=== PATIENT | female | born 1930 | race Caucasian/White ===

== ENCOUNTER 2017-01-07 10:42 | Inpatient (IN) | payer OTHER, MEDICARE ==
--- NOTE | 2017-01-07 10:49 | PDOC ---
History of Present Illness - General History Source: Patient, Family, Primary Care Provider Exam Limitations: No Limitations - History of Present Illness Initial Comments: 01/07/17 11:20 The patient is a 86 year old female with significant past medical history of chronic diastolic heart failure, paroxysmal atrial fibrillation, mitral regurgitation, hypertension, hypothyroidism, stage 3 CKD, and anemia who presents to the ED sent by PCP for low blood pressure and fluid overload. Patient has no complaints. Family, at bedside, states she was seen by her PMD about an hour prior to arrival when she was noted to have low blood pressure and sent to the ER for further evaluation. States patients lasix was increased [address] Escalante. The patient denies fever, chills, diaphoresis, cough, SOB, chest pain, and palpitations. The patient denies abdominal pain, nausea, vomiting, and diarrhea. Allergies: NKDA Social History: No alcohol, tobacco, or drug use reported. Past Surgical History: cataract surgery PCP: Dr. Canas Director Employment: Dr. Chuck Escalante <Brandi Dodge - Last Filed: 01/07/17 12:16> <Sugar Russo - Last Filed: 01/07/17 12:26> - General Chief Complaint: Blood Pressure Problem Stated Complaint: LOW BP Time Seen by Provider: 01/07/17 10:48 Past History <Brandi Dodge - Last Filed: 01/07/17 12:16> - Past Medical History Anemia: Yes Asthma: No Cancer: No Cardiac Disorders: Yes (afib) CVA: No COPD: Yes (Diagnosed 2 yrs ago but family feels that pt is asymptomatic) CHF: Yes Dementia: No Diabetes: No GI Disorders: Yes (Abdominal distention; diverticulitis) Disorders: Yes (hx of uti) HTN: Yes Hypercholesterolemia: Yes Liver Disease: No Seizures: No Thyroid Disease: Yes - Surgical History Abdominal Surgery: No Appendectomy: No Cardiac Surgery: No Cholecystectomy: No Lung Surgery: No Neurologic Surgery: No Orthopedic Surgery: No - Psycho/Social/Smoking Cessation Hx Anxiety: No Suicidal Ideation: No Smoking History: Never smoked Hx Alcohol Use: No Drug/Substance Use Hx: No Substance Use Type: None Hx Substance Use Treatment: No <Sugar Russo - Last Filed: 01/07/17 12:26> - Past Medical History Allergies/Adverse Reactions: Allergies Allergy/AdvReac Type Severity Reaction Status Date / Time No Known Allergies Allergy Verified 01/07/17 10:57 Home Medications: Ambulatory Orders Apixaban [Eliquis] 2.5 mg PO DAILY 01/07/17 Carvedilol 9.375 mg PO BID 01/07/17 Docusate Sodium [Colace -] 100 mg PO BID 01/07/17 Furosemide [Lasix] 40 mg PO BID 01/07/17 Levothyroxine [Synthroid -] 50 mcg PO DAILY 01/07/17 Metolazone 2.5 mg PO DAILY 01/07/17 Sennosides/Docusate Sodium [Senna Laxative Tablet] 2 tab PO HS 01/07/17 Review of Systems - Review of Systems Able to Perform ROS?: Yes Comments:: 01/07/17 11:20 GENERAL/CONSTITUTIONAL: No fever or chills. No weakness. HEAD, EYES, EARS, NOSE AND THROAT: No change in vision. No ear pain or discharge. No sore throat. CARDIOVASCULAR: No chest pain or shortness of breath. RESPIRATORY: No cough, wheezing, or hemoptysis. GASTROINTESTINAL: No nausea, vomiting, diarrhea or constipation. GENITOURINARY: No dysuria, frequency, or change in urination. MUSCULOSKELETAL: No joint or muscle swelling or pain. No neck or back pain. SKIN: No rash NEUROLOGIC: No headache, vertigo, loss of consciousness, or change in strength/ sensation. ENDOCRINE: No increased thirst. No abnormal weight change. HEMATOLOGIC/LYMPHATIC: No anemia, easy bleeding, or history of blood clots. ALLERGIC/IMMUNOLOGIC: No hives or skin allergy. <Brandi Dodge - Last Filed: 01/07/17 12:16> *Physical Exam - Vital Signs Last Vital Signs Temp Pulse Resp BP Pulse Ox 58 L 16 106/61 97 01/07/17 11:08 01/07/17 10:57 01/07/17 10:57 01/07/17 11:08 - Physical Exam Comments: 01/07/17 11:20 GENERAL: Awake, alert, and fully oriented, in no acute distress HEAD: No signs of trauma EYES: PERRLA, EOMI, sclera anicteric, conjunctiva clear ENT: Auricles normal inspection, hearing grossly normal, nares patent, oropharynx clear without exudates. Moist mucosa NECK: Normal ROM, supple, no lymphadenopathy, JVD, or masses LUNGS: Breath sounds equal, clear to auscultation bilaterally. No wheezes, and no crackles HEART: Regular rate and rhythm, normal S1 and S2, no rubs or gallops. Systolic ejection murmur. ABDOMEN: Soft, nontender, normoactive bowel sounds. No guarding, no rebound. No masses EXTREMITIES: Normal range of motion. +1 pitting edema bilaterally, left greater than right. No clubbing or cyanosis. No cords or tenderness. Slight redness in left lower extremity (requested by PMD for further evaluation). NEUROLOGICAL: Cranial nerves II through XII grossly intact. Normal speech SKIN: Warm, Dry, normal turgor, no rashes or lesions noted. <Brandi Dodge - Last Filed: 01/07/17 12:16> ED Treatment Course - LABORATORY CBC & Chemistry Diagram: 01/07/17 11:19 01/07/17 11:07 - RADIOLOGY Radiograph Interpretation: 01/07/17 11:24 RAD/CHEST X-RAY PORTABLE* Radiologist's Impression: The left lower lateral chest wall was not included on this exam. Since 07/08/2016, the cardiac silhouette remains moderately enlarged allowing for magnification with unfolding of the aortic arch.. A calcified density is again seen along the right paratracheal margin , just above the level of the gordon measuring 2.2 x 1.1 cm compatible with a calcified lymph node. There are mild perihilar increased lung markings. No focal infiltrates are identified. Left lateral costophrenic angle was not included on this exam. Mild the low scoliosis of the lumbar spine. Visualized osseous structures appear intact impression: Images examination, as described above. Left lower lateral chest wall and lateral margin of the left lateral costophrenic angle was not included. Moderate cardiomegaly. No gross acute lung disease is present. <Brandi Dodge - Last Filed: 01/07/17 12:16> - LABORATORY CBC & Chemistry Diagram: 01/07/17 11:19 01/07/17 11:07 <Sugar Russo - Last Filed: 01/07/17 12:26> Medical Decision Making - Medical Decision Making 01/07/17 12:16 Pagegilmer Escalante (via office) Awaiting call back <Brandi Dodge - Last Filed: 01/07/17 12:16> - Medical Decision Making 01/07/17 12:23 I, Dr. Sugar Russo DO, attest that this document has been prepared under my direction and personally reviewed by me in its entirety. I further attest, that it accurately reflects all work, treatment, procedures and medical decision -making performed by me. 01/07/17 12:23 a/p: 86yo female sent for eval of leg swelling, hypotension -bp low but not hypotensive upon arrival -labs -ekg -cxr -will discuss with DR. Canas 01/07/17 12:23 labs reviewed, discussed with DR. Canas. recent h/h 8.7/27.4 recent bun/cr: 65/1.52 a1c: 5.7 tsh: 4.18 b12: 361 iron: 40 01/07/17 12:25 case discuss with hospitalist DILLAN Orellana - pt with CHF exacerbation with MIKE on CKD. accepts pt for admission <Sugar Russo - Last Filed: 01/07/17 12:26> *DC/Admit/Observation/Transfer - Attestations Scribe Attestion: 01/07/17 11:20 Documentation prepared by Brandi Dodge, acting as medical services manager for Sugar Russo DO, MD/. <Brandi Dodge - Last Filed: 01/07/17 12:16> - Discharge Dispostion Admit: Yes <Sugar Russo - Last Filed: 01/07/17 12:26> Diagnosis at time of Disposition: Acute kidney injury Acute on chronic congestive heart failure Qualifiers: Congestive heart failure type: unspecified congestive heart failure type Qualified Code(s): I50.9 - Heart failure, unspecified - Discharge Dispostion Condition at time of disposition: Guarded
[2017-01-07 11:09] VITALS: BMI 24.9
[2017-01-07 11:26] LABS: BASOPHIL 0.4 % (0-2.0); MCH 30.6 pg (25.7-33.7); MCHC 32.8 g/dl (32.0-36.0); MEAN CELL VOLUME 93.4 fl (80-96); MEAN PLT VOLUME 7.9 fl (7.5-11.1); NEUTROPHILS 71.5 % (42.8-82.8); PLATELET COUNT 186 K/MM3 (134-434); RDW 14.4 % (11.6-15.6); WHITE BLOOD COUNT 8.1 K/mm3 (4.0-10.0)
[2017-01-07 11:57] LABS: ALBUMIN 2.9 g/dl (3.4-5.0); ALK PHOS 140 U/L (45-117); ANION GAP 10 (8-16); BILIRUBIN,TOTAL 0.5 mg/dL (0.2-1.0); CALCIUM 8.7 mg/dL (8.5-10.1); CO2 37 mmol/L (21-32); CPK 211 IU/L (26-192); CREATININE 1.8 mg/dL (0.55-1.02); GLUCOSE,RANDOM 159 mg/dL (74-106); SGOT/AST 28 U/L (15-37); SGPT/ALT 19 U/L (12-78); TOT PROT 6.4 g/dl (6.4-8.2)
[2017-01-07 11:59] LABS: TROPONIN I 0.17 ng/ml (0.00-0.05)
[2017-01-07] MEDS ORDERED: POTASSIUM CHLORIDE TABS 20 MEQ TABLET.ER (FP) PO ONE ×2 (13:24→13:44)
[2017-01-07] MEDS ORDERED: ONDANSETRON 4 MG/2 ML VIAL IVPB PRN (13:33)
--- NOTE | 2017-01-07 13:35 | HP ---
CHIEF COMPLAINT: Swelling PCP: Dr. Canas (neighbor, dose home visits) HISTORY OF PRESENT ILLNESS: This is an 86 year old female with a history of diverticulitis, hypothyroidism, HTN, PAF on Eliquis, and dCHF referred to the ED by her tenant/PCP who noticed that she had worsening LE edema and was borderline hypotensive (90s systolic) today. The patient denies all complaints. ER course was notable for: (1) CXR: Moderate cardiomegaly, increased interstitial lung markings (2) Cr 1.8 (1.2 on prior visit in July) (3) Troponin elevated at 0.17 (4) BPN 9323 Recent Travel: None PAST MEDICAL HISTORY: As above PAST SURGICAL HISTORY: None Social History: Lives alone, independent in ADLs Smoking: Never smoker Alcohol: None Family History: Non-contributory to this admission Allergies No Known Allergies Allergy (Verified 01/07/17 10:57) HOME MEDICATIONS: Home Medications Medication Instructions Recorded Apixaban [Eliquis] 2.5 mg PO DAILY 01/07/17 Carvedilol 9.375 mg PO BID 01/07/17 Docusate Sodium [Colace -] 100 mg PO BID 01/07/17 Furosemide [Lasix] 40 mg PO BID 01/07/17 Levothyroxine [Synthroid -] 50 mcg PO DAILY 01/07/17 Metolazone 2.5 mg PO DAILY 01/07/17 Sennosides/Docusate Sodium [Senna 2 tab PO HS 01/07/17 Laxative Tablet] REVIEW OF SYSTEMS CONSTITUTIONAL: Absent: fever, chills, diaphoresis, generalized weakness, malaise, loss of appetite, weight change HEENT: Absent: rhinorrhea, nasal congestion, throat pain, throat swelling, difficulty swallowing, mouth swelling, ear pain, eye pain, visual changes CARDIOVASCULAR: Absent: chest pain, syncope, palpitations, irregular heart rate, lightheadedness , peripheral edema RESPIRATORY: Absent: cough, shortness of breath, dyspnea with exertion, orthopnea, wheezing, stridor, hemoptysis GASTROINTESTINAL: Absent: abdominal pain, abdominal distension, nausea, vomiting, diarrhea, constipation, melena, hematochezia GENITOURINARY: Absent: dysuria, frequency, urgency, hesitancy, hematuria, flank pain, genital pain MUSCULOSKELETAL: Absent: myalgia, arthralgia, joint swelling, back pain, neck pain SKIN: Absent: rash, itching, pallor HEMATOLOGIC/IMMUNOLOGIC: Absent: easy bleeding, easy bruising, lymphadenopathy, frequent infections ENDOCRINE: Absent: unexplained weight gain, unexplained weight loss, heat intolerance, cold intolerance NEUROLOGIC: Absent: headache, focal weakness or paresthesias, dizziness, unsteady gait, seizure, mental status changes, bladder or bowel incontinence PSYCHIATRIC: Absent: anxiety, depression, suicidal or homicidal ideation, hallucinations. PHYSICAL EXAMINATION Vital Signs - 24 hr 01/07/17 12:53 O2 Sat by Pulse 97 Oximetry (%) GENERAL: Awake, alert, and fully oriented, in no acute distress. HEAD: Normal with no signs of trauma. EYES: Pupils equal, round and reactive to light, extraocular movements intact, sclera anicteric, conjunctiva clear. No lid lag. EARS, NOSE, THROAT: Ears normal, nares patent, oropharynx clear without exudates. Moist mucous membranes. NECK: Normal range of motion, supple without lymphadenopathy, JVD, or masses. LUNGS: Soft systolic murmur. Fine rails at bases. HEART: Regular rate and rhythm, normal S1 and S2 without murmur, rub or gallop. ABDOMEN: Soft, nontender, not distended, normoactive bowel sounds, no guarding, no rebound, no masses. No hepatomegaly or splenomegaly. MUSCULOSKELETAL: Normal range of motion at all joints. No bony deformities or tenderness. No CVA tenderness. UPPER EXTREMITIES: 2+ pulses, warm, well-perfused. No cyanosis. No clubbing. No peripheral edema. LOWER EXTREMITIES: 2+ pulses, warm, well-perfused. No calf tenderness. 2+ pitting LE edema bilaterally with mild erythema and warmth. NEUROLOGICAL: Cranial nerves II-XII intact. Normal speech. Normal gait. PSYCHIATRIC: Cooperative. Good eye contact. Appropriate mood and affect. SKIN: Warm, dry, normal turgor, no rashes or lesions noted, normal capillary refill. ASSESSMENT/PLAN: 86 year old female with MIKE in the setting of exacerbation of CHF. Problem List - Problem (1) MIKE (acute kidney injury) Assessment/Plan: -Suspect prerenal in the setting of CHF exacerbation -Send urine electrolytes, calculate FENa -Renal consultations for recommendations re: diuretics: recommend continuing Lasix and holding Metolazone Code(s): N17.9 - ACUTE KIDNEY FAILURE, UNSPECIFIED (2) CHF exacerbation Assessment/Plan: -Continue Coreg, Lasix -Strict I/O -Daily weights -Sodium-controlled diet Code(s): I50.9 - HEART FAILURE, UNSPECIFIED Qualifiers: Congestive heart failure type: unspecified congestive heart failure type Qualified Code(s): I50.9 - Heart failure, unspecified (3) Hypertensive heart and chronic kidney disease stage 3 Assessment/Plan: -Renal evaluation; patient has not seen a amalgamator Code(s): I13.10 - HYP HRT & CHR KDNY DIS W/O HRT FAIL, W STG 1-4/UNSP CHR KDNY N18.3 - CHRONIC KIDNEY DISEASE, STAGE 3 (MODERATE) (4) Hypothyroid Assessment/Plan: -Continue levothyroxine Code(s): E03.9 - HYPOTHYROIDISM, UNSPECIFIED Qualifiers: Hypothyroidism type: unspecified Qualified Code(s): E03.9 - Hypothyroidism, unspecified (5) PAF (paroxysmal atrial fibrillation) Assessment/Plan: -Continue Eliquis for AC Code(s): I48.0 - PAROXYSMAL ATRIAL FIBRILLATION (6) Elevated troponin Assessment/Plan: -Monitor on telemetry -Serial troponins to rule out VT Code(s): R74.8 - ABNORMAL LEVELS OF OTHER SERUM ENZYMES (7) Hypokalemia Assessment/Plan: -Replete Code(s): E87.6 - HYPOKALEMIA (8) Lower extremity edema Assessment/Plan: -Suspect secondary to CHF, however also with warmth/erythema -Ancef 1g q8h for possible cellulitis -Duplex LE to r/o DVT Code(s): R60.0 - LOCALIZED EDEMA (9) Anemia Assessment/Plan: -Chronic, baseline Code(s): D64.9 - ANEMIA, UNSPECIFIED Qualifiers: Anemia type: unspecified type Qualified Code(s): D64.9 - Anemia, unspecified (10) DVT prophylaxis Assessment/Plan: -Eliquis Code(s): [id number] - Visit type - Emergency Visit Emergency Visit: Yes ED Registration Date: 01/07/17 Care time: The patient presented to the Emergency Department on the above date and was hospitalized for further evaluation of their emergent condition. - New Patient This patient is new to me today: Yes Date on this admission: 01/07/17 - Critical Care Critical Care patient: No
[2017-01-07] MEDS ORDERED: POTASSIUM CHLORIDE ORAL LIQUID 20 MEQ/15 ML ONE (13:52)
--- NOTE | 2017-01-07 16:40 | CON.NEP ---
Consult Consult Specialty:: Nephrolgoy (Jefry/Marek) Referred by:: Reyna Tavarez Reason for Consultation:: MIKE on CKD - History of Present Illness Chief Complaint: LE swelling History of Present Illness: This is a 86 year old woman with PMhx of CHF (diastolic dysfunction), MR, Hypertension, P-Afib, Hypertension, CKD Stage 3 (baseline Cr 1.1-1.2) presented to the ED with LE swelling and found to have BUN/Cr of 108/1.8. Pt has been on Lasix and Metolazone that was recently stated as a outpatient. Family reports that weight when she is evolemic is around 119lbs. Denies any nsaid use or recent contrast exposure. No Abx use. Denies any urinary retention. No rash. Daughter reports that the legs are much better now then then had been before the motolazone. No flank pain, N/V/D. - History Source History Provided By: Patient Limitations to Obtaining History: No Limitations - Past Medical History Cardio/Vascular: Yes: CAD, CHF, HTN, [place] - Alcohol/Substance Use Hx Alcohol Use: No - Smoking History Smoking history: Never smoked Home Medications - Allergies Allergies/Adverse Reactions: Allergies Allergy/AdvReac Type Severity Reaction Status Date / Time No Known Allergies Allergy Verified 01/07/17 10:57 - Home Medications Home Medications: Ambulatory Orders Apixaban [Eliquis] 2.5 mg PO DAILY 01/07/17 Carvedilol 9.375 mg PO BID 01/07/17 Docusate Sodium [Colace -] 100 mg PO BID 01/07/17 Furosemide [Lasix] 40 mg PO BID 01/07/17 Levothyroxine [Synthroid -] 50 mcg PO DAILY 01/07/17 Metolazone 2.5 mg PO DAILY 01/07/17 Sennosides/Docusate Sodium [Senna Laxative Tablet] 2 tab PO HS 01/07/17 Family Disease History - Family Disease History Family History: Unremarkable Review of Systems - Review of Systems Constitutional: reports: No Symptoms Eyes: reports: No Symptoms HENT: reports: No Symptoms Neck: reports: No Symptoms Cardiovascular: reports: Edema Respiratory: reports: No Symptoms Gastrointestinal: reports: No Symptoms Genitourinary: reports: No Symptoms Breasts: reports: No Symptoms Reported Musculoskeletal: reports: Muscle Cramps Neurological: reports: No Symptoms Nephrology Consult - Height Height: 5 ft 4 in - Weight Weight: 145 lb - BMI Body Mass Index (BMI): 24.9 - Lab Results Anion Gap: Anion Gap Anion Gap 10 (8-16) 01/07/17 11:07 - Imaging Chest X-ray: Report Reviewed - Physical Examination Vital Signs: Vital Signs Temperature 98.1 F 01/07/17 14:27 Pulse Rate 98 H 01/07/17 14:27 Respiratory Rate 20 01/07/17 14:27 Blood Pressure 97/64 01/07/17 14:27 O2 Sat by Pulse Oximetry (%) 96 01/07/17 14:27 Constitutional: Yes: No Distress, Calm Eyes: Yes: Conjunctiva Clear HENT: Yes: Atraumatic Neck: Yes: Supple Cardiovascular: Yes: Regular Rate and Rhythm Respiratory: Yes: Regular, CTA Bilaterally Gastrointestinal: Yes: Normal Bowel Sounds, Soft Extremities: Yes: Erythema, Other (tenderness and warmth) Edema: Yes Edema: LLE: 1+, RLE: 1+ Neurological: Yes: Alert, Oriented Problem List - Problems (1) MIKE (acute kidney injury) Code(s): N17.9 - ACUTE KIDNEY FAILURE, UNSPECIFIED (2) CHF exacerbation Code(s): I50.9 - HEART FAILURE, UNSPECIFIED Qualifiers: Congestive heart failure type: unspecified congestive heart failure type Qualified Code(s): I50.9 - Heart failure, unspecified (3) Hypokalemia Code(s): E87.6 - HYPOKALEMIA (4) Acute on chronic diastolic CHF (congestive heart failure) Code(s): I50.33 - ACUTE ON CHRONIC DIASTOLIC (CONGESTIVE) HEART FAILURE (5) Edema Code(s): R60.9 - EDEMA, UNSPECIFIED Qualifiers: Edema type: unspecified Qualified Code(s): R60.9 - Edema, unspecified (6) Hypertension Code(s): I10 - ESSENTIAL (PRIMARY) HYPERTENSION Qualifiers: Hypertension type: essential hypertension Qualified Code(s): I10 - Essential (primary) hypertension Assessment/Plan 86 year old woman with PMhx of CHF (diastolic dysfunction), MR, Hypertension, P- Afib, Hypertension, CKD Stage 3 (baseline Cr 1.1-1.2) presented to the ED with LE swelling and found to have BUN/Cr of 108/1.8. #MIKE on CKD Stage 3 Likely due to hypoprofusion in setting of intravascular volume depletion (Lasix + Metolazone) Pt with signs of mild volume overlaod so would continue Lasix but would hold Metolazone at this time Check Urine studies and Renal/Bladder Us Trend BUN/Cr #LE swelling/Erythema/CHF No orthopena, PND no overt congestion on CXR continue BID lasix consider Abx for LE as pt has warmth and erythema #Hx of Hypertension BP is now low contnue lasix Trend BP keep MAP > 65 #Hypokalemia supplement to keep K > 3.5 trend Mg levels Thank you Will follow Kenn Jara DO
[2017-01-07] MEDS ORDERED: FUROSEMIDE 40 MG/4 ML INJECTABLE VIAL ONE (17:48)
[2017-01-07] MEDS: FUROSEMIDE 40 MG TABLET (FP) PO SCH (18:14)
[2017-01-07 20:34] LABS: TROPONIN I 0.16 ng/ml (0.00-0.05)
[2017-01-07] MEDS ORDERED: CEFAZOLIN (PRE-DOCKED) 50 ML IVPB ONE (21:50)
[2017-01-07] MEDS ORDERED: CARVEDILOL 3.125 MG TABLET (FP) PO SCH (22:00)
[2017-01-07] MEDS ORDERED: DOCUSATE SODIUM 100 MG CAPSULE (FP) PO ONE (22:18)
[2017-01-07] MEDS: CEFAZOLIN 1 GM in DEXTROSE 5%-WATER - 50 ML IVPB SCH (22:47)
[2017-01-07] MEDS: ACETAMINOPHEN 325 MG TABLET (FP) PO PRN (23:00)
[2017-01-07] MEDS ORDERED: ACETAMINOPHEN 325 MG TABLET (FP) ONE (23:25)
[2017-01-07] MEDS: DOCUSATE SODIUM 100 MG CAPSULE (FP) PO SCH (23:33)
[2017-01-07] MEDS: APIXABAN 2.5 MG TABLET PO SCH (23:33)
[2017-01-07] MEDS: SENNOSIDES/DOCUSATE COMBO (SENNA PLUS) TABLET (UD) PO SCH (23:33)
[2017-01-07] MEDS: CARVEDILOL PO SCH (23:34)
[2017-01-08] MEDS ORDERED: CEFAZOLIN (PRE-DOCKED) 50 ML IVPB ONE (05:46)
[2017-01-08] MEDS: CEFAZOLIN 1 GM in DEXTROSE 5%-WATER - 50 ML IVPB SCH (05:59)
[2017-01-08] MEDS: FUROSEMIDE 40 MG TABLET (FP) PO SCH ×2 (05:59→14:06)
[2017-01-08] MEDS: LEVOTHYROXINE NA 50 MCG TABLET (FP) PO SCH (06:00)
[2017-01-08 06:24] LABS: MCH 31.3 pg (25.7-33.7); MCHC 33.6 g/dl (32.0-36.0); MEAN PLT VOLUME 8.1 fl (7.5-11.1); PLATELET COUNT 212 K/MM3 (134-434); RDW 14.7 % (11.6-15.6); WHITE BLOOD COUNT 6.7 K/mm3 (4.0-10.0)
[2017-01-08 06:47] LABS: ALBUMIN 2.8 g/dl (3.4-5.0); ANION GAP 8 (8-16); CHOLESTEROL 149 mg/dL (50-200); CO2 35 mmol/L (21-32); GLUCOSE,RANDOM 125 mg/dL (74-106); MAGNESIUM 2.2 mg/dL (1.8-2.4)
[2017-01-08 06:50] LABS: ALK PHOS 132 U/L (45-117); BILIRUBIN,TOTAL 0.4 mg/dL (0.2-1.0); CPK 198 IU/L (26-192); CREATININE 1.5 mg/dL (0.55-1.02); SGOT/AST 32 U/L (15-37); SGPT/ALT 18 U/L (12-78); TOT PROT 6.4 g/dl (6.4-8.2); TROPONIN I 0.19 ng/ml (0.00-0.05)
[2017-01-08 07:05] LABS: CALCIUM 8.7 mg/dL (8.5-10.1)
[2017-01-08] MEDS ORDERED: POTASSIUM CHLORIDE TABS 20 MEQ TABLET.ER (FP) PO ONE ×3 (08:33→13:30)
[2017-01-08] MEDS ORDERED: CARVEDILOL 3.125 MG TABLET (FP) ONE (08:42)
[2017-01-08] MEDS: CARVEDILOL PO SCH (08:46)
[2017-01-08] MEDS ORDERED: ACETAMINOPHEN 325 MG TABLET (FP) ONE (09:00)
[2017-01-08] MEDS: ACETAMINOPHEN 325 MG TABLET (FP) PO PRN (09:02)
[2017-01-08] MEDS: DOCUSATE SODIUM 100 MG CAPSULE (FP) PO SCH ×2 (09:26→21:41)
[2017-01-08] MEDS: APIXABAN 2.5 MG TABLET PO SCH ×2 (09:26→21:41)
[2017-01-08 09:55] LABS: PHOSPHOROUS 3.6 mg/dL (2.5-4.9)
[2017-01-08] MEDS ORDERED: APIXABAN 2.5 MG TABLET PO SCH (10:00)
[2017-01-08] MEDS ORDERED: METOLAZONE 2.5 MG TABLET (FP) PO SCH (10:00)
--- NOTE | 2017-01-08 10:22 | CON.CARD ---
Consult Consult Specialty:: Cardiology Referred by:: Hospitalist Reason for Consultation:: Cardiac evaluation - History of Present Illness Chief Complaint: Weakness and fatigue History of Present Illness: Patient is an 86 year old female well known to me with underlying history of acute on chronic diastolic heart failure, class II NYHA classification LV failure, hypothyroidism, hypertention, paroxysmal atrial fibrillation remains in sinus rhythm on Eliquis who presents with worsening weakness and fatigue. She also presented with pedal edema and hypotension. She has stage 3 CKD, anemia and mitral valve regurgitation. Transthoracic echocardiography in the office revealed normal left ventricular systolic function, moderate mitral valve regurgitation. mild mitral valve prolapse, moderate tricuspid valve regurgitation, mild to moderate aortic valve regurgitation and mild pulmonary hypertension. Doppler US did not reveal DVT. Patient was given IV Furosemide and currently pedal edema has come down. She appears comfortable and denies chest pain, shortness of breath or palpitations. She denies paroxysmal nocturnal dyspnea or orthopnea. She denies fever or chills. She denies headache or lightheadedness. She apparently has been taking higher dose of Carvedilol and even in the ER, she was prescribed higher dose of Carvedilol even though she was recommended to take 3.125 mg twice a day when she was seen in office on 12/24/16. Monitor revealed periods of sinus bradycardia in 30's intermittently. Wide complex rhythm on the monitor appears to be an artifact. - History Source History Provided By: Patient, Family Member, Medical Record Limitations to Obtaining History: No Limitations - Past Medical History Cardio/Vascular: Yes: CAD, CHF, HTN, OK, Mitral Insufficiency Renal/: Yes: Renal Inusuff Heme/Onc: Yes: Anemia Endocrine: Yes: Hypothyroidism - Alcohol/Substance Use Hx Alcohol Use: No - Smoking History Smoking history: Never smoked Home Medications - Allergies Allergies/Adverse Reactions: Allergies Allergy/AdvReac Type Severity Reaction Status Date / Time No Known Allergies Allergy Verified 01/07/17 10:57 - Home Medications Home Medications: Ambulatory Orders Apixaban [Eliquis] 2.5 mg PO DAILY 01/07/17 Carvedilol 9.375 mg PO BID 01/07/17 Docusate Sodium [Colace -] 100 mg PO BID 01/07/17 Furosemide [Lasix] 40 mg PO BID 01/07/17 Levothyroxine [Synthroid -] 50 mcg PO DAILY 01/07/17 Metolazone 2.5 mg PO DAILY 01/07/17 Sennosides/Docusate Sodium [Senna Laxative Tablet] 2 tab PO HS 01/07/17 Family Disease History - Family Disease History Family Disease History: Heart Disease: Mother, CA: Father (Prostate) Review of Systems - Review of Systems Constitutional: reports: Weakness. denies: Chills, Fever Cardiovascular: reports: Shortness of Breath. denies: Chest Pain, Palpitations Respiratory: reports: SOB. denies: Cough, Hemoptysis, Orthopnea, PND Gastrointestinal: denies: Abdominal Pain, Constipation, Diarrhea, Melena, Nausea , Rectal Bleeding, Vomiting Musculoskeletal: reports: Joint Pain Neurological: reports: Weakness. denies: Confusion, Dizziness, Headache, Seizure, Syncope Vital Signs: Vital Signs Temperature 97.8 F 01/08/17 06:00 Pulse Rate 57 L 01/08/17 09:03 Respiratory Rate 24 01/08/17 09:03 Blood Pressure 104/72 01/08/17 09:03 O2 Sat by Pulse Oximetry (%) 97 01/08/17 06:48 Neck: Yes: Supple Respiratory: Yes: Diminished Gastrointestinal: Yes: Normal Bowel Sounds, Soft. No: Tenderness Cardiovascular: Yes: Regular Rate and Rhythm JVD: No Carotid Bruit: No PMI: Non-Displaced Heart Sounds: Yes: S1, S2 Murmur: Yes: Systolic Murmur, Grade 1 Edema: No - Other Data Labs, Other Data: CBC, BMP 01/08/17 06:00 01/08/17 06:00 Troponin, BNP 01/07/17 01/08/17 19:29 06:00 Troponin I 0.16 H 0.19 H Laboratory Results - last 24 hr 01/07/17 01/07/17 01/07/17 11:07 19:29 19:48 WBC RBC Hgb Hct MCV MCH MCHC RDW Plt Count MPV Sodium 137 Potassium 3.3 L D Chloride 90 L D Carbon Dioxide 37 H D Anion Gap 10 BUN 104 H D Creatinine 1.8 H D Creat Clearance w eGFR 26.62 Random Glucose 159 H D Hemoglobin A1c % Calcium 8.7 Phosphorus Magnesium Total Bilirubin 0.5 AST 28 D ALT 19 Alkaline Phosphatase 140 H Creatine Kinase 211 H 164 Creatine Kinase Index 2.0 1.7 CK-MB (CK-2) 4.381 H 2.827 Troponin I 0.17 H 0.16 H B-Natriuretic Peptide 9323.86 H Total Protein 6.4 Albumin 2.9 L Triglycerides Cholesterol Total LDL Cholesterol HDL Cholesterol Urine Color Urine Appearance Urine pH Urine Protein Urine Glucose (UA) Urine Ketones Urine Blood Urine Nitrite Urine Bilirubin Urine Urobilinogen Ur Leukocyte Esterase Urine RBC Urine WBC Hyaline Casts Urine Mucus Ur Random Sodium Ur Random Potassium Ur Random Chloride Ur Random Urea Nitrogn Urine Creatinine 45.9 01/07/17 01/08/17 01/08/17 19:48 06:00 06:00 WBC 6.7 RBC 3.27 L Hgb 10.2 L Hct 30.5 L MCV 93.0 MCH 31.3 MCHC 33.6 RDW 14.7 Plt Count 212 MPV 8.1 Sodium 139 Potassium 3.3 L Chloride 96 L Carbon Dioxide 35 H Anion Gap 8 BUN 101 H Creatinine 1.5 H Creat Clearance w eGFR 32.85 Random Glucose 125 H D Hemoglobin A1c % Calcium 8.7 Phosphorus 3.6 Magnesium 2.2 Total Bilirubin 0.4 AST 32 ALT 18 Alkaline Phosphatase 132 H Creatine Kinase 198 H Creatine Kinase Index 1.9 CK-MB (CK-2) 3.881 H Troponin I 0.19 H B-Natriuretic Peptide Total Protein 6.4 Albumin 2.8 L Triglycerides 82 D Cholesterol 149 Total LDL Cholesterol 79 HDL Cholesterol 57 D Urine Color Urine Appearance Urine pH Urine Protein Urine Glucose (UA) Urine Ketones Urine Blood Urine Nitrite Urine Bilirubin Urine Urobilinogen Ur Leukocyte Esterase Urine RBC Urine WBC Hyaline Casts Urine Mucus Ur Random Sodium Ur Random Potassium Ur Random Chloride Ur Random Urea Nitrogn 370 Urine Creatinine 01/08/17 01/08/17 01/08/17 06:00 08:15 10:40 WBC RBC Hgb Hct MCV MCH MCHC RDW Plt Count MPV Sodium Potassium Chloride Carbon Dioxide Anion Gap BUN Creatinine Creat Clearance w eGFR Random Glucose Hemoglobin A1c % 5.3 Calcium Phosphorus Cancelled Magnesium Total Bilirubin AST ALT Alkaline Phosphatase Creatine Kinase Creatine Kinase Index CK-MB (CK-2) Troponin I B-Natriuretic Peptide Total Protein Albumin Triglycerides Cholesterol Total LDL Cholesterol HDL Cholesterol Urine Color Urine Appearance Urine pH Urine Protein Urine Glucose (UA) Urine Ketones Urine Blood Urine Nitrite Urine Bilirubin Urine Urobilinogen Ur Leukocyte Esterase Urine RBC Urine WBC Hyaline Casts Urine Mucus Ur Random Sodium 91 Ur Random Potassium 15.1 Ur Random Chloride 84 Ur Random Urea Nitrogn Urine Creatinine 01/08/17 10:40 WBC RBC Hgb Hct MCV MCH MCHC RDW Plt Count MPV Sodium Potassium Chloride Carbon Dioxide Anion Gap BUN Creatinine Creat Clearance w eGFR Random Glucose Hemoglobin A1c % Calcium Phosphorus Magnesium Total Bilirubin AST ALT Alkaline Phosphatase Creatine Kinase Creatine Kinase Index CK-MB (CK-2) Troponin I B-Natriuretic Peptide Total Protein Albumin Triglycerides Cholesterol Total LDL Cholesterol HDL Cholesterol Urine Color Straw Urine Appearance Clear Urine pH 7.0 D Urine Protein Negative Urine Glucose (UA) Negative Urine Ketones Negative Urine Blood Negative Urine Nitrite Negative Urine Bilirubin Negative Urine Urobilinogen Negative Ur Leukocyte Esterase 2+ H Urine RBC 2 Urine WBC 25 Hyaline Casts 4 Urine Mucus Rare Ur Random Sodium Ur Random Potassium Ur Random Chloride Ur Random Urea Nitrogn Urine Creatinine Sinus rhythm poor R progression Echo: Report Reviewed Imaging - Results Chest X-ray: Report Reviewed (Moderate cardiomegaly) Ultrasound: Report Reviewed (US repeated by ER - no DVT) Other: Report Reviewed (Echocardiography repeated as noted) Problem List - Problems (1) MIKE (acute kidney injury) Code(s): N17.9 - ACUTE KIDNEY FAILURE, UNSPECIFIED (2) CHF exacerbation Code(s): I50.9 - HEART FAILURE, UNSPECIFIED Qualifiers: Congestive heart failure type: unspecified congestive heart failure type Qualified Code(s): I50.9 - Heart failure, unspecified (3) Elevated troponin Code(s): R74.8 - ABNORMAL LEVELS OF OTHER SERUM ENZYMES (4) Hypokalemia Code(s): E87.6 - HYPOKALEMIA (5) Lower extremity edema Code(s): R60.0 - LOCALIZED EDEMA (6) Acute on chronic diastolic CHF (congestive heart failure) Code(s): I50.33 - ACUTE ON CHRONIC DIASTOLIC (CONGESTIVE) HEART FAILURE (7) Elevated alkaline phosphatase level Code(s): R74.8 - ABNORMAL LEVELS OF OTHER SERUM ENZYMES (8) Anemia Code(s): D64.9 - ANEMIA, UNSPECIFIED Qualifiers: Anemia type: unspecified type Qualified Code(s): D64.9 - Anemia, unspecified (9) Hypertension Code(s): I10 - ESSENTIAL (PRIMARY) HYPERTENSION Qualifiers: Hypertension type: essential hypertension Qualified Code(s): I10 - Essential (primary) hypertension (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 Code(s): I13.10 - HYP HRT & CHR KDNY DIS W/O HRT FAIL, W STG 1-4/UNSP CHR KDNY N18.3 - CHRONIC KIDNEY DISEASE, STAGE 3 (MODERATE) (11) Hypothyroid Code(s): E03.9 - HYPOTHYROIDISM, UNSPECIFIED Qualifiers: Hypothyroidism type: unspecified Qualified Code(s): E03.9 - Hypothyroidism, unspecified (12) Mitral regurgitation Code(s): I34.0 - NONRHEUMATIC MITRAL (VALVE) INSUFFICIENCY Qualifiers: Cardiac valve disease etiology: nonrheumatic Qualified Code(s): I34.0 - Nonrheumatic mitral (valve) insufficiency (13) PAF (paroxysmal atrial fibrillation) Code(s): I48.0 - PAROXYSMAL ATRIAL FIBRILLATION Assessment/Plan 1. Acute on chronic diastolic heart failure - class 2 NYHA classification LV failure 2. Hypertension/hypertensive cardiovascular disease - currently hypotensive intermittently 3. Sinus bradycardia at times likely due to over medication with beta blockade 4. Paroxysmal atrial fibrillation currently in sinus rhythm on NOAC 5. Hypothyroidism 6. Acute on CKD 7. Anemia PLAN: 1. Stop Carvedilol for now and once heart rate stabilized, restart Carvedilol 3.125 mg twice a day 2. Continue Eliquis 2.5 mg BID 3. Continue Furosemide 40 mg PO BID and monitor renal function and electrolytes. IV Furosemide can be used as needed. Metolazone has been stopped 4. Monitor H/H 5. K supplement 6. Renal input noted Further plans are to follow Chuck Escalante MD
[2017-01-08 11:02] LABS: URINE APPEARANCE CLEAR; URINE BILIRUBIN NEGATIVE (NEGATIVE); URINE BLOOD NEGATIVE (NEGATIVE); URINE COLOR STRAW; URINE GLUCOSE (UA) NEGATIVE (NEGATIVE); URINE KETONE NEGATIVE (NEGATIVE); URINE NITRITE NEGATIVE (NEGATIVE); URINE PROTEIN NEGATIVE (NEGATIVE); URINE UROBILINOGEN NEGATIVE mg/dL (0.2-1.0)
[2017-01-08 11:03] LABS: URINE LEUK ESTERASE 2+ (NEGATIVE)
[2017-01-08 11:04] LABS: URINE HYALINE CAST 4 /lpf; URINE MUCUS RARE; URINE RBC 2 /hpf (0-3); URINE WBC 25 /hpf (3-5)
--- NOTE | 2017-01-08 12:17 | EKG ---
Test Reason : Blood Pressure : / mmHG Vent. Rate : 076 BPM Atrial Rate : 076 BPM P-R Int : 000 ms QRS Dur : 090 ms QT Int : 436 ms P-R-T Axes : 000 -18 132 degrees QTc Int : 490 ms SINUS RHYTHM WITH 1ST DEGREE A-V BLOCK WITH PREMATURE ATRIAL COMPLEXES PROLONGED QT ABNORMAL ECG WHEN COMPARED WITH ECG OF 07-JAN-2017 11:06, NO SIGNIFICANT CHANGE WAS FOUND Confirmed by ELIZABETH DURAND, JHONATHAN ([id number]) on 01/08/2017 12:16:49 PM Referred By: Confirmed By:JHONATHAN JOHNSON MD
--- NOTE | 2017-01-08 12:24 | EKG ---
Test Reason : Blood Pressure : / mmHG Vent. Rate : 058 BPM Atrial Rate : 065 BPM P-R Int : 220 ms QRS Dur : 092 ms QT Int : 480 ms P-R-T Axes : 004 -18 146 degrees QTc Int : 471 ms SINUS RHYTHM WITH 1ST DEGREE A-V BLOCK WITH BLOCKED PREMATURE ATRIAL COMPLEXES PROLONGED QT ABNORMAL ECG WHEN COMPARED WITH ECG OF 08-JUL-2016 11:15, PREMATURE ATRIAL COMPLEXES ARE NOW PRESENT Confirmed by ELIZABETH DURAND, JHONATHAN ([id number]) on 01/08/2017 12:23:57 PM Referred By: Confirmed By:JHONATHAN JOHNSON MD
--- NOTE | 2017-01-08 12:42 | PN ---
Progress Note (short form) - Note Progress Note: Pt seen and examined in the ED Pt awake and alert has discomfort in the LE denies any sob, cough, chest pain, abd pain, N/V/D s/p IV Abx on Oral lasix Vital Signs Temperature 97.8 F 01/08/17 06:00 Pulse Rate 53 L 01/08/17 10:48 Respiratory Rate 18 01/08/17 10:48 Blood Pressure 119/60 01/08/17 10:48 O2 Sat by Pulse Oximetry (%) 100 01/08/17 10:48 Intake & Output 01/05/17 01/06/17 01/07/17 01/08/17 23:59 23:59 23:59 23:59 Weight 145 lb Gen: NAD, awake and alert CVS:RRR, No M/R Lungs: CTA, no rales or wheeze Abd: soft NT/ND Ext: Edema resolved, no erythema today CBC, BMP 01/08/17 06:00 01/08/17 06:00 Current Medications Acetaminophen (Tylenol -) 650 mg PO Q6H PRN PRN Reason: FEVER OR PAIN Last Admin: 01/08/17 09:02 Dose: 650 mg Apixaban (Eliquis -) 2.5 mg PO BID [facility] Last Admin: 01/08/17 09:26 Dose: 2.5 mg Docusate Sodium (Colace -) 100 mg PO BID [facility] Last Admin: 01/08/17 09:26 Dose: 100 mg Furosemide (Lasix -) 40 mg PO BIDLASIX [facility] Last Admin: 01/08/17 05:59 Dose: 40 mg Cefazolin Sodium 1 gm/ (Dextrose) 50 mls @ 100 mls/hr IVPB Q12H [facility] Last Admin: 01/08/17 05:59 Dose: 100 mls/hr Levothyroxine Sodium (Synthroid -) 50 mcg PO ACBK [facility] Last Admin: 01/08/17 06:00 Dose: 50 mcg Ondansetron HCl (Zofran Injection) 4 mg IVPB Q6H PRN PRN Reason: NAUSEA Senna/Docusate Sodium (Pericolace -) 2 tablet PO HS [facility] Last Admin: 01/07/17 23:33 Dose: 2 tablet A/P 86 year old woman with PMhx of CHF (diastolic dysfunction), MR, Hypertension, P- Afib, Hypertension, CKD Stage 3 (baseline Cr 1.1-1.2) presented to the ED with LE swelling and found to have BUN/Cr of 108/1.8. #MIKE on CKD Stage 3 Cr improved from 1.9 to 1.5 off metolazone Pt appears volume depleted and feUrea was 13% indicating renal hypoperfusion would maitain off Metolazone consider down titrating Lasix if pt not suspected to be in acute CHF at this time #LE swelling/Erythema/CHF No orthopena, PND no overt congestion on CXR LE edema improved compared to yesterday evening Cardiology following s/p Abx yesterday with improvement in LE erythema and warmth #Hx of Hypertension BP better today #Hypokalemia supplement to keep K > 3.5 trend Mg levels Kenn Jara DO Problem List - Problems (1) MIKE (acute kidney injury) Code(s): N17.9 - ACUTE KIDNEY FAILURE, UNSPECIFIED (2) CHF exacerbation Code(s): I50.9 - HEART FAILURE, UNSPECIFIED Qualifiers: Congestive heart failure type: unspecified congestive heart failure type Qualified Code(s): I50.9 - Heart failure, unspecified (3) Hypokalemia Code(s): E87.6 - HYPOKALEMIA (4) Acute on chronic diastolic CHF (congestive heart failure) Code(s): I50.33 - ACUTE ON CHRONIC DIASTOLIC (CONGESTIVE) HEART FAILURE (5) Edema Code(s): R60.9 - EDEMA, UNSPECIFIED Qualifiers: Edema type: unspecified Qualified Code(s): R60.9 - Edema, unspecified (6) Hypertension Code(s): I10 - ESSENTIAL (PRIMARY) HYPERTENSION Qualifiers: Hypertension type: essential hypertension Qualified Code(s): I10 - Essential (primary) hypertension
--- NOTE | 2017-01-08 14:35 | PN ---
Physical Exam: SUBJECTIVE: Patient seen and examined at bed side. She is still in the ED bed. She complains of general weakness. she feels cold. She denies any fever, N/V/D/ C. She denies any CP, SOB, palpitations. She complain of lower extremities pain. OBJECTIVE: Vital Signs Period Temp Pulse Resp BP Sys/Carr Pulse Ox Last 24 Hr 97.7 F-98.2 F 53-81 16-24 101-142/52-83 96-100 GENERAL: The patient is awake, alert, and fully oriented, in no acute distress. HEAD: Normal with no signs of trauma. EYES: PERRL,, sclera anicteric, conjunctiva clear. No ptosis. ENT: moist mucous membranes. NECK: Trachea midline, full range of motion, supple. LUNGS: Breath sounds equal, clear to auscultation bilaterally, no wheezes, no crackles, no accessory muscle use. HEART: Regular rate and rhythm, S1, S2 ,2/6 systolic murmur,NO rub or gallop. ABDOMEN: Soft, nontender, nondistended, normoactive bowel sounds, no guarding, no rebound, no hepatosplenomegaly, no masses. EXTREMITIES: 2+ pulses, warm, well-perfused, no edema. NEUROLOGICAL: . Normal speech, gait not observed. PSYCH: Normal mood, normal affect. SKIN: Warm, dry, normal turgor, no rashes or lesions noted Laboratory Results - last 24 hr 01/07/17 01/07/17 01/07/17 19:29 19:48 19:48 WBC RBC Hgb Hct MCV MCH MCHC RDW Plt Count MPV Sodium Potassium Chloride Carbon Dioxide Anion Gap BUN Creatinine Creat Clearance w eGFR Random Glucose Hemoglobin A1c % Calcium Phosphorus Magnesium Total Bilirubin AST ALT Alkaline Phosphatase Creatine Kinase 164 Creatine Kinase Index 1.7 CK-MB (CK-2) 2.827 Troponin I 0.16 H Total Protein Albumin Triglycerides Cholesterol Total LDL Cholesterol HDL Cholesterol TSH Urine Color Urine Appearance Urine pH Urine Protein Urine Glucose (UA) Urine Ketones Urine Blood Urine Nitrite Urine Bilirubin Urine Urobilinogen Ur Leukocyte Esterase Urine RBC Urine WBC Hyaline Casts Urine Mucus Ur Random Sodium Ur Random Potassium Ur Random Chloride Ur Random Urea Nitrogn 370 Urine Creatinine 45.9 01/08/17 01/08/17 01/08/17 06:00 06:00 06:00 WBC 6.7 RBC 3.27 L Hgb 10.2 L Hct 30.5 L MCV 93.0 MCH 31.3 MCHC 33.6 RDW 14.7 Plt Count 212 MPV 8.1 Sodium 139 Potassium 3.3 L Chloride 96 L Carbon Dioxide 35 H Anion Gap 8 BUN 101 H Creatinine 1.5 H Creat Clearance w eGFR 32.85 Random Glucose 125 H D Hemoglobin A1c % 5.3 Calcium 8.7 Phosphorus 3.6 Magnesium 2.2 Total Bilirubin 0.4 AST 32 ALT 18 Alkaline Phosphatase 132 H Creatine Kinase 198 H Creatine Kinase Index 1.9 CK-MB (CK-2) 3.881 H Troponin I 0.19 H Total Protein 6.4 Albumin 2.8 L Triglycerides 82 D Cholesterol 149 Total LDL Cholesterol 79 HDL Cholesterol 57 D TSH Urine Color Urine Appearance Urine pH Urine Protein Urine Glucose (UA) Urine Ketones Urine Blood Urine Nitrite Urine Bilirubin Urine Urobilinogen Ur Leukocyte Esterase Urine RBC Urine WBC Hyaline Casts Urine Mucus Ur Random Sodium Ur Random Potassium Ur Random Chloride Ur Random Urea Nitrogn Urine Creatinine 01/08/17 01/08/17 01/08/17 08:15 10:40 10:40 WBC RBC Hgb Hct MCV MCH MCHC RDW Plt Count MPV Sodium Potassium Chloride Carbon Dioxide Anion Gap BUN Creatinine Creat Clearance w eGFR Random Glucose Hemoglobin A1c % Calcium Phosphorus Cancelled Magnesium Total Bilirubin AST ALT Alkaline Phosphatase Creatine Kinase Creatine Kinase Index CK-MB (CK-2) Troponin I Total Protein Albumin Triglycerides Cholesterol Total LDL Cholesterol HDL Cholesterol TSH Urine Color Straw Urine Appearance Clear Urine pH 7.0 D Urine Protein Negative Urine Glucose (UA) Negative Urine Ketones Negative Urine Blood Negative Urine Nitrite Negative Urine Bilirubin Negative Urine Urobilinogen Negative Ur Leukocyte Esterase 2+ H Urine RBC 2 Urine WBC 25 Hyaline Casts 4 Urine Mucus Rare Ur Random Sodium 91 Ur Random Potassium 15.1 Ur Random Chloride 84 Ur Random Urea Nitrogn Urine Creatinine 01/08/17 13:39 WBC RBC Hgb Hct MCV MCH MCHC RDW Plt Count MPV Sodium Potassium Chloride Carbon Dioxide Anion Gap BUN Creatinine Creat Clearance w eGFR Random Glucose Hemoglobin A1c % Calcium Phosphorus Magnesium Total Bilirubin AST ALT Alkaline Phosphatase Creatine Kinase Creatine Kinase Index CK-MB (CK-2) Troponin I Total Protein Albumin Triglycerides Cholesterol Total LDL Cholesterol HDL Cholesterol TSH 1.55 D Urine Color Urine Appearance Urine pH Urine Protein Urine Glucose (UA) Urine Ketones Urine Blood Urine Nitrite Urine Bilirubin Urine Urobilinogen Ur Leukocyte Esterase Urine RBC Urine WBC Hyaline Casts Urine Mucus Ur Random Sodium Ur Random Potassium Ur Random Chloride Ur Random Urea Nitrogn Urine Creatinine Active Medications Generic Name Dose Route Start Last Admin Trade Name Freq PRN Reason Stop Dose Admin Acetaminophen 650 mg 01/07/17 13:33 01/08/17 09:02 Tylenol - PO 650 mg Q6H PRN Administration FEVER OR PAIN Apixaban 2.5 mg 01/07/17 22:00 01/08/17 09:26 Eliquis - PO 2.5 mg BID ANGELINE Administration Docusate Sodium 100 mg 01/07/17 22:00 01/08/17 09:26 Colace - PO 100 mg BID ANGELINE Administration Furosemide 40 mg 01/07/17 16:00 01/08/17 14:06 Lasix - PO 40 mg BIDLASIX ANGELINE Administration Cefazolin Sodium 1 gm/ 50 mls @ 100 mls/hr 01/07/17 18:30 01/08/17 05:59 Dextrose IVPB 100 mls/hr Q12H ANGELINE Administration Levothyroxine Sodium 50 mcg 01/08/17 07:00 01/08/17 06:00 Synthroid - PO 50 mcg ACBK ANGELINE Administration Ondansetron HCl 4 mg 01/07/17 13:33 Zofran Injection IVPB Q6H PRN NAUSEA Senna/Docusate Sodium 2 tablet 01/07/17 22:00 01/07/17 23:33 Pericolace - PO 2 tablet HS ANGELINE Administration CBC, BMP 01/08/17 06:00 01/08/17 06:00 ASSESSMENT/PLAN: 86 year old woman with PMhx of CHF (diastolic dysfunction), MR, Hypertension, P- Afib, Hypertension, CKD Stage 3 (baseline Cr 1.1-1.2) presented to the ED with LE swelling, worsening weakness and fatigue weakness. # Generalised weakness likey due to symptomatic bradycardia vs UTI vs Hypothyroidism vs CHF * Son state that she has worsen fatigue over the last few weeks * Physical therapy eval * TSH * Bladder scan if >[address] * on antibiotics cefazolin day 2 * F/U culture * * #Acute on chronic diastolic heart failure * class 2 NYHA classification LV failure * no overt congestion on CXR * clinically appears dehydrated however, pt reports dry weight to be 119lbs and is seen here to be 145lbs. * Cardiology consulted recommend continue Lasix 40 mg PO BID, hold on Metolazone * Stop Carvedilol for now and once heart rate stabilized, restart Carvedilol 3.125 mg twice a day #Troponlin leak,likely due to CHF exacerbation and MIKE * trend of troponin 0.17-0.16-0.19. * no EKG changes. no CP. likely due to CHF exacerbation and MIKE #Vtach vs sinus charlie * RN reports Vtach on monitor. appears to be artifact. * Stop Carvedilol for now and once heart rate stabilized, restart Carvedilol 3.125 mg twice a day per cardiology. #MIKE on CKD Stage 3 * Likely due to hypoprofusion in setting of intravascular volume depletion ( Lasix + Metolazone) * US normal * continuelasix will hold metolazone. * Cr improved from 1.9 to 1.5 * Pt appears volume depleted and fe Urea was 13% indicating renal hypoperfusion * would maitain off Metolazone * trend BUN/Cr * Avoid nephro toxogenic * Bladder scan show urine retention > 300 , will start sawyer #LE edema likely 2/2 to CHF exacerbation , resolved * No orthopena, PND * no overt congestion on CXR * LE edema improved compared to yesterday, seems dry today * Cardiology following * s/p Abx yesterday with improvement in LE erythema and warmth # B/L LE cellulitis * none visualized by me . * as per son was given Abx IM by PMD 2 days ago. * is on cefazolin for UTI which should cover cellulitis as well. f/u bcx ellulitis , * * #Hx of Hypertension * BP better today 118/60 * Monitor BP * Continue lasix 40 BID .D/C Metolason #Hypokalemia * K today 3.3 * Another 40 kCl was given * Repeat BMP * trend Mg levels # Hypothyroidism , chronic * TSH * continue home meds Synthroid # Anemia ; likely 2/2 chronic disease vs low oral intake vs blood loss * Iron Studies * Monitor H/H * # Proph: * DVT : On Eliquis 2.5 mg BID * GI : No proph needed at this time * Aspiration precautions * Fall precautions * #FEN: * F: On no fluids * E: Hypokalemia will repeat BMP * N: low sodium diet * #Dispo * Will admit to tele monitor * Visit type - Emergency Visit Emergency Visit: Yes ED Registration Date: 01/07/17 Care time: The patient presented to the Emergency Department on the above date and was hospitalized for further evaluation of their emergent condition. - New Patient This patient is new to me today: No - Critical Care Critical Care patient: No
--- NOTE | 2017-01-08 16:46 | PN ---
Teaching Attending Note Name of Resident: Franky Slater ATTENDING PHYSICIAN STATEMENT I saw and evaluated the patient. I reviewed the resident's note and discussed the case with the resident. I agree with the resident's findings and plan as documented. SUBJECTIVE:states she came to hospital for generalized weakness and does not believe to be in volume overload. denies Cp, SOB, fever, chills, cough, dysuria , N/V/C/D, orthopnea. states she is mostly bedbound because of her weakness OBJECTIVE: Last Vital Signs Temp Pulse Resp BP Pulse Ox 97.7 F 62 20 101/60 100 01/08/17 14:11 01/08/17 14:11 01/08/17 14:11 01/08/17 14:11 01/08/17 10:48 General NAD, dehydrated CV S1 S2 +murmur Lungs CTA B/L no wheezing/rales/rhonchi Abdomen soft NT/ND Extremities no pedal edema, no erythema or tenderness or warmth ASSESSMENT AND PLAN: 86yo F with PMH diastolic CHF, hypothyroid, HTN, PAF on eliquis, CKD stage III, presented to the ER with generalized weakness 1. Generalized weakness- as per son present at bedside has been progressively weaker the past few weeks and generally not getting out of bed. can be due to UA + vs symptomatic bradycardia vs uncontrolled thyroid. hold coreg. will re-start on lower dose as HR improves. check TSH. cont LT4 and adjust as needed. on u/s appears to be retaining. check bladder scan. if retaining will insert sawyer. on cefazolin day2. f/u Cx. PT assessment 2. Acute Diastolic CHF exacerbation- clinically appears dehydrated however pt reports dry weight to be 119lbs and is seen here to be 145lbs. appreciate cardio input whom the pt is well known to. will switch lasix to po and hold metalozone 3. Vtach- RN reports Vtach on monitor. appears to be artifact. 4. B/L LE cellulitis- none visualized by me. as per son was given Abx IM by PMD 2 days ago. is on cefazolin for UTI which should cover cellulitis as well. f/u bcx 5. Hypokalemia- Kcl 40meq 6. Troponlin leak- Flat trend of troponin 0.17-0.16-0.19. no EKG changes. no CP. likely due to CHF exacerbation and MIKE 7. MIKE- likely pre-renal. Renal u/s negative. showing retained urine. check bladder scan. renal on board. avoid nephrotoxic agents 8. PAF on eliquis- cont low dose eliquis due to age and weight 9. DVT ppx- on eliquis
[2017-01-08] MEDS: SENNOSIDES/DOCUSATE COMBO (SENNA PLUS) TABLET (UD) PO SCH (21:41)
[2017-01-09] MEDS: LEVOTHYROXINE NA 50 MCG TABLET (FP) PO SCH (06:43)
[2017-01-09] MEDS: FUROSEMIDE 40 MG TABLET (FP) PO SCH (06:43)
[2017-01-09 06:56] LABS: BASOPHIL 0.5 % (0-2.0); EOSINOPHIL 2.3 % (0-4.5); MCH 30.9 pg (25.7-33.7); MCHC 32.9 g/dl (32.0-36.0); MEAN CELL VOLUME 93.9 fl (80-96); NEUTROPHILS 64.5 % (42.8-82.8); PLATELET COUNT 217 K/MM3 (134-434); RDW 14.5 % (11.6-15.6); WHITE BLOOD COUNT 7.5 K/mm3 (4.0-10.0)
[2017-01-09 07:23] LABS: ALBUMIN 2.8 g/dl (3.4-5.0); ANION GAP 8 (8-16); CALCIUM 8.9 mg/dL (8.5-10.1); CO2 36 mmol/L (21-32); CREATININE 1.4 mg/dL (0.55-1.02); GLUCOSE,RANDOM 118 mg/dL (74-106); MAGNESIUM 2.2 mg/dL (1.8-2.4); PHOSPHOROUS 2.8 mg/dL (2.5-4.9); SGOT/AST 30 U/L (15-37); SGPT/ALT 15 U/L (12-78)
[2017-01-09 07:25] LABS: ALK PHOS 137 U/L (45-117); BILIRUBIN,TOTAL 0.5 mg/dL (0.2-1.0); TOT PROT 6.7 g/dl (6.4-8.2)
--- NOTE | 2017-01-09 08:13 | PN ---
Physical Exam: SUBJECTIVE: Patient seen and examined at bed side. She is still feeling tired. She denies any fever, chills , N/V/D/C. OBJECTIVE: Vital Signs Period Temp Pulse Resp BP Sys/Carr Pulse Ox Last 24 Hr 97.7 F-98.7 F 53-79 16-24 95-127/51-72 100-100 GENERAL: The patient is awake, alert, in no acute distress. HEAD: Normal with no signs of trauma. EYES: PERRL, sclera anicteric, conjunctiva clear. No ptosis. ENT: moist mucous membranes. NECK: Trachea midline, full range of motion, supple. LUNGS: Breath sounds equal, clear to auscultation bilaterally, no wheezes, no crackles, no accessory muscle use. HEART: IRRRegular rate and rhythm, S1, S2 ,2/6 systolic murmur,NO rub or gallop. ABDOMEN: Soft, nontender, nondistended, normoactive bowel sounds, no guarding, no rebound, no hepatosplenomegaly, no masses. EXTREMITIES: 2+ pulses, warm, well-perfused, no edema. NEUROLOGICAL: Normal speech, gait not observed. PSYCH: Normal mood, normal affect. SKIN: Warm, dry, normal turgor, no rashes or lesions noted Laboratory Results - last 24 hr 01/08/17 01/08/17 01/08/17 06:00 06:00 08:15 WBC RBC Hgb Hct MCV MCH MCHC RDW Plt Count MPV Neutrophils % Lymphocytes % Monocytes % Eosinophils % Basophils % Sodium 139 Potassium 3.3 L Chloride 96 L Carbon Dioxide 35 H Anion Gap 8 BUN 101 H Creatinine 1.5 H Creat Clearance w eGFR 32.85 Random Glucose 125 H D Hemoglobin A1c % 5.3 Calcium 8.7 Phosphorus 3.6 Cancelled Magnesium 2.2 Total Bilirubin 0.4 AST 32 ALT 18 Alkaline Phosphatase 132 H Creatine Kinase 198 H Creatine Kinase Index 1.9 CK-MB (CK-2) 3.881 H Troponin I 0.19 H Total Protein 6.4 Albumin 2.8 L Triglycerides 82 D Cholesterol 149 Total LDL Cholesterol 79 HDL Cholesterol 57 D TSH Urine Color Urine Appearance Urine pH Ur Specific [place] Urine Protein Urine Glucose (UA) Urine Ketones Urine Blood Urine Nitrite Urine Bilirubin Urine Urobilinogen Ur Leukocyte Esterase Urine RBC Urine WBC Hyaline Casts Urine Mucus Ur Random Sodium Ur Random Potassium Ur Random Chloride 09/07/17 09/07/17 09/07/17 10:40 10:40 13:39 WBC RBC Hgb Hct MCV MCH MCHC RDW Plt Count MPV Neutrophils % Lymphocytes % Monocytes % Eosinophils % Basophils % Sodium Potassium Chloride Carbon Dioxide Anion Gap BUN Creatinine Creat Clearance w eGFR Random Glucose Hemoglobin A1c % Calcium Phosphorus Magnesium Total Bilirubin AST ALT Alkaline Phosphatase Creatine Kinase Creatine Kinase Index CK-MB (CK-2) Troponin I Total Protein Albumin Triglycerides Cholesterol Total LDL Cholesterol HDL Cholesterol TSH 1.55 D Urine Color Straw Urine Appearance Clear Urine pH 7.0 D Ur Specific [place] 1.010 Urine Protein Negative Urine Glucose (UA) Negative Urine Ketones Negative Urine Blood Negative Urine Nitrite Negative Urine Bilirubin Negative Urine Urobilinogen Negative Ur Leukocyte Esterase 2+ H Urine RBC 2 Urine WBC 25 Hyaline Casts 4 Urine Mucus Rare Ur Random Sodium 91 Ur Random Potassium 15.1 Ur Random Chloride 84 01/09/17 01/09/17 06:00 06:00 WBC 7.5 RBC 3.62 Hgb 11.2 Hct 34.0 MCV 93.9 MCH 30.9 MCHC 32.9 RDW 14.5 Plt Count 217 MPV 8.0 Neutrophils % 64.5 Lymphocytes % 18.2 D Monocytes % 14.5 H Eosinophils % 2.3 D Basophils % 0.5 Sodium 144 Potassium 3.7 Chloride 100 Carbon Dioxide 36 H Anion Gap 8 BUN 93 H Creatinine 1.4 H Creat Clearance w eGFR 35.57 Random Glucose 118 H Hemoglobin A1c % Calcium 8.9 Phosphorus 2.8 D Magnesium 2.2 Total Bilirubin 0.5 D AST 30 ALT 15 Alkaline Phosphatase 137 H Creatine Kinase Creatine Kinase Index CK-MB (CK-2) Troponin I Total Protein 6.7 Albumin 2.8 L Triglycerides Cholesterol Total LDL Cholesterol HDL Cholesterol TSH Urine Color Urine Appearance Urine pH Ur Specific [place] Urine Protein Urine Glucose (UA) Urine Ketones Urine Blood Urine Nitrite Urine Bilirubin Urine Urobilinogen Ur Leukocyte Esterase Urine RBC Urine WBC Hyaline Casts Urine Mucus Ur Random Sodium Ur Random Potassium Ur Random Chloride Active Medications Generic Name Dose Route Start Last Admin Trade Name Freq PRN Reason Stop Dose Admin Acetaminophen 650 mg 01/07/17 13:33 01/08/17 09:02 Tylenol - PO 650 mg Q6H PRN Administration FEVER OR PAIN Apixaban 2.5 mg 01/07/17 22:00 01/08/17 21:41 Eliquis - PO 2.5 mg BID ANGELINE Administration Docusate Sodium 100 mg 01/07/17 22:00 01/08/17 21:41 Colace - PO Not Given BID ANGELINE Furosemide 40 mg 01/07/17 16:00 01/09/17 06:43 Lasix - PO 40 mg BIDLASIX ANGELINE Administration Levothyroxine Sodium 50 mcg 01/08/17 07:00 01/09/17 06:43 Synthroid - PO 50 mcg ACBK ANGELINE Administration Ondansetron HCl 4 mg 01/07/17 13:33 Zofran Injection IVPB Q6H PRN NAUSEA Senna/Docusate Sodium 2 tablet 01/07/17 22:00 01/08/17 21:41 Pericolace - PO Not Given HS ANGELINE ASSESSMENT/PLAN: 86 year old woman with PMhx of CHF (diastolic dysfunction), MR, Hypertension, P- Afib, Hypertension, CKD Stage 3 (baseline Cr 1.1-1.2) presented to the ED with LE swelling, worsening weakness and fatigue weakness. # Generalised weakness likey due to symptomatic bradycardia vs UTI vs Hypothyroidism vs CHF * Son state that she has worsen fatigue over the last few weeks * Physical therapy eval * TSH * Bladder scan if >[address] * on antibiotics cefazolin day 3 * F/U culture * * #Acute on chronic diastolic heart failure * class 2 NYHA classification LV failure * no overt congestion on CXR * clinically appears dehydrated however, pt reports dry weight to be 119lbs and is seen here to be 145lbs. * Cardiology consulted recommend continue Lasix 40 mg PO daily, hold on Metolazone * Stop Carvedilol for now and once heart rate stabilized, restart Carvedilol 3.125 mg twice a day #Troponlin leak,likely due to CHF exacerbation and MIKE * trend of troponin 0.17-0.16-0.19. * no EKG changes. no CP. likely due to CHF exacerbation and MIKE #Vtach vs sinus charlie * RN reports Vtach on monitor. appears to be artifact. * Stop Carvedilol for now and once heart rate stabilized, restart Carvedilol 3.125 mg twice a day per cardiology. #MIKE on CKD Stage 3 * Likely due to hypoprofusion in setting of intravascular volume depletion ( Lasix + Metolazone) * US normal * continuelasix will hold metolazone. * Cr improved from 1.9 to 1.5 * Pt appears volume depleted and fe Urea was 13% indicating renal hypoperfusion * would maitain off Metolazone * trend BUN/Cr * Avoid nephro toxogenic * Bladder scan show urine retention > 300 , will start sawyer #LE edema likely 2/2 to CHF exacerbation , resolved * No orthopena, PND * no overt congestion on CXR * LE edema improved compared to yesterday, seems dry today * Cardiology following * s/p Abx yesterday with improvement in LE erythema and warmth # B/L LE cellulitis * none visualized by me . * as per son was given Abx IM by PMD 2 days ago. * is on cefazolin for UTI which should cover cellulitis as well. f/u bcx ellulitis , * * #Hx of Hypertension * BP better today 118/60 * Monitor BP * Continue lasix 40 daily .D/C Metolason #Hypokalemia, improved * K today 3.7 * Another 40 kCl was given yesterday * Repeat BMP * trend Mg levels # Hypothyroidism , chronic * TSH * continue home meds Synthroid # Anemia ; likely 2/2 chronic disease vs low oral intake vs blood loss * Iron Studies * Monitor H/H * # Proph: * DVT : On Eliquis 2.5 mg BID * GI : No proph needed at this time * Aspiration precautions * Fall precautions * #FEN: * F: On no fluids * E: Hypokalemia will repeat BMP * N: low sodium diet * #Dispo * Will admit to tele monitor * Visit type - Emergency Visit Emergency Visit: Yes ED Registration Date: 01/07/17 Care time: The patient presented to the Emergency Department on the above date and was hospitalized for further evaluation of their emergent condition. - New Patient This patient is new to me today: No - Critical Care Critical Care patient: No
[2017-01-09] MEDS: APIXABAN 2.5 MG TABLET PO SCH ×2 (09:21→21:59)
[2017-01-09] MEDS: DOCUSATE SODIUM 100 MG CAPSULE (FP) PO SCH ×2 (09:21→21:59)
--- NOTE | 2017-01-09 09:29 | PN ---
Progress Note, Physician Chief Complaint: Appears better today Less weakness and shortness of breath History of Present Illness: Patient was seen and examined. Awake and alert. Chart was reviewed Denies chest pain or palpitations. Breathing comfortable - Current Medication List Current Medications: Active Medications Acetaminophen (Tylenol -) 650 mg PO Q6H PRN PRN Reason: FEVER OR PAIN Last Admin: 01/08/17 09:02 Dose: 650 mg Apixaban (Eliquis -) 2.5 mg PO BID [facility] Last Admin: 01/09/17 09:21 Dose: 2.5 mg Docusate Sodium (Colace -) 100 mg PO BID [facility] Last Admin: 01/09/17 09:21 Dose: 100 mg Furosemide (Lasix -) 40 mg PO BIDLASIX [facility] Last Admin: 01/09/17 06:43 Dose: 40 mg Cefazolin Sodium 1 gm/ (Dextrose) 100 mls @ 100 mls/hr IVPB BID [facility] Levothyroxine Sodium (Synthroid -) 50 mcg PO ACBK [facility] Last Admin: 01/09/17 06:43 Dose: 50 mcg Ondansetron HCl (Zofran Injection) 4 mg IVPB Q6H PRN PRN Reason: NAUSEA Senna/Docusate Sodium (Pericolace -) 2 tablet PO HS [facility] Last Admin: 01/08/17 21:41 Dose: Not Given - Objective Vital Signs: Vital Signs Temperature 98.1 F 01/09/17 06:00 Pulse Rate 74 01/09/17 06:00 Respiratory Rate 16 01/09/17 06:00 Blood Pressure 123/68 01/09/17 06:00 O2 Sat by Pulse Oximetry (%) 100 01/08/17 19:00 Neck: Yes: Supple Cardiovascular: Yes: Regular Rate and Rhythm, Murmur (Soft SM), S1, S2 Respiratory: Yes: Diminished Gastrointestinal: Yes: Normal Bowel Sounds, Soft. No: Tenderness Edema: No Additional Findings/Remarks: - Review of Systems Constitutional: reports: Weakness. denies: Chills, Fever Cardiovascular: reports: Shortness of Breath. denies: Chest Pain, Palpitations Respiratory: reports: SOB. denies: Cough, Hemoptysis, Orthopnea, PND Gastrointestinal: denies: Abdominal Pain, Constipation, Diarrhea, Melena, Nausea , Rectal Bleeding, Vomiting Musculoskeletal: reports: Joint Pain Neurological: reports: Weakness. denies: Confusion, Dizziness, Headache, Seizure, Syncope Labs: CBC, BMP 01/09/17 06:00 01/09/17 06:00 Problem List - Problems (1) MIKE (acute kidney injury) Code(s): N17.9 - ACUTE KIDNEY FAILURE, UNSPECIFIED (2) CHF exacerbation Code(s): I50.9 - HEART FAILURE, UNSPECIFIED Qualifiers: Congestive heart failure type: unspecified congestive heart failure type Qualified Code(s): I50.9 - Heart failure, unspecified (3) Elevated troponin Code(s): R74.8 - ABNORMAL LEVELS OF OTHER SERUM ENZYMES (4) Hypokalemia Code(s): E87.6 - HYPOKALEMIA (5) Lower extremity edema Code(s): R60.0 - LOCALIZED EDEMA (6) Acute on chronic diastolic CHF (congestive heart failure) Code(s): I50.33 - ACUTE ON CHRONIC DIASTOLIC (CONGESTIVE) HEART FAILURE (7) Elevated alkaline phosphatase level Code(s): R74.8 - ABNORMAL LEVELS OF OTHER SERUM ENZYMES (8) Anemia Code(s): D64.9 - ANEMIA, UNSPECIFIED Qualifiers: Anemia type: unspecified type Qualified Code(s): D64.9 - Anemia, unspecified (9) Hypertension Code(s): I10 - ESSENTIAL (PRIMARY) HYPERTENSION Qualifiers: Hypertension type: essential hypertension Qualified Code(s): I10 - Essential (primary) hypertension (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 Code(s): I13.10 - HYP HRT & CHR KDNY DIS W/O HRT FAIL, W STG 1-4/UNSP CHR KDNY N18.3 - CHRONIC KIDNEY DISEASE, STAGE 3 (MODERATE) (11) Hypothyroid Code(s): E03.9 - HYPOTHYROIDISM, UNSPECIFIED Qualifiers: Hypothyroidism type: unspecified Qualified Code(s): E03.9 - Hypothyroidism, unspecified (12) Mitral regurgitation Code(s): I34.0 - NONRHEUMATIC MITRAL (VALVE) INSUFFICIENCY Qualifiers: Cardiac valve disease etiology: nonrheumatic Qualified Code(s): I34.0 - Nonrheumatic mitral (valve) insufficiency (13) PAF (paroxysmal atrial fibrillation) Code(s): I48.0 - PAROXYSMAL ATRIAL FIBRILLATION Assessment/Plan 1. Acute on chronic diastolic heart failure - class 2 NYHA classification LV failure 2. Hypertension/hypertensive cardiovascular disease - currently hypotensive intermittently 3. Sinus bradycardia at times likely due to over medication with beta blockade 4. Paroxysmal atrial fibrillation currently in sinus rhythm on NOAC 5. Hypothyroidism 6. Acute on CKD 7. Anemia PLAN: 1. Stop Carvedilol for now and once heart rate stabilized, restart Carvedilol 3.125 mg twice a day blood pressure permitting 2. Continue Eliquis 2.5 mg BID 3. Change Furosemide to 40 mg PO once a day and monitor renal function and electrolytes. IV Furosemide can be used as needed. Metolazone has been stopped 4. Monitor H/H 5. K supplement 6. Thyroid replacement therapy Further plans are to follow Chuck Escalante MD
[2017-01-09] MEDS ORDERED: ceFAZolin SODIUM 1 GM VIAL ONE ×2 (10:09→21:49)
[2017-01-09] MEDS ORDERED: DEXTROSE 5%-WATER - 50 ML IVPB ONE ×2 (10:10→21:50)
[2017-01-09] MEDS: CEFAZOLIN 1 GM in DEXTROSE 5%-WATER - 50 ML IVPB SCH ×2 (10:11→22:52)
--- NOTE | 2017-01-09 14:10 | PN ---
Teaching Attending Note Name of Resident: Franky Slater ATTENDING PHYSICIAN STATEMENT I saw and evaluated the patient. I reviewed the resident's note and discussed the case with the resident. I agree with the resident's findings and plan as documented. SUBJECTIVE:asymptomatic. denies CP, SOB< fever, chills, cough, dysuria, urinary frequency, N/V/C/D OBJECTIVE: Last Vital Signs Temp Pulse Resp BP Pulse Ox 98.7 F 70 18 106/55 96 01/09/17 10:00 01/09/17 10:00 01/09/17 10:00 01/09/17 10:00 01/09/17 09:00 Intake & Output 01/06/17 01/07/17 01/08/17 01/09/17 23:59 23:59 23:59 23:59 Intake Total 180 500 Output Total 1520 1000 Balance -1340 -500 Weight 145 lb General NAD, CV S1 S2 +murmur Lungs CTA B/L no wheezing/rales/rhonchi Abdomen soft NT/ND Extremities no pedal edema, no erythema or tenderness or warmth ASSESSMENT AND PLAN: 86yo F with PMH diastolic CHF, hypothyroid, HTN, PAF on eliquis, CKD stage III, presented to the ER with generalized weakness 1. Generalized weakness-can be due to UA+ vs symptomatic bradycardia vs uncontrolled thyroid. HR improved off coreg. on Cefazolin day 3. TSH WNL. was only able to stand with PT. would benefit from MULU. 2. Acute Diastolic CHF exacerbation- reported as per RN for weight to be 114. which is lower than reported dry weight. will defer to cardiology for management of lasix at this time. daily weights, strict I&O. 3. Vtach- RN reports Vtach on monitor. appears to be artifact. 4. B/L LE cellulitis- none visualized by me. as per son was given Abx IM by PMD 2 days ago. is on cefazolin for UTI which should cover cellulitis as well. f/u bcx 5. Hypokalemia- resolved 6. Troponlin leak- Flat trend of troponin 0.17-0.16-0.19. no EKG changes. no CP. likely due to CHF exacerbation and MIKE 7. MIKE- likely pre-renal. Renal u/s negative. bladder scan >500 cc. sawyer inserted. will monitor for now, start bladder training tomorrow. renal on board. avoid nephrotoxic agents 8. PAF on eliquis- cont low dose eliquis due to age and weight 9. DVT ppx- on eliquis
--- NOTE | 2017-01-09 14:14 | PN ---
Progress Note (short form) - Note Progress Note: Renal Follow up for MIKE on CKD Pt seen and examined at the bedside feels much better today, denies any pain in LE denies any sob or chest pain edema improved no CP, N/V/D Vital Signs Temperature 98.7 F 01/09/17 10:00 Pulse Rate 70 01/09/17 10:00 Respiratory Rate 18 01/09/17 10:00 Blood Pressure 106/55 01/09/17 10:00 O2 Sat by Pulse Oximetry (%) 96 01/09/17 09:00 Intake & Output 01/06/17 01/07/17 01/08/17 01/09/17 23:59 23:59 23:59 23:59 Intake Total 180 500 Output Total 1520 1000 Balance -1340 -500 Weight 145 lb Gen: NAD, awake and alert CVS:RRR, + systolic murmur Lungs: CTA, no rales or wheeze Abd: soft NT/ND Ext: Edema resolved, no erythema today CBC, BMP 01/09/17 06:00 01/09/17 06:00 Current Medications Acetaminophen (Tylenol -) 650 mg PO Q6H PRN PRN Reason: FEVER OR PAIN Last Admin: 01/08/17 09:02 Dose: 650 mg Apixaban (Eliquis -) 2.5 mg PO BID [facility] Last Admin: 01/09/17 09:21 Dose: 2.5 mg Docusate Sodium (Colace -) 100 mg PO BID [facility] Last Admin: 01/09/17 09:21 Dose: 100 mg Furosemide (Lasix -) 40 mg PO DAILY [facility] Cefazolin Sodium 1 gm/ (Dextrose) 50 mls @ 100 mls/hr IVPB BID [facility] Last Admin: 01/09/17 10:11 Dose: 100 mls/hr Levothyroxine Sodium (Synthroid -) 50 mcg PO ACBK [facility] Last Admin: 01/09/17 06:43 Dose: 50 mcg Ondansetron HCl (Zofran Injection) 4 mg IVPB Q6H PRN PRN Reason: NAUSEA Senna/Docusate Sodium (Pericolace -) 2 tablet PO HS [facility] Last Admin: 01/08/17 21:41 Dose: Not Given A/P 86 year old woman with PMhx of CHF (diastolic dysfunction), MR, Hypertension, P- Afib, Hypertension, CKD Stage 3 (baseline Cr 1.1-1.2) presented to the ED with LE swelling and found to have BUN/Cr of 108/1.8. #MIKE on CKD Stage 3 Renal function improving no overt uremia despite high BUN volume status improved continue lower dose Lasix as per Cardiology no LISANDRO/ARB at this time #LE swelling/Erythema/CHF Legs appear improved on Abx On lower dose lasix cardiology following #Hx of Hypertension stable off antihypertensives #Hypokalemia supplement to keep K > 3.5 trend Mg levels Kenn Jara DO Problem List - Problems (1) MIKE (acute kidney injury) Code(s): N17.9 - ACUTE KIDNEY FAILURE, UNSPECIFIED (2) CHF exacerbation Code(s): I50.9 - HEART FAILURE, UNSPECIFIED Qualifiers: Qualified Code(s): I50.9 - Heart failure, unspecified (3) Hypokalemia Code(s): E87.6 - HYPOKALEMIA (4) Acute on chronic diastolic CHF (congestive heart failure) Code(s): I50.33 - ACUTE ON CHRONIC DIASTOLIC (CONGESTIVE) HEART FAILURE (5) Edema Code(s): R60.9 - EDEMA, UNSPECIFIED Qualifiers: Qualified Code(s): R60.9 - Edema, unspecified (6) Hypertension Code(s): I10 - ESSENTIAL (PRIMARY) HYPERTENSION Qualifiers: Qualified Code(s): I10 - Essential (primary) hypertension
[2017-01-09] MEDS: ACETAMINOPHEN 325 MG TABLET (FP) PO PRN ×2 (14:38→20:45)
[2017-01-09] MEDS: SENNOSIDES/DOCUSATE COMBO (SENNA PLUS) TABLET (UD) PO SCH (21:59)
[2017-01-10] MEDS: LEVOTHYROXINE NA 50 MCG TABLET (FP) PO SCH (06:09)
[2017-01-10 08:16] LABS: MCH 31.3 pg (25.7-33.7); MCHC 33.6 g/dl (32.0-36.0); MEAN CELL VOLUME 93.1 fl (80-96); PLATELET COUNT 200 K/MM3 (134-434); RDW 14.6 % (11.6-15.6); WHITE BLOOD COUNT 7.4 K/mm3 (4.0-10.0)
[2017-01-10 08:42] LABS: ANION GAP 10 (8-16); CALCIUM 9.1 mg/dL (8.5-10.1); CO2 33 mmol/L (21-32); CREATININE 1.4 mg/dL (0.55-1.02); GLUCOSE,RANDOM 122 mg/dL (74-106); MAGNESIUM 2.4 mg/dL (1.8-2.4); PHOSPHOROUS 3.6 mg/dL (2.5-4.9)
[2017-01-10 09:23] LABS: FERRITIN 44.799 ng/ml (6.9-282.5)
[2017-01-10] MEDS ORDERED: ceFAZolin SODIUM 1 GM VIAL ONE ×2 (09:53→20:30)
[2017-01-10] MEDS ORDERED: DEXTROSE 5%-WATER - 50 ML IVPB ONE ×2 (09:54→20:30)
[2017-01-10] MEDS: CEFAZOLIN 1 GM in DEXTROSE 5%-WATER - 50 ML IVPB SCH ×2 (09:58→21:30)
[2017-01-10] MEDS: APIXABAN 2.5 MG TABLET PO SCH ×2 (09:58→21:30)
[2017-01-10] MEDS: DOCUSATE SODIUM 100 MG CAPSULE (FP) PO SCH ×2 (09:58→21:30)
[2017-01-10] MEDS ORDERED: FUROSEMIDE 40 MG TABLET (FP) PO SCH (10:00)
--- NOTE | 2017-01-10 10:04 | PN ---
Progress Note (short form) - Note Progress Note: Chief Complaint: Events noted, notes reviewed, denies any chest pain or dyspnea History of Present Illness: Seen and examined on telemetry. Events noted, notes reviewed, denies any chest pain or dyspnea - Current Medication List Current Medications Acetaminophen (Tylenol -) 650 mg PO Q6H PRN PRN Reason: FEVER OR PAIN Last Admin: 01/09/17 20:45 Dose: 650 mg Apixaban (Eliquis -) 2.5 mg PO BID [facility] Last Admin: 01/09/17 21:59 Dose: 2.5 mg Docusate Sodium (Colace -) 100 mg PO BID [facility] Last Admin: 01/09/17 21:59 Dose: 100 mg Furosemide (Lasix -) 40 mg PO DAILY [facility] Cefazolin Sodium 1 gm/ (Dextrose) 50 mls @ 100 mls/hr IVPB BID [facility] Last Admin: 01/09/17 22:52 Dose: 100 mls/hr Levothyroxine Sodium (Synthroid -) 50 mcg PO ACBK [facility] Last Admin: 01/10/17 06:09 Dose: 50 mcg Ondansetron HCl (Zofran Injection) 4 mg IVPB Q6H PRN PRN Reason: NAUSEA Senna/Docusate Sodium (Pericolace -) 2 tablet PO HS [facility] Last Admin: 01/09/17 21:59 Dose: 2 tablet Tramadol HCl (Ultram -) 50 mg PO Q6H PRN PRN Reason: PAIN - Review of Systems Constitutional: denies: Chills, Fever Cardiovascular: As Noted Above Respiratory: denies: Cough or Sputum Production Gastrointestinal: denies: Nausea, Vomiting, Diarrhea, Constipation or Abdominal Pain Musculoskeletal: reports: Joint Pain Neurological: denies: Dizziness or Headaches - Objective Vital Signs: Last Vital Signs Temp Pulse Resp BP Pulse Ox 98.1 F 88 16 89/63 96 01/10/17 05:57 01/10/17 05:57 01/10/17 05:57 01/10/17 05:57 01/09/17 21:00 Intake & Output 01/07/17 01/08/17 01/09/17 01/10/17 23:59 23:59 23:59 23:59 Intake Total 180 940 Output Total 1520 1600 550 Balance -1340 -660 -550 Weight 145 lb Neck: Supple Negative JVD No Bruit Cardiovascular: S1 S2 Regular Rate and Rhythm Grade 2/6 Systolic Murmur Respiratory: Diminished at the Bases Gastrointestinal: Soft Benign Normal Bowel Sounds Ext: No Edema Labs: CBC, BMP 01/10/17 06:00 01/10/17 06:00 Hepatic Panel Total Bilirubin 0.5 mg/dL (0.2-1.0) D 01/09/17 06:00 AST 30 U/L (15-37) 01/09/17 06:00 ALT 15 U/L (12-78) 01/09/17 06:00 Alkaline Phosphatase 137 U/L (45-117) H 01/09/17 06:00 Albumin 2.8 g/dl (3.4-5.0) L 01/09/17 06:00 Assessment/Plan ASSESSMENT: 1. Acute on chronic class II NYHA classification LV congestive heart failure, resolving 2. 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 Paroxysmal atrial fibrillation currently in sinus rhythm on NOAC's, [id number] score of 5 4. Sinus bradycardia, resolved 5. Hypertension 6. Hypothyroidism 7. Acute on CKD, pre-renal azotemia 8. Anemia PLAN: 1. Resume Carvedilol with caution hemodynamics and heart rate permitting 2. Continue Eliquis at 2.5 mg twice daily with close monitoring of H/H 3. Continue Lasix but decrease dosage to 20 mg daily 4. Ideally ACEI or ARBS therapy is recommended pending renal function stabilization Jevon Monterroso M.D.
--- NOTE | 2017-01-10 10:07 | PN ---
Progress Note (short form) - Note Progress Note: Renal Follow up for MIKE on CKD Pt seen and examined at the bedside reports feeling weak and dizzy this am has nausea but no emesis was able to eat breakfast this am BP low this morning no chest pain, sob, abd pain, N/V/D Vital Signs Temperature 98.1 F 01/10/17 05:57 Pulse Rate 88 01/10/17 05:57 Respiratory Rate 16 01/10/17 05:57 Blood Pressure 89/63 01/10/17 05:57 O2 Sat by Pulse Oximetry (%) 96 01/09/17 21:00 Intake & Output 01/07/17 01/08/17 01/09/17 01/10/17 23:59 23:59 23:59 23:59 Intake Total 180 940 Output Total 1520 1600 550 Balance -1340 -660 -550 Weight 145 lb Gen: NAD, awake and alert CVS:RRR, + systolic murmur Lungs: CTA, no rales or wheeze Abd: soft NT/ND Ext: Edema resolved, no erythema today CBC, BMP 01/10/17 06:00 01/10/17 06:00 Current Medications Acetaminophen (Tylenol -) 650 mg PO Q6H PRN PRN Reason: FEVER OR PAIN Last Admin: 01/09/17 20:45 Dose: 650 mg Apixaban (Eliquis -) 2.5 mg PO BID [facility] Last Admin: 01/10/17 09:58 Dose: 2.5 mg Docusate Sodium (Colace -) 100 mg PO BID [facility] Last Admin: 01/10/17 09:58 Dose: 100 mg Furosemide (Lasix -) 40 mg PO DAILY [facility] Cefazolin Sodium 1 gm/ (Dextrose) 50 mls @ 100 mls/hr IVPB BID [facility] Last Admin: 01/10/17 09:58 Dose: 100 mls/hr Levothyroxine Sodium (Synthroid -) 50 mcg PO ACBK [facility] Last Admin: 01/10/17 06:09 Dose: 50 mcg Ondansetron HCl (Zofran Injection) 4 mg IVPB Q6H PRN PRN Reason: NAUSEA Senna/Docusate Sodium (Pericolace -) 2 tablet PO HS [facility] Last Admin: 01/09/17 21:59 Dose: 2 tablet Tramadol HCl (Ultram -) 50 mg PO Q6H PRN PRN Reason: PAIN A/P 86 year old woman with PMhx of CHF (diastolic dysfunction), MR, Hypertension, P- Afib, Hypertension, CKD Stage 3 (baseline Cr 1.1-1.2) presented to the ED with LE swelling and found to have BUN/Cr of 108/1.8. #MIKE on CKD Stage 3 Renal function improving but not at baseline at this time would hold Lasix today as pt appears very dry, hypotensive and has symptoms of dizziness keep MAP > 65 holding off IVF given hx of CHF Trend BUN/Cr #LE swelling/Erythema/CHF legs improved s/p diuretics and Abx #Hypokalemia supplement to keep K > 3.5 trend Mg levels Kenn Jara DO Problem List - Problems (1) MIKE (acute kidney injury) Code(s): N17.9 - ACUTE KIDNEY FAILURE, UNSPECIFIED (2) CHF exacerbation Code(s): I50.9 - HEART FAILURE, UNSPECIFIED Qualifiers: Qualified Code(s): I50.9 - Heart failure, unspecified (3) Hypokalemia Code(s): E87.6 - HYPOKALEMIA (4) Acute on chronic diastolic CHF (congestive heart failure) Code(s): I50.33 - ACUTE ON CHRONIC DIASTOLIC (CONGESTIVE) HEART FAILURE (5) Edema Code(s): R60.9 - EDEMA, UNSPECIFIED Qualifiers: Qualified Code(s): R60.9 - Edema, unspecified (6) Hypertension Code(s): I10 - ESSENTIAL (PRIMARY) HYPERTENSION Qualifiers: Qualified Code(s): I10 - Essential (primary) hypertension
--- NOTE | 2017-01-10 13:45 | PN ---
Progress Note (short form) - Note Progress Note: c/o L knee pain nad nausea. 1 episode of vomiting, clear fluid. adan CP, SOB, fever, chills, N/V/C/D as per daughter present at bedside the pt fell >2weeks ago. Current Medications Generic Name Dose Route Start Last Admin Trade Name Freq PRN Reason Stop Dose Admin Acetaminophen 650 mg 01/07/17 13:33 01/09/17 20:45 Tylenol - PO 650 mg Q6H PRN Administration FEVER OR PAIN Apixaban 2.5 mg 01/07/17 22:00 01/10/17 09:58 Eliquis - PO 2.5 mg BID ANGELINE Administration Docusate Sodium 100 mg 01/07/17 22:00 01/10/17 09:58 Colace - PO 100 mg BID ANGELINE Administration Cefazolin Sodium 1 gm/ 50 mls @ 100 mls/hr 01/09/17 10:00 01/10/17 09:58 Dextrose IVPB 100 mls/hr BID ANGELINE Administration Levothyroxine Sodium 50 mcg 01/08/17 07:00 01/10/17 06:09 Synthroid - PO 50 mcg ACBK ANGELINE Administration Ondansetron HCl 4 mg 01/07/17 13:33 Zofran Injection IVPB Q6H PRN NAUSEA Senna/Docusate Sodium 2 tablet 01/07/17 22:00 01/09/17 21:59 Pericolace - PO 2 tablet HS ANGELINE Administration Tramadol HCl 50 mg 01/09/17 22:18 Ultram - PO Q6H PRN PAIN Last Vital Signs Temp Pulse Resp BP Pulse Ox 97.6 F 70 18 118/70 95 01/10/17 10:00 01/10/17 10:00 01/10/17 10:00 01/10/17 10:00 01/10/17 09:00 General NAD, CV S1 S2 +murmur Lungs CTA B/L no wheezing/rales/rhonchi Abdomen soft NT/ND Extremities no pedal edema, resolving ecchymosis to L knee, tender to touch, not swollen. refuses to move the extremity CBCD WBC 7.4 K/mm3 (4.0-10.0) 01/10/17 06:00 RBC 3.28 M/mm3 (3.60-5.2) L 01/10/17 06:00 Hgb 10.3 GM/dL (10.7-15.3) L 01/10/17 06:00 Hct 30.5 % (32.4-45.2) L 01/10/17 06:00 MCV 93.1 fl (80-96) 01/10/17 06:00 MCHC 33.6 g/dl (32.0-36.0) 01/10/17 06:00 RDW 14.6 % (11.6-15.6) 01/10/17 06:00 Plt Count 200 K/MM3 (134-434) 01/10/17 06:00 MPV 8.0 fl (7.5-11.1) 01/10/17 06:00 CMP Sodium 142 mmol/L (136-145) 01/10/17 06:00 Potassium 3.6 mmol/L (3.5-5.1) 01/10/17 06:00 Chloride 99 mmol/L (98-107) 01/10/17 06:00 Carbon Dioxide 33 mmol/L (21-32) H 01/10/17 06:00 Anion Gap 10 (8-16) 01/10/17 06:00 BUN 90 mg/dL (7-18) H 01/10/17 06:00 Creatinine 1.4 mg/dL (0.55-1.02) H 01/10/17 06:00 Creat Clearance w eGFR 35.57 (>60) 01/09/17 06:00 Calcium 9.1 mg/dL (8.5-10.1) 01/10/17 06:00 Total Bilirubin 0.5 mg/dL (0.2-1.0) D 01/09/17 06:00 AST 30 U/L (15-37) 01/09/17 06:00 ALT 15 U/L (12-78) 01/09/17 06:00 Alkaline Phosphatase 137 U/L (45-117) H 01/09/17 06:00 Total Protein 6.7 g/dl (6.4-8.2) 01/09/17 06:00 Albumin 2.8 g/dl (3.4-5.0) L 01/09/17 06:00 ASSESSMENT AND PLAN: 86yo F with PMH diastolic CHF, hypothyroid, HTN, PAF on eliquis, CKD stage III, presented to the ER with generalized weakness 1. Generalized weakness-can be due to UA+ vs symptomatic bradycardia vs uncontrolled thyroid. HR improved off coreg. on Cefazolin day 4. TSH WNL. was only able to stand with PT. would benefit from MULU. 2. Acute Diastolic CHF exacerbation- reported as per RN for weight to be 114. no repeat weights, as per RN pt is refusing. encouraged pt daily weights are required. AM dose of lasix was held due to hypotension. will cont to hold as pt is nauseated. also held betablocker. daily weights, strict I&O. 3. L knee pain- s/p mechanical fall at home 2 weeks ago. appears to have a resolving bruise. will obtain XR to evaluate as on blood thinners. 4. B/L LE cellulitis- none visualized by me. as per son was given Abx IM by PMD 2 days ago. is on cefazolin for UTI which should cover cellulitis as well. f/u bcx 5. Hypokalemia- resolved 6. Troponlin leak- Flat trend of troponin 0.17-0.16-0.19. no EKG changes. no CP. likely due to CHF exacerbation and MIKE 7. MIKE- likely pre-renal. Renal u/s negative. maintain sawyer. renal on board. avoid nephrotoxic agents 8. PAF on eliquis- cont low dose eliquis due to age and weight 9. DVT ppx- on eliquis Visit type - Emergency Visit Emergency Visit: Yes ED Registration Date: 01/07/17 Care time: The patient presented to the Emergency Department on the above date and was hospitalized for further evaluation of their emergent condition. - New Patient This patient is new to me today: No - Critical Care Critical Care patient: No - Discharge Referral Referred to [facility] Med [facility].C[facility] No
[2017-01-10] MEDS: traMADol HCL 50 MG TABLET PO PRN (17:29)
[2017-01-10] MEDS: SENNOSIDES/DOCUSATE COMBO (SENNA PLUS) TABLET (UD) PO SCH (21:30)
[2017-01-11] MEDS: traMADol HCL 50 MG TABLET PO PRN (05:23)
[2017-01-11] MEDS: LEVOTHYROXINE NA 50 MCG TABLET (FP) PO SCH (06:12)
[2017-01-11 08:07] LABS: SERUM IRON 27 ug/dL (27-139); TOTAL IRON BINDING CAPACITY 258 ug/dL (250-450); UIBC 231 ug/dL (118-369)
[2017-01-11 08:27] LABS: BASOPHIL 0.7 % (0-2.0); EOSINOPHIL 2.3 % (0-4.5); MCH 30.9 pg (25.7-33.7); MCHC 32.7 g/dl (32.0-36.0); MEAN CELL VOLUME 94.4 fl (80-96); MEAN PLT VOLUME 8.6 fl (7.5-11.1); NEUTROPHILS 63.7 % (42.8-82.8); PLATELET COUNT 210 K/MM3 (134-434); RDW 14.4 % (11.6-15.6); WHITE BLOOD COUNT 7.1 K/mm3 (4.0-10.0)
[2017-01-11] MEDS ORDERED: DEXTROSE 5%-WATER - 50 ML IVPB ONE ×2 (08:48→20:37)
[2017-01-11] MEDS ORDERED: ceFAZolin SODIUM 1 GM VIAL ONE ×2 (08:48→20:37)
[2017-01-11 08:50] LABS: ANION GAP 9 (8-16); CO2 32 mmol/L (21-32); GLUCOSE,RANDOM 119 mg/dL (74-106); MAGNESIUM 2.4 mg/dL (1.8-2.4)
[2017-01-11 08:53] LABS: CALCIUM 9.8 mg/dL (8.5-10.1); CREATININE 1.1 mg/dL (0.55-1.02)
--- NOTE | 2017-01-11 09:13 | PN ---
Progress Note (short form) - Note Progress Note: Renal Follow up for MIKE on CKD Pt seen and examined at the bedside feels better today, still has some dizziness no fever, sob, chest pain Vital Signs Temperature 98.7 F 01/11/17 06:00 Pulse Rate 73 01/11/17 06:00 Respiratory Rate 20 01/11/17 06:00 Blood Pressure 123/62 01/11/17 06:00 O2 Sat by Pulse Oximetry (%) 95 01/10/17 21:00 Intake & Output 01/08/17 01/09/17 01/10/17 01/11/17 23:59 23:59 23:59 23:59 Intake Total 180 940 770 60 Output Total 1520 1600 1300 900 Balance -1340 -660 -530 -840 Weight 117 lb 3.2 oz Gen: NAD, awake and alert CVS:RRR, + systolic murmur Lungs: CTA, no rales or wheeze Abd: soft NT/ND Ext: Edema resolved, no erythema today CBC, BMP 01/11/17 06:00 01/11/17 06:00 Laboratory Tests 01/10/17 01/10/17 01/10/17 06:00 06:00 06:00 Calcium 9.1 Phosphorus 3.6 D Magnesium 2.4 Iron Pending TIBC Pending Iron Saturation Pending Transferrin Pending 01/11/17 06:00 Calcium 9.8 Phosphorus 3.0 Magnesium 2.4 Iron TIBC Iron Saturation Transferrin Current Medications Acetaminophen (Tylenol -) 650 mg PO Q6H PRN PRN Reason: FEVER OR PAIN Last Admin: 01/09/17 20:45 Dose: 650 mg Apixaban (Eliquis -) 2.5 mg PO BID [facility] Last Admin: 01/10/17 21:30 Dose: 2.5 mg Docusate Sodium (Colace -) 100 mg PO BID [facility] Last Admin: 01/10/17 21:30 Dose: 100 mg Cefazolin Sodium 1 gm/ (Dextrose) 50 mls @ 100 mls/hr IVPB BID [facility] Last Admin: 01/10/17 21:30 Dose: 100 mls/hr Levothyroxine Sodium (Synthroid -) 50 mcg PO ACBK [facility] Last Admin: 01/11/17 06:12 Dose: 50 mcg Ondansetron HCl (Zofran Injection) 4 mg IVPB Q6H PRN PRN Reason: NAUSEA Senna/Docusate Sodium (Pericolace -) 2 tablet PO HS [facility] Last Admin: 01/10/17 21:30 Dose: 2 tablet Tramadol HCl (Ultram -) 50 mg PO Q6H PRN PRN Reason: PAIN Last Admin: 01/11/17 05:23 Dose: 50 mg A/P 86 year old woman with PMhx of CHF (diastolic dysfunction), MR, Hypertension, P- Afib, Hypertension, CKD Stage 3 (baseline Cr 1.1-1.2) presented to the ED with LE swelling and found to have BUN/Cr of 108/1.8. #MIKE on CKD Stage 3 Renal function now improved to baseline clinically improved as well would continue to hold lasix for now #LE swelling/Erythema/CHF legs improved s/p diuretics and Abx #Hypokalemia supplement to keep K > 3.5 trend Mg levels Kenn Jara DO Problem List - Problems (1) MIKE (acute kidney injury) Code(s): N17.9 - ACUTE KIDNEY FAILURE, UNSPECIFIED (2) CHF exacerbation Code(s): I50.9 - HEART FAILURE, UNSPECIFIED Qualifiers: Congestive heart failure type: unspecified congestive heart failure type Qualified Code(s): I50.9 - Heart failure, unspecified (3) Hypokalemia Code(s): E87.6 - HYPOKALEMIA (4) Acute on chronic diastolic CHF (congestive heart failure) Code(s): I50.33 - ACUTE ON CHRONIC DIASTOLIC (CONGESTIVE) HEART FAILURE (5) Edema Code(s): R60.9 - EDEMA, UNSPECIFIED Qualifiers: Edema type: unspecified Qualified Code(s): R60.9 - Edema, unspecified (6) Hypertension Code(s): I10 - ESSENTIAL (PRIMARY) HYPERTENSION Qualifiers: Hypertension type: essential hypertension Qualified Code(s): I10 - Essential (primary) hypertension
[2017-01-11] MEDS: DOCUSATE SODIUM 100 MG CAPSULE (FP) PO SCH ×2 (09:16→21:32)
[2017-01-11] MEDS: APIXABAN 2.5 MG TABLET PO SCH ×2 (09:16→21:32)
[2017-01-11] MEDS: CEFAZOLIN 1 GM in DEXTROSE 5%-WATER - 50 ML IVPB SCH ×2 (09:16→21:31)
--- NOTE | 2017-01-11 09:27 | PN ---
Progress Note (short form) - Note Progress Note: Chief Complaint: Events noted, notes reviewed, denies any chest pain or dyspnea History of Present Illness: Seen and examined on telemetry. Events noted, notes reviewed, denies any chest pain or dyspnea - Current Medication List Current Medications Acetaminophen (Tylenol -) 650 mg PO Q6H PRN PRN Reason: FEVER OR PAIN Last Admin: 01/09/17 20:45 Dose: 650 mg Apixaban (Eliquis -) 2.5 mg PO BID [facility] Last Admin: 01/11/17 09:16 Dose: 2.5 mg Docusate Sodium (Colace -) 100 mg PO BID [facility] Last Admin: 01/11/17 09:16 Dose: 100 mg Cefazolin Sodium 1 gm/ (Dextrose) 50 mls @ 100 mls/hr IVPB BID [facility] Last Admin: 01/11/17 09:16 Dose: 100 mls/hr Levothyroxine Sodium (Synthroid -) 50 mcg PO ACBK [facility] Last Admin: 01/11/17 06:12 Dose: 50 mcg Ondansetron HCl (Zofran Injection) 4 mg IVPB Q6H PRN PRN Reason: NAUSEA Senna/Docusate Sodium (Pericolace -) 2 tablet PO HS [facility] Last Admin: 01/10/17 21:30 Dose: 2 tablet Tramadol HCl (Ultram -) 50 mg PO Q6H PRN PRN Reason: PAIN Last Admin: 01/11/17 05:23 Dose: 50 mg - Review of Systems Constitutional: denies: Chills, Fever Cardiovascular: As Noted Above Respiratory: denies: Cough or Sputum Production Gastrointestinal: denies: Nausea, Vomiting, Diarrhea, Constipation or Abdominal Pain Musculoskeletal: reports: Joint Pain Neurological: denies: Dizziness or Headaches - Objective Vital Signs: Last Vital Signs Temp Pulse Resp BP Pulse Ox 98.7 F 73 20 123/62 95 01/11/17 06:00 01/11/17 06:00 01/11/17 06:00 01/11/17 06:00 01/10/17 21:00 Intake & Output 01/08/17 01/09/17 01/10/17 01/11/17 23:59 23:59 23:59 23:59 Intake Total 180 940 770 60 Output Total 1520 1600 1300 900 Balance -1340 -660 -091 -479 Weight 117 lb 3.2 oz Neck: Supple Negative JVD No Bruit Cardiovascular: S1 S2 Regular Rate and Rhythm Grade 2/6 Systolic Murmur Respiratory: Diminished at the Bases Gastrointestinal: Soft Benign Normal Bowel Sounds Ext: No Edema Labs: CBC, BMP 01/11/17 06:00 01/11/17 06:00 Assessment/Plan ASSESSMENT: 1. Acute on chronic class II NYHA classification LV congestive heart failure, resolved 2. 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 Paroxysmal atrial fibrillation currently in sinus rhythm on NOAC's, [id number] score of 5 4. Sinus bradycardia, resolved 5. Hypertension 6. Hypothyroidism 7. Acute on CKD, pre-renal azotemia 8. Anemia PLAN: 1. As outlined resume Carvedilol with caution hemodynamics and heart rate permitting 2. Continue Eliquis at 2.5 mg twice daily with close monitoring of H/H 3. Lasix on hold pending renal function stabilization 4. As outlined ideally ACEI or ARBS therapy is recommended pending renal function stabilization Jevon Monterroso M.D.
[2017-01-11] MEDS: CARVEDILOL 3.125 MG TABLET (FP) PO SCH ×2 (09:57→21:32)
--- NOTE | 2017-01-11 10:16 | PN ---
Physical Exam: SUBJECTIVE: Patient seen and examined at bed side. She is doing much better. No acute events over night. Her leg pain has improved.She denies any fever, chills , N/V/D/C. OBJECTIVE: Vital Signs Period Temp Pulse Resp BP Sys/Carr Pulse Ox Last 24 Hr 97.7 F-98.7 F 66-86 18-20 107-123/60-69 95 GENERAL: The patient is awake, alert, and fully oriented, in no acute distress. HEAD: Normal with no signs of trauma. EYES: PERRL, sclera anicteric, conjunctiva clear. No ptosis. ENT: moist mucous membranes. NECK: Trachea midline, full range of motion, supple. LUNGS: Breath sounds equal, clear to auscultation bilaterally, no wheezes, no crackles, no accessory muscle use. HEART: Irregular rate and rhythm, S1, S2, 2/6 murmur, no rub or gallop. ABDOMEN: Soft, nontender, nondistended, normoactive bowel sounds, no guarding, no rebound, no hepatosplenomegaly, no masses. EXTREMITIES: 2+ pulses, warm, well-perfused, no edema. NEUROLOGICAL: Normal speech, gait not observed. PSYCH: Normal mood, normal affect. SKIN: Warm, dry, normal turgor, no rashes or lesions noted Laboratory Results - last 24 hr 01/10/17 01/10/17 01/11/17 06:00 06:00 06:00 WBC 7.1 RBC 3.49 L Hgb 10.8 Hct 33.0 MCV 94.4 MCH 30.9 MCHC 32.7 RDW 14.4 Plt Count 210 MPV 8.6 Neutrophils % 63.7 Lymphocytes % 20.4 Monocytes % 12.9 H Eosinophils % 2.3 Basophils % 0.7 Sodium Potassium Chloride Carbon Dioxide Anion Gap BUN Creatinine Random Glucose Calcium Phosphorus Magnesium Iron 27 TIBC 258 Iron Saturation 10 L Transferrin 211 01/11/17 06:00 WBC RBC Hgb Hct MCV MCH MCHC RDW Plt Count MPV Neutrophils % Lymphocytes % Monocytes % Eosinophils % Basophils % Sodium 141 Potassium 3.7 Chloride 100 Carbon Dioxide 32 Anion Gap 9 BUN 76 H Creatinine 1.1 H D Random Glucose 119 H Calcium 9.8 Phosphorus 3.0 Magnesium 2.4 Iron TIBC Iron Saturation Transferrin Active Medications Generic Name Dose Route Start Last Admin Trade Name Freq PRN Reason Stop Dose Admin Acetaminophen 650 mg 01/07/17 13:33 01/09/17 20:45 Tylenol - PO 650 mg Q6H PRN Administration FEVER OR PAIN Apixaban 2.5 mg 01/07/17 22:00 01/11/17 09:16 Eliquis - PO 2.5 mg BID ANGELINE Administration Carvedilol 3.125 mg 01/11/17 10:00 01/11/17 09:57 Coreg - PO 3.125 mg BID ANGELINE Administration Docusate Sodium 100 mg 01/07/17 22:00 01/11/17 09:16 Colace - PO 100 mg BID [facility]INE Administration Cefazolin Sodium 1 gm/ 50 mls @ 100 mls/hr 01/09/17 10:00 01/11/17 09:16 Dextrose IVPB 100 mls/hr BID [facility] Administration Levothyroxine Sodium 50 mcg 01/08/17 07:00 01/11/17 06:12 Synthroid - PO 50 mcg ACBK [facility] Administration Ondansetron HCl 4 mg 01/07/17 13:33 Zofran Injection IVPB Q6H PRN NAUSEA Senna/Docusate Sodium 2 tablet 01/07/17 22:00 01/10/17 21:30 Pericolace - PO 2 tablet HS [facility] Administration Tramadol HCl 50 mg 01/09/17 22:18 01/11/17 05:23 Ultram - PO 50 mg Q6H PRN Administration PAIN CBC, BMP 01/11/17 06:00 01/11/17 06:00 ASSESSMENT/PLAN: 86 year old woman with PMhx of CHF (diastolic dysfunction), MR, Hypertension, P- Afib, Hypertension, CKD Stage 3 (baseline Cr 1.1-1.2) presented to the ED with LE swelling, worsening weakness and fatigue weakness. # Generalised weakness likey due to symptomatic bradycardia vs UTI vs Hypothyroidism vs CHF * Son state that she has worsen fatigue over the last few weeks * Physical therapy eval: was able to stand, will benifit from MULU * TSH WNL * HR improved off coreg, will start low dose coreg 3.125 BID per cardiology with cautions hemodynamics and HR permitting (hold if HR below 60) * Bladder training trial, will consider DC sawyer if she is able to urinate enough * on antibiotics cefazolin day 5. * DC ABX tomorrow * F/U culture * * #Acute on chronic diastolic heart failure * class 2 NYHA classification LV failure * no overt congestion on CXR * clinically appears dehydrated however, pt reports dry weight to be 119lbs and is seen here to be 145lbs. today 117 * Hold Lasix , hold on Metolazone cue to hypotension and dehydration * continue Carvedilol 3.125 BID with cautions to HR and hemodynamics * I/O * Daily weight # Left knee pain * s/p mechanical fall at home 2 weeks ago. * appears to have a resolving bruise. * XR normal no fracture, * pain is better today #Troponlin leak,likely due to CHF exacerbation and MIKE * trend of troponin 0.17-0.16-0.19. * no EKG changes. no CP. likely due to CHF exacerbation and MIKE #Vtach vs sinus charlie , resolved * RN reports Vtach on monitor. appears to be artifact.(day of admission ) * #MIKE on CKD Stage 3 * Likely due to hypoperfusion in setting of intravascular volume depletion ( Lasix + Metolazone) * US normal , repeat US per nephro * hold lasix will hold metolazone due to hypotension and lightheadedness * Cr improved from 1.9 to 1.5 to 1.1 today * would maitain off Metolazone * trend BUN/Cr * Avoid nephro toxogenic * maintain sawyer and start bladder training trial * will consider D/C sawyer if she urinate enough #LE edema likely 2/2 to CHF exacerbation , resolved * No orthopena, PND * no overt congestion on CXR * LE edema improved compared to yesterday, seems dry today * Cardiology following * s/p Abx yesterday with improvement in LE erythema and warmth # B/L LE cellulitis * none visualized by me . * as per son was given Abx IM by PMD 2 days ago. * is on cefazolin for UTI which should cover cellulitis as well. f/u bcx ellulitis , * * #Hx of Hypertension * BP better today 123/62 * Monitor BP * hold lasix 40 daily .D/C Metolason #Hypokalemia, improved * K today 3.7 * Another 40 kCl was given yesterday * Repeat BMP * trend Mg levels # Hypothyroidism , chronic * TSH WNL * continue home meds Synthroid # Anemia ; likely 2/2 chronic disease vs low oral intake vs blood loss * Iron Studies WNL * Monitor H/H * # Proph: * DVT : On Eliquis 2.5 mg BID * GI : No proph needed at this time * Aspiration precautions * Fall precautions * #FEN: * F: On no fluids * E: WNL * N: low sodium diet * #Dispo * Will admit to tele monitor * Will Consider D/C to alf assisting facility Visit type - Emergency Visit Emergency Visit: No - New Patient This patient is new to me today: No - Critical Care Critical Care patient: No
[2017-01-11] MEDS: POLYETHYLENE GLYCOL 3350 119 GM BTL PO SCH (11:26)
--- NOTE | 2017-01-11 11:44 | PN ---
Teaching Attending Note Name of Resident: Franky Slater ATTENDING PHYSICIAN STATEMENT I saw and evaluated the patient. I reviewed the resident's note and discussed the case with the resident. I agree with the resident's findings and plan as documented. SUBJECTIVE:c/o feeling thirsty and dry mouth. denies Cp, SOB, fever, chills, N/V /D. no BM >3 days OBJECTIVE: Last Vital Signs Temp Pulse Resp BP Pulse Ox 98.3 F 83 18 110/57 93 L 01/11/17 10:01/11/17 10:00 01/11/17 10:01/11/17 10:01/11/17 09:00 General NAD CV S1 S2 + murmur Lungs CTA B/L no wheezing/rales/rhonchi ABdomen +distention NT normoactive BS. dull to percussion Extremities no pedal edema. ASSESSMENT AND PLAN: 86yo F with PMH diastolic CHF, hypothyroid, HTN, PAF on eliquis, CKD stage III, presented to the ER with generalized weakness 1. Generalized weakness-can be due to UA+ vs symptomatic bradycardia- will re- start low dose coreg. on Cefazolin day 5. complete abx course today. TSH WNL. was only able to stand with PT. would benefit from MULU. 2. Acute Diastolic CHF exacerbation- improvement in weight. clinically looks euvolemic. BP improved. will hold lasix today. consider re-starting tomorrow. daily weights, strict I&O. 3. L knee pain- s/p mechanical fall at home 2 weeks ago. appears to have a resolving bruise. XR negative for acute fracture or subluxation no effusion. 4. Constipation- no BM >3 days. start miralax. cont stool softeners 5. B/L LE cellulitis- none visualized by me. as per son was given Abx IM by PMD 2 days ago. complete cefazolin for 5 days. 6. Hypokalemia- resolved 7. Troponlin leak- Flat trend of troponin 0.17-0.16-0.19. no EKG changes. no CP. likely due to CHF exacerbation and MIKE 8. MIKE- likely pre-renal. Renal u/s negative. maintain sawyer. renal on board. avoid nephrotoxic agents 9. PAF on eliquis- cont low dose eliquis due to age and weight 10. DVT ppx- on eliquis
[2017-01-11] MEDS: SENNOSIDES/DOCUSATE COMBO (SENNA PLUS) TABLET (UD) PO SCH (21:32)
[2017-01-12] MEDS: ACETAMINOPHEN 325 MG TABLET (FP) PO PRN (05:10)
[2017-01-12] MEDS: LEVOTHYROXINE NA 50 MCG TABLET (FP) PO SCH (06:10)
[2017-01-12 07:35] LABS: ANION GAP 9 (8-16); CO2 34 mmol/L (21-32); GLUCOSE,RANDOM 116 mg/dL (74-106); MAGNESIUM 2.3 mg/dL (1.8-2.4)
[2017-01-12 07:37] LABS: CREATININE 1.1 mg/dL (0.55-1.02); PHOSPHOROUS 2.8 mg/dL (2.5-4.9)
[2017-01-12] MEDS: APIXABAN 2.5 MG TABLET PO SCH ×2 (09:00→22:02)
[2017-01-12] MEDS: POLYETHYLENE GLYCOL 3350 119 GM BTL PO SCH (09:00)
[2017-01-12] MEDS: CARVEDILOL 3.125 MG TABLET (FP) PO SCH ×2 (09:00→22:02)
--- NOTE | 2017-01-12 10:07 | PN ---
Progress Note, Physician Chief Complaint: Appears better today Generalized weakness and has difficulty standing and walking History of Present Illness: Patient was seen and examined. Awake and alert. Chart was reviewed Denies chest pain or palpitations. Breathing comfortable - Current Medication List Current Medications: Active Medications Acetaminophen (Tylenol -) 650 mg PO Q6H PRN PRN Reason: FEVER OR PAIN Last Admin: 01/12/17 05:10 Dose: 650 mg Apixaban (Eliquis -) 2.5 mg PO BID [facility] Last Admin: 01/12/17 09:00 Dose: 2.5 mg Carvedilol (Coreg -) 3.125 mg PO BID [facility] Last Admin: 01/12/17 09:00 Dose: 3.125 mg Docusate Sodium (Colace -) 300 mg PO HS [facility] Last Admin: 01/11/17 21:32 Dose: 300 mg Levothyroxine Sodium (Synthroid -) 50 mcg PO ACBK [facility] Last Admin: 01/12/17 06:10 Dose: 50 mcg Ondansetron HCl (Zofran Injection) 4 mg IVPB Q6H PRN PRN Reason: NAUSEA Polyethylene Glycol (Miralax (For Daily Use) -) 17 gm PO DAILY [facility] Last Admin: 01/12/17 09:00 Dose: 17 gm Senna/Docusate Sodium (Pericolace -) 2 tablet PO [facility] Last Admin: 01/11/17 21:32 Dose: 2 tablet Tramadol HCl (Ultram -) 50 mg PO Q6H PRN PRN Reason: PAIN Last Admin: 01/11/17 05:23 Dose: 50 mg - Objective Vital Signs: Vital Signs Temperature 98.1 F 01/12/17 06:00 Pulse Rate 91 H 01/12/17 06:00 Respiratory Rate 18 01/12/17 06:00 Blood Pressure 115/69 01/12/17 06:00 O2 Sat by Pulse Oximetry (%) 93 L 01/11/17 21:00 Neck: Yes: Supple Cardiovascular: Yes: Regular Rate and Rhythm, Murmur (2/6 SM), S1, S2 Respiratory: Yes: CTA Bilaterally Gastrointestinal: Yes: Normal Bowel Sounds, Soft. No: Tenderness Edema: No Additional Findings/Remarks: - Review of Systems Constitutional: reports: Weakness. denies: Chills, Fever Cardiovascular: reports: Shortness of Breath. denies: Chest Pain, Palpitations Respiratory: reports: SOB. denies: Cough, Hemoptysis, Orthopnea, PND Gastrointestinal: denies: Abdominal Pain, Constipation, Diarrhea, Melena, Nausea , Rectal Bleeding, Vomiting Musculoskeletal: reports: Joint Pain Neurological: reports: Weakness. denies: Confusion, Dizziness, Headache, Seizure, Syncope Labs: CBC, BMP 01/11/17 06:00 01/12/17 06:20 Problem List - Problems (1) MIKE (acute kidney injury) Code(s): N17.9 - ACUTE KIDNEY FAILURE, UNSPECIFIED (2) CHF exacerbation Code(s): I50.9 - HEART FAILURE, UNSPECIFIED Qualifiers: Congestive heart failure type: unspecified congestive heart failure type Qualified Code(s): I50.9 - Heart failure, unspecified (3) Elevated troponin Code(s): R74.8 - ABNORMAL LEVELS OF OTHER SERUM ENZYMES (4) Hypokalemia Code(s): E87.6 - HYPOKALEMIA (5) Lower extremity edema Code(s): R60.0 - LOCALIZED EDEMA (6) Acute on chronic diastolic CHF (congestive heart failure) Code(s): I50.33 - ACUTE ON CHRONIC DIASTOLIC (CONGESTIVE) HEART FAILURE (7) Elevated alkaline phosphatase level Code(s): R74.8 - ABNORMAL LEVELS OF OTHER SERUM ENZYMES (8) Anemia Code(s): D64.9 - ANEMIA, UNSPECIFIED Qualifiers: Anemia type: unspecified type Qualified Code(s): D64.9 - Anemia, unspecified (9) Hypertension Code(s): I10 - ESSENTIAL (PRIMARY) HYPERTENSION Qualifiers: Hypertension type: essential hypertension Qualified Code(s): I10 - Essential (primary) hypertension (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 Code(s): I13.10 - HYP HRT & CHR KDNY DIS W/O HRT FAIL, W STG 1-4/UNSP CHR KDNY N18.3 - CHRONIC KIDNEY DISEASE, STAGE 3 (MODERATE) (11) Hypothyroid Code(s): E03.9 - HYPOTHYROIDISM, UNSPECIFIED Qualifiers: Hypothyroidism type: unspecified Qualified Code(s): E03.9 - Hypothyroidism, unspecified (12) Mitral regurgitation Code(s): I34.0 - NONRHEUMATIC MITRAL (VALVE) INSUFFICIENCY Qualifiers: Cardiac valve disease etiology: nonrheumatic Qualified Code(s): I34.0 - Nonrheumatic mitral (valve) insufficiency (13) PAF (paroxysmal atrial fibrillation) Code(s): I48.0 - PAROXYSMAL ATRIAL FIBRILLATION Assessment/Plan 1. Acute on chronic diastolic heart failure - class 2 NYHA classification LV failure - improved 2. Hypertension/hypertensive cardiovascular disease - currently hypotensive intermittently 3. Sinus bradycardia at times likely due to over medication with beta blockade 4. Paroxysmal atrial fibrillation currently in sinus rhythm on NOAC 5. Hypothyroidism 6. Acute on CKD 7. Anemia PLAN: 1. Continue Carvedilol 3.125 mg twice a day blood pressure permitting and titrate 2. Continue Eliquis 2.5 mg BID 3. Diuretic has been held until further instruction 4. Monitor H/H 5. K supplement as needed and follow electrolytes 6. Thyroid replacement therapy 7. ACEI or ARB when renal function stabilizes Further plans are to follow Chuck Escalante MD
[2017-01-12] MEDS: traMADol HCL 50 MG TABLET PO PRN (11:30)
--- NOTE | 2017-01-12 13:12 | PN ---
Progress Note (short form) - Note Progress Note: Renal Follow up for MIKE on CKD Pt seen and examined at the bedside awake and alert complians of lower back pain no SOB, chest pain, N/V/D LE pain has returned to some degree Vital Signs Temperature 97.8 F 01/12/17 10:00 Pulse Rate 87 01/12/17 10:00 Respiratory Rate 16 01/12/17 10:00 Blood Pressure 116/69 01/12/17 10:00 O2 Sat by Pulse Oximetry (%) 93 L 01/11/17 21:00 Intake & Output 01/09/17 01/10/17 01/11/17 01/12/17 23:59 23:59 23:59 23:59 Intake Total 940 770 180 510 Output Total 1600 1300 1600 450 Balance -660 -530 -1420 60 Weight 117 lb 3.2 oz 118 lb 12.8 oz Gen: NAD, awake and alert CVS:RRR, + systolic murmur Lungs: CTA, no rales or wheeze Abd: soft NT/ND Ext: Edema resolved, no erythema today CBC, BMP 01/11/17 06:00 01/12/17 06:20 Current Medications Acetaminophen (Tylenol -) 650 mg PO Q6H PRN PRN Reason: FEVER OR PAIN Last Admin: 01/12/17 05:10 Dose: 650 mg Apixaban (Eliquis -) 2.5 mg PO BID [facility] Last Admin: 01/12/17 09:00 Dose: 2.5 mg Carvedilol (Coreg -) 3.125 mg PO BID [facility] Last Admin: 01/12/17 09:00 Dose: 3.125 mg Docusate Sodium (Colace -) 300 mg PO HS [facility] Last Admin: 01/11/17 21:32 Dose: 300 mg Furosemide (Lasix -) 20 mg PO DAILY [facility] Levothyroxine Sodium (Synthroid -) 50 mcg PO ACBK [facility] Last Admin: 01/12/17 06:10 Dose: 50 mcg Ondansetron HCl (Zofran Injection) 4 mg IVPB Q6H PRN PRN Reason: NAUSEA Polyethylene Glycol (Miralax (For Daily Use) -) 17 gm PO DAILY [facility] Last Admin: 01/12/17 09:00 Dose: 17 gm Senna/Docusate Sodium (Pericolace -) 2 tablet PO HS [facility] Last Admin: 01/11/17 21:32 Dose: 2 tablet Tramadol HCl (Ultram -) 50 mg PO Q6H PRN PRN Reason: PAIN Last Admin: 01/12/17 11:30 Dose: 50 mg A/P 86 year old woman with PMhx of CHF (diastolic dysfunction), MR, Hypertension, P- Afib, Hypertension, CKD Stage 3 (baseline Cr 1.1-1.2) presented to the ED with LE swelling and found to have BUN/Cr of 108/1.8. #Non-oliguric MIKE on CKD Stage 3 Renal function now improved to baseline Cr BUN remains high w/o signs of uremia off diuretics at the present time w/o evidence of volume expansion can resume diuretics as needed orally, would avoid metolozone at this time avoid NSAIDs for pain control Trend BUN/Cr consider a trial of void Kenn Jara DO Problem List - Problems (1) MIKE (acute kidney injury) Code(s): N17.9 - ACUTE KIDNEY FAILURE, UNSPECIFIED (2) CHF exacerbation Code(s): I50.9 - HEART FAILURE, UNSPECIFIED Qualifiers: Congestive heart failure type: unspecified congestive heart failure type Qualified Code(s): I50.9 - Heart failure, unspecified (3) Hypokalemia Code(s): E87.6 - HYPOKALEMIA (4) Acute on chronic diastolic CHF (congestive heart failure) Code(s): I50.33 - ACUTE ON CHRONIC DIASTOLIC (CONGESTIVE) HEART FAILURE (5) Edema Code(s): R60.9 - EDEMA, UNSPECIFIED Qualifiers: Edema type: unspecified Qualified Code(s): R60.9 - Edema, unspecified (6) Hypertension Code(s): I10 - ESSENTIAL (PRIMARY) HYPERTENSION Qualifiers: Hypertension type: essential hypertension Qualified Code(s): I10 - Essential (primary) hypertension
--- NOTE | 2017-01-12 13:27 | MSN ---
Progress Note (SOAP) - Subjective Chief Complaint: B/L LE edema and generalized weakness History of Present Illness: Pt is a 86 year old woman with a PMH of Afib, HTN, CHF - Current Medications Current Medications: Active Medications Acetaminophen (Tylenol -) 650 mg PO Q6H PRN PRN Reason: FEVER OR PAIN Last Admin: 01/12/17 05:10 Dose: 650 mg Apixaban (Eliquis -) 2.5 mg PO BID [facility] Last Admin: 01/12/17 09:00 Dose: 2.5 mg Carvedilol (Coreg -) 3.125 mg PO BID [facility] Last Admin: 01/12/17 09:00 Dose: 3.125 mg Docusate Sodium (Colace -) 300 mg PO HS [facility] Last Admin: 01/11/17 21:32 Dose: 300 mg Furosemide (Lasix -) 20 mg PO DAILY [facility] Levothyroxine Sodium (Synthroid -) 50 mcg PO ACBK [facility] Last Admin: 01/12/17 06:10 Dose: 50 mcg Ondansetron HCl (Zofran Injection) 4 mg IVPB Q6H PRN PRN Reason: NAUSEA Polyethylene Glycol (Miralax (For Daily Use) -) 17 gm PO DAILY [facility] Last Admin: 01/12/17 09:00 Dose: 17 gm Senna/Docusate Sodium (Pericolace -) 2 tablet PO HS [facility] Last Admin: 01/11/17 21:32 Dose: 2 tablet Tramadol HCl (Ultram -) 50 mg PO Q6H PRN PRN Reason: PAIN Last Admin: 01/12/17 11:30 Dose: 50 mg - Objective Vital Signs: Vital Signs Temperature 97.8 F 01/12/17 10:00 Pulse Rate 87 01/12/17 10:00 Respiratory Rate 16 01/12/17 10:00 Blood Pressure 116/69 01/12/17 10:00 O2 Sat by Pulse Oximetry (%) 93 L 01/11/17 21:00 Labs Lab Results: CBC, BMP 01/11/17 06:00 01/12/17 06:20
--- NOTE | 2017-01-12 13:28 | PN ---
Teaching Attending Note Name of Resident: Franky Slater ATTENDING PHYSICIAN STATEMENT I saw and evaluated the patient. I reviewed the resident's note and discussed the case with the resident. I agree with the resident's findings and plan as documented. SUBJECTIVE:c/o constipation. no BM for several days. denies Cp, SOB, fever, chills, N/V/D, cough or orhopnea OBJECTIVE: Last Vital Signs Temp Pulse Resp BP Pulse Ox 97.8 F 87 16 116/69 93 L 01/12/17 10:00 01/12/17 10:00 01/12/17 10:00 01/12/17 10:00 01/11/17 21:00 Intake & Output 01/09/17 01/10/17 01/11/17 01/12/17 23:59 23:59 23:59 23:59 Intake Total 940 770 180 510 Output Total 1600 1300 1600 450 Balance -660 -530 -1420 60 Weight 117 lb 3.2 oz 118 lb 12.8 oz General NAD CV S1 S2 + murmur Lungs CTA B/L no wheezing/rales/rhonchi ABdomen +distention NT normoactive BS. dull to percussion Extremities no pedal edema. ASSESSMENT AND PLAN: 86yo F with PMH diastolic CHF, hypothyroid, HTN, PAF on eliquis, CKD stage III, presented to the ER with generalized weakness 1. Generalized weakness-can be due to UA+ vs symptomatic bradycardia- tolerating low dose coreg. completed 5 day course of abx for UTI. continues to be deconditioned as was also bedbound at home for some time prior to arrival will need MULU 2. Acute Diastolic CHF exacerbation-clinically appears euvolemic however weight is slowly increasing will re-start lasix at lower dose, 20mg as was hypotensive when arrived. cont to hold metalozone. daily weights, strict I&O. 3. L knee pain- s/p mechanical fall at home 2 weeks ago. continues to have tenderness at the knee. XR negative. 4. Constipation- no BM >3 days. will give enema. cont miralax and stool softeners 5. B/L LE cellulitis- none visualized by me. as per son was given Abx IM by PMD 2 days ago. completed cefazolin for 5 days. 6. Urinary retention- likely due to uti. not tolerating voiding trials. will maintain sawyer for now. will need urology outpatient follow up 7. Troponlin leak- Flat trend of troponin 0.17-0.16-0.19. no EKG changes. no CP. likely due to CHF exacerbation and MIKE 8. MIKE- likely pre-renal. Renal u/s negative. maintain sawyer. renal on board. avoid nephrotoxic agents 9. PAF on eliquis- cont low dose eliquis due to age and weight 10. DVT ppx- on eliquis 11. medically optimized for discharge. awaiting bed availability at [facility]. case d/ w son present at bedside. answered all questions. verbalized agreement with plan
--- NOTE | 2017-01-12 14:44 | DS ---
Physical Exam: SUBJECTIVE: Patient seen and examined at bed side . She is doing much better. She denies any fever, chills, N/V/D/. the pain is less in her legs. She feels drowsy due to gabapentin started last night. OBJECTIVE: Vital Signs Period Temp Pulse Resp BP Sys/Carr Pulse Ox Last 24 Hr 97.8 F-99.1 F 72-91 16-20 98-130/56-69 93 PHYSICAL EXAM GENERAL: The patient is awake, alert, in no acute distress. HEAD: Normal with no signs of trauma. EYES: PERRL, sclera anicteric, conjunctiva clear. ENT: moist mucous membranes. NECK: Trachea midline, full range of motion, supple. LUNGS: Breath sounds equal, clear to auscultation bilaterally, no wheezes, no crackles, no accessory muscle use. HEART: IRRegular rate and rhythm, S1, S2 2/3 systolic murmur,No rub or gallop. ABDOMEN: Soft, nontender, nondistended, normoactive bowel sounds, no guarding, no rebound, no hepatosplenomegaly, no masses. EXTREMITIES: 2+ pulses, warm, well-perfused, no edema. NEUROLOGICAL: Normal speech, gait not observed. PSYCH: Normal mood, normal affect. SKIN: Warm, dry, normal turgor, no rashes or lesions noted. LABS Laboratory Results - last 24 hr 01/12/17 06:20 Sodium 143 Potassium 3.8 Chloride 100 Carbon Dioxide 34 H Anion Gap 9 BUN 69 H Creatinine 1.1 H Random Glucose 116 H Calcium 9.0 Phosphorus 2.8 Magnesium 2.3 HOSPITAL COURSE: Date of Admission:01/07/17 Date of Discharge: 01/12/17 86 year old woman with PMhx of CHF (diastolic dysfunction), MR, Hypertension, P- Afib, Hypertension, CKD Stage 3 (baseline Cr 1.1-1.2) presented to the ED with LE swelling, worsening weakness and fatigue weakness due to symptomatic charlie cardia , and UTI and DCHF . She was treated with antibiotics Cefazolin for 5 days for the UTI. her heart rate improved off coreg. for DCHF no congestion was found on her CXR, cardiology was consulted he hold metozolane and started her of lasix 20 mg BID PO and continue coreg 3.125 BID. for her left leg pain sonogram rolled out DVT,neurology was consulted and they started her on Gabapentin 100 mg PO at bed time and her LLE xray came back negative. she will follow up as out patient with for EEG and EMG. She was treated with 5 days course abx for her LLE cellulitis. She had MIKE on stage 3 CKD which is improved to her base line with fluids. Renal US came back normal.Hypokalemia were replenished. her bp is well controlled with medicine. will continue her Synthroid for hypothyroidism. Patient has anemia and her iron studies WNL she is asymptomatic . Patient retend > 300 cc in her bladder and we re-enserted the sawyer. She worked with PT and she was able to stand. She will be transferred to sub acute rehab. Patient will follow up with her PCP within a week. She will follow up with her manager art within a week. She will follow up with DR.Shajji chavez spotlight operator within a week. She will follow up with neurologist for her leg pain and the tremor patient needs to take her medicine as prescribed. Patient needs to follow fall and aspiration precautions Patient need to come back to ER if she develop any fever, chills , or her symptoms worsen. Minutes to complete discharge: 30 Discharge Summary Reason For Visit: ACUTE KIDNEY INJURY Current Active Problems MIKE (acute kidney injury) (Acute) CHF exacerbation (Acute) DVT prophylaxis (Acute) Elevated troponin (Acute) Hypokalemia (Acute) Lower extremity edema (Acute) Condition: Stable - Instructions Diet, Activity, Other Instructions: You were admitted for generalized weakness, Urinary tract infection, and Congestive heart failure exacerbation. You were treated with 5 days of Antibiotics for your Urinary tract infection. we restart you on low dose of Lasix 20 mg daily,we hold the metalozone. Please take stool softeners, Miralax, senna, colace as needed, to help avoid constipation. Please keep the Sawyer catheter due to urinary retention you developed and follow up with your primary care physician within a week. You had lower extremities cellulites at admission that was treated with antibiotics for 5 days. you had atrial fibrillation and you need to continue your home medicine with eliquis. Please resume all your home medicine Please follow all fall precautions You will be discharged to subacute rehab facility Please follow with your primary care physician within a week. Please follow up with the manager art . Please follow up with dr.Jackson Ruffin kidney doctor Please follow up with Neurologist as out patient for left Leg pain Please come to emergency department if you develop any fever, chills, or your symptoms worsen. Referrals: Jevon Monterroso MD [Staff Physician] - Jeremi Bloom MD [Staff Physician] - (urology- follow up for sawyer removal) Kenn Jara MD [Staff Physician] - Disposition: RESIDENTIAL FACILITY - Home Medications Comprehensive Discharge Medication List: Ambulatory Orders Apixaban [Eliquis] 2.5 mg PO DAILY 01/07/17 Carvedilol 9.375 mg PO BID 01/07/17 Docusate Sodium [Colace -] 100 mg PO BID 01/07/17 Furosemide [Lasix] 40 mg PO BID 01/07/17 Levothyroxine [Synthroid -] 50 mcg PO DAILY 01/07/17 Metolazone 2.5 mg PO DAILY 01/07/17 Sennosides/Docusate Sodium [Senna Laxative Tablet] 2 tab PO HS 01/07/17 This patient is new to me today: No Emergency Visit: Yes ED Registration Date: 01/07/17 Care time: The patient presented to the Emergency Department on the above date and was hospitalized for further evaluation of their emergent condition. Critical Care patient: No - Discharge Referral Referred to [facility] Med P.C.: No
[2017-01-12] MEDS: FUROSEMIDE 20 MG TABLET (FP) PO SCH (15:05)
[2017-01-12] MEDS: SENNOSIDES/DOCUSATE COMBO (SENNA PLUS) TABLET (UD) PO SCH (22:02)
[2017-01-12] MEDS: DOCUSATE SODIUM 100 MG CAPSULE (FP) PO SCH (22:02)
[2017-01-13] MEDS: LEVOTHYROXINE NA 50 MCG TABLET (FP) PO SCH (06:36)
--- NOTE | 2017-01-13 07:42 | PN ---
Progress Note (short form) - Note Progress Note: Chief Complaint: Events noted, notes reviewed, denies any chest pain or dyspnea , complaining of weakness History of Present Illness: Seen and examined on telemetry. Events noted, notes reviewed, denies any chest pain or dyspnea, complaining of weakness - Current Medication List Current Medications Acetaminophen (Tylenol -) 650 mg PO Q6H PRN PRN Reason: FEVER OR PAIN Last Admin: 01/12/17 05:10 Dose: 650 mg Apixaban (Eliquis -) 2.5 mg PO BID [facility] Last Admin: 01/12/17 22:02 Dose: 2.5 mg Carvedilol (Coreg -) 3.125 mg PO BID [facility] Last Admin: 01/12/17 22:02 Dose: 3.125 mg Docusate Sodium (Colace -) 300 mg PO [facility] Last Admin: 01/12/17 22:02 Dose: 300 mg Furosemide (Lasix -) 20 mg PO DAILY [facility] Last Admin: 01/12/17 15:05 Dose: 20 mg Levothyroxine Sodium (Synthroid -) 50 mcg PO ACBK [facility] Last Admin: 01/13/17 06:36 Dose: 50 mcg Ondansetron HCl (Zofran Injection) 4 mg IVPB Q6H PRN PRN Reason: NAUSEA Polyethylene Glycol (Miralax (For Daily Use) -) 17 gm PO DAILY [facility] Last Admin: 01/12/17 09:00 Dose: 17 gm Senna/Docusate Sodium (Pericolace -) 2 tablet PO [facility] Last Admin: 01/12/17 22:02 Dose: 2 tablet - Review of Systems Constitutional: denies: Chills, Fever Cardiovascular: As Noted Above Respiratory: denies: Cough or Sputum Production Gastrointestinal: denies: Nausea, Vomiting, Diarrhea, Constipation or Abdominal Pain Musculoskeletal: reports: Joint Pain Neurological: denies: Dizziness or Headaches - Objective Vital Signs: Last Vital Signs Temp Pulse Resp BP Pulse Ox 97.9 F 72 20 94/52 95 01/13/17 06:07 01/13/17 06:07 01/13/17 06:07 01/13/17 06:07 01/12/17 21:00 Intake & Output 01/10/17 01/11/17 01/12/17 01/13/17 23:59 23:59 23:59 23:59 Intake Total 770 180 890 Output Total 1300 1600 1275 400 Balance -530 -1420 -385 -400 Weight 117 lb 3.2 oz 118 lb 12.8 oz 117 lb Neck: Supple Negative JVD No Bruit Cardiovascular: S1 S2 Regular Rate and Rhythm Grade 2/6 Systolic Murmur Respiratory: Diminished at the Bases Gastrointestinal: Soft Benign Normal Bowel Sounds Ext: No Edema Labs: CBC, BMP 01/11/17 06:00 01/12/17 06:20 Assessment/Plan ASSESSMENT: 1. Acute on chronic class II NYHA classification LV congestive heart failure, resolved 2. 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 Paroxysmal atrial fibrillation currently in sinus rhythm on NOAC's, [id number] score of 5 4. Sinus bradycardia, resolved 5. Hypertension 6. Hypothyroidism 7. Acute on CKD, pre-renal azotemia 8. Anemia PLAN: 1. Continue Carvedilol with caution hemodynamics and heart rate permitting 2. Continue Eliquis at 2.5 mg twice daily with close monitoring of H/H 3. Continue to hold Lasix pending renal function stabilization 4. As outlined ideally ACEI or ARBS therapy is recommended pending renal function stabilization 5. Initiate PT Jevon Monterroso M.D.
[2017-01-13 08:21] LABS: ANION GAP 10 (8-16); CALCIUM 9.1 mg/dL (8.5-10.1); CO2 32 mmol/L (21-32); CREATININE 1.1 mg/dL (0.55-1.02); GLUCOSE,RANDOM 108 mg/dL (74-106); MAGNESIUM 2.2 mg/dL (1.8-2.4); PHOSPHOROUS 3.1 mg/dL (2.5-4.9)
[2017-01-13] MEDS: POLYETHYLENE GLYCOL 3350 119 GM BTL PO SCH (09:00)
[2017-01-13] MEDS: CARVEDILOL 3.125 MG TABLET (FP) PO SCH ×2 (09:00→21:21)
[2017-01-13] MEDS: FUROSEMIDE 20 MG TABLET (FP) PO SCH (09:00)
[2017-01-13] MEDS: APIXABAN 2.5 MG TABLET PO SCH ×2 (09:00→21:21)
--- NOTE | 2017-01-13 11:59 | PN ---
Teaching Attending Note Name of Resident: Franky Slater ATTENDING PHYSICIAN STATEMENT I saw and evaluated the patient. I reviewed the resident's note and discussed the case with the resident. I agree with the resident's findings and plan as documented. SUBJECTIVE: Patient appears comfortable. She complains of pain in her left leg. OBJECTIVE: Vital Signs Period Temp Pulse Resp BP Sys/Carr Pulse Ox Last 24 Hr 97.9 F-100 F 72-84 16-20 86-111/46-69 95 HEART: S1S2, RRR, (+) 2/6 SM LUNGS: Clear ABDOMEN: Soft, non-tender, non-distended, normal BS EXTREMITIES: No edema, (+) left calf tenderness Current Medications Generic Name Dose Route Start Last Admin Trade Name Freq PRN Reason Stop Dose Admin Acetaminophen 650 mg 01/07/17 13:33 01/12/17 05:10 Tylenol - PO 650 mg Q6H PRN Administration FEVER OR PAIN Apixaban 2.5 mg 01/07/17 22:00 01/13/17 09:00 Eliquis - PO 2.5 mg BID ANGELINE Administration Carvedilol 3.125 mg 01/11/17 10:00 01/13/17 09:00 Coreg - PO 3.125 mg BID ANGELINE Administration Docusate Sodium 300 mg 01/11/17 22:00 01/12/17 22:02 Colace - PO 300 mg HS ANGELINE Administration Furosemide 20 mg 01/12/17 13:15 01/13/17 09:00 Lasix - PO 20 mg DAILY ANGELINE Administration Levothyroxine Sodium 50 mcg 01/08/17 07:00 01/13/17 06:36 Synthroid - PO 50 mcg ACBK ANGELINE Administration Ondansetron HCl 4 mg 01/07/17 13:33 Zofran Injection IVPB Q6H PRN NAUSEA Polyethylene Glycol 17 gm 01/11/17 11:00 01/13/17 09:00 Miralax (For Daily Use) - PO 17 gm DAILY ANGELINE Administration Senna/Docusate Sodium 2 tablet 01/07/17 22:00 01/12/17 22:02 Pericolace - PO 2 tablet HS ANGELINE Administration ASSESSMENT AND PLAN: This is an 86 year old woman with a history of chronic diastolic heart failure, hypothyroidism, HTN, PAF, stage 3 CKD who presented to the ER with generalized weakness. 1. Left calf pain - Venous doppler to r/o DVT 2. Acute on chronic diastolic heart failure - Improved - Continue Lasix 3. UTI - Completed Ancef 4. s/p fall 5. Acute kidney injury - Resolved 6. Stage 3 CKD - Creatinine stable 7. PAF - Remains in sinus rhythm - Continue Coreg, Eliquis 8. B/L LE cellulitis - Resolved - Completed Ancef 9. Urinary retention - Remove Ackerman and monitor urine output 10. HTN - Continue Coreg, Lasix 11. Sinus bradycardia - Resolved 12. Hypothyroidism - Continue Synthroid 13. Constipation - Resolved - Continue Colace, Miralax 14. Disposition - Continue PT - Plan for subacute rehab
[2017-01-13] MEDS: ACETAMINOPHEN 325 MG TABLET (FP) PO PRN (14:28)
--- NOTE | 2017-01-13 16:12 | PN ---
Progress Note (short form) - Note Progress Note: Renal Follow up for MIKE on CKD Pt seen and examined at the bedside awake and alert no acute complaints no sob, chest pain, abd pain sawyer removed, bladder scan showed 130cc has continued back pain Vital Signs Temperature 99.6 F 01/13/17 13:24 Pulse Rate 91 H 01/13/17 13:24 Respiratory Rate 16 01/13/17 13:24 Blood Pressure 93/60 01/13/17 13:24 O2 Sat by Pulse Oximetry (%) 97 01/13/17 09:00 Intake & Output 01/10/17 01/11/17 01/12/17 01/13/17 23:59 23:59 23:59 23:59 Intake Total 770 180 890 690 Output Total 1300 1600 1275 400 Balance -530 -1420 -385 290 Weight 117 lb 3.2 oz 118 lb 12.8 oz 117 lb Gen: NAD, awake and alert CVS:RRR, + systolic murmur Lungs: CTA, no rales or wheeze Abd: soft NT/ND Ext: Edema resolved, no erythema today CBC, BMP 01/11/17 06:00 01/13/17 07:00 Laboratory Tests 01/13/17 07:00 Calcium 9.1 Phosphorus 3.1 Magnesium 2.2 Current Medications Acetaminophen (Tylenol -) 650 mg PO Q6H PRN PRN Reason: FEVER OR PAIN Last Admin: 01/13/17 14:28 Dose: 650 mg Apixaban (Eliquis -) 2.5 mg PO BID [facility] Last Admin: 01/13/17 09:00 Dose: 2.5 mg Carvedilol (Coreg -) 3.125 mg PO BID [facility] Last Admin: 01/13/17 09:00 Dose: 3.125 mg Docusate Sodium (Colace -) 300 mg PO HS [facility] Last Admin: 01/12/17 22:02 Dose: 300 mg Furosemide (Lasix -) 20 mg PO DAILY [facility] Last Admin: 01/13/17 09:00 Dose: 20 mg Levothyroxine Sodium (Synthroid -) 50 mcg PO ACBK [facility] Last Admin: 01/13/17 06:36 Dose: 50 mcg Ondansetron HCl (Zofran Injection) 4 mg IVPB Q6H PRN PRN Reason: NAUSEA Polyethylene Glycol (Miralax (For Daily Use) -) 17 gm PO DAILY [facility] Last Admin: 01/13/17 09:00 Dose: 17 gm Senna/Docusate Sodium (Pericolace -) 2 tablet PO HS [facility] Last Admin: 01/12/17 22:02 Dose: 2 tablet A/P 86 year old woman with PMhx of CHF (diastolic dysfunction), MR, Hypertension, P- Afib, Hypertension, CKD Stage 3 (baseline Cr 1.1-1.2) presented to the ED with LE swelling and found to have BUN/Cr of 108/1.8. #Non-oliguric MIKE on CKD Stage 3 Renal function improved and stable, Cr is at baseline restarted on oral lasix yesterday, Trend volume status and Cr levels BUN high but improving, no signs of uremia would hold starting LISANDRO/ARB until pt is at a stable volume status and renal function stablized as well Dose all meds for Cr Cl ~40 Kenn Jara DO Problem List - Problems (1) MIKE (acute kidney injury) Code(s): N17.9 - ACUTE KIDNEY FAILURE, UNSPECIFIED (2) CHF exacerbation Code(s): I50.9 - HEART FAILURE, UNSPECIFIED Qualifiers: Congestive heart failure type: unspecified congestive heart failure type Qualified Code(s): I50.9 - Heart failure, unspecified (3) Hypokalemia Code(s): E87.6 - HYPOKALEMIA (4) Acute on chronic diastolic CHF (congestive heart failure) Code(s): I50.33 - ACUTE ON CHRONIC DIASTOLIC (CONGESTIVE) HEART FAILURE (5) Edema Code(s): R60.9 - EDEMA, UNSPECIFIED Qualifiers: Edema type: unspecified Qualified Code(s): R60.9 - Edema, unspecified (6) Hypertension Code(s): I10 - ESSENTIAL (PRIMARY) HYPERTENSION Qualifiers: Hypertension type: essential hypertension Qualified Code(s): I10 - Essential (primary) hypertension
--- NOTE | 2017-01-13 16:18 | CONSULT ---
Consult - text type - Consultation Consultation Note: Podiatry Consultation: 86 year old F sent for admission by PCP for worsening LE edema, fluid overload and hypotension. Podiatry consult requested for trimming of elongated, painful toe nails x 10. Patient denies F/V/N/C/SOB/CP. Afebrile, VSS. Does have throbbing to toe nails. PMHx: Afib on AC, HTN, CHF, CKD, mitral regurgitation, hypothyroidism Meds: noted in chart ALL: NKMA VANI: Pedal pulses 1/4, TG wnl, CFT brisk to all toes bilaterally. Nails are elongated, discolored, thickened, incurvated, tender to palpation x 10. There are no open wounds, no nail bed ulcers, no cellulitis, no signs of active infection. Imp: 86 year old F with onychomycosis x 10 1. Manual debridement of mycotic nails x 10 with nail nipper. Patient tolerated procedure well without complication. 2. Appropriate foot hygiene encouraged. 3. Can f/u 3 months in [facility] for routine care. 4. Thanks for the courtesy of this consult. Javy Calles DPM
--- NOTE | 2017-01-13 18:20 | CONSULT ---
Consult - text type - Consultation Consultation Note: Neurology CHIEF COMPLAINT: Shaking and leg pain 86 year old female with a history of diverticulitis, hypothyroidism, HTN, PAF on Eliquis, and dCHF referred to the ED for worsening LE edema and was borderline hypotensive (90s systolic) on day of admission. The patient has been having ongoing medical managment for urinary tract infection, CHF, Atrial Fibrillation while admitted and I was consulted to evaluate tremor. She was accompanied by her son and daughter who had previously witnessed the movements. They are typically self sustained and do not have LOC or tongue biting. Typically are bilateral upper extremities and subside. She does not have history of seizures. Additionally, she was complaining of discomfort in her b/l lower extremities with pain to palpation. She denies h/o DM but symptoms are persistent and bilateral up to her calf on the left side and mostly up to ankle in the RLE. PAST MEDICAL HISTORY: As above PAST SURGICAL HISTORY: None Social History: Lives alone, independent in ADLs Smoking: Never smoker Alcohol: None Family History: Non-contributory to this admission Allergies No Known Allergies Allergy (Verified 01/07/17 10:57) Active Medications Acetaminophen (Tylenol -) 650 mg PO Q6H PRN PRN Reason: FEVER OR PAIN Last Admin: 01/13/17 14:28 Dose: 650 mg Apixaban (Eliquis -) 2.5 mg PO BID [facility] Last Admin: 01/13/17 09:00 Dose: 2.5 mg Carvedilol (Coreg -) 3.125 mg PO BID [facility] Last Admin: 01/13/17 09:00 Dose: 3.125 mg Docusate Sodium (Colace -) 300 mg PO HS [facility] Last Admin: 01/12/17 22:02 Dose: 300 mg Furosemide (Lasix -) 20 mg PO DAILY [facility] Last Admin: 01/13/17 09:00 Dose: 20 mg Levothyroxine Sodium (Synthroid -) 50 mcg PO ACBK [facility] Last Admin: 01/13/17 06:36 Dose: 50 mcg Ondansetron HCl (Zofran Injection) 4 mg IVPB Q6H PRN PRN Reason: NAUSEA Polyethylene Glycol (Miralax (For Daily Use) -) 17 gm PO DAILY [facility] Last Admin: 01/13/17 09:00 Dose: 17 gm Senna/Docusate Sodium (Pericolace -) 2 tablet PO HS [facility] Last Admin: 01/12/17 22:02 Dose: 2 tablet REVIEW OF SYSTEMS CONSTITUTIONAL: Absent: fever, chills, diaphoresis, generalized weakness, malaise, loss of appetite, weight change HEENT: Absent: rhinorrhea, nasal congestion, throat pain, throat swelling, difficulty swallowing, mouth swelling, ear pain, eye pain, visual changes CARDIOVASCULAR: Absent: chest pain, syncope, palpitations, irregular heart rate, lightheadedness , peripheral edema RESPIRATORY: Absent: cough, shortness of breath, dyspnea with exertion, orthopnea, wheezing, stridor, hemoptysis GASTROINTESTINAL: Absent: abdominal pain, abdominal distension, nausea, vomiting, diarrhea, constipation, melena, hematochezia GENITOURINARY: Absent: dysuria, frequency, urgency, hesitancy, hematuria, flank pain, genital pain MUSCULOSKELETAL: Absent: myalgia, arthralgia, joint swelling, back pain, neck pain SKIN: Absent: rash, itching, pallor HEMATOLOGIC/IMMUNOLOGIC: Absent: easy bleeding, easy bruising, lymphadenopathy, frequent infections ENDOCRINE: Absent: unexplained weight gain, unexplained weight loss, heat intolerance, cold intolerance NEUROLOGIC: Absent: headache, focal weakness or paresthesias, dizziness, unsteady gait, seizure, mental status changes, bladder or bowel incontinence PSYCHIATRIC: Absent: anxiety, depression, suicidal or homicidal ideation, hallucinations. PHYSICAL EXAMINATION Last Vital Signs Temp Pulse Resp BP Pulse Ox 99.6 F 91 H 16 93/60 97 01/13/17 13:24 01/13/17 13:24 01/13/17 13:24 01/13/17 13:24 01/13/17 09:00 GENERAL: Awake, alert, and fully oriented, in no acute distress. HEAD: Normal with no signs of trauma. EYES: Pupils equal, round and reactive to light, extraocular movements intact, sclera anicteric, conjunctiva clear. No lid lag. EARS, NOSE, THROAT: Ears normal, nares patent, oropharynx clear without exudates. Moist mucous membranes. NECK: Normal range of motion, supple without lymphadenopathy, JVD, or masses. LUNGS: Soft systolic murmur. Fine rails at bases. HEART: Regular rate and rhythm, normal S1 and S2 without murmur, rub or gallop. ABDOMEN: Soft, nontender, not distended, normoactive bowel sounds, no guarding, no rebound, no masses. No hepatomegaly or splenomegaly. MUSCULOSKELETAL: Normal range of motion at all joints. No bony deformities or tenderness. No CVA tenderness. UPPER EXTREMITIES: 2+ pulses, warm, well-perfused. No cyanosis. No clubbing. No peripheral edema. LOWER EXTREMITIES: 2+ pulses, warm, well-perfused. No calf tenderness. 2+ pitting LE edema bilaterally with mild erythema and warmth. NEUROLOGICAL: Cranial nerves II-XII intact. Normal speech. Srtenght intact b/l , sensory hyperesthetic to touch in b/l LE (L>R), reflexes 1+, gait deferred PSYCHIATRIC: Cooperative. Good eye contact. Appropriate mood and affect. SKIN: Warm, dry, normal turgor, no rashes or lesions noted, normal capillary refill. CBCD WBC 7.1 K/mm3 (4.0-10.0) 01/11/17 06:00 RBC 3.49 M/mm3 (3.60-5.2) L 01/11/17 06:00 Hgb 10.8 GM/dL (10.7-15.3) 01/11/17 06:00 Hct 33.0 % (32.4-45.2) 01/11/17 06:00 MCV 94.4 fl (80-96) 01/11/17 06:00 MCHC 32.7 g/dl (32.0-36.0) 01/11/17 06:00 RDW 14.4 % (11.6-15.6) 01/11/17 06:00 Plt Count 210 K/MM3 (134-434) 01/11/17 06:00 MPV 8.6 fl (7.5-11.1) 01/11/17 06:00 CMP Sodium 141 mmol/L (136-145) 01/13/17 07:00 Potassium 3.7 mmol/L (3.5-5.1) 01/13/17 07:00 Chloride 99 mmol/L (98-107) 01/13/17 07:00 Carbon Dioxide 32 mmol/L (21-32) 01/13/17 07:00 Anion Gap 10 (8-16) 01/13/17 07:00 BUN 63 mg/dL (7-18) H 01/13/17 07:00 Creatinine 1.1 mg/dL (0.55-1.02) H 01/13/17 07:00 Creat Clearance w eGFR 35.57 (>60) 01/09/17 06:00 Calcium 9.1 mg/dL (8.5-10.1) 01/13/17 07:00 Total Bilirubin 0.5 mg/dL (0.2-1.0) D 01/09/17 06:00 AST 30 U/L (15-37) 01/09/17 06:00 ALT 15 U/L (12-78) 01/09/17 06:00 Alkaline Phosphatase 137 U/L (45-117) H 01/09/17 06:00 Total Protein 6.7 g/dl (6.4-8.2) 01/09/17 06:00 Albumin 2.8 g/dl (3.4-5.0) L 01/09/17 06:00 ASSESSMENT/PLAN: 86 year old female with MIKE in the setting of exacerbation of CHF. Plan 86 year old female with a history of diverticulitis, hypothyroidism, HTN, PAF on Eliquis, and dCHF referred to the ED for worsening LE edema and was borderline hypotensive (90s systolic) on day of admission. The patient has been having ongoing medical managment for urinary tract infection, CHF, Atrial Fibrillation while admitted and I was consulted to evaluate tremor. She was accompanied by her son and daughter who had previously witnessed the movements. They are typically self sustained and do not have LOC or tongue biting. Typically are bilateral upper extremities and subside. She does not have history of seizures. Additionally, she was complaining of discomfort in her b/l lower extremities with pain to palpation. She denies h/o DM but symptoms are persistent and bilateral up to her calf on the left side and mostly up to ankle in the RLE. Discussed with family and agreed to have EMG/NCS of lower extremities to further eval Likely benign and possibly neuropathy though very recent and unclear etiology For tremor, would observe for now, will consider checking EEG as outpatient Continue mgmt for acute renal failure Continue Eliquis for Afib Monitor BP, on Coreg Will start gabapentin 300mg at bedtime to try to help with discomfort for now
--- NOTE | 2017-01-13 18:21 | PN ---
Physical Exam: SUBJECTIVE: Patient seen and examined at bed side. She si doing much better, she reports feeling fatigue,She reports tremor in her hands. She denies any fever, chills ,N/V/D/C. OBJECTIVE: Vital Signs Period Temp Pulse Resp BP Sys/Carr Pulse Ox Last 24 Hr 97.9 F-99.6 F 72-91 16-20 93-110/52-66 95-97 GENERAL: The patient is awake, alert, in no acute distress. HEAD: Normal with no signs of trauma. EYES: PERRL, sclera anicteric, conjunctiva clear. No ptosis. ENT: moist mucous membranes. NECK: Trachea midline, full range of motion, supple. LUNGS: Breath sounds equal, clear to auscultation bilaterally, no wheezes, no crackles, no accessory muscle use. HEART: Regular rate and rhythm, S1, S2 2/6 systolic murmur, No rub or gallop. ABDOMEN: Soft, nontender, nondistended, normoactive bowel sounds, no guarding, no rebound, no hepatosplenomegaly, no masses. EXTREMITIES: 2+ pulses, warm, well-perfused, no edema. NEUROLOGICAL: Normal speech, gait not observed. PSYCH: Normal mood, normal affect. SKIN: Warm, dry, normal turgor, no rashes or lesions noted Laboratory Results - last 24 hr 01/13/17 07:00 Sodium 141 Potassium 3.7 Chloride 99 Carbon Dioxide 32 Anion Gap 10 BUN 63 H Creatinine 1.1 H Random Glucose 108 H Calcium 9.1 Phosphorus 3.1 Magnesium 2.2 Active Medications Generic Name Dose Route Start Last Admin Trade Name Freq PRN Reason Stop Dose Admin Acetaminophen 650 mg 01/07/17 13:33 01/13/17 14:28 Tylenol - PO 650 mg Q6H PRN Administration FEVER OR PAIN Apixaban 2.5 mg 01/07/17 22:00 01/13/17 09:00 Eliquis - PO 2.5 mg BID [facility] Administration Carvedilol 3.125 mg 01/11/17 10:00 01/13/17 09:00 Coreg - PO 3.125 mg BID [facility] Administration Docusate Sodium 300 mg 01/11/17 22:00 01/12/17 22:02 Colace - PO 300 mg HS [facility] Administration Furosemide 20 mg 01/12/17 13:15 01/13/17 09:00 Lasix - PO 20 mg DAILY [facility] Administration Levothyroxine Sodium 50 mcg 01/08/17 07:00 01/13/17 06:36 Synthroid - PO 50 mcg ACBK [facility] Administration Ondansetron HCl 4 mg 01/07/17 13:33 Zofran Injection IVPB Q6H PRN NAUSEA Polyethylene Glycol 17 gm 01/11/17 11:00 01/13/17 09:00 Miralax (For Daily Use) - PO 17 gm DAILY [facility] Administration Senna/Docusate Sodium 2 tablet 01/07/17 22:00 01/12/17 22:02 Pericolace - PO 2 tablet HS [facility] Administration ASSESSMENT/PLAN: 86 year old woman with PMhx of CHF (diastolic dysfunction), MR, Hypertension, P- Afib, Hypertension, CKD Stage 3 (baseline Cr 1.1-1.2) presented to the ED with LE swelling, worsening weakness and fatigue weakness. # Generalised weakness likely due to symptomatic bradycardia vs UTI vs Hypothyroidism vs CHF * Son state that she has worsen fatigue over the last few weeks * Physical therapy eval: was able to stand, will benefit from MULU * TSH WNL * HR improved off coreg, will start low dose coreg 3.125 BID per cardiology with cautions hemodynamics and HR permitting (hold if HR below 60) * DC sawyer, bladder scan to evaluate any urinary retention * completed antibiotics cefazolin 5 days. * # Tremor upper extremitis , * Neurology consulted * Likely benign and possibly neuropathy though very recent and unclear etiology * would observe for now, will consider checking EEG as outpatient * start gabapentin 300mg at bedtime to try to help with discomfort for now #Left calf pain , Acute * Venous doppler to R/O DVT shows No evidence of deep venous thrombosis * #Acute on chronic diastolic heart failure * class 2 NYHA classification LV failure * no overt congestion on CXR * clinically appears dehydrated however, pt reports dry weight to be 119lbs and is seen here to be 145lbs. today 117 * continue Lasix 20 mg daily , hold on Metolazone * continue Carvedilol 3.125 BID with cautions to HR and hemodynamics * I/O * Daily weight # Left knee pain * s/p mechanical fall at home 2 weeks ago. * appears to have a resolving bruise. * XR normal no fracture, * pain is better today #Troponlin leak,likely due to CHF exacerbation and MIKE * trend of troponin 0.17-0.16-0.19. * no EKG changes. no CP. likely due to CHF exacerbation and MIKE #Vtach vs sinus charlie , resolved * RN reports Vtach on monitor. appears to be artifact.(day of admission ) * #MIKE on CKD Stage 3 * Likely due to hypoperfusion in setting of intravascular volume depletion ( Lasix + Metolazone) * US normal , repeat US per nephro * continue lasix 20 mg daily. will hold metolazone due to hypotension and lightheadedness * Cr improved from 1.9 to 1.5 to 1.1 today * would maitain off Metolazone * trend BUN/Cr * Avoid nephro toxogenic * DC sawyer and bladder scan to evaluate urinary retention * would hold starting LISANDRO/ARB until pt is at a stable volume status and renal function stablized as well * Dose all meds for Cr Cl ~40 per pharmacy technician infusion * #LE edema likely 2/2 to CHF exacerbation , resolved * No orthopena, PND * no overt congestion on CXR * LE edema improved compared to yesterday, seems dry today * Cardiology following * completed Abx course with improvement in LE erythema and warmth * reports still having some LE pain # B/L LE cellulitis * none visualized by me . * as per son was given Abx IM by PMD 2 days ago. * is on cefazolin for UTI which should cover cellulitis as well. f/u bcx ellulitis , * no cellulitis, no signs of active infection. per hospice community liaison * encourage foot hygiene * F/U as out patient #Hx of Hypertension * BP better today 110/66 * Monitor BP * continue lasix 20 daily mg po .D/C Metolasone #Hypokalemia, improved * K today 3.7 , replenished * Repeat BMP * trend Mg levels # Hypothyroidism , chronic * TSH WNL * continue home meds Synthroid # Anemia ; likely 2/2 chronic disease vs low oral intake vs blood loss * Iron Studies WNL * Monitor H/H * # Proph: * DVT : On Eliquis 2.5 mg BID * GI : No proph needed at this time * Aspiration precautions * Fall precautions * #FEN: * F: On no fluids * E: WNL * N: low sodium diet * #Dispo * Will admit to tele monitor * Will Consider D/C to shelter assisting facility Visit type - Emergency Visit Emergency Visit: Yes ED Registration Date: 01/07/17 Care time: The patient presented to the Emergency Department on the above date and was hospitalized for further evaluation of their emergent condition. - New Patient This patient is new to me today: No - Critical Care Critical Care patient: No
[2017-01-13] MEDS ORDERED: traMADol HCL 50 MG TABLET PO PRN (19:42)
[2017-01-13] MEDS: GABAPENTIN 300 MG CAPSULE (FP) PO SCH (21:21)
[2017-01-13] MEDS: SENNOSIDES/DOCUSATE COMBO (SENNA PLUS) TABLET (UD) PO SCH (21:21)
[2017-01-13] MEDS: DOCUSATE SODIUM 100 MG CAPSULE (FP) PO SCH (21:21)
[2017-01-14] MEDS: LEVOTHYROXINE NA 50 MCG TABLET (FP) PO SCH (06:04)
[2017-01-14 07:11] LABS: ANION GAP 9 (8-16); CALCIUM 8.6 mg/dL (8.5-10.1); CO2 32 mmol/L (21-32); CREATININE 1.1 mg/dL (0.55-1.02); GLUCOSE,RANDOM 112 mg/dL (74-106); MAGNESIUM 2.2 mg/dL (1.8-2.4); PHOSPHOROUS 3.2 mg/dL (2.5-4.9)
--- NOTE | 2017-01-14 08:44 | PN ---
Progress Note, Physician Chief Complaint: Appears better today Generalized weakness and has difficulty standing and walking Await transfer to rehab In the interim, Neurology was consulted for tremor History of Present Illness: Patient was seen and examined. Awake and alert. Chart was reviewed Denies chest pain or palpitations. Breathing comfortable - Current Medication List Current Medications: Active Medications Acetaminophen (Tylenol -) 650 mg PO Q6H PRN PRN Reason: FEVER OR PAIN Last Admin: 01/13/17 14:28 Dose: 650 mg Apixaban (Eliquis -) 2.5 mg PO BID [facility] Last Admin: 01/13/17 21:21 Dose: 2.5 mg Carvedilol (Coreg -) 3.125 mg PO BID [facility] Last Admin: 01/13/17 21:21 Dose: 3.125 mg Docusate Sodium (Colace -) 300 mg PO HS [facility] Last Admin: 01/13/17 21:21 Dose: Not Given Furosemide (Lasix -) 20 mg PO DAILY [facility] Last Admin: 01/13/17 09:00 Dose: 20 mg Gabapentin (Neurontin -) 300 mg PO BID [facility] Last Admin: 01/13/17 21:21 Dose: 300 mg Levothyroxine Sodium (Synthroid -) 50 mcg PO ACBK [facility] Last Admin: 01/14/17 06:04 Dose: 50 mcg Ondansetron HCl (Zofran Injection) 4 mg IVPB Q6H PRN PRN Reason: NAUSEA Polyethylene Glycol (Miralax (For Daily Use) -) 17 gm PO DAILY [facility] Last Admin: 01/13/17 09:00 Dose: 17 gm Senna/Docusate Sodium (Pericolace -) 2 tablet PO [facility] Last Admin: 01/13/17 21:21 Dose: 2 tablet Tramadol HCl (Ultram -) 50 mg PO Q6H PRN PRN Reason: PAIN Last Admin: 01/13/17 21:21 Dose: 50 mg - Objective Vital Signs: Vital Signs Temperature 98.1 F 01/14/17 06:00 Pulse Rate 88 01/14/17 06:00 Respiratory Rate 20 01/14/17 06:00 Blood Pressure 126/69 01/14/17 06:00 O2 Sat by Pulse Oximetry (%) 97 01/13/17 21:00 Neck: Yes: Supple Cardiovascular: Yes: Regular Rate and Rhythm, Murmur (2/6 SM), S1, S2 Respiratory: Yes: CTA Bilaterally Gastrointestinal: Yes: Normal Bowel Sounds, Soft. No: Tenderness Edema: No Additional Findings/Remarks: - Review of Systems Constitutional: reports: Weakness. denies: Chills, Fever Cardiovascular: reports: Shortness of Breath - improved denies: Chest Pain, Palpitations Respiratory: reports: SOB - improved denies: Cough, Hemoptysis, Orthopnea, PND Gastrointestinal: denies: Abdominal Pain, Constipation, Diarrhea, Melena, Nausea , Rectal Bleeding, Vomiting Musculoskeletal: reports: Joint Pain Neurological: reports: Weakness. denies: Confusion, Dizziness, Headache, Seizure, Syncope Labs: CBC, BMP 01/11/17 06:00 01/14/17 05:49 Problem List - Problems (1) MIKE (acute kidney injury) Code(s): N17.9 - ACUTE KIDNEY FAILURE, UNSPECIFIED (2) CHF exacerbation Code(s): I50.9 - HEART FAILURE, UNSPECIFIED Qualifiers: Congestive heart failure type: unspecified congestive heart failure type Qualified Code(s): I50.9 - Heart failure, unspecified (3) Elevated troponin Code(s): R74.8 - ABNORMAL LEVELS OF OTHER SERUM ENZYMES (4) Hypokalemia Code(s): E87.6 - HYPOKALEMIA (5) Lower extremity edema Code(s): R60.0 - LOCALIZED EDEMA (6) Acute on chronic diastolic CHF (congestive heart failure) Code(s): I50.33 - ACUTE ON CHRONIC DIASTOLIC (CONGESTIVE) HEART FAILURE (7) Elevated alkaline phosphatase level Code(s): R74.8 - ABNORMAL LEVELS OF OTHER SERUM ENZYMES (8) Anemia Code(s): D64.9 - ANEMIA, UNSPECIFIED Qualifiers: Anemia type: unspecified type Qualified Code(s): D64.9 - Anemia, unspecified (9) Hypertension Code(s): I10 - ESSENTIAL (PRIMARY) HYPERTENSION Qualifiers: Hypertension type: essential hypertension Qualified Code(s): I10 - Essential (primary) hypertension (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 Code(s): I13.10 - HYP HRT & CHR KDNY DIS W/O HRT FAIL, W STG 1-4/UNSP CHR KDNY N18.3 - CHRONIC KIDNEY DISEASE, STAGE 3 (MODERATE) (11) Hypothyroid Code(s): E03.9 - HYPOTHYROIDISM, UNSPECIFIED Qualifiers: Hypothyroidism type: unspecified Qualified Code(s): E03.9 - Hypothyroidism, unspecified (12) Mitral regurgitation Code(s): I34.0 - NONRHEUMATIC MITRAL (VALVE) INSUFFICIENCY Qualifiers: Cardiac valve disease etiology: nonrheumatic Qualified Code(s): I34.0 - Nonrheumatic mitral (valve) insufficiency (13) PAF (paroxysmal atrial fibrillation) Code(s): I48.0 - PAROXYSMAL ATRIAL FIBRILLATION Assessment/Plan 1. Acute on chronic diastolic heart failure - class 2 NYHA classification LV failure - improved 2. Hypertension/hypertensive cardiovascular disease - currently hypotensive intermittently 3. Sinus bradycardia at times likely due to over medication with beta blockade 4. Paroxysmal atrial fibrillation currently in sinus rhythm on NOAC 5. Hypothyroidism 6. Acute on CKD 7. Anemia PLAN: 1. Continue Carvedilol 3.125 mg twice a day blood pressure permitting and titrate 2. Continue Eliquis 2.5 mg BID 3. Lasix 4. Monitor H/H 5. K supplement as needed and follow electrolytes 6. Thyroid replacement therapy 7. ACEI or ARB when renal function stabilizes 8. Further neurologic work up as outpatient 9. Transfer to rehab Further plans are to follow Chuck Escalante MD
[2017-01-14] MEDS: GABAPENTIN 300 MG CAPSULE (FP) PO SCH (09:34)
[2017-01-14] MEDS: APIXABAN 2.5 MG TABLET PO SCH (09:34)
[2017-01-14] MEDS: FUROSEMIDE 20 MG TABLET (FP) PO SCH (09:34)
[2017-01-14] MEDS: POLYETHYLENE GLYCOL 3350 119 GM BTL PO SCH (09:35)
[2017-01-14] MEDS: CARVEDILOL 3.125 MG TABLET (FP) PO SCH (09:35)
--- NOTE | 2017-01-14 10:06 | PN ---
Progress Note (short form) - Note Progress Note: Neurology 86 year old female with a history of diverticulitis, hypothyroidism, HTN, PAF on Eliquis, and dCHF referred to the ED for worsening LE edema and was borderline hypotensive (90s systolic) on day of admission. The patient has been having ongoing medical managment for urinary tract infection, CHF, Atrial Fibrillation while admitted and I was consulted to evaluate tremor. She was accompanied by her son and daughter who had previously witnessed the movements. They are typically self sustained and do not have LOC or tongue biting. Typically are bilateral upper extremities and subside. She does not have history of seizures. Additionally, she was complaining of discomfort in her b/l lower extremities with pain to palpation. She denies h/o DM but symptoms are persistent and bilateral up to her calf on the left side and mostly up to ankle in the RLE. Gabapentin 300mg twice daily started and patient with slightly decreased discomfort this morning. Active Medications Acetaminophen (Tylenol -) 650 mg PO Q6H PRN PRN Reason: FEVER OR PAIN Last Admin: 01/13/17 14:28 Dose: 650 mg Apixaban (Eliquis -) 2.5 mg PO BID [facility] Last Admin: 01/14/17 09:34 Dose: 2.5 mg Carvedilol (Coreg -) 3.125 mg PO BID [facility] Last Admin: 01/14/17 09:35 Dose: Not Given Docusate Sodium (Colace -) 300 mg PO HS [facility] Last Admin: 01/13/17 21:21 Dose: Not Given Furosemide (Lasix -) 20 mg PO DAILY [facility] Last Admin: 01/14/17 09:34 Dose: 20 mg Gabapentin (Neurontin -) 300 mg PO BID [facility] Last Admin: 01/14/17 09:34 Dose: 300 mg Levothyroxine Sodium (Synthroid -) 50 mcg PO ACBK [facility] Last Admin: 01/14/17 06:04 Dose: 50 mcg Ondansetron HCl (Zofran Injection) 4 mg IVPB Q6H PRN PRN Reason: NAUSEA Polyethylene Glycol (Miralax (For Daily Use) -) 17 gm PO DAILY [facility] Last Admin: 01/14/17 09:35 Dose: 17 gm Senna/Docusate Sodium (Pericolace -) 2 tablet PO HS [facility] Last Admin: 01/13/17 21:21 Dose: 2 tablet Tramadol HCl (Ultram -) 50 mg PO Q6H PRN PRN Reason: PAIN Last Admin: 01/13/17 21:21 Dose: 50 mg PHYSICAL EXAMINATION Vital Signs Temperature 98.1 F 01/14/17 06:00 Pulse Rate 88 01/14/17 06:00 Respiratory Rate 20 01/14/17 06:00 Blood Pressure 126/69 01/14/17 06:00 O2 Sat by Pulse Oximetry (%) 97 01/13/17 21:00 GENERAL: Awake, alert, and fully oriented, in no acute distress. HEAD: Normal with no signs of trauma. EYES: Pupils equal, round and reactive to light, extraocular movements intact, sclera anicteric, conjunctiva clear. No lid lag. EARS, NOSE, THROAT: Ears normal, nares patent, oropharynx clear without exudates. Moist mucous membranes. NECK: Normal range of motion, supple without lymphadenopathy, JVD, or masses. LUNGS: Soft systolic murmur. Fine rails at bases. HEART: Regular rate and rhythm, normal S1 and S2 without murmur, rub or gallop. ABDOMEN: Soft, nontender, not distended, normoactive bowel sounds, no guarding, no rebound, no masses. No hepatomegaly or splenomegaly. MUSCULOSKELETAL: Normal range of motion at all joints. No bony deformities or tenderness. No CVA tenderness. UPPER EXTREMITIES: 2+ pulses, warm, well-perfused. No cyanosis. No clubbing. No peripheral edema. LOWER EXTREMITIES: 2+ pulses, warm, well-perfused. No calf tenderness. 2+ pitting LE edema bilaterally with mild erythema and warmth. NEUROLOGICAL: Cranial nerves II-XII intact. Normal speech. Strength intact b/l , sensory hyperesthetic to touch in b/l LE (L>R), reflexes 1+, gait deferred PSYCHIATRIC: Cooperative. Good eye contact. Appropriate mood and affect. SKIN: Warm, dry, normal turgor, no rashes or lesions noted, normal capillary refill. CBCD WBC 7.1 K/mm3 (4.0-10.0) 01/11/17 06:00 RBC 3.49 M/mm3 (3.60-5.2) L 01/11/17 06:00 Hgb 10.8 GM/dL (10.7-15.3) 01/11/17 06:00 Hct 33.0 % (32.4-45.2) 01/11/17 06:00 MCV 94.4 fl (80-96) 01/11/17 06:00 MCHC 32.7 g/dl (32.0-36.0) 01/11/17 06:00 RDW 14.4 % (11.6-15.6) 01/11/17 06:00 Plt Count 210 K/MM3 (134-434) 01/11/17 06:00 MPV 8.6 fl (7.5-11.1) 01/11/17 06:00 CMP Sodium 142 mmol/L (136-145) 01/14/17 05:49 Potassium 3.8 mmol/L (3.5-5.1) 01/14/17 05:49 Chloride 101 mmol/L (98-107) 01/14/17 05:49 Carbon Dioxide 32 mmol/L (21-32) 01/14/17 05:49 Anion Gap 9 (8-16) 01/14/17 05:49 BUN 59 mg/dL (7-18) H 01/14/17 05:49 Creatinine 1.1 mg/dL (0.55-1.02) H 01/14/17 05:49 Creat Clearance w eGFR 35.57 (>60) 01/09/17 06:00 Calcium 8.6 mg/dL (8.5-10.1) 01/14/17 05:49 Total Bilirubin 0.5 mg/dL (0.2-1.0) D 01/09/17 06:00 AST 30 U/L (15-37) 01/09/17 06:00 ALT 15 U/L (12-78) 01/09/17 06:00 Alkaline Phosphatase 137 U/L (45-117) H 01/09/17 06:00 Total Protein 6.7 g/dl (6.4-8.2) 01/09/17 06:00 Albumin 2.8 g/dl (3.4-5.0) L 01/09/17 06:00 ASSESSMENT/PLAN: 86 year old female with MIKE in the setting of exacerbation of CHF. Plan 86 year old female with a history of diverticulitis, hypothyroidism, HTN, PAF on Eliquis, and dCHF referred to the ED for worsening LE edema and was borderline hypotensive (90s systolic) on day of admission. The patient has been having ongoing medical managment for urinary tract infection, CHF, Atrial Fibrillation while admitted and I was consulted to evaluate tremor. She was accompanied by her son and daughter who had previously witnessed the movements. They are typically self sustained and do not have LOC or tongue biting. Typically are bilateral upper extremities and subside. She does not have history of seizures. Additionally, she was complaining of discomfort in her b/l lower extremities with pain to palpation. She denies h/o DM but symptoms are persistent and bilateral up to her calf on the left side and mostly up to ankle in the RLE. EMG ordered but can be done outpatient Likely benign and possibly neuropathy though very recent and unclear etiology For tremor, would observe for now, will consider checking EEG as outpatient Continue mgmt for acute renal failure Continue Eliquis for Afib Monitor BP, on Coreg Started gabapentin 300mg to treat potential neuropathy, some improvement in discomfort today
[2017-01-14 10:25] VITALS: BP 95/50; PULSE 85; TEMP 98.9
[2017-01-14] MEDS ORDERED: SODIUM CHLORIDE 250 ML IV STA (10:30)
--- NOTE | 2017-01-14 12:25 | PN ---
Progress Note (short form) - Note Progress Note: Renal Follow up for MIKE on CKD Pt seen and examined at the bedside pt sleeping at the bedside she did not sleep last night b/c of pain in the legs, mildly improved this am no sob, chest pain good urine output Vital Signs Temperature 98.9 F 01/14/17 10:00 Pulse Rate 85 01/14/17 10:00 Respiratory Rate 18 01/14/17 10:00 Blood Pressure 95/50 01/14/17 10:00 O2 Sat by Pulse Oximetry (%) 93 L 01/14/17 09:00 Intake & Output 01/11/17 01/12/17 01/13/17 01/14/17 23:59 23:59 23:59 23:59 Intake Total 180 890 690 Output Total 1600 1275 900 600 Balance -1420 -385 -210 -600 Weight 117 lb 3.2 oz 118 lb 12.8 oz 117 lb Gen: NAD, awake and alert CVS:RRR, + systolic murmur Lungs: CTA, no rales or wheeze Abd: soft NT/ND Ext: Edema resolved, no erythema today CBC, BMP 01/11/17 06:00 01/14/17 05:49 Laboratory Tests 01/14/17 05:49 Calcium 8.6 Phosphorus 3.2 Magnesium 2.2 Current Medications Acetaminophen (Tylenol -) 650 mg PO Q6H PRN PRN Reason: FEVER OR PAIN Last Admin: 01/13/17 14:28 Dose: 650 mg Apixaban (Eliquis -) 2.5 mg PO BID [facility] Last Admin: 01/14/17 09:34 Dose: 2.5 mg Carvedilol (Coreg -) 3.125 mg PO BID [facility] Last Admin: 01/14/17 09:35 Dose: Not Given Docusate Sodium (Colace -) 300 mg PO HS [facility] Last Admin: 01/13/17 21:21 Dose: Not Given Furosemide (Lasix -) 20 mg PO BID@0600,1400 [facility] Gabapentin (Neurontin -) 300 mg PO BID [facility] Last Admin: 01/14/17 09:34 Dose: 300 mg Levothyroxine Sodium (Synthroid -) 50 mcg PO ACBK [facility] Last Admin: 01/14/17 06:04 Dose: 50 mcg Ondansetron HCl (Zofran Injection) 4 mg IVPB Q6H PRN PRN Reason: NAUSEA Polyethylene Glycol (Miralax (For Daily Use) -) 17 gm PO DAILY [facility] Last Admin: 01/14/17 09:35 Dose: 17 gm Senna/Docusate Sodium (Pericolace -) 2 tablet PO HS [facility] Last Admin: 01/13/17 21:21 Dose: 2 tablet Tramadol HCl (Ultram -) 50 mg PO Q6H PRN PRN Reason: PAIN Last Admin: 01/13/17 21:21 Dose: 50 mg A/P 86 year old woman with PMhx of CHF (diastolic dysfunction), MR, Hypertension, P- Afib, Hypertension, CKD Stage 3 (baseline Cr 1.1-1.2) presented to the ED with LE swelling and found to have BUN/Cr of 108/1.8. #Non-oliguric MIKE on CKD Stage 3 Renal function improved to baseline BUN remains high but improving Increase Lasix to 20mg BID can plan to start ACEi or ARB as outpatient if renal function and BP are acceptable Dose all meds for CrCl less then 50 avoid nsaids for pain control pt to follow up in our office as a outpatient Kenn Jara DO Problem List - Problems (1) MIKE (acute kidney injury) Code(s): N17.9 - ACUTE KIDNEY FAILURE, UNSPECIFIED (2) CHF exacerbation Code(s): I50.9 - HEART FAILURE, UNSPECIFIED Qualifiers: Congestive heart failure type: unspecified congestive heart failure type Qualified Code(s): I50.9 - Heart failure, unspecified (3) Hypokalemia Code(s): E87.6 - HYPOKALEMIA (4) Acute on chronic diastolic CHF (congestive heart failure) Code(s): I50.33 - ACUTE ON CHRONIC DIASTOLIC (CONGESTIVE) HEART FAILURE (5) Edema Code(s): R60.9 - EDEMA, UNSPECIFIED Qualifiers: Edema type: unspecified Qualified Code(s): R60.9 - Edema, unspecified (6) Hypertension Code(s): I10 - ESSENTIAL (PRIMARY) HYPERTENSION Qualifiers: Hypertension type: essential hypertension Qualified Code(s): I10 - Essential (primary) hypertension
[2017-01-14] MEDS ORDERED: FUROSEMIDE 20 MG TABLET (FP) PO SCH (14:00)
--- NOTE | 2017-01-14 18:41 | PN ---
Teaching Attending Note Name of Resident: Franky Slater ATTENDING PHYSICIAN STATEMENT I saw and evaluated the patient. I reviewed the resident's note and discussed the case with the resident. I agree with the resident's findings and plan as documented. SUBJECTIVE: OBJECTIVE: Vital Signs Period Temp Pulse Resp BP Sys/Carr Pulse Ox Last 24 Hr 98.1 F-98.9 F 80-88 18-20 95-126/46-69 93-97 ASSESSMENT AND PLAN:
== END 2017-01-14 13:48 | DRG 682 ==
LOC: JER 10:42 → EDBD 10:42 → JERBED 12:26 → J4S 01-08 13:35
PROVIDERS: ADMIT Internal Medicine; ATTEND Internal Medicine
DX: N17.9 Acute kidney failure, unspecified (principal); I50.33 Acute on chronic diastolic (congestive) heart failure; I13.0 Hypertensive heart and chronic kidney disease with heart failure and stage 1 through stage 4 chronic kidney disease, or unspecified chronic kidney disease; N39.0 Urinary tract infection, site not specified; L03.116 Cellulitis of left lower limb; L03.115 Cellulitis of right lower limb; I24.8 Other forms of acute ischemic heart disease; I48.0 Paroxysmal atrial fibrillation; I34.0 Nonrheumatic mitral (valve) insufficiency; E03.9 Hypothyroidism, unspecified; N18.3 Chronic kidney disease, stage 3 (moderate); J44.9 Chronic obstructive pulmonary disease, unspecified; E78.00 Pure hypercholesterolemia, unspecified; K57.30 Diverticulosis of large intestine without perforation or abscess without bleeding; Z79.01 Long term (current) use of anticoagulants; E87.6 Hypokalemia; D63.8 Anemia in other chronic diseases classified elsewhere; M25.562 Pain in left knee; R33.9 Retention of urine, unspecified; R00.1 Bradycardia, unspecified; K59.00 Constipation, unspecified; R25.1 Tremor, unspecified; I25.10 Atherosclerotic heart disease of native coronary artery without angina pectoris
CPT/HCPCS: 36415; 71010-TC; 73562-TC-LT; 76775-TC; 76856-TC; 80048; 80053; 80061; 81003; 81015; 82436; 82553; 82570; 82728; 83036; 83540; 83550; 83721; 83735; 83880; 84100; 84133; 84300; 84443; 84466; 84484; 84540; 85025; 85027; 87086; 93005; 93010; 93306-TC; 93970-TC; 95860-TC; 97116-GP; 97161-GP; 99285-25

== ENCOUNTER 2017-04-08 18:23 | Inpatient (IN) | payer OTHER, MEDICARE ==
[2017-04-08 18:34] VITALS: BMI 18.8
--- NOTE | 2017-04-08 20:24 | PDOC ---
History of Present Illness - General History Source: Patient Exam Limitations: Other (confused) - History of Present Illness Initial Comments: 04/08/17 20:24 The patient is a 86 year old female, from [facility], with a significant past medical history of HTN, chronic diastolic heart failure, stage 3 CKD, anemia, COPD, Afib, and hypothyroidism who presents to the ED with agitation and altered mental status since earlier today. Family at bedside and states the patient was given Cipro 2 days ago for a UTI. Family reports the patient was very agitated and confused throughout the day. Family also notes the patient has decreased PO intake. Patient is DNR DNI No nausea, vomiting, or diarrhea. No fever. HPI is limited secondary to the patient being confused. <Елена Ndiaye - Last Filed: 04/08/17 20:24> <Joanie Michael - Last Filed: 04/08/17 23:33> - General Chief Complaint: Weakness Stated Complaint: ALT. MENTAL STATUS Time Seen by Provider: 04/08/17 19:23 Past History <Елена Ndiaye - Last Filed: 04/08/17 20:24> - Past Medical History Anemia: Yes Asthma: No Cancer: No Cardiac Disorders: Yes (afib) CVA: No COPD: Yes CHF: Yes Dementia: No Diabetes: No GI Disorders: Yes (Abdominal distention; diverticulitis. CONSTIPATION.) Disorders: Yes (hx of uti) HTN: Yes Hypercholesterolemia: Yes Kidney Stones: (KIDNEY DISEASE.) Liver Disease: No Seizures: No Thyroid Disease: Yes (HYPO.) Other medical history: NEURALGIA. - Surgical History Abdominal Surgery: No Appendectomy: No Cardiac Surgery: No Cholecystectomy: No Lung Surgery: No Neurologic Surgery: No Orthopedic Surgery: No - Suicide/Smoking/Psychosocial Hx Smoking History: Never smoked Hx Alcohol Use: No Drug/Substance Use Hx: No Substance Use Type: None Hx Substance Use Treatment: No <Joanie Michael - Last Filed: 04/08/17 23:33> - Past Medical History Allergies/Adverse Reactions: Allergies Allergy/AdvReac Type Severity Reaction Status Date / Time No Known Allergies Allergy Verified 04/08/17 18:28 Home Medications: Ambulatory Orders Acetaminophen [Tylenol] 650 mg PO BID 04/08/17 Apixaban [Eliquis] 2.5 mg PO BID 04/08/17 Bacitracin - [Bacitracin Topical Ointment -] 1 applic TP TID 04/08/17 Benzocaine/Menthol [Cepacol Sore Throat Lozenge] 1 each MM TID 04/08/17 Carvedilol 3.125 mg PO Q12H 04/08/17 Ciprofloxacin [Cipro (Restricted To Id)] 250 mg PO BID 04/08/17 Ferrous Sulfate 325 mg PO DAILY 04/08/17 Fluticasone Propionate [Allergy Relief] 15.8 ml NS BID 04/08/17 Furosemide [Lasix -] 40 mg PO DAILY 04/08/17 Gabapentin 100 mg PO DAILY 04/08/17 Guaifenesin [Cough Syrup] 100 mg PO Q6H PRN 04/08/17 Ipratropium/Albuterol Sulfate [Iprat-Albut 0.5-3(2.5) mg/3 ml] 3 ml IH TID 04/08 Levothyroxine [Synthroid -] 50 mcg PO DAILY 04/08/17 Melatonin 1 mg PO HS 04/08/17 Mirtazapine 7.5 mg PO HS 04/08/17 Montelukast Na [Singulair -] 10 mg PO HS 04/08/17 Multivitamin [Poly-Vitamin] 1 each PO DAILY 04/08/17 Polyethylene Glycol 3350 [Gavilax] 17 gm PO DAILY 04/08/17 Potassium Chloride 20 meq PO BID 04/08/17 Saccharomyces Boulardii [Florastor] 250 mg PO BID 04/08/17 Sennosides/Docusate Sodium [Senna Laxative Tablet] 2 each PO HS 04/08/17 Silver Sulfadiazine [Silvadene] 1 applic TP BID 04/08/17 Review of Systems - Review of Systems Able to Perform ROS?: No Comments:: 04/08/17 20:24 Unable to obtain ROS secondary to patient being confused. <Елена Ndiaye - Last Filed: 04/08/17 20:24> *Physical Exam - Vital Signs Last Vital Signs Temp Pulse Resp BP Pulse Ox 97.3 F L 72 18 117/68 100 04/08/17 18:28 04/08/17 18:28 04/08/17 18:28 04/08/17 18:28 04/08/17 18:28 - Physical Exam Comments: 04/08/17 20:24 GENERAL: + Drowsy but arousable HEAD: No signs of trauma EYES: PERRLA, EOMI, sclera anicteric, conjunctiva clear ENT: + dry mucous membranes. Auricles normal inspection, hearing grossly normal , nares patent, oropharynx clear without exudates. NECK: Normal ROM, supple, no lymphadenopathy, JVD, or masses LUNGS: + Mild decreased breath sounds in left lung. No wheezes, and no crackles HEART: Regular rate and rhythm, normal S1 and S2, no murmurs, rubs or gallops ABDOMEN: Soft, nontender, normoactive bowel sounds. No guarding, no rebound. No masses EXTREMITIES: Normal range of motion, no edema. No clubbing or cyanosis. No cords, erythema, or tenderness NEUROLOGICAL: + Sleeping but arousable to voice, does not follow commands and does not answer question SKIN: Warm, Dry, normal turgor, no rashes or lesions noted. <Елена Ndiaye - Last Filed: 04/08/17 20:24> - Vital Signs Last Vital Signs Temp Pulse Resp BP Pulse Ox 97.3 F L 72 18 117/68 100 04/08/17 18:28 04/08/17 18:28 04/08/17 18:28 04/08/17 18:28 04/08/17 18:28 <Joanie Michael - Last Filed: 04/08/17 23:33> ED Treatment Course - LABORATORY CBC & Chemistry Diagram: 04/08/17 20:17 04/08/17 20:17 <Joanie Michael - Last Filed: 04/08/17 23:33> Medical Decision Making - Medical Decision Making 04/08/17 20:21 Pt is 86-year-old female with a history of dementia, CHF, recently in rehabilitation for CHF and [place] I atrial fibrillation, anemia, COPD, transferred here from [facility] for agitation increased paranoia and altered mental status. Patient was started on Cipro 2 days ago for known UTI. Per family at bedside patient has not had any recent fevers chills nausea or vomiting. Was told that she was eating okay was admitted not too long ago for similar symptoms which is associated with another UTI On exam patient is drowsy but arousable lungs are decreased the left lung base otherwise clear heart is a irregular no murmurs rubs or gallops. Abdomen is soft nontender extremities are warm well perfused neuro arousable does not answer or follow commands Differential includes persistent UTI, electrolyte abnormalities, worsening anemia other infection such as pneumonia plan chest x-ray labs urine urine culture will likely require admission for presumed persistent UTI and altered mental status 04/08/17 23:31 d/w hospitalist. pt with persistant UTI despite cipro. concerns for AMS. will admit for iv antiobtiocs. <Joanie Michael - Last Filed: 04/08/17 23:33> *DC/Admit/Observation/Transfer - Attestations Scribe Attestion: 04/08/17 20:24 Documentation prepared by Елена Ndiaye, acting as senior medical transcriptionist for Joanie Michael MD <Елена Ndiaye - Last Filed: 04/08/17 20:24> - Discharge Dispostion Admit: Yes <Joanie Michael - Last Filed: 04/08/17 23:33> Diagnosis at time of Disposition: UTI (urinary tract infection) - Referrals Referrals: STAFF,NOT ON [Primary Care Provider] - - Patient Instructions - Post Discharge Activity
[2017-04-08 20:28] LABS: URINE APPEARANCE SLCLOUDY; URINE BILIRUBIN NEGATIVE (NEGATIVE); URINE BLOOD NEGATIVE (NEGATIVE); URINE COLOR YELLOW; URINE GLUCOSE (UA) NEGATIVE (NEGATIVE); URINE KETONE NEGATIVE (NEGATIVE); URINE NITRITE NEGATIVE (NEGATIVE); URINE PROTEIN NEGATIVE (NEGATIVE); URINE UROBILINOGEN NEGATIVE mg/dL (0.2-1.0)
[2017-04-08 20:29] LABS: BASOPHIL 0.7 % (0-2.0); EOSINOPHIL 7.8 % (0-4.5); MCH 30.4 pg (25.7-33.7); MCHC 32.5 g/dl (32.0-36.0); MEAN CELL VOLUME 93.6 fl (80-96); MEAN PLT VOLUME 7.6 fl (7.5-11.1); NEUTROPHILS 64.8 % (42.8-82.8); PLATELET COUNT 317 K/MM3 (134-434); RDW 16.4 % (11.6-15.6); WHITE BLOOD COUNT 7.5 K/mm3 (4.0-10.0)
[2017-04-08 20:29] LABS: URINE LEUK ESTERASE 1+ (NEGATIVE)
[2017-04-08 20:40] LABS: VENOUS PH 7.31 (7.32-7.42)
[2017-04-08 20:42] LABS: URINE BACTERIA MANY /hpf (NONE SEEN); URINE HYALINE CAST 7 /lpf; URINE MUCUS RARE; URINE RBC 4 /hpf (0-3); URINE WBC 12 /hpf (3-5)
[2017-04-08 20:45] LABS: VENOUS BLOOD GAS HCO3 29.6 meq/L (19-25)
[2017-04-08 21:05] LABS: ALBUMIN 1.8 g/dl (3.4-5.0); ANION GAP 3 (8-16); CALCIUM 7.5 mg/dL (8.5-10.1); CO2 31 mmol/L (21-32); CREATININE 1.1 mg/dL (0.55-1.02); GLUCOSE,RANDOM 103 mg/dL (74-106); SGOT/AST 20 U/L (15-37); SGPT/ALT 15 U/L (12-78)
[2017-04-08 21:07] LABS: ALK PHOS 216 U/L (45-117); BILIRUBIN,TOTAL 0.4 mg/dL (0.2-1.0); TOT PROT 5.5 g/dl (6.4-8.2)
[2017-04-08 22:40] LABS: URINE LEUK ESTERASE TRACE (NEGATIVE)
[2017-04-08] MEDS ORDERED: CEFTRIAXONE 1 GM in DEXTROSE 5%-WATER - 50 ML IVPB ONE (22:44)
[2017-04-08] MEDS ORDERED: SODIUM CHLORIDE 0.9% 1000 ML INFUS.BAG IV ONE (22:46)
--- NOTE | 2017-04-09 00:26 | HP ---
CHIEF COMPLAINT: fever, AMS PCP: Armani Canas HISTORY OF PRESENT ILLNESS: This is an 86 year old female who was sent from [facility] for altered mental status. Pt has been on cipro for UTI since 04/06. Her diuretic dose was also recently increased. Pt with no acute complaints on exam. Reports that her mouth is dry. ER course was notable for: (1) WBC 7.5, lactic acid 0.7 (2) BUN 42/Cr 1.1 (3) u/a c/w UTI Recent Travel: pt denies PAST MEDICAL HISTORY: anemia, afib, dCHF, MIKE, COPD, DJD spine, hypothyroid, diverticulosis PAST SURGICAL HISTORY: unknown Social History: Smoking: pt denies Alcohol: pt denies Drugs: pt denies Family History: mother in her 80s, asthma father , prostate [place] Allergies No Known Allergies Allergy (Verified 04/08/17 18:28) HOME MEDICATIONS: 3 Medication Instructions Recorded Acetaminophen [Tylenol] 650 mg PO BID 04/08/17 Apixaban [Eliquis] 2.5 mg PO BID 04/08/17 Bacitracin - [Bacitracin Topical 1 applic TP TID 04/08/17 Ointment -] Benzocaine/Menthol [Cepacol Sore 1 each MM TID 04/08/17 Throat Lozenge] Carvedilol 3.125 mg PO Q12H 04/08/17 Ciprofloxacin [Cipro (Restricted 250 mg PO BID 04/08/17 To Id)] Ferrous Sulfate 325 mg PO DAILY 04/08/17 Fluticasone Propionate [Allergy 15.8 ml NS BID 04/08/17 Relief] Furosemide [Lasix -] 40 mg PO DAILY 04/08/17 Gabapentin 100 mg PO DAILY 04/08/17 Guaifenesin [Cough Syrup] 100 mg PO Q6H PRN 04/08/17 Ipratropium/Albuterol Sulfate 3 ml IH TID 04/08/17 [Iprat-Albut 0.5-3(2.5) mg/3 ml] Levothyroxine [Synthroid -] 50 mcg PO DAILY 04/08/17 Melatonin 1 mg PO HS 04/08/17 Mirtazapine 7.5 mg PO HS 04/08/17 Montelukast Na [Singulair -] 10 mg PO HS 04/08/17 Multivitamin [Poly-Vitamin] 1 each PO DAILY 04/08/17 Polyethylene Glycol 3350 [Gavilax] 17 gm PO DAILY 04/08/17 Potassium Chloride 20 meq PO BID 04/08/17 Saccharomyces Boulardii [Florastor] 250 mg PO BID 04/08/17 Sennosides/Docusate Sodium [Senna 2 each PO HS 04/08/17 Laxative Tablet] Silver Sulfadiazine [Silvadene] 1 applic TP BID 04/08/17 REVIEW OF SYSTEMS CONSTITUTIONAL: Absent: fever, chills, diaphoresis, generalized weakness, malaise, loss of appetite, weight change HEENT: Absent: rhinorrhea, nasal congestion, throat pain, throat swelling, difficulty swallowing, mouth swelling, ear pain, eye pain, visual changes CARDIOVASCULAR: Absent: chest pain, syncope, palpitations, irregular heart rate, lightheadedness , peripheral edema RESPIRATORY: Absent: cough, shortness of breath, dyspnea with exertion, orthopnea, wheezing, stridor, hemoptysis GASTROINTESTINAL: Absent: abdominal pain, abdominal distension, nausea, vomiting, diarrhea, constipation, melena, hematochezia GENITOURINARY: Absent: dysuria, frequency, urgency, hesitancy, hematuria, flank pain, genital pain MUSCULOSKELETAL: Absent: myalgia, arthralgia, joint swelling, back pain, neck pain SKIN: Absent: rash, itching, pallor HEMATOLOGIC/IMMUNOLOGIC: Absent: easy bleeding, easy bruising, lymphadenopathy, frequent infections ENDOCRINE: Absent: unexplained weight gain, unexplained weight loss, heat intolerance, cold intolerance NEUROLOGIC: Present: mental status changes Absent: headache, focal weakness or paresthesias, dizziness, unsteady gait, seizure, bladder or bowel incontinence PSYCHIATRIC: Absent: anxiety, depression, suicidal or homicidal ideation, hallucinations. PHYSICAL EXAMINATION Vital Signs - 24 hr 3 04/08/17 18:28 Temperature 97.3 F L Pulse Rate 72 Respiratory 18 Rate Blood Pressure 117/68 O2 Sat by Pulse 100 Oximetry (%) GENERAL: Awake, alert, and oriented to person only, in no acute distress. HEAD: Normal with no signs of trauma. EYES: Pupils equal, round and reactive to light, extraocular movements intact, sclera anicteric, conjunctiva clear. No lid lag. EARS, NOSE, THROAT: Ears normal, nares patent, oropharynx clear without exudates. dry mucous membranes. NECK: Normal range of motion, supple without lymphadenopathy, JVD, or masses. LUNGS: Breath sounds equal, clear to auscultation bilaterally. No wheezes, and no crackles. No accessory muscle use. HEART: Regular rate and rhythm, normal S1 and S2 + 2/6 systolic murmur, rub or gallop. ABDOMEN: Soft, nontender, not distended, normoactive bowel sounds, no guarding, no rebound, no masses. No hepatomegaly or splenomegaly. MUSCULOSKELETAL: Normal range of motion at all joints. No bony deformities or tenderness. No CVA tenderness. UPPER EXTREMITIES: 2+ pulses, warm, well-perfused. No cyanosis. No clubbing. No peripheral edema. LOWER EXTREMITIES: 2+ pulses, warm, well-perfused. No calf tenderness. No peripheral edema. NEUROLOGICAL: Cranial nerves II-XII intact. Normal speech. Normal gait. PSYCHIATRIC: Cooperative. Good eye contact. Appropriate mood and affect. SKIN: Warm, dry, normal turgor, no rashes noted, normal capillary refill. Stage 1 sacrum, redness noted to area, no skin break Laboratory Results - last 24 hr 3 04/08/17 04/08/17 04/08/17 20:13 20:13 20:15 WBC RBC Hgb Hct MCV MCH MCHC RDW Plt Count MPV Neutrophils % Lymphocytes % Monocytes % Eosinophils % Basophils % VBG pH 7.31 L POC VBG pCO2 60.0 H POC VBG pO2 27.3 L Mixed VBG HCO3 29.6 H Sodium Potassium Chloride Carbon Dioxide Anion Gap BUN Creatinine Creat Clearance w eGFR Random Glucose Lactic Acid 0.7 Calcium Total Bilirubin AST ALT Alkaline Phosphatase Total Protein Albumin Urine Color Yellow Urine Appearance Slcloudy Urine pH 5.0 D Ur Specific [place] 1.011 Urine Protein Negative Urine Glucose (UA) Negative Urine Ketones Negative Urine Blood Negative Urine Nitrite Negative Urine Bilirubin Negative Urine Urobilinogen Negative Ur Leukocyte Esterase Trace H Urine WBC (Auto) 12 Urine RBC (Auto) 4 Urine Bacteria Many Hyaline Casts 7 Urine Mucus Rare 3 04/08/17 04/08/17 20:17 20:17 WBC 7.5 RBC 2.92 L Hgb 8.9 L D Hct 27.4 L D MCV 93.6 MCH 30.4 MCHC 32.5 RDW 16.4 H D Plt Count 317 D MPV 7.6 D Neutrophils % 64.8 Lymphocytes % 12.6 D Monocytes % 14.1 H Eosinophils % 7.8 H D Basophils % 0.7 VBG pH POC VBG pCO2 POC VBG pO2 Mixed VBG HCO3 Sodium 141 Potassium 4.9 D Chloride 107 Carbon Dioxide 31 Anion Gap 3 L BUN 42 H D Creatinine 1.1 H Creat Clearance w eGFR 46.98 Random Glucose 103 Lactic Acid Calcium 7.5 L Total Bilirubin 0.4 AST 20 D ALT 15 Alkaline Phosphatase 216 H D Total Protein 5.5 L Albumin 1.8 L D Urine Color Urine Appearance Urine pH Ur Specific [place] Urine Protein Urine Glucose (UA) Urine Ketones Urine Blood Urine Nitrite Urine Bilirubin Urine Urobilinogen Ur Leukocyte Esterase Urine WBC (Auto) Urine RBC (Auto) Urine Bacteria Hyaline Casts Urine Mucus ECG atrial fibrillation vent rate 67, QTC 471 prolonged QT TWI lead 1, aVL, V4, V5, V6, present on previous ECG 01/07/17 CXR Impression Bilateral increased interstitial markings suggestive of mild pulmonary venous congestion. There are also bibasal atelectatic changes and probable infiltrates, left more the right. A small left pleural effusion cannot be excluded. Follow-up chest x-ray is needed Reported By: Darin De Leon MD 04/08/17 [id number] ASSESSMENT/PLAN: 86yF with PMH anemia, afib, dCHF, MIKE, COPD, DJD spine, hypothyroid, diverticulosis presented from residential with altered mental status. UTI - given ceftriaxone in ED, cont same. - follow culture results dCHF - hold lasix for now, pt appears dry on exam Afib - cont home eliquis, rate controlled with coreg COPD - cont duoneb, singulair, asymptomatic at present - CXR with ? infiltrates but lungs clear with no cough, defer treatment at present hypothyroid - cont home synthroid - TSH 1.55 01/2017 stage 1 PU sacrum - allevyn dressing DVT PPX - cont home eliquis FEN - received 500cc NS in ed, defer further, pt tolerating po and has HF history - BMP in am - low sodium diet as tolerated Dispo: Pt currently requires further observation for management of her emergent condition, but anticipated LOS <48h; admitted to Obs status. Pt is a DNR/DNI Visit type - Emergency Visit Emergency Visit: Yes ED Registration Date: 04/08/17 Care time: The patient presented to the Emergency Department on the above date and was hospitalized for further evaluation of their emergent condition. - New Patient This patient is new to me today: Yes Date on this admission: 04/09/17 - Critical Care Critical Care patient: No
[2017-04-09] MEDS ORDERED: CEFTRIAXONE 1 GM/50 ML BAG ONE (01:53)
[2017-04-09] MEDS: LEVOTHYROXINE NA 50 MCG TABLET (FP) PO SCH (06:19)
[2017-04-09] MEDS: ALBUTEROL SO4 2.5/IPRATROPIUM 0.5 INH SOL 3 ML VIAL.NEB. NEB SCH ×3 (06:50→21:45)
[2017-04-09 07:49] LABS: BASOPHIL 0.5 % (0-2.0); EOSINOPHIL 5.8 % (0-4.5); MCH 29.7 pg (25.7-33.7); MCHC 31.7 g/dl (32.0-36.0); MEAN CELL VOLUME 93.8 fl (80-96); MEAN PLT VOLUME 7.2 fl (7.5-11.1); NEUTROPHILS 73.7 % (42.8-82.8); PLATELET COUNT 336 K/MM3 (134-434); RDW 16.3 % (11.6-15.6); WHITE BLOOD COUNT 9.3 K/mm3 (4.0-10.0)
[2017-04-09 08:12] LABS: ANION GAP 7 (8-16); CALCIUM 7.7 mg/dL (8.5-10.1); CO2 28 mmol/L (21-32); GLUCOSE,RANDOM 89 mg/dL (74-106); MAGNESIUM 1.9 mg/dL (1.8-2.4); PHOSPHOROUS 2.8 mg/dL (2.5-4.9)
[2017-04-09] MEDS ORDERED: PT OWN MED DRAWER 7, Y5N ONE ×2 (10:00→20:43)
[2017-04-09] MEDS ORDERED: SILVER SULFADIAZINE 1% TOP CREAM 50 GM JAR TP SCH (10:00)
[2017-04-09] MEDS: GABAPENTIN 100 MG CAPSULE (FP) PO SCH (10:05)
[2017-04-09] MEDS: POTASSIUM CHLORIDE TABS 20 MEQ TABLET.ER (FP) PO SCH ×2 (10:05→21:02)
[2017-04-09] MEDS: MULTIVITAMINS (DAILY MVI) TABLET (FP) PO SCH (10:05)
[2017-04-09] MEDS: FERROUS SO4 325 MG TABLET (FP) PO SCH (10:05)
[2017-04-09] MEDS: LACTOBACILLUS ACIDOPHILUS 1 EACH TAB (FP) PO SCH (10:05)
[2017-04-09] MEDS: APIXABAN 2.5 MG TABLET PO SCH ×2 (10:05→21:01)
[2017-04-09] MEDS: CARVEDILOL 3.125 MG TABLET (FP) PO SCH ×2 (10:05→21:02)
[2017-04-09] MEDS: POLYETHYLENE GLYCOL 3350 119 GM BTL PO SCH (10:06)
[2017-04-09] MEDS: FLUTICASONE PROP 0.05% 16 GM NASAL SPRAY NS SCH ×2 (10:06→21:02)
--- NOTE | 2017-04-09 11:35 | EKG ---
Test Reason : Blood Pressure : / mmHG Vent. Rate : 060 BPM Atrial Rate : 277 BPM P-R Int : 000 ms QRS Dur : 086 ms QT Int : 438 ms P-R-T Axes : 000 -20 147 degrees QTc Int : 438 ms ATRIAL FIBRILLATION LOW VOLTAGE QRS CANNOT RULE OUT ANTERIOR INFARCT , AGE UNDETERMINED ABNORMAL ECG WHEN COMPARED WITH ECG OF 08-APR-2017 18:28, NO SIGNIFICANT CHANGE WAS FOUND Confirmed by JHONATHAN JOHNSON MD ([id number]) on 04/09/2017 11:35:27 AM Referred By: Confirmed By:JHONATHAN JOHNSON MD
[2017-04-09] MEDS ORDERED: guaiFENesin 200 MG/10 ML 10 ML UNIT-DOSE CUPS PO PRN (12:44)
[2017-04-09] MEDS: FUROSEMIDE 40 MG TABLET (FP) PO SCH (14:28)
--- NOTE | 2017-04-09 14:28 | PN ---
Progress Note, Physician Chief Complaint: ID Full note dictated Admitted aggressive behavior yesterday in the custodial Incidentally had been hayde Ciproflox for 2 days reported UTI ?? - Current Medication List Current Medications: Active Medications Albuterol/Ipratropium (Duoneb -) 1 amp NEB TIDR [facility] Last Admin: 04/09/17 13:18 Dose: 1 amp Apixaban (Eliquis -) 2.5 mg PO BID [facility] Last Admin: 04/09/17 10:05 Dose: 2.5 mg Carvedilol (Coreg -) 3.125 mg PO BID [facility] Last Admin: 04/09/17 10:05 Dose: 3.125 mg Ferrous Sulfate (Feosol -) 325 mg PO DAILY [facility] Last Admin: 04/09/17 10:05 Dose: 325 mg Fluticasone Propionate (Flonase -) 1 spray NS BID [facility] Last Admin: 04/09/17 10:06 Dose: Not Given Furosemide (Lasix -) 40 mg PO DAILY [facility] Gabapentin (Neurontin -) 100 mg PO DAILY [facility] Last Admin: 04/09/17 10:05 Dose: 100 mg Guaifenesin (Robitussin -) 10 ml PO Q4H PRN PRN Reason: COUGH CEFTRIAXONE 1 G/50 ML PREMIX (Ceftriaxone 1 Gm-D5w Bag) 50 mls @ 100 mls/hr IVPB HS [facility] Lactobacillus Acidophilus (Bacid -) 1 tab PO DAILY [facility] Last Admin: 04/09/17 10:05 Dose: 1 tab Levothyroxine Sodium (Synthroid -) 50 mcg PO DAILY@0700 [facility] Last Admin: 04/09/17 06:19 Dose: 50 mcg Melatonin (Melatonin) 1 mg PO HS [facility] Mirtazapine (Remeron -) 7.5 mg PO HS [facility] Montelukast Sodium (Singulair -) 10 mg PO HS [facility] Multivitamins/Minerals/Vitamin C (Tab-A-Vit -) 1 tab PO DAILY [facility] Last Admin: 04/09/17 10:05 Dose: 1 tab Polyethylene Glycol (Miralax (For Daily Use) -) 17 gm PO DAILY [facility] Last Admin: 04/09/17 10:06 Dose: 17 gm Potassium Chloride (K-Dur -) 20 meq PO BID [facility] Last Admin: 04/09/17 10:05 Dose: 20 meq Senna/Docusate Sodium (Pericolace -) 2 tablet PO HS ANGELINE - Objective Vital Signs: Vital Signs Temperature 97.5 F L 04/09/17 06:00 Pulse Rate 81 04/09/17 06:00 Respiratory Rate 20 04/09/17 06:00 Blood Pressure 138/66 04/09/17 06:00 O2 Sat by Pulse Oximetry (%) 92 L 04/09/17 03:02 Constitutional: Yes: No Distress, Other (Alert pleasant) Neck: Yes: WNL, Supple Cardiovascular: Yes: Murmur, S1, S2, Other (Grade 3/6) Respiratory: Yes: WNL, Regular, CTA Bilaterally, Rhonchi Gastrointestinal: Yes: Soft. No: Tenderness Edema: No Labs: CBC, BMP 04/09/17 06:00 04/09/17 05:35 Assessment/Plan Microbiology Laboratory Tests 04/08/17 04/08/17 04/08/17 20:15 20:17 20:17 WBC 7.5 Hgb 8.9 L D Plt Count 317 D Neutrophils % 64.8 Lymphocytes % 12.6 D Monocytes % 14.1 H Eosinophils % 7.8 H D BUN 42 H D Creatinine 1.1 H AST 20 D Albumin 1.8 L D Ur Leukocyte Esterase Trace H Urine WBC (Auto) 12 Urine RBC (Auto) 4 Urine Bacteria Many Assessment Clinically does not have pneumonia and or UTI Fully alert and appropriate ? Asymtomatic bacateruria Plan Ceftriaxone for now pending c/s
--- NOTE | 2017-04-09 15:43 | CONS ---
DATE OF CONSULTATION: DATE OF DICTATION: 04/09/2017 INFECTIOUS DISEASE CONSULTATION HISTORY OF PRESENT ILLNESS: This is an 86-year-old female from the [facility] brought reportedly because of aggressive behavior demonstrated yesterday when she apparently unexpectedly became very hostile in the care home. Of note, she has been on ciprofloxacin for 2 days for what was reported as being a urinary infection started April 06. Here I am asked to see her for that reason but also because it was apparently decided based on her behavior and history of "UTI" that she should go to the hospital to be evaluated. Here, interestingly, she had no fever, is fully alert, awake, and with no urinary complaints or other complaints whatsoever. She has no chills or other systemic findings, and her white count is 7.5 with a lactic acid of 0.7. She was empirically placed on ceftriaxone, and I am asked to see her regarding whether or not she needs broader coverage for possible pneumonia. She has no shortness of breath or cough, and she never smoked. PAST MEDICAL HISTORY: Includes atrial fibrillation, congestive heart failure, chronic kidney disease, COPD, hypothyroidism, diverticulosis, anemia. MEDICATION: In the care home: Eliquis, carvedilol, ciprofloxacin, Lasix, gabapentin, levothyroxine, Singulair. ALLERGIES: None known. SOCIAL HISTORY: Never smoked. No history of alcohol. FAMILY HISTORY: Unobtainable. REVIEW OF SYSTEMS: All systems reviewed and noncontributory. PHYSICAL EXAMINATION: General: A well-nourished appearing woman, alert, pleasant, and in no acute distress. Vital signs: Temperature 97.5, pulse 81, blood pressure 138/66, respirations 20. Neck: Supple. Lungs: Clear to percussion with a few rhonchi noted. Heart: S1, S2. Irregularly irregular with a grade 2 to 3 over 6 systolic murmur heard at the lower sternal border. Abdomen: Soft. Nontender, without hepatosplenomegaly. Extremities: Without clubbing, cyanosis, or edema. The white count is 9.3, hemoglobin 9.1, platelets 336. BUN 38, creatinine 1.0, alkaline phosphatase 216. Urinalysis with 12 WBCs, many bacteria noted. Two sets of blood cultures no growth. Urine culture pending. Chest x-ray was reviewed, shows increased interstitial markings with congestion, possible infiltrate right lower lobe. ASSESSMENT: An 86-year-old female sent from the care home with a history of aggressive behavior. Clinically she has no evidence of infection and is completely asymptomatic. Often in the care home setting, patients will be treated with antibiotics on the basis of positive urine cultures. At this time I have no other data in this regard from the care home other than she had been on a quinolone for 2 days. She has once again no urinary complaints. Clinically, the x-ray findings do not seem compelling for pneumonia, and given her asymptomatic respiratory status, I am inclined to think probably she does not have pneumonia. As discussed with her primary care provider, will keep her on ceftriaxone 1 g daily for now pending blood and urine cultures, and if she is clinically stable, consideration can be given to sending her back to the care home in the next day or two. Note an elevated alkaline phosphatase, she has no abdominal pain, and given her advanced age, not sure whether or not this should be further worked up at this time. BLOSSOM CARLIN M.D. [id number]
[2017-04-09] MEDS: MIRTAZAPINE 15 MG TABLET (FP) PO SCH (21:01)
[2017-04-09] MEDS: MELATONIN 1 MG TABLET PO SCH (21:01)
[2017-04-09] MEDS: CEFTRIAXONE 1 G/50 ML PREMIX 50 ML IVPB SCH (21:02)
[2017-04-09] MEDS: MONTELUKAST NA 10 MG TABLET PO SCH (21:02)
[2017-04-09] MEDS: SENNOSIDES/DOCUSATE COMBO (SENNA PLUS) TABLET (UD) PO SCH (21:02)
[2017-04-09] MEDS: ACETAMINOPHEN 325 MG TABLET (FP) PO PRN (21:03)
[2017-04-10] MEDS: LEVOTHYROXINE NA 50 MCG TABLET (FP) PO SCH (06:30)
[2017-04-10] MEDS: ALBUTEROL SO4 2.5/IPRATROPIUM 0.5 INH SOL 3 ML VIAL.NEB. NEB SCH ×3 (06:35→22:27)
--- NOTE | 2017-04-10 09:07 | PN ---
Physical Exam: SUBJECTIVE: Patient seen and examined. Continues to be non-hostile. Covnersational but AAOx1. Appears to be using some accessory muscles but states no CP, no SOB, no difficulty breathing. No dysuria. Endorses only dry cough without sputum OBJECTIVE: Vital Signs Period Temp Pulse Resp BP Sys/Carr Pulse Ox Last 24 Hr 97.5 F-99.7 F 67-86 16-18 112-125/48-66 87-94 GEN: AAOx1, voice is hoarse, appears to use accessory muscles but not in respiratory distress HEENT: PERRLA, EOMi CV: S1, S2, irregularly irregular rhythm LUNG: Crackles R>L ABD: Soft, NT, ND MSK: No edema, no erythema Laboratory Last Values WBC 6.5 K/mm3 (4.0-10.0) D 04/10/17 09:00 RBC 2.96 M/mm3 (3.60-5.2) L 04/10/17 09:00 Hgb 8.9 GM/dL (10.7-15.3) L 04/10/17 09:00 Hct 27.7 % (32.4-45.2) L 04/10/17 09:00 MCV 93.7 fl (80-96) 04/10/17 09:00 MCH 30.0 pg (25.7-33.7) 04/10/17 09:00 MCHC 32.1 g/dl (32.0-36.0) 04/10/17 09:00 RDW 16.2 % (11.6-15.6) H 04/10/17 09:00 Plt Count 315 K/MM3 (134-434) 04/10/17 09:00 MPV 6.7 fl (7.5-11.1) L 04/10/17 09:00 Neutrophils % 73.7 % (42.8-82.8) 04/09/17 06:00 Lymphocytes % 9.4 % (8-40) D 04/09/17 06:00 Monocytes % 10.6 % (3.8-10.2) H 04/09/17 06:00 Eosinophils % 5.8 % (0-4.5) H 04/09/17 06:00 Basophils % 0.5 % (0-2.0) 04/09/17 06:00 VBG pH 7.31 (7.32-7.42) L 04/08/17 20:13 POC VBG pCO2 60.0 mmHg (38-52) H 04/08/17 20:13 POC VBG pO2 27.3 mmHg (28-48) L 04/08/17 20:13 Mixed VBG HCO3 29.6 meq/L (19-25) H 04/08/17 20:13 Sodium 142 mmol/L (136-145) 04/10/17 09:00 Potassium 3.7 mmol/L (3.5-5.1) 04/10/17 09:00 Chloride 108 mmol/L (98-107) H 04/10/17 09:00 Carbon Dioxide 30 mmol/L (21-32) 04/10/17 09:00 Anion Gap 4 (8-16) L 04/10/17 09:00 BUN 31 mg/dL (7-18) H 04/10/17 09:00 Creatinine 0.9 mg/dL (0.55-1.02) 04/10/17 09:00 Creat Clearance w eGFR 59.23 (>60) 04/10/17 09:00 Random Glucose 138 mg/dL (74-106) H D 04/10/17 09:00 Lactic Acid 0.7 mmol/L (0.4-2.0) 04/08/17 20:13 Calcium 7.6 mg/dL (8.5-10.1) L 04/10/17 09:00 Phosphorus 2.6 mg/dL (2.5-4.9) 04/10/17 09:00 Magnesium 1.9 mg/dL (1.8-2.4) 04/10/17 09:00 Total Bilirubin 0.5 mg/dL (0.2-1.0) D 04/10/17 09:00 AST 24 U/L (15-37) 04/10/17 09:00 ALT 17 U/L (12-78) 04/10/17 09:00 Alkaline Phosphatase 237 U/L (45-117) H 04/10/17 09:00 B-Natriuretic Peptide 37534.64 pg/ml (5-450) H 04/10/17 09:00 Total Protein 5.7 g/dl (6.4-8.2) L 04/10/17 09:00 Albumin 1.8 g/dl (3.4-5.0) L 04/10/17 09:00 Urine Color Yellow 04/08/17 20:15 Urine Appearance Slcloudy 04/08/17 20:15 Urine pH 5.0 (5.0-8.0) D 04/08/17 20:15 Ur Specific [place] 1.011 (1.001-1.035) 04/08/17 20:15 Urine Protein Negative (NEGATIVE) 04/08/17 20:15 Urine Glucose (UA) Negative (NEGATIVE) 04/08/17 20:15 Urine Ketones Negative (NEGATIVE) 04/08/17 20:15 Urine Blood Negative (NEGATIVE) 04/08/17 20:15 Urine Nitrite Negative (NEGATIVE) 04/08/17 20:15 Urine Bilirubin Negative (NEGATIVE) 04/08/17 20:15 Urine Urobilinogen Negative mg/dL (0.2-1.0) 04/08/17 20:15 Ur Leukocyte Esterase Trace (NEGATIVE) H 04/08/17 20:15 Urine WBC (Auto) 12 /hpf (3-5) 04/08/17 20:15 Urine RBC (Auto) 4 /hpf (0-3) 04/08/17 20:15 Urine Bacteria Many /hpf (NONE SEEN) 04/08/17 20:15 Hyaline Casts 7 /lpf 04/08/17 20:15 Urine Mucus Rare 04/08/17 20:15 Home Medication List Medication Instructions Recorded Confirmed Type Acetaminophen [Tylenol] 650 mg PO BID 04/08/17 04/08/17 History Apixaban [Eliquis] 2.5 mg PO BID 04/08/17 04/08/17 History Bacitracin - [Bacitracin Topical 1 applic TP TID 04/08/17 04/08/17 History Ointment -] Benzocaine/Menthol [Cepacol Sore 1 each MM TID 04/08/17 04/08/17 History Throat Lozenge] Carvedilol 3.125 mg PO Q12H 04/08/17 04/08/17 History Ciprofloxacin [Cipro (Restricted 250 mg PO BID 04/08/17 04/08/17 History To Id)] Ferrous Sulfate 325 mg PO DAILY 04/08/17 04/08/17 History Fluticasone Propionate [Allergy 15.8 ml NS BID 04/08/17 04/08/17 History Relief] Furosemide [Lasix -] 40 mg PO DAILY 04/08/17 04/08/17 History Gabapentin 100 mg PO DAILY 04/08/17 04/08/17 History Guaifenesin [Cough Syrup] 100 mg PO Q6H PRN 04/08/17 04/08/17 History Ipratropium/Albuterol Sulfate 3 ml IH TID 04/08/17 04/08/17 History [Iprat-Albut 0.5-3(2.5) mg/3 ml] Levothyroxine [Synthroid -] 50 mcg PO DAILY 04/08/17 04/08/17 History Melatonin 1 mg PO HS 04/08/17 04/08/17 History Mirtazapine 7.5 mg PO HS 04/08/17 04/08/17 History Montelukast Na [Singulair -] 10 mg PO HS 04/08/17 04/08/17 History Multivitamin [Poly-Vitamin] 1 each PO DAILY 04/08/17 04/08/17 History Polyethylene Glycol 3350 [Gavilax] 17 gm PO DAILY 04/08/17 04/08/17 History Potassium Chloride 20 meq PO BID 04/08/17 04/08/17 History Saccharomyces Boulardii [Florastor] 250 mg PO BID 04/08/17 04/08/17 History Sennosides/Docusate Sodium [Senna 2 each PO HS 04/08/17 04/08/17 History Laxative Tablet] Silver Sulfadiazine [Silvadene] 1 applic TP BID 04/08/17 04/08/17 History Active Medications Generic Name Dose Route Start Last Admin Trade Name Freq PRN Reason Stop Dose Admin Acetaminophen 650 mg 04/09/17 20:04 04/09/17 21:03 Tylenol - PO 650 mg Q6H PRN Administration FEVER OR PAIN Albuterol/Ipratropium 1 amp 04/09/17 06:00 04/10/17 14:05 Duoneb - NEB 1 amp TIDR ANG[facility]INE Administration Apixaban 2.5 mg 04/09/17 10:00 04/10/17 10:19 Eliquis - PO 2.5 mg BID [facility]INE Administration Carvedilol 3.125 mg 04/09/17 10:00 04/10/17 10:19 Coreg - PO 3.125 mg BID ANG[facility]INE Administration Ferrous Sulfate 325 mg 04/09/17 10:00 04/10/17 10:19 Feosol - PO 325 mg DAILY [facility] Administration Fluticasone Propionate 1 spray 04/09/17 10:00 04/10/17 10:19 Flonase - NS 1 spray BID [facility]INE Administration Furosemide 20 mg 04/11/17 06:00 Lasix Injection - IVPUSH BID@0600,1400 [facility] Gabapentin 100 mg 04/09/17 10:00 04/10/17 10:18 Neurontin - PO 100 mg DAILY [facility] Administration Guaifenesin 10 ml 04/09/17 12:44 04/09/17 14:28 Robitussin - PO 10 ml Q4H PRN Administration COUGH CEFTRIAXONE 1 G/50 ML PREMIX 50 mls @ 100 mls/hr 04/09/17 22:00 04/09/17 21: 02 Ceftriaxone 1 Gm-D5w Bag IVPB 100 mls/hr HS [facility]INE Administration Lactobacillus Acidophilus 1 tab 04/09/17 10:00 04/10/17 10:18 Bacid - PO 1 tab DAILY [facility] Administration Levothyroxine Sodium 50 mcg 04/09/17 07:00 04/10/17 06:30 Synthroid - PO 50 mcg DAILY@0700 [facility] Administration Melatonin 1 mg 04/09/17 22:00 04/09/17 21:01 Melatonin PO 1 mg HS [facility]INE Administration Mirtazapine 7.5 mg 04/09/17 22:00 04/09/17 21:01 Remeron - PO 7.5 mg HS [facility]INE Administration Montelukast Sodium 10 mg 04/09/17 22:00 04/09/17 21:02 Singulair - PO 10 mg HS ANGELIEN Administration Multivitamins/Minerals/Vitamin C 1 tab 04/09/17 10:00 04/10/17 10:19 Tab-A-Vit - PO 1 tab DAILY [facility] Administration Polyethylene Glycol 17 gm 04/09/17 10:00 04/10/17 10:20 Miralax (For Daily Use) - PO 17 gm DAILY [facility] Administration Potassium Chloride 20 meq 04/09/17 10:00 04/10/17 10:18 K-Dur - PO 20 meq BID [facility]INE Administration Senna/Docusate Sodium 2 tablet 04/09/17 22:00 04/09/17 21:02 Pericolace - PO 2 tablet HS [facility]INE Administration ASSESSMENT/PLAN: Ms Garcia is an 86yo F with PMHx of UTIs, who was brought from her NH due to hostile behavior while being treated for UTI on Ciprofloxacin. # Metabolic Encephalopathy 2/2 UTI - Aggressive behavior has improved. Ucx +Strep Viridans. Continue IV Ceftriaxone 1g daily Day 2 for UTI coverage. # Diastolic CHF Exacerbation - High BMP, crackles. Patient having intermittent hypoxia to the 80s when off NC. On Lasix IV 20 BID. Strict Is & Os # Afib - Rate controlled w/ Coreg 3.125 BID Continue Eliquis # Hypothyroidism - Continue Levothyroxine # COPD - Continue Singulair, Duoneb as needd # MDD - Continue Mirtazapine # Constipation - Continue daily Miralax and Senna as needed # Neuropathy - Continue Gabapentin # FEN - No IVF, no elec abnl, chopped diet # PPx - Eliquis, no GI, PT ordered # Dispo - Continue antibiotics and diuresis. d/w Son. d/w Dr Dave Blakely MD - Resident PGY1 internal Medicine Visit type - Emergency Visit Emergency Visit: No - New Patient This patient is new to me today: No - Critical Care Critical Care patient: No - Discharge Referral Referred to [facility] Med P.C.: No
[2017-04-10 09:38] LABS: MCHC 32.1 g/dl (32.0-36.0); MEAN CELL VOLUME 93.7 fl (80-96); MEAN PLT VOLUME 6.7 fl (7.5-11.1); PLATELET COUNT 315 K/MM3 (134-434); RDW 16.2 % (11.6-15.6); WHITE BLOOD COUNT 6.5 K/mm3 (4.0-10.0)
[2017-04-10 10:02] LABS: ALBUMIN 1.8 g/dl (3.4-5.0); ANION GAP 4 (8-16); CALCIUM 7.6 mg/dL (8.5-10.1); CO2 30 mmol/L (21-32); GLUCOSE,RANDOM 138 mg/dL (74-106)
[2017-04-10 10:05] LABS: BILIRUBIN,TOTAL 0.5 mg/dL (0.2-1.0); CREATININE 0.9 mg/dL (0.55-1.02); SGOT/AST 24 U/L (15-37); SGPT/ALT 17 U/L (12-78); TOT PROT 5.7 g/dl (6.4-8.2)
[2017-04-10 10:07] LABS: ALK PHOS 237 U/L (45-117)
[2017-04-10] MEDS: GABAPENTIN 100 MG CAPSULE (FP) PO SCH (10:18)
[2017-04-10] MEDS: LACTOBACILLUS ACIDOPHILUS 1 EACH TAB (FP) PO SCH (10:18)
[2017-04-10] MEDS: POTASSIUM CHLORIDE TABS 20 MEQ TABLET.ER (FP) PO SCH ×2 (10:18→21:15)
[2017-04-10] MEDS: CARVEDILOL 3.125 MG TABLET (FP) PO SCH ×2 (10:19→21:16)
[2017-04-10] MEDS: MULTIVITAMINS (DAILY MVI) TABLET (FP) PO SCH (10:19)
[2017-04-10] MEDS: FLUTICASONE PROP 0.05% 16 GM NASAL SPRAY NS SCH ×2 (10:19→21:16)
[2017-04-10] MEDS: APIXABAN 2.5 MG TABLET PO SCH ×2 (10:19→21:16)
[2017-04-10] MEDS: FERROUS SO4 325 MG TABLET (FP) PO SCH (10:19)
[2017-04-10] MEDS: POLYETHYLENE GLYCOL 3350 119 GM BTL PO SCH (10:20)
[2017-04-10] MEDS ORDERED: FUROSEMIDE 40 MG/4 ML INJECTABLE VIAL IVPUSH ONE (10:30)
[2017-04-10 10:37] LABS: MAGNESIUM 1.9 mg/dL (1.8-2.4); PHOSPHOROUS 2.6 mg/dL (2.5-4.9)
[2017-04-10] MEDS: FUROSEMIDE 40 MG TABLET (FP) PO SCH (10:43)
--- NOTE | 2017-04-10 15:17 | PN ---
Progress Note (short form) - Note Progress Note: NAD alert conversant c/o dry throat Vital Signs Period Temp Pulse Resp BP Sys/Carr Pulse Ox Last 24 Hr 97.5 F-99.7 F 67-93 16-20 112-154/48-71 87-87 cor-rrr 2/6 yadira lungs bibasilar crackles abd soft, protuberant +BS ext no edema CBC, BMP 04/10/17 09:00 04/10/17 09:00 Microbiology 04/08/17 20:15 Urine - Urine - Catheterized Urine Culture - Final Streptococcus Viridans 04/08/17 20:13 Blood - Peripheral Venous Blood Culture - Preliminary NO GROWTH OBTAINED AFTER 24 HOURS, INCUBATION TO CONTINUE FOR 4 DAYS. 04/08/17 20:13 Blood - Peripheral Venous Blood Culture - Preliminary NO GROWTH OBTAINED AFTER 24 HOURS, INCUBATION TO CONTINUE FOR 4 DAYS. cxray - ?left sided infiltrate a/p ?pneumonia UTI prior cipro continue rocephin chf- on lasix
--- NOTE | 2017-04-10 17:57 | PN ---
Teaching Attending Note Name of Resident: Sumaya Blakely ATTENDING PHYSICIAN STATEMENT Time of evaluation: 9:35 AM I saw and evaluated the patient. I reviewed the resident's note and discussed the case with the resident. I agree with the resident's findings and plan as documented. SUBJECTIVE: Patient seen and examined. Denies any dyspnea, abdominal pain or urinary symptoms. History limited by dementia. OBJECTIVE: Vital Signs Period Temp Pulse Resp BP Sys/Carr Pulse Ox Last 24 Hr 97.5 F-99.7 F 67-93 16-20 112-154/48-71 87-87 Intake & Output 04/07/17 04/08/17 04/09/17 04/10/17 23:59 23:59 23:59 23:59 Intake Total 980 Balance 980 Weight 117 lb General: sitting in bed in no acute distress Neck: Jugular venous distension CVs:S1S2 regular Chest: bibasilar rales Extremities: no edema Neuro AAOX1 Abdomen: soft, NT, ND, positive bowel sounds Home Medication List Medication Instructions Recorded Confirmed Type Acetaminophen [Tylenol] 650 mg PO BID 04/08/17 04/08/17 History Apixaban [Eliquis] 2.5 mg PO BID 04/08/17 04/08/17 History Bacitracin - [Bacitracin Topical 1 applic TP TID 04/08/17 04/08/17 History Ointment -] Benzocaine/Menthol [Cepacol Sore 1 each MM TID 04/08/17 04/08/17 History Throat Lozenge] Carvedilol 3.125 mg PO Q12H 04/08/17 04/08/17 History Ciprofloxacin [Cipro (Restricted 250 mg PO BID 04/08/17 04/08/17 History To Id)] Ferrous Sulfate 325 mg PO DAILY 04/08/17 04/08/17 History Fluticasone Propionate [Allergy 15.8 ml NS BID 04/08/17 04/08/17 History Relief] Furosemide [Lasix -] 40 mg PO DAILY 04/08/17 04/08/17 History Gabapentin 100 mg PO DAILY 04/08/17 04/08/17 History Guaifenesin [Cough Syrup] 100 mg PO Q6H PRN 04/08/17 04/08/17 History Ipratropium/Albuterol Sulfate 3 ml IH TID 04/08/17 04/08/17 History [Iprat-Albut 0.5-3(2.5) mg/3 ml] Levothyroxine [Synthroid -] 50 mcg PO DAILY 04/08/17 04/08/17 History Melatonin 1 mg PO HS 04/08/17 04/08/17 History Mirtazapine 7.5 mg PO HS 04/08/17 04/08/17 History Montelukast Na [Singulair -] 10 mg PO HS 04/08/17 04/08/17 History Multivitamin [Poly-Vitamin] 1 each PO DAILY 04/08/17 04/08/17 History Polyethylene Glycol 3350 [Gavilax] 17 gm PO DAILY 04/08/17 04/08/17 History Potassium Chloride 20 meq PO BID 04/08/17 04/08/17 History Saccharomyces Boulardii [Florastor] 250 mg PO BID 04/08/17 04/08/17 History Sennosides/Docusate Sodium [Senna 2 each PO HS 04/08/17 04/08/17 History Laxative Tablet] Silver Sulfadiazine [Silvadene] 1 applic TP BID 04/08/17 04/08/17 History Active Medications Generic Name Dose Route Start Last Admin Trade Name Freq PRN Reason Stop Dose Admin Acetaminophen 650 mg 04/09/17 20:04 04/09/17 21:03 Tylenol - PO 650 mg Q6H PRN Administration FEVER OR PAIN Albuterol/Ipratropium 1 amp 04/09/17 06:00 04/10/17 14:05 Duoneb - NEB 1 amp TIDR ANGELINE Administration Apixaban 2.5 mg 04/09/17 10:00 04/10/17 10:19 Eliquis - PO 2.5 mg BID ANGELINE Administration Carvedilol 3.125 mg 04/09/17 10:00 04/10/17 10:19 Coreg - PO 3.125 mg BID ANGELINE Administration Ferrous Sulfate 325 mg 04/09/17 10:00 04/10/17 10:19 Feosol - PO 325 mg DAILY ANGELINE Administration Fluticasone Propionate 1 spray 04/09/17 10:00 04/10/17 10:19 Flonase - NS 1 spray BID ANGELINE Administration Furosemide 20 mg 04/11/17 06:00 Lasix Injection - IVPUSH BID@0600,1400 ANGELINE Gabapentin 100 mg 04/09/17 10:00 04/10/17 10:18 Neurontin - PO 100 mg DAILY ANGELINE Administration Guaifenesin 10 ml 04/09/17 12:44 04/09/17 14:28 Robitussin - PO 10 ml Q4H PRN Administration COUGH CEFTRIAXONE 1 G/50 ML PREMIX 50 mls @ 100 mls/hr 04/09/17 22:00 04/09/17 21: 02 Ceftriaxone 1 Gm-D5w Bag IVPB 100 mls/hr HS ANGELINE Administration Lactobacillus Acidophilus 1 tab 04/09/17 10:00 04/10/17 10:18 Bacid - PO 1 tab DAILY ANGELINE Administration Levothyroxine Sodium 50 mcg 04/09/17 07:00 04/10/17 06:30 Synthroid - PO 50 mcg DAILY@0700 ANGELINE Administration Melatonin 1 mg 04/09/17 22:00 04/09/17 21:01 Melatonin PO 1 mg HS ANGELINE Administration Mirtazapine 7.5 mg 04/09/17 22:00 04/09/17 21:01 Remeron - PO 7.5 mg HS ANGELINE Administration Montelukast Sodium 10 mg 04/09/17 22:00 04/09/17 21:02 Singulair - PO 10 mg HS ANGELINE Administration Multivitamins/Minerals/Vitamin C 1 tab 04/09/17 10:00 04/10/17 10:19 Tab-A-Vit - PO 1 tab DAILY ANGELINE Administration Polyethylene Glycol 17 gm 04/09/17 10:00 04/10/17 10:20 Miralax (For Daily Use) - PO 17 gm DAILY ANGELINE Administration Potassium Chloride 20 meq 04/09/17 10:00 04/10/17 10:18 K-Dur - PO 20 meq BID ANGELINE Administration Senna/Docusate Sodium 2 tablet 04/09/17 22:00 04/09/17 21:02 Pericolace - PO 2 tablet HS ANGELINE Administration Laboratory Results - last 24 hr 04/10/17 04/10/17 04/10/17 08:00 09:00 09:00 WBC 6.5 D RBC 2.96 L Hgb 8.9 L Hct 27.7 L MCV 93.7 MCH 30.0 MCHC 32.1 RDW 16.2 H Plt Count 315 MPV 6.7 L Sodium 142 Potassium 3.7 Chloride 108 H Carbon Dioxide 30 Anion Gap 4 L BUN 31 H Creatinine 0.9 Creat Clearance w eGFR 59.23 Random Glucose 138 H D Calcium 7.6 L Phosphorus 2.6 Magnesium 1.9 Total Bilirubin 0.5 D AST 24 ALT 17 Alkaline Phosphatase 237 H B-Natriuretic Peptide 78139.64 H Total Protein 5.7 L Albumin 1.8 L TSH Cancelled 04/10/17 09:00 WBC RBC Hgb Hct MCV MCH MCHC RDW Plt Count MPV Sodium Potassium Chloride Carbon Dioxide Anion Gap BUN Creatinine Creat Clearance w eGFR Random Glucose Calcium Phosphorus Cancelled Magnesium Cancelled Total Bilirubin AST ALT Alkaline Phosphatase B-Natriuretic Peptide Cancelled Total Protein Albumin TSH Microbiology 04/08/17 20:15 Urine - Urine - Catheterized Urine Culture - Preliminary Streptococcus Viridans 04/08/17 20:13 Blood - Peripheral Venous Blood Culture - Preliminary NO GROWTH OBTAINED AFTER 24 HOURS, INCUBATION TO CONTINUE FOR 4 DAYS. 04/08/17 20:13 Blood - Peripheral Venous Blood Culture - Preliminary NO GROWTH OBTAINED AFTER 24 HOURS, INCUBATION TO CONTINUE FOR 4 DAYS. CXr - with congestion, ?LLL infiltrate ASSESSMENT AND PLAN: 86 yof with dementia, anemia, afib, dCHF, MIKE, COPD, DJD spine, hypothyroid, diverticulosis, recent admission for diastolic CHF, admitted with AMS, ?UTI now with diastolic HF. -Acute diastolic heart failure exacerbation -AMS, toxic metabolic encephalopathy from UTI vs ?LLL PNA -Uncomplicated lower UTI -?LLL PNA, low clinical suspicion -COPD -Dementia -Hypothyroidism Plan: responded well to lasix 20 mg IV, place on 20 mg IV BID, strict I/OS adn daily weights. Hold off on repeat 2D echo. Suspect from volume resuscitation and holding lasix on admission. Ceftriaxone day 2, follow up urine cultures, call micro lab to add sensitivity. Current exam more suggestive of CHF than PNA. Hold off full PNA antibotic coverage and monitor closely for now Apixaban. Plan for return to NH once improved. Dispo planning once volume status better. Code status: DNR/DNI
[2017-04-10 18:48] LABS: THYROID STIMULATING HORMONE 2.61 uIU/ml (0.358-3.74)
[2017-04-10] MEDS ORDERED: PT OWN MED DRAWER 7, Y5N ONE (21:07)
[2017-04-10] MEDS: SENNOSIDES/DOCUSATE COMBO (SENNA PLUS) TABLET (UD) PO SCH (21:14)
[2017-04-10] MEDS: MELATONIN 1 MG TABLET PO SCH (21:14)
[2017-04-10] MEDS: MONTELUKAST NA 10 MG TABLET PO SCH (21:15)
[2017-04-10] MEDS: MIRTAZAPINE 15 MG TABLET (FP) PO SCH (21:15)
[2017-04-10] MEDS: CEFTRIAXONE 1 G/50 ML PREMIX 50 ML IVPB SCH (21:16)
[2017-04-11] MEDS: LEVOTHYROXINE NA 50 MCG TABLET (FP) PO SCH (05:59)
[2017-04-11] MEDS: FUROSEMIDE 40 MG/4 ML INJECTABLE VIAL IVPUSH SCH ×2 (05:59→14:25)
[2017-04-11] MEDS: ALBUTEROL SO4 2.5/IPRATROPIUM 0.5 INH SOL 3 ML VIAL.NEB. NEB SCH ×3 (06:58→22:37)
[2017-04-11 07:32] LABS: MEAN CELL VOLUME 93.7 fl (80-96); MEAN PLT VOLUME 7.2 fl (7.5-11.1); PLATELET COUNT 314 K/MM3 (134-434); RDW 16.3 % (11.6-15.6); WHITE BLOOD COUNT 7.2 K/mm3 (4.0-10.0)
[2017-04-11 08:07] LABS: ALBUMIN 2.1 g/dl (3.4-5.0); ANION GAP 7 (8-16); CALCIUM 8.6 mg/dL (8.5-10.1); CO2 31 mmol/L (21-32); CREATININE 0.8 mg/dL (0.55-1.02); GLUCOSE,RANDOM 109 mg/dL (74-106); PHOSPHOROUS 2.7 mg/dL (2.5-4.9); SGOT/AST 22 U/L (15-37); SGPT/ALT 15 U/L (12-78)
[2017-04-11 08:09] LABS: ALK PHOS 240 U/L (45-117); BILIRUBIN,TOTAL 0.6 mg/dL (0.2-1.0); TOT PROT 6.3 g/dl (6.4-8.2)
[2017-04-11] MEDS ORDERED: PT OWN MED DRAWER 7, Y5N ONE ×2 (09:46→22:18)
[2017-04-11] MEDS: GABAPENTIN 100 MG CAPSULE (FP) PO SCH (09:51)
[2017-04-11] MEDS: POTASSIUM CHLORIDE TABS 20 MEQ TABLET.ER (FP) PO SCH ×2 (09:51→22:23)
[2017-04-11] MEDS: MULTIVITAMINS (DAILY MVI) TABLET (FP) PO SCH (09:51)
[2017-04-11] MEDS: LACTOBACILLUS ACIDOPHILUS 1 EACH TAB (FP) PO SCH (09:51)
[2017-04-11] MEDS: APIXABAN 2.5 MG TABLET PO SCH ×2 (09:51→22:22)
[2017-04-11] MEDS: FLUTICASONE PROP 0.05% 16 GM NASAL SPRAY NS SCH ×2 (09:51→22:23)
[2017-04-11] MEDS: CARVEDILOL 3.125 MG TABLET (FP) PO SCH ×2 (09:51→22:22)
[2017-04-11] MEDS: POLYETHYLENE GLYCOL 3350 119 GM BTL PO SCH (09:52)
[2017-04-11] MEDS: FERROUS SO4 325 MG TABLET (FP) PO SCH (10:38)
--- NOTE | 2017-04-11 11:06 | PN ---
Teaching Attending Note Name of Resident: . ATTENDING PHYSICIAN STATEMENT Time of evaluation: 9:15 AM I saw and evaluated the patient. I reviewed the resident's note and discussed the case with the resident. I agree with the resident's findings and plan as documented. SUBJECTIVE: Patient seen and examined. Breathing better, oriented to self, no new complaints. OBJECTIVE: Vital Signs Period Temp Pulse Resp BP Sys/Carr Pulse Ox Last 24 Hr 97.6 F-98.6 F 81-93 18-20 107-141/64-82 97-97 Intake & Output 04/08/17 04/09/17 04/10/17 04/11/17 23:59 23:59 23:59 23:59 Intake Total 980 60 120 Balance 980 60 120 Weight 117 lb 109 lb 6 oz General: sitting in bed much more comfortable than before, no use of acessory muscles today, talking in full sentences CVS:S1S2 regular Chest few bibasilar rales, improved with improved air entry Abdomen: soft, NT, ND, positive bowel sounds extremities: no edema Home Medication List Medication Instructions Recorded Confirmed Type Acetaminophen [Tylenol] 650 mg PO BID 04/08/17 04/08/17 History Apixaban [Eliquis] 2.5 mg PO BID 04/08/17 04/08/17 History Bacitracin - [Bacitracin Topical 1 applic TP TID 04/08/17 04/08/17 History Ointment -] Benzocaine/Menthol [Cepacol Sore 1 each MM TID 04/08/17 04/08/17 History Throat Lozenge] Carvedilol 3.125 mg PO Q12H 04/08/17 04/08/17 History Ciprofloxacin [Cipro (Restricted 250 mg PO BID 04/08/17 04/08/17 History To Id)] Ferrous Sulfate 325 mg PO DAILY 04/08/17 04/08/17 History Fluticasone Propionate [Allergy 15.8 ml NS BID 04/08/17 04/08/17 History Relief] Furosemide [Lasix -] 40 mg PO DAILY 04/08/17 04/08/17 History Gabapentin 100 mg PO DAILY 04/08/17 04/08/17 History Guaifenesin [Cough Syrup] 100 mg PO Q6H PRN 04/08/17 04/08/17 History Ipratropium/Albuterol Sulfate 3 ml IH TID 04/08/17 04/08/17 History [Iprat-Albut 0.5-3(2.5) mg/3 ml] Levothyroxine [Synthroid -] 50 mcg PO DAILY 04/08/17 04/08/17 History Melatonin 1 mg PO HS 04/08/17 04/08/17 History Mirtazapine 7.5 mg PO HS 04/08/17 04/08/17 History Montelukast Na [Singulair -] 10 mg PO HS 04/08/17 04/08/17 History Multivitamin [Poly-Vitamin] 1 each PO DAILY 04/08/17 04/08/17 History Polyethylene Glycol 3350 [Gavilax] 17 gm PO DAILY 04/08/17 04/08/17 History Potassium Chloride 20 meq PO BID 04/08/17 04/08/17 History Saccharomyces Boulardii [Florastor] 250 mg PO BID 04/08/17 04/08/17 History Sennosides/Docusate Sodium [Senna 2 each PO HS 04/08/17 04/08/17 History Laxative Tablet] Silver Sulfadiazine [Silvadene] 1 applic TP BID 04/08/17 04/08/17 History Active Medications Generic Name Dose Route Start Last Admin Trade Name Cristino PRN Reason Stop Dose Admin Acetaminophen 650 mg 04/09/17 20:04 04/09/17 21:03 Tylenol - PO 650 mg Q6H PRN Administration FEVER OR PAIN Albuterol/Ipratropium 1 amp 04/09/17 06:00 04/11/17 06:58 Duoneb - NEB 1 amp TIDR ANGELINE Administration Apixaban 2.5 mg 04/09/17 10:00 04/11/17 09:51 Eliquis - PO 2.5 mg BID ANGELINE Administration Carvedilol 3.125 mg 04/09/17 10:00 04/11/17 09:51 Coreg - PO 3.125 mg BID ANGELINE Administration Ferrous Sulfate 325 mg 04/09/17 10:00 04/11/17 10:38 Feosol - PO 325 mg DAILY ANGELINE Administration Fluticasone Propionate 1 spray 04/09/17 10:00 04/11/17 09:51 Flonase - NS 1 spray BID ANGELINE Administration Furosemide 20 mg 04/11/17 06:00 04/11/17 05:59 Lasix Injection - IVPUSH 20 mg BID@0600,1400 ANGELINE Administration Gabapentin 100 mg 04/09/17 10:00 04/11/17 09:51 Neurontin - PO 100 mg DAILY ANGELINE Administration Guaifenesin 10 ml 04/09/17 12:44 04/09/17 14:28 Robitussin - PO 10 ml Q4H PRN Administration COUGH CEFTRIAXONE 1 G/50 ML PREMIX 50 mls @ 100 mls/hr 04/09/17 22:00 04/10/17 21: 16 Ceftriaxone 1 Gm-D5w Bag IVPB 100 mls/hr HS ANGELINE Administration Lactobacillus Acidophilus 1 tab 04/09/17 10:00 04/11/17 09:51 Bacid - PO 1 tab DAILY ANGELINE Administration Levothyroxine Sodium 50 mcg 04/09/17 07:00 04/11/17 05:59 Synthroid - PO 50 mcg DAILY@0700 ANGELINE Administration Melatonin 1 mg 04/09/17 22:00 04/10/17 21:14 Melatonin PO 1 mg HS ANGELINE Administration Mirtazapine 7.5 mg 04/09/17 22:00 04/10/17 21:15 Remeron - PO 7.5 mg HS ANGELINE Administration Montelukast Sodium 10 mg 04/09/17 22:00 04/10/17 21:15 Singulair - PO 10 mg HS ANGELINE Administration Multivitamins/Minerals/Vitamin C 1 tab 04/09/17 10:00 04/11/17 09:51 Tab-A-Vit - PO 1 tab DAILY ANGELINE Administration Polyethylene Glycol 17 gm 04/09/17 10:00 04/11/17 09:52 Miralax (For Daily Use) - PO 17 gm DAILY ANGELINE Administration Potassium Chloride 20 meq 04/09/17 10:00 04/11/17 09:51 K-Dur - PO 20 meq BID ANGELINE Administration Senna/Docusate Sodium 2 tablet 04/09/17 22:00 04/10/17 21:14 Pericolace - PO 2 tablet HS ANGELINE Administration Laboratory Results - last 24 hr 04/10/17 04/10/17 04/11/17 08:00 09:00 06:00 WBC 7.2 RBC 3.05 L Hgb 9.2 L Hct 28.6 L MCV 93.7 MCH 30.0 MCHC 32.0 RDW 16.3 H Plt Count 314 MPV 7.2 L Sodium 142 Potassium 3.7 Chloride 108 H Carbon Dioxide 30 Anion Gap 4 L BUN 31 H Creatinine 0.9 Creat Clearance w eGFR 59.23 Random Glucose 138 H D Calcium 7.6 L Phosphorus 2.6 Magnesium 1.9 Total Bilirubin 0.5 D AST 24 ALT 17 Alkaline Phosphatase 237 H B-Natriuretic Peptide 62795.64 H Total Protein 5.7 L Albumin 1.8 L TSH Cancelled 2.61 D 04/11/17 06:00 WBC RBC Hgb Hct MCV MCH MCHC RDW Plt Count MPV Sodium 146 H Potassium 3.9 Chloride 108 H Carbon Dioxide 31 Anion Gap 7 L BUN 29 H Creatinine 0.8 Creat Clearance w eGFR > 60 Random Glucose 109 H D Calcium 8.6 Phosphorus 2.7 Magnesium 2.0 Total Bilirubin 0.6 AST 22 ALT 15 Alkaline Phosphatase 240 H B-Natriuretic Peptide Total Protein 6.3 L Albumin 2.1 L TSH Urine cultures: strep viridans ASSESSMENT AND PLAN: 86 yof with dementia, anemia, afib, dCHF, MIKE, COPD, DJD spine, hypothyroid, diverticulosis, recent admission for diastolic CHF, admitted with AMS, ?UTI now with diastolic HF. -Acute diastolic heart failure exacerbation -AMS, toxic metabolic encephalopathy from UTI vs ?LLL PNA -Uncomplicated lower UTI -?LLL PNA, low clinical suspicion -COPD -Dementia -Hypothyroidism Plan: Respiratory status markedly improved. Check RA oxygen saturations. Continue lasix 20mg IV BID today, transition to PO in AM if continues to improve. strict I/OS adn daily weights. Hold off on repeat 2D echo. Suspect from volume resuscitation and holding lasix on admission. Ceftriaxone day 3, Urine cultures noted, breathing improved, unlikely PNA based on CXR findings. Discussed with Dr. Crocker Change to Ceftin for a 7 day course. Current exam more suggestive of CHF than PNA. Hold off full PNA antibotic coverage and monitor closely for now Apixaban. Plan for return to NH in 24 hours if continues to improve. Code status: DNR/DNI
[2017-04-11] MEDS: CEFUROXIME AXETIL 250 MG TABLET PO SCH ×2 (13:25→22:23)
[2017-04-11] MEDS: MELATONIN 1 MG TABLET PO SCH (22:22)
[2017-04-11] MEDS: MIRTAZAPINE 15 MG TABLET (FP) PO SCH (22:22)
[2017-04-11] MEDS: MONTELUKAST NA 10 MG TABLET PO SCH (22:22)
[2017-04-11] MEDS: SENNOSIDES/DOCUSATE COMBO (SENNA PLUS) TABLET (UD) PO SCH (22:22)
[2017-04-12] MEDS: ACETAMINOPHEN 325 MG TABLET (FP) PO PRN (01:27)
[2017-04-12] MEDS: LEVOTHYROXINE NA 50 MCG TABLET (FP) PO SCH (06:18)
[2017-04-12] MEDS: FUROSEMIDE 40 MG/4 ML INJECTABLE VIAL IVPUSH SCH ×2 (06:18→14:14)
[2017-04-12] MEDS: ALBUTEROL SO4 2.5/IPRATROPIUM 0.5 INH SOL 3 ML VIAL.NEB. NEB SCH (06:31)
[2017-04-12 07:59] LABS: ANION GAP 5 (8-16); CALCIUM 8.2 mg/dL (8.5-10.1); CO2 32 mmol/L (21-32); CREATININE 1.1 mg/dL (0.55-1.02); GLUCOSE,RANDOM 97 mg/dL (74-106); MAGNESIUM 1.8 mg/dL (1.8-2.4)
[2017-04-12] MEDS ORDERED: MAGNESIUM OXIDE 400 MG TABLET (FP) PO ONE (08:26)
--- NOTE | 2017-04-12 08:26 | PN ---
Teaching Attending Note Name of Resident: . Time of evaluation: 7:45 AM SUBJECTIVE: Patient seen and examined. Denies any dyspnea currently, no new cough, fevers or chills. OBJECTIVE: Vital Signs Period Temp Pulse Resp BP Sys/Carr Pulse Ox Last 24 Hr 97.4 F-98.2 F 69-88 16-20 112-136/62-82 95-96 Intake & Output 04/09/17 04/10/17 04/11/17 04/12/17 23:59 23:59 23:59 23:59 Intake Total 625 97 0273 Output Total 300 Balance 980 60 750 Weight 109 lb 6 oz 115 lb 3.2 oz General: mild tachypneic, use of acessory muscles of respiration CVS:S1S2 regular Chest: decreased air entry scattered wheezing, few basilar rales Abdomen: soft, NT, ND Extremities: no edema neuro: oriented to self. Home Medication List Medication Instructions Recorded Confirmed Type Acetaminophen [Tylenol] 650 mg PO BID 04/08/17 04/08/17 History Apixaban [Eliquis] 2.5 mg PO BID 04/08/17 04/08/17 History Bacitracin - [Bacitracin Topical 1 applic TP TID 04/08/17 04/08/17 History Ointment -] Benzocaine/Menthol [Cepacol Sore 1 each MM TID 04/08/17 04/08/17 History Throat Lozenge] Carvedilol 3.125 mg PO Q12H 04/08/17 04/08/17 History Ciprofloxacin [Cipro (Restricted 250 mg PO BID 04/08/17 04/08/17 History To Id)] Ferrous Sulfate 325 mg PO DAILY 04/08/17 04/08/17 History Fluticasone Propionate [Allergy 15.8 ml NS BID 04/08/17 04/08/17 History Relief] Furosemide [Lasix -] 40 mg PO DAILY 04/08/17 04/08/17 History Gabapentin 100 mg PO DAILY 04/08/17 04/08/17 History Guaifenesin [Cough Syrup] 100 mg PO Q6H PRN 04/08/17 04/08/17 History Ipratropium/Albuterol Sulfate 3 ml IH TID 04/08/17 04/08/17 History [Iprat-Albut 0.5-3(2.5) mg/3 ml] Levothyroxine [Synthroid -] 50 mcg PO DAILY 04/08/17 04/08/17 History Melatonin 1 mg PO HS 04/08/17 04/08/17 History Mirtazapine 7.5 mg PO HS 04/08/17 04/08/17 History Montelukast Na [Singulair -] 10 mg PO HS 04/08/17 04/08/17 History Multivitamin [Poly-Vitamin] 1 each PO DAILY 04/08/17 04/08/17 History Polyethylene Glycol 3350 [Gavilax] 17 gm PO DAILY 04/08/17 04/08/17 History Potassium Chloride 20 meq PO BID 04/08/17 04/08/17 History Saccharomyces Boulardii [Florastor] 250 mg PO BID 04/08/17 04/08/17 History Sennosides/Docusate Sodium [Senna 2 each PO HS 04/08/17 04/08/17 History Laxative Tablet] Silver Sulfadiazine [Silvadene] 1 applic TP BID 04/08/17 04/08/17 History Active Medications Generic Name Dose Route Start Last Admin Trade Name Freq PRN Reason Stop Dose Admin Acetaminophen 650 mg 04/09/17 20:04 04/12/17 01:27 Tylenol - PO 650 mg Q6H PRN Administration FEVER OR PAIN Acetylcysteine 1 mg 04/12/17 09:00 Mucomyst 20 Oral / Inh Use Only* NEB TID ANGELINE Albuterol/Ipratropium 1 amp 04/09/17 06:00 04/12/17 06:31 Duoneb - NEB 1 amp TIDR ANGELINE Administration Apixaban 2.5 mg 04/09/17 10:00 04/11/17 22:22 Eliquis - PO 2.5 mg BID ANGELINE Administration Azithromycin 500 mg 04/12/17 10:00 Azithromycin PO 04/14/17 10:01 DAILY ANGELINE Carvedilol 3.125 mg 04/09/17 10:00 04/11/17 22:22 Coreg - PO 3.125 mg BID ANGELINE Administration Cefuroxime Axetil 250 mg 04/11/17 12:00 04/11/17 22:23 Ceftin - PO 04/15/17 22:01 250 mg BID ANGELINE Administration Ferrous Sulfate 325 mg 04/09/17 10:00 04/11/17 10:38 Feosol - PO 325 mg DAILY ANGELINE Administration Fluticasone Propionate 1 spray 04/09/17 10:00 04/11/17 22:23 Flonase - NS 1 spray BID ANGELINE Administration Furosemide 20 mg 04/11/17 06:00 04/12/17 06:18 Lasix Injection - IVPUSH 20 mg BID@0600,1400 ANGELINE Administration Gabapentin 100 mg 04/09/17 10:00 04/11/17 09:51 Neurontin - PO 100 mg DAILY ANGELINE Administration Guaifenesin 10 ml 04/09/17 12:44 04/09/17 14:28 Robitussin - PO 10 ml Q4H PRN Administration COUGH Lactobacillus Acidophilus 1 tab 04/09/17 10:00 04/11/17 09:51 Bacid - PO 1 tab DAILY ANGELINE Administration Levothyroxine Sodium 50 mcg 04/09/17 07:00 04/12/17 06:18 Synthroid - PO 50 mcg DAILY@0700 ANGELINE Administration Melatonin 1 mg 04/09/17 22:00 04/11/17 22:22 Melatonin PO 1 mg HS ANGELIEN Administration Mirtazapine 7.5 mg 04/09/17 22:00 04/11/17 22:22 Remeron - PO 7.5 mg HS ANGELINE Administration Montelukast Sodium 10 mg 04/09/17 22:00 04/11/17 22:22 Singulair - PO 10 mg HS ANGELINE Administration Multivitamins/Minerals/Vitamin C 1 tab 04/09/17 10:00 04/11/17 09:51 Tab-A-Vit - PO 1 tab DAILY ANGELINE Administration Polyethylene Glycol 17 gm 04/09/17 10:00 04/11/17 09:52 Miralax (For Daily Use) - PO 17 gm DAILY ANGELINE Administration Potassium Chloride 20 meq 04/09/17 10:00 04/11/17 22:23 K-Dur - PO 20 meq BID ANGELINE Administration Senna/Docusate Sodium 2 tablet 04/09/17 22:00 04/11/17 22:22 Pericolace - PO 2 tablet HS ANGELINE Administration Laboratory Results - last 24 hr 04/12/17 06:00 Sodium 145 Potassium 4.8 D Chloride 108 H Carbon Dioxide 32 Anion Gap 5 L BUN 30 H Creatinine 1.1 H D Random Glucose 97 Calcium 8.2 L Magnesium 1.8 ASSESSMENT AND PLAN: 86 yof with dementia, anemia, afib, dCHF, MIKE, COPD, DJD spine, hypothyroid, diverticulosis, recent admission for diastolic CHF, admitted with AMS, ?UTI. Diastolic CHF, now with worsening hypoxia. -Acute hypoxic resipratory failure (high 70s to low 80s on RA at rest), ?Acute diastolic HF +/-URI with bronchitis, ?LLL PNA (low clinical suspicion given absence of fevers or leucocytosis) -Acute diastolic heart failure exacerbation -AMS, toxic metabolic encephalopathy from UTI vs ?LLL PNA -Uncomplicated lower UTI -?LLL PNA, low clinical suspicion -COPD -Dementia -Hypothyroidism Plan: Hypoxic today, nebs, add mucomyst. lasix 20 mg IV x 1, CXr. Unikely PE as patient already on eliquis, also decreased air entry with rales. CT chest to assess pulmonary parenchyma. ?h/o COPD per notes, none found in prior records. Check Flu swab. HOld off on steroids for now. Continue lasix 20mg IV BID, check EKG. Strict I/OS and daily weights. Hold off on repeat 2D echo. Suspect from volume resuscitation and holding lasix on admission. s/p 3 days of ceftriaxone, planned to change to ceftin today, will resume ceftriaxone and add azithromycin for now. Follow up with ID. Check urine legionella, step antigens. Urine cultures noted, transition to ceftin on discharge as indicated. Apixaban. Hold off on discharge given concerning hypoxia, need for additional work up, management and monitoring. Plan discussed with nursing in detail. Code status: DNR/DNI
[2017-04-12] MEDS ORDERED: FUROSEMIDE 40 MG/4 ML INJECTABLE VIAL IVPUSH ONE (08:47)
[2017-04-12] MEDS ORDERED: ACETYLCYSTEINE 20% 200MG/ML 4 ML VIAL *FOR ORAL / INH USE ONLY NEB SCH ×2 (09:00→12:00)
[2017-04-12 09:09] LABS: BASOPHIL 0.8 % (0-2.0); EOSINOPHIL 8.8 % (0-4.5); MCH 30.2 pg (25.7-33.7); MCHC 31.9 g/dl (32.0-36.0); MEAN CELL VOLUME 94.6 fl (80-96); MEAN PLT VOLUME 7.5 fl (7.5-11.1); NEUTROPHILS 55.7 % (42.8-82.8); PLATELET COUNT 288 K/MM3 (134-434); RDW 16.6 % (11.6-15.6); WHITE BLOOD COUNT 7.7 K/mm3 (4.0-10.0)
[2017-04-12 09:23] LABS: TROPONIN I 0.14 ng/ml (0.00-0.05)
[2017-04-12] MEDS ORDERED: AZITHROMYCIN 500 MG TABLET PO SCH (10:00)
[2017-04-12] MEDS: POTASSIUM CHLORIDE TABS 20 MEQ TABLET.ER (FP) PO SCH ×2 (10:57→21:27)
[2017-04-12] MEDS: MULTIVITAMINS (DAILY MVI) TABLET (FP) PO SCH (10:58)
[2017-04-12] MEDS: GABAPENTIN 100 MG CAPSULE (FP) PO SCH (10:58)
[2017-04-12] MEDS: AZITHROMYCIN 250 MG TABLET PO SCH (10:58)
[2017-04-12] MEDS: APIXABAN 2.5 MG TABLET PO SCH ×2 (10:58→21:27)
[2017-04-12] MEDS: CARVEDILOL 3.125 MG TABLET (FP) PO SCH ×2 (10:58→21:27)
[2017-04-12] MEDS: FERROUS SO4 325 MG TABLET (FP) PO SCH (10:58)
[2017-04-12] MEDS: POLYETHYLENE GLYCOL 3350 119 GM BTL PO SCH (10:59)
[2017-04-12] MEDS: FLUTICASONE PROP 0.05% 16 GM NASAL SPRAY NS SCH ×2 (10:59→21:27)
[2017-04-12] MEDS: LACTOBACILLUS ACIDOPHILUS 1 EACH TAB (FP) PO SCH (10:59)
[2017-04-12] MEDS: CEFTRIAXONE 1 G/50 ML PREMIX 50 ML IVPB SCH (10:59)
[2017-04-12] MEDS ORDERED: ALBUTEROL SO4 0.083% IH SOL 2.5 MG/3 ML VIAL.NEB. NEB ONE (11:30)
--- NOTE | 2017-04-12 11:35 | PN ---
Progress Note (short form) - Note Progress Note: d/w hospitalist NAD alert conversant noted to be hypoxic just back from chest ct- bilateral pleural effusions/compression atelectasis/ vascular congestion Vital Signs Period Temp Pulse Resp BP Sys/Carr Pulse Ox Last 24 Hr 97.4 F-98.2 F 69-88 16-20 112-123/62-72 95 cor-rrr llungs decreased bs at bases, crackles left base abd soft,nt ext no edema CBC, BMP 04/12/17 08:30 04/12/17 06:00 a/p probabel CHF ?pneumonia-less likely continue rocephin/zithromax monitor continue diuresis
[2017-04-12 11:52] LABS: ARTERIAL BLD GAS O2 SATURATION 97.7 % (90-98.9); ARTERIAL BLOOD GAS HCO3 29.9 meq/L (22-26); ARTERIAL BLOOD GAS pH 7.46 (7.35-7.45)
[2017-04-12 11:54] LABS: ALLENS TEST POSITIVE; ART PUNCT SITE RIGHT RADIAL
[2017-04-12 11:55] LABS: LPM/O2% 2.5 L; PT. ON O2? NASAL CANNULA
[2017-04-12] MEDS ORDERED: ACETYLCYSTEINE 20% 200MG/ML 30 ML VIAL *FOR ORAL / INH USE ONLY NEB SCH (14:00)
[2017-04-12 14:08] LABS: TROPONIN I 0.13 ng/ml (0.00-0.05)
[2017-04-12] MEDS: ACETYLCYSTEINE 20% 200MG/ML 4 ML VIAL *FOR ORAL / INH USE ONLY NEB SCH ×2 (14:23→22:15)
[2017-04-12] MEDS: ALBUTEROL SO4 0.083% IH SOL 2.5 MG/3 ML VIAL.NEB. NEB SCH ×2 (14:23→22:16)
[2017-04-12 19:34] LABS: TROPONIN I 0.13 ng/ml (0.00-0.05)
[2017-04-12] MEDS ORDERED: PT OWN MED DRAWER 7, Y5N ONE (21:23)
[2017-04-12] MEDS: SENNOSIDES/DOCUSATE COMBO (SENNA PLUS) TABLET (UD) PO SCH (21:27)
[2017-04-12] MEDS: MONTELUKAST NA 10 MG TABLET PO SCH (21:27)
[2017-04-12] MEDS: MIRTAZAPINE 15 MG TABLET (FP) PO SCH (21:27)
[2017-04-12] MEDS: MELATONIN 1 MG TABLET PO SCH (21:27)
[2017-04-13] MEDS: FUROSEMIDE 40 MG/4 ML INJECTABLE VIAL IVPUSH SCH ×2 (06:16→13:57)
[2017-04-13] MEDS: LEVOTHYROXINE NA 50 MCG TABLET (FP) PO SCH ×2 (06:16→06:26)
[2017-04-13] MEDS: ACETAMINOPHEN 325 MG TABLET (FP) PO PRN (06:17)
[2017-04-13] MEDS: ACETYLCYSTEINE 20% 200MG/ML 4 ML VIAL *FOR ORAL / INH USE ONLY NEB SCH ×3 (06:25→22:00)
[2017-04-13] MEDS: ALBUTEROL SO4 0.083% IH SOL 2.5 MG/3 ML VIAL.NEB. NEB SCH ×3 (06:26→22:00)
[2017-04-13] MEDS ORDERED: PT OWN MED DRAWER 7, Y5N ONE ×3 (06:42→21:59)
[2017-04-13 07:25] LABS: BASOPHIL 0.9 % (0-2.0); EOSINOPHIL 6.1 % (0-4.5); MCH 30.4 pg (25.7-33.7); MCHC 32.3 g/dl (32.0-36.0); MEAN CELL VOLUME 94.2 fl (80-96); MEAN PLT VOLUME 7.6 fl (7.5-11.1); NEUTROPHILS 65.9 % (42.8-82.8); PLATELET COUNT 293 K/MM3 (134-434); RDW 16.6 % (11.6-15.6); WHITE BLOOD COUNT 8.7 K/mm3 (4.0-10.0)
--- NOTE | 2017-04-13 07:38 | PN ---
<Sumaya Blakely - Last Filed: 04/13/17 07:40> Teaching Attending Note ATTENDING PHYSICIAN STATEMENT I saw and evaluated the patient. I reviewed the resident's note and discussed the case with the resident. I agree with the resident's findings and plan as documented. SUBJECTIVE: OBJECTIVE: ASSESSMENT AND PLAN: <Raz Andradeshericeeloisa - Last Filed: 04/13/17 14:20> Teaching Attending Note Name of Resident: Sumaya Blakely ATTENDING PHYSICIAN STATEMENT Time of evaluation: 10:20 AM I saw and evaluated the patient. I reviewed the resident's note and discussed the case with the resident. I agree with the resident's findings and plan as documented. SUBJECTIVE: Patient seen and examined. Breathing improved, more interactive today, in no distress. Denies any chest pain, palpitations, dizziness, abdominal or urinary symptoms. OBJECTIVE: Vital Signs Period Temp Pulse Resp BP Sys/Carr Pulse Ox Last 24 Hr 97.3 F-98.2 F 66-91 16-24 103-119/49-74 95-98 Intake & Output 04/10/17 04/11/17 04/12/17 04/13/17 23:59 23:59 23:59 23:59 Intake Total 60 1050 870 Output Total 300 1950 250 Balance 60 750 -1080 -250 Weight 109 lb 6 oz 115 lb 3.2 oz 109 lb General: sittign in chair, no use of acessory muscles of respiration today, pleasant CVS: S1s2 irregular Chest: decreased breath sounds at bases, markedly improved air entry Abdomen: soft, NT, ND, positive bowel sounds Extremitiesno pedal edema noted Active Medications Acetaminophen (Tylenol -) 650 mg PO Q6H PRN PRN Reason: FEVER OR PAIN Last Admin: 04/12/17 01:27 Dose: 650 mg Acetylcysteine (Mucomyst 20 Oral / Inh Use Only*) 800 mg NEB TIDR [facility] Last Admin: 04/13/17 06:25 Dose: 800 mg Albuterol Sulfate (Ventolin 0.083% Nebulizer Soln -) 1 amp NEB TID [facility] Last Admin: 04/13/17 06:26 Dose: 1 amp Apixaban (Eliquis -) 2.5 mg PO BID [facility] Last Admin: 04/12/17 21:27 Dose: 2.5 mg Azithromycin (Zithromax -) 500 mg PO DAILY [facility] Last Admin: 04/12/17 10:58 Dose: 500 mg Carvedilol (Coreg -) 3.125 mg PO BID [facility] Last Admin: 04/12/17 21:27 Dose: 3.125 mg Ferrous Sulfate (Feosol -) 325 mg PO DAILY [facility] Last Admin: 04/12/17 10:58 Dose: 325 mg Fluticasone Propionate (Flonase -) 1 spray NS BID [facility] Last Admin: 04/12/17 21:27 Dose: 1 spray Furosemide (Lasix Injection -) 40 mg IVPUSH BID@0600,1400 [facility] Last Admin: 04/13/17 06:16 Dose: 40 mg Gabapentin (Neurontin -) 100 mg PO DAILY [facility] Last Admin: 04/12/17 10:58 Dose: 100 mg Guaifenesin (Robitussin -) 10 ml PO Q4H PRN PRN Reason: COUGH Last Admin: 04/09/17 14:28 Dose: 10 ml CEFTRIAXONE 1 G/50 ML PREMIX (Ceftriaxone 1 Gm-D5w Bag) 50 mls @ 100 mls/hr IVPB DAILY [facility] Last Admin: 04/12/17 10:59 Dose: 100 mls/hr Lactobacillus Acidophilus (Bacid -) 1 tab PO DAILY [facility] Last Admin: 04/12/17 10:59 Dose: 1 tab Levothyroxine Sodium (Synthroid -) 50 mcg PO DAILY@0700 [facility] Last Admin: 04/13/17 06:26 Dose: Not Given Melatonin (Melatonin) 1 mg PO HS [facility] Last Admin: 04/12/17 21:27 Dose: 1 mg Mirtazapine (Remeron -) 7.5 mg PO HS [facility] Last Admin: 04/12/17 21:27 Dose: 7.5 mg Montelukast Sodium (Singulair -) 10 mg PO HS [facility] Last Admin: 04/12/17 21:27 Dose: 10 mg Multivitamins/Minerals/Vitamin C (Tab-A-Vit -) 1 tab PO DAILY [facility] Last Admin: 04/12/17 10:58 Dose: 1 tab Polyethylene Glycol (Miralax (For Daily Use) -) 17 gm PO DAILY [facility] Last Admin: 04/12/17 10:59 Dose: 17 gm Potassium Chloride (K-Dur -) 20 meq PO BID [facility] Last Admin: 04/12/17 21:27 Dose: 20 meq Senna/Docusate Sodium (Pericolace -) 2 tablet PO HS [facility] Last Admin: 04/12/17 21:27 Dose: 2 tablet Laboratory Results - last 24 hr 04/12/17 04/13/17 04/13/17 17:50 05:35 05:35 WBC 8.7 RBC 2.99 L Hgb 9.1 L Hct 28.2 L MCV 94.2 MCH 30.4 MCHC 32.3 RDW 16.6 H Plt Count 293 MPV 7.6 Neutrophils % 65.9 Lymphocytes % 13.6 D Monocytes % 13.5 H Eosinophils % 6.1 H Basophils % 0.9 Sodium 145 Potassium 4.5 Chloride 108 H Carbon Dioxide 33 H Anion Gap 4 L BUN 29 H Creatinine 0.9 Creat Clearance w eGFR 59.23 Random Glucose 94 Calcium 8.0 L Phosphorus 3.1 Magnesium 2.0 Total Bilirubin 0.3 D AST 30 D ALT 18 Alkaline Phosphatase 243 H Creatine Kinase 31 Troponin I 0.13 H Total Protein 6.0 L Albumin 1.9 L Microbiology 04/08/17 20:13 Blood - Peripheral Venous Blood Culture - Preliminary NO GROWTH OBTAINED AFTER 96 HOURS, INCUBATION TO CONTINUE FOR 1 DAYS. 04/08/17 20:13 Blood - Peripheral Venous Blood Culture - Preliminary NO GROWTH OBTAINED AFTER 96 HOURS, INCUBATION TO CONTINUE FOR 1 DAYS. 04/12/17 12:00 Nasopharyngeal Swab Influenza Types A,B Antigen (ERIKA) - Final 04/12/17 12:00 Nasopharyngeal Swab - Final 04/12/17 11:45 Urine For Antigen Detection Legionella Antigen - Final 04/12/17 11:45 Urine For Antigen Detection Streptococcus pneumoniae Antigen (M - Final 04/08/17 20:15 Urine - Urine - Catheterized Urine Culture - Final Streptococcus Viridans ASSESSMENT AND PLAN: 86 yof with dementia, anemia, afib, dCHF, MIKE, COPD, DJD spine, hypothyroid, diverticulosis, recent admission for diastolic CHF, admitted with AMS, ?UTI. Diastolic CHF, now with worsening hypoxia. -Acute hypoxic resipratory failure -Acute diastolic heart failure exacerbation -NSTEMI type II, demand ischemia from CHF -AMS, toxic metabolic encephalopathy from UTI vs ?LLL PNA vs CHF -Uncomplicated lower Strep Viridans UTI -?LLL PNA, low clinical suspicion -COPD -Dementia -Hypothyroidism Plan: Clinically Improved. lasix 40 mg IV BID, strict I/Os, daily weights. Follow up cardiology recs. Recent 2D echo, hold off on repeat for now. Ceftriaxone day 4, Azithromycin day 1, d/c antibiotics as clinical presentation consistent with CHF. Transition to Ceftin for 1 week course for UTI. Follow up with ID. Urine legionella and strep antigens neg. Apixaban. Continue telemetry. PT eval and dispo planning in 24 hours if volume status and oxygenation continue to improve. Code status: DNR/DNI
--- NOTE | 2017-04-13 07:40 | PN ---
Physical Exam: SUBJECTIVE: Patient seen and examined. States her breathing has improved. AAOx1. Otherwise asymptomatic OBJECTIVE: Vital Signs Period Temp Pulse Resp BP Sys/Carr Pulse Ox Last 24 Hr 97.3 F-98.2 F 66-91 16-24 103-119/49-74 95-98 GEN: AAOx1, voice less hoarse, using less accesosry muscles HEENT: PERRLA, EOMi CV: S1, S2, irregularly irregular rhythm LUNG: Mild bibasilar crackles ABD: Soft, NT, ND MSK: No edema, no erythema Active Medications Generic Name Dose Route Start Last Admin Trade Name Freq PRN Reason Stop Dose Admin Acetaminophen 650 mg 04/09/17 20:04 04/12/17 01:27 Tylenol - PO 650 mg Q6H PRN Administration FEVER OR PAIN Acetylcysteine 800 mg 04/12/17 12:01 04/13/17 06:25 Mucomyst 20 Oral / Inh Use Only* NEB 800 mg TIDR [facility] Administration Albuterol Sulfate 1 amp 04/12/17 14:00 04/13/17 06:26 Ventolin 0.083% Nebulizer Soln - NEB 1 amp TID [facility] Administration Apixaban 2.5 mg 04/09/17 10:00 04/12/17 21:27 Eliquis - PO 2.5 mg BID [facility] Administration Azithromycin 500 mg 04/12/17 10:00 04/12/17 10:58 Zithromax - PO 500 mg DAILY [facility] Administration Carvedilol 3.125 mg 04/09/17 10:00 04/12/17 21:27 Coreg - PO 3.125 mg BID [facility] Administration Ferrous Sulfate 325 mg 04/09/17 10:00 04/12/17 10:58 Feosol - PO 325 mg DAILY [facility] Administration Fluticasone Propionate 1 spray 04/09/17 10:00 04/12/17 21:27 Flonase - NS 1 spray BID [facility] Administration Furosemide 40 mg 04/12/17 10:45 04/13/17 06:16 Lasix Injection - IVPUSH 40 mg BID@0600,1400 [facility] Administration Gabapentin 100 mg 04/09/17 10:00 04/12/17 10:58 Neurontin - PO 100 mg DAILY [facility] Administration Guaifenesin 10 ml 04/09/17 12:44 04/09/17 14:28 Robitussin - PO 10 ml Q4H PRN Administration COUGH CEFTRIAXONE 1 G/50 ML PREMIX 50 mls @ 100 mls/hr 04/12/17 10:00 04/12/17 10: 59 Ceftriaxone 1 Gm-D5w Bag IVPB 100 mls/hr DAILY [facility] Administration Lactobacillus Acidophilus 1 tab 04/09/17 10:00 04/12/17 10:59 Bacid - PO 1 tab DAILY [facility] Administration Levothyroxine Sodium 50 mcg 04/09/17 07:00 04/13/17 06:26 Synthroid - PO Not Given DAILY@0700 [facility] Melatonin 1 mg 04/09/17 22:00 04/12/17 21:27 Melatonin PO 1 mg HS [facility] Administration Mirtazapine 7.5 mg 04/09/17 22:00 04/12/17 21:27 Remeron - PO 7.5 mg HS [facility] Administration Montelukast Sodium 10 mg 04/09/17 22:00 04/12/17 21:27 Singulair - PO 10 mg HS [facility] Administration Multivitamins/Minerals/Vitamin C 1 tab 04/09/17 10:00 04/12/17 10:58 Tab-A-Vit - PO 1 tab DAILY [facility] Administration Polyethylene Glycol 17 gm 04/09/17 10:00 04/12/17 10:59 Miralax (For Daily Use) - PO 17 gm DAILY [facility] Administration Potassium Chloride 20 meq 04/09/17 10:00 04/12/17 21:27 K-Dur - PO 20 meq BID [facility] Administration Senna/Docusate Sodium 2 tablet 04/09/17 22:00 04/12/17 21:27 Pericolace - PO 2 tablet HS [facility] Administration ASSESSMENT/PLAN: Ms Garcia is an 86yo F with PMHx of UTIs, who was brought from her NH due to hostile behavior while being treated for UTI on Ciprofloxacin. # Metabolic Encephalopathy 2/2 UTI - Aggressive behavior has improved. Ucx +Strep Viridans. Continue IV Ceftriaxone 1g daily Day 5 + Azithromycin Day 2 # Diastolic CHF Exacerbation - Intermittent hypoxia over the weekend. BNP trended up. CT chest ordered, c/w CHF. Lasix increased to IV 40 BID. Net I&O -1,000. ABG shows mild met alkalosis. Added Ramipril 2.5 daily as per Cards # Elevated Troponins - 0.13-0.14, mild elevation, likely 2/2 demand from CHF exac # Afib - Rate controlled w/ Coreg 3.125 BID Continue Eliquis # Hypothyroidism - Continue Levothyroxine # COPD - Continue Singulair, Duoneb as needd # MDD - Continue Mirtazapine # Constipation - Continue daily Miralax and Senna as needed # Neuropathy - Continue Gabapentin # FEN - No IVF, no elec abnl, chopped diet # PPx - Eliquis, no GI, PT ordered # Dispo - Need to continue diuresis, still fluid overloaded. Improving. d/w Dr Lpue Blakely MD - Resident PGY1 internal Medicine Visit type - Emergency Visit Emergency Visit: No - New Patient This patient is new to me today: No - Critical Care Critical Care patient: No - Discharge Referral Referred to [facility] No
[2017-04-13 08:08] LABS: ALBUMIN 1.9 g/dl (3.4-5.0); ANION GAP 4 (8-16); BILIRUBIN,TOTAL 0.3 mg/dL (0.2-1.0); CO2 33 mmol/L (21-32); CREATININE 0.9 mg/dL (0.55-1.02); GLUCOSE,RANDOM 94 mg/dL (74-106); PHOSPHOROUS 3.1 mg/dL (2.5-4.9); SGOT/AST 30 U/L (15-37); SGPT/ALT 18 U/L (12-78)
[2017-04-13 08:09] LABS: ALK PHOS 243 U/L (45-117)
[2017-04-13] MEDS: MULTIVITAMINS (DAILY MVI) TABLET (FP) PO SCH (10:07)
[2017-04-13] MEDS: CEFTRIAXONE 1 G/50 ML PREMIX 50 ML IVPB SCH (10:07)
[2017-04-13] MEDS: FLUTICASONE PROP 0.05% 16 GM NASAL SPRAY NS SCH ×2 (10:07→22:37)
[2017-04-13] MEDS: POLYETHYLENE GLYCOL 3350 119 GM BTL PO SCH (10:08)
[2017-04-13] MEDS: POTASSIUM CHLORIDE TABS 20 MEQ TABLET.ER (FP) PO SCH ×2 (10:08→22:37)
[2017-04-13] MEDS: CARVEDILOL 3.125 MG TABLET (FP) PO SCH ×2 (10:08→22:37)
[2017-04-13] MEDS: GABAPENTIN 100 MG CAPSULE (FP) PO SCH (10:08)
[2017-04-13] MEDS: AZITHROMYCIN 250 MG TABLET PO SCH (10:08)
[2017-04-13] MEDS: FERROUS SO4 325 MG TABLET (FP) PO SCH (10:08)
[2017-04-13] MEDS: LACTOBACILLUS ACIDOPHILUS 1 EACH TAB (FP) PO SCH (10:08)
[2017-04-13] MEDS: APIXABAN 2.5 MG TABLET PO SCH ×2 (10:08→22:37)
--- NOTE | 2017-04-13 10:15 | CON.CARD ---
Consult Consult Specialty:: Cardiology Referred by:: Hospitalist Medicine Reason for Consultation:: CHF and pleural effusions - History of Present Illness Chief Complaint: Hypoxia, dyspnea History of Present Illness: Patient is an 86 year old female with history of acute on chronic diastolic heart failure, class II NYHA classification LV failure, hypothyroidism , hypertention, paroxysmal atrial fibrillation remains in sinus rhythm on Eliquis who presented with altered mental status, initially treated with abx for presumed UTI vs PNA, developed acute hypoxic respiratory failure and dyspnea referable to CHF and pleural effusions confirmed by chest CT scan, received IV diuresis with improvement of sxs. - History Source History Provided By: Medical Record Limitations to Obtaining History: Dementia - Past Medical History Cardio/Vascular: Yes: CAD, CHF, HTN, MD, Mitral Insufficiency Renal/: Yes: Renal Inusuff ...LMP Comment: post menopausal ...: No Endocrine: Yes: Hypothyroidism - Alcohol/Substance Use Hx Alcohol Use: No - Smoking History Smoking history: Never smoked Have you smoked in the past 12 months: No Home Medications - Allergies Allergies/Adverse Reactions: Allergies Allergy/AdvReac Type Severity Reaction Status Date / Time No Known Allergies Allergy Verified 04/08/17 18:28 - Home Medications Home Medications: Ambulatory Orders Acetaminophen [Tylenol] 650 mg PO BID 04/08/17 Apixaban [Eliquis] 2.5 mg PO BID 04/08/17 Bacitracin - [Bacitracin Topical Ointment -] 1 applic TP TID 04/08/17 Benzocaine/Menthol [Cepacol Sore Throat Lozenge] 1 each MM TID 04/08/17 Carvedilol 3.125 mg PO Q12H 04/08/17 Ciprofloxacin [Cipro (Restricted To Id)] 250 mg PO BID 04/08/17 Ferrous Sulfate 325 mg PO DAILY 04/08/17 Fluticasone Propionate [Allergy Relief] 15.8 ml NS BID 04/08/17 Furosemide [Lasix -] 40 mg PO DAILY 04/08/17 Gabapentin 100 mg PO DAILY 04/08/17 Guaifenesin [Cough Syrup] 100 mg PO Q6H PRN 04/08/17 Ipratropium/Albuterol Sulfate [Iprat-Albut 0.5-3(2.5) mg/3 ml] 3 ml IH TID 04/08 Levothyroxine [Synthroid -] 50 mcg PO DAILY 04/08/17 Melatonin 1 mg PO HS 04/08/17 Mirtazapine 7.5 mg PO HS 04/08/17 Montelukast Na [Singulair -] 10 mg PO HS 04/08/17 Multivitamin [Poly-Vitamin] 1 each PO DAILY 04/08/17 Polyethylene Glycol 3350 [Gavilax] 17 gm PO DAILY 04/08/17 Potassium Chloride 20 meq PO BID 04/08/17 Saccharomyces Boulardii [Florastor] 250 mg PO BID 04/08/17 Sennosides/Docusate Sodium [Senna Laxative Tablet] 2 each PO HS 04/08/17 Silver Sulfadiazine [Silvadene] 1 applic TP BID 04/08/17 Family Disease History - Family Disease History Family Disease History: Heart Disease: Mother, CA: Father (Prostate) Review of Systems - Review of Systems Cardiovascular: reports: Shortness of Breath Vital Signs: Vital Signs Temperature 97.4 F L 04/13/17 06:00 Pulse Rate 73 04/13/17 06:00 Respiratory Rate 16 04/13/17 06:00 Blood Pressure 115/70 04/13/17 06:00 O2 Sat by Pulse Oximetry (%) 98 04/12/17 21:00 Constitutional: Yes: No Distress, Calm, Thin Neck: Yes: Supple Respiratory: Yes: Regular, On Nasal O2 Gastrointestinal: Yes: Normal Bowel Sounds, Soft Cardiovascular: Yes: Regular Rate and Rhythm JVD: No Carotid Bruit: No Heart Sounds: Yes: S1, S2 Murmur: Yes: Systolic Murmur, Grade 2 Edema: No - Other Data Labs, Other Data: CBC, BMP 04/13/17 05:35 04/13/17 05:35 Troponin, BNP 04/12/17 04/12/17 13:07 17:50 Troponin I 0.13 H 0.13 H Troponin, BNP 04/12/17 04/12/17 13:07 17:50 Troponin I 0.13 H 0.13 H Afib @ 70 with lateral TWI compared with previous 04/08/2017 Echo: Report Reviewed Ejection Fraction %: LVEF > or = 40 % Imaging - Results Chest X-ray: Report Reviewed (CXR with congestion and pleural effusions.) Cat Scan: Report Reviewed (CT chest reviewed, moderate pleural effusions, cardiomegaly, compressive atelectasis and subcutaneous edema.) Problem List - Problems (1) Demand ischemia Code(s): I24.8 - OTHER FORMS OF ACUTE ISCHEMIC HEART DISEASE (2) Acute respiratory failure with hypoxia Code(s): J96.01 - ACUTE RESPIRATORY FAILURE WITH HYPOXIA (3) UTI (urinary tract infection) Code(s): N39.0 - URINARY TRACT INFECTION, SITE NOT SPECIFIED Qualifiers: Urinary tract infection type: site unspecified (4) Acute on chronic diastolic CHF (congestive heart failure) Code(s): I50.33 - ACUTE ON CHRONIC DIASTOLIC (CONGESTIVE) HEART FAILURE (5) Anemia Code(s): D64.9 - ANEMIA, UNSPECIFIED Qualifiers: Anemia type: unspecified type Qualified Code(s): D64.9 - Anemia, unspecified (6) Hypothyroid Code(s): E03.9 - HYPOTHYROIDISM, UNSPECIFIED Qualifiers: Hypothyroidism type: unspecified Qualified Code(s): E03.9 - Hypothyroidism , unspecified (7) Mitral regurgitation Code(s): I34.0 - NONRHEUMATIC MITRAL (VALVE) INSUFFICIENCY Qualifiers: Cardiac valve disease etiology: nonrheumatic Qualified Code(s): I34.0 - Nonrheumatic mitral (valve) insufficiency (8) PAF (paroxysmal atrial fibrillation) Code(s): I48.0 - PAROXYSMAL ATRIAL FIBRILLATION (9) Hypertensive cardiomyopathy Code(s): I11.9 - HYPERTENSIVE HEART DISEASE WITHOUT HEART FAILURE; I43 - CARDIOMYOPATHY IN DISEASES CLASSIFIED ELSEWHERE (10) Chronic anticoagulation Code(s): Z79.01 - RETIREMENT (CURRENT) USE OF ANTICOAGULANTS (11) Pleural effusion due to CHF (congestive heart failure) Code(s): I50.9 - HEART FAILURE, UNSPECIFIED Assessment/Plan 01/07/2017 Transthoracic echocardiography: Normal left ventricular size and systolic function, moderate mitral and tricuspid regurgitation, mild to moderate aortic valve regurgitation, RVSP 40-50 mmHg and mild pulmonary hypertension. 1. Acute hypoxic respiratory failure referable to 2. Acute on chronic diastolic heart failure - class 2 NYHA classification LV failure with pleural effusions - improved 3. Hypertension/hypertensive cardiovascular disease 4. Paroxysmal atrial fibrillation currently in sinus rhythm on NOAC 5. CAD with demand ischemic injury 6. Hypothyroidism 7. Anemia 8. UTI with resolved toxic metabolic encephelopathy PLAN: 1. IV diuresis with monitor diuretic response, renal fxn and electrolytes 2. Continue Carvedilol 3.125 mg twice a day and Eliquis 2.5 mg BID 3. Add ramipril 2.5 qd as hemodynamics tolerate as renal fxn stable 4. Complete empiric abx course 5. Thank you for consultative opportunity
[2017-04-13] MEDS: RAMIPRIL 2.5 MG CAPSULE (FP) PO SCH (12:32)
--- NOTE | 2017-04-13 15:07 | EKG ---
Test Reason : Blood Pressure : / mmHG Vent. Rate : 070 BPM Atrial Rate : 076 BPM P-R Int : 000 ms QRS Dur : 088 ms QT Int : 450 ms P-R-T Axes : 000 -14 134 degrees QTc Int : 486 ms ATRIAL FIBRILLATION LOW VOLTAGE QRS CANNOT RULE OUT ANTERIOR INFARCT (CITED ON OR BEFORE 08-APR-2017) ABNORMAL ECG WHEN COMPARED WITH ECG OF 08-APR-2017 20:12, NO SIGNIFICANT CHANGE WAS FOUND Confirmed by HALINA MAYER MD ([id number]) on 04/13/2017 3:06:56 PM Referred By: Jeffrey JAY Confirmed By:HALINA MAYER MD
--- NOTE | 2017-04-13 15:33 | PN ---
Progress Note (short form) - Note Progress Note: NAD alert conversant Vital Signs Period Temp Pulse Resp BP Sys/Carr Pulse Ox Last 24 Hr 97.3 F-98.0 F 66-87 16-20 103-121/63-76 98-98 cor-rrr lungs decreased bs at bases abd soft,nt ext no edema CBC, BMP 04/13/17 05:35 04/13/17 05:35 Microbiology 04/08/17 20:13 Blood - Peripheral Venous Blood Culture - Preliminary NO GROWTH OBTAINED AFTER 96 HOURS, INCUBATION TO CONTINUE FOR 1 DAYS. 04/08/17 20:13 Blood - Peripheral Venous Blood Culture - Preliminary NO GROWTH OBTAINED AFTER 96 HOURS, INCUBATION TO CONTINUE FOR 1 DAYS. 04/12/17 12:00 Nasopharyngeal Swab Influenza Types A,B Antigen (ERIKA) - Final 04/12/17 12:00 Nasopharyngeal Swab - Final 04/12/17 11:45 Urine For Antigen Detection Legionella Antigen - Final 04/12/17 11:45 Urine For Antigen Detection Streptococcus pneumoniae Antigen (M - Final 04/08/17 20:15 Urine - Urine - Catheterized Urine Culture - Final Streptococcus Viridans chest ct c/w CHF a/p probable CHF ?pneumonia-less likely continue rocephin/zithromax monitor continue diuresis
--- NOTE | 2017-04-13 17:26 | CONSULT ---
Admitting History and Physical - Primary Care Physician PCP: Raz Andrade - Admission History of Present Illness: Per emr: 86 yof with dementia, anemia, afib, dCHF, MIKE, COPD, DJD spine, hypothyroid, diverticulosis, recent admission for diastolic CHF, admitted with AMS, ?UTI. Diastolic CHF, now with worsening hypoxia. -Acute hypoxic resipratory failure -Acute diastolic heart failure exacerbation -NSTEMI type II, demand ischemia from CHF -AMS, toxic metabolic encephalopathy from UTI vs ?LLL PNA vs CHF -Uncomplicated lower Strep Viridans UTI -?LLL PNA, low clinical suspicion -COPD -Dementia -Hypothyroidism Selected Entries 04/11/17 04/11/17 04/11/17 06:00 08:46 11:04 Breakfast 100% Lunch Supper Temperature 97.7 F 98.2 F 04/11/17 04/11/17 04/11/17 13:35 18:00 22:00 Breakfast Lunch 50% Supper 50% Temperature 98.1 F 98.2 F 97.8 F 04/12/17 04/12/17 04/12/17 02:00 06:00 10:00 Breakfast Lunch Supper Temperature 97.4 F L 97.4 F L 98.2 F 04/12/17 04/12/17 04/12/17 10:12 14:22 15:23 Breakfast 100% Lunch 25% Supper Temperature 97.6 F 04/12/17 04/13/17 04/13/17 21:00 02:00 06:00 Breakfast Lunch Supper Temperature 98.0 F 97.3 F L 97.4 F L 04/13/17 04/13/17 10:00 14:00 Breakfast Lunch Supper Temperature 97.5 F L 98.1 F Laboratory Tests 04/12/17 04/13/17 08:30 05:35 WBC 7.7 8.7 Reported to cough after eating and drinking. - Past Medical History Cardiovascular: Yes: CAD, CHF, HTN, [place], Mitral Insufficiency Renal/: Yes: Renal Inusuff ...LMP Comment: post menopausal ...: No Heme/Onc: Yes: Anemia Endocrine: Yes: Hypothyroidism - Advance Directives Advance Directives: Yes: DNR - Smoking History Smoking history: Never smoked Have you smoked in the past 12 months: No - Alcohol/Substance Use Hx Alcohol Use: No History - Admission Reason For Visit: UTI - Hearing Hearing: Normal Speech Evaluation - Communication Primary Language: MALAGASY
[2017-04-13] MEDS: SENNOSIDES/DOCUSATE COMBO (SENNA PLUS) TABLET (UD) PO SCH (22:05)
[2017-04-13] MEDS: MELATONIN 1 MG TABLET PO SCH (22:37)
[2017-04-13] MEDS: MIRTAZAPINE 15 MG TABLET (FP) PO SCH (22:37)
[2017-04-13] MEDS: MONTELUKAST NA 10 MG TABLET PO SCH (22:37)
[2017-04-14] MEDS: FUROSEMIDE 40 MG/4 ML INJECTABLE VIAL IVPUSH SCH ×2 (05:19→16:32)
[2017-04-14] MEDS: ALBUTEROL SO4 0.083% IH SOL 2.5 MG/3 ML VIAL.NEB. NEB SCH ×3 (05:30→22:15)
[2017-04-14] MEDS: ACETYLCYSTEINE 20% 200MG/ML 4 ML VIAL *FOR ORAL / INH USE ONLY NEB SCH ×3 (05:30→22:15)
[2017-04-14] MEDS: LEVOTHYROXINE NA 50 MCG TABLET (FP) PO SCH (06:33)
[2017-04-14 07:43] LABS: MCH 30.2 pg (25.7-33.7); MEAN CELL VOLUME 94.3 fl (80-96); MEAN PLT VOLUME 7.3 fl (7.5-11.1); PLATELET COUNT 253 K/MM3 (134-434); RDW 16.5 % (11.6-15.6); WHITE BLOOD COUNT 6.7 K/mm3 (4.0-10.0)
--- NOTE | 2017-04-14 07:45 | PN ---
Physical Exam: SUBJECTIVE: Patient seen and examined. Asymptomatic. States her breathing has improved, but she doesn't feel back to normal. O2 need has diminished. OBJECTIVE: Vital Signs Period Temp Pulse Resp BP Sys/Carr Pulse Ox Last 24 Hr 97.5 F-98.4 F 64-87 16-20 118-135/67-80 97-98 GEN: AAOx1, voice less hoarse, using less accesosry muscles HEENT: PERRLA, EOMi CV: S1, S2, irregularly irregular rhythm LUNG: Mild bibasilar crackles ABD: Soft, NT, ND MSK: No edema, no erythema Active Medications Generic Name Dose Route Start Last Admin Trade Name Freq PRN Reason Stop Dose Admin Acetaminophen 650 mg 04/09/17 20:04 04/12/17 01:27 Tylenol - PO 650 mg Q6H PRN Administration FEVER OR PAIN Acetylcysteine 800 mg 04/12/17 12:01 04/14/17 05:30 Mucomyst 20 Oral / Inh Use Only* NEB 800 mg TIDR ANGELINE Administration Albuterol Sulfate 1 amp 04/12/17 14:00 04/14/17 05:30 Ventolin 0.083% Nebulizer Soln - NEB 1 amp TID ANGELINE Administration Apixaban 2.5 mg 04/09/17 10:00 04/13/17 22:37 Eliquis - PO 2.5 mg BID ANGELINE Administration Carvedilol 3.125 mg 04/09/17 10:00 04/13/17 22:37 Coreg - PO 3.125 mg BID ANGELINE Administration Cefuroxime Axetil 250 mg 04/14/17 10:00 Ceftin - PO 04/16/17 22:00 BID ANGELINE Ferrous Sulfate 325 mg 04/09/17 10:00 04/13/17 10:08 Feosol - PO 325 mg DAILY ANGELINE Administration Fluticasone Propionate 1 spray 04/09/17 10:00 04/13/17 22:37 Flonase - NS 1 spray BID ANGELINE Administration Furosemide 40 mg 04/12/17 10:45 04/14/17 05:19 Lasix Injection - IVPUSH 40 mg BID@0600,1400 ANGELINE Administration Gabapentin 100 mg 04/09/17 10:00 04/13/17 10:08 Neurontin - PO 100 mg DAILY ANGELINE Administration Guaifenesin 10 ml 04/09/17 12:44 04/09/17 14:28 Robitussin - PO 10 ml Q4H PRN Administration COUGH Lactobacillus Acidophilus 1 tab 04/09/17 10:00 04/13/17 10:08 Bacid - PO 1 tab DAILY ANGELINE Administration Levothyroxine Sodium 50 mcg 04/09/17 07:00 04/14/17 06:33 Synthroid - PO 50 mcg DAILY@0700 ANGELINE Administration Melatonin 1 mg 04/09/17 22:00 04/13/17 22:37 Melatonin PO 1 mg HS ANGELINE Administration Mirtazapine 7.5 mg 04/09/17 22:00 04/13/17 22:37 Remeron - PO 7.5 mg HS ANGELINE Administration Montelukast Sodium 10 mg 04/09/17 22:00 04/13/17 22:37 Singulair - PO 10 mg HS ANGELINE Administration Multivitamins/Minerals/Vitamin C 1 tab 04/09/17 10:00 04/13/17 10:07 Tab-A-Vit - PO 1 tab DAILY ANGELINE Administration Polyethylene Glycol 17 gm 04/09/17 10:00 04/13/17 10:08 Miralax (For Daily Use) - PO 17 gm DAILY ANGELINE Administration Potassium Chloride 20 meq 04/09/17 10:00 04/13/17 22:37 K-Dur - PO 20 meq BID ANGELINE Administration Ramipril 2.5 mg 04/13/17 11:00 04/13/17 12:32 Altace - PO 2.5 mg DAILY ANGELINE Administration Senna/Docusate Sodium 2 tablet 04/09/17 22:00 04/13/17 22:05 Pericolace - PO Not Given HS ANGELINE ASSESSMENT/PLAN: Ms Garcia is an 86yo F with PMHx of UTIs, who was brought from her NH due to hostile behavior while being treated for UTI on Ciprofloxacin. # Metabolic Encephalopathy 2/2 UTI - Aggressive behavior has improved. Ucx +Strep Viridans. Will complete 7 day course of abx today. # Diastolic CHF Exacerbation - Currently on Lasix at IV 40 BID. Neg negative I&O, incorrect calculation in chart. Consider d/c evening IV lasix so can easily transition tmrw to home PO Lasix 40. Added Ramipril 2.5 daily as per Cards # Elevated Troponins - 0.13-0.14, mild elevation, likely 2/2 demand from CHF exac # Dysphagia - Has some coughing with thin liquids. S/S on board. MBS tomorrow if patient is agreeable, refused today bc of anxiety. Thick liquids for now # Afib - Rate controlled w/ Coreg 3.125 BID Continue Eliquis # Hypothyroidism - Continue Levothyroxine # COPD - Continue Singulair, Duoneb as needed # MDD - Continue Mirtazapine # Constipation - Continue daily Miralax and Senna as needed # Neuropathy - Continue Gabapentin # FEN - No IVF, no elec abnl, sodium controlled diet w/ thick liquids # PPx - Eliquis, no GI, Walked 40 feet w/ PT # Dispo - Hopeful d/c tmrw to [facility], facility accepted. Consider titrating down lasix. d/w Dr Eduardo Blakely MD - Resident PGY1 internal Medicine Visit type - Emergency Visit Emergency Visit: No - New Patient This patient is new to me today: No - Critical Care Critical Care patient: No - Discharge Referral Referred to [facility] Med P.C.: No
[2017-04-14 08:31] LABS: ANION GAP 5 (8-16); CALCIUM 8.3 mg/dL (8.5-10.1); CO2 34 mmol/L (21-32); GLUCOSE,RANDOM 98 mg/dL (74-106); MAGNESIUM 1.9 mg/dL (1.8-2.4)
[2017-04-14 08:32] LABS: CREATININE 0.9 mg/dL (0.55-1.02)
--- NOTE | 2017-04-14 10:47 | PN ---
Progress Note, Physician Chief Complaint: Events noted Not in distress History of Present Illness: Patient was seen and examined. Awake and alert. Chart was reviewed Denies chest pain, less SOB and no palpitations - Current Medication List Current Medications: Active Medications Acetaminophen (Tylenol -) 650 mg PO Q6H PRN PRN Reason: FEVER OR PAIN Last Admin: 04/12/17 01:27 Dose: 650 mg Acetylcysteine (Mucomyst 20 Oral / Inh Use Only*) 800 mg NEB TIDR [facility] Last Admin: 04/14/17 05:30 Dose: 800 mg Albuterol Sulfate (Ventolin 0.083% Nebulizer Soln -) 1 amp NEB TID [facility] Last Admin: 04/14/17 05:30 Dose: 1 amp Apixaban (Eliquis -) 2.5 mg PO BID [facility] Last Admin: 04/13/17 22:37 Dose: 2.5 mg Carvedilol (Coreg -) 3.125 mg PO BID [facility] Last Admin: 04/13/17 22:37 Dose: 3.125 mg Cefuroxime Axetil (Ceftin -) 250 mg PO BID [facility] Stop: 04/16/17 22:00 Ferrous Sulfate (Feosol -) 325 mg PO DAILY [facility] Last Admin: 04/13/17 10:08 Dose: 325 mg Fluticasone Propionate (Flonase -) 1 spray NS BID [facility] Last Admin: 04/13/17 22:37 Dose: 1 spray Furosemide (Lasix Injection -) 40 mg IVPUSH BID@0600,1400 [facility] Last Admin: 04/14/17 05:19 Dose: 40 mg Gabapentin (Neurontin -) 100 mg PO DAILY [facility] Last Admin: 04/13/17 10:08 Dose: 100 mg Guaifenesin (Robitussin -) 10 ml PO Q4H PRN PRN Reason: COUGH Last Admin: 04/09/17 14:28 Dose: 10 ml Lactobacillus Acidophilus (Bacid -) 1 tab PO DAILY [facility] Last Admin: 04/13/17 10:08 Dose: 1 tab Levothyroxine Sodium (Synthroid -) 50 mcg PO DAILY@0700 [facility] Last Admin: 04/14/17 06:33 Dose: 50 mcg Melatonin (Melatonin) 1 mg PO HS [facility] Last Admin: 04/13/17 22:37 Dose: 1 mg Mirtazapine (Remeron -) 7.5 mg PO HS [facility] Last Admin: 04/13/17 22:37 Dose: 7.5 mg Montelukast Sodium (Singulair -) 10 mg PO [facility] Last Admin: 04/13/17 22:37 Dose: 10 mg Multivitamins/Minerals/Vitamin C (Tab-A-Vit -) 1 tab PO DAILY [facility] Last Admin: 04/13/17 10:07 Dose: 1 tab Polyethylene Glycol (Miralax (For Daily Use) -) 17 gm PO DAILY [facility] Last Admin: 04/13/17 10:08 Dose: 17 gm Potassium Chloride (K-Dur -) 20 meq PO BID [facility] Last Admin: 04/13/17 22:37 Dose: 20 meq Ramipril (Altace -) 2.5 mg PO DAILY [facility] Last Admin: 04/13/17 12:32 Dose: 2.5 mg Senna/Docusate Sodium (Pericolace -) 2 tablet PO [facility] Last Admin: 04/13/17 22:05 Dose: Not Given - Objective Vital Signs: Vital Signs Temperature 97.6 F 04/14/17 06:00 Pulse Rate 68 04/14/17 06:00 Respiratory Rate 20 04/14/17 06:00 Blood Pressure 135/80 04/14/17 06:00 O2 Sat by Pulse Oximetry (%) 97 04/13/17 21:00 Neck: Yes: Supple Cardiovascular: Yes: Regular Rate and Rhythm, Murmur (2/6 SM), S1, S2 Respiratory: Yes: Diminished Gastrointestinal: Yes: Normal Bowel Sounds, Soft. No: Tenderness Edema: No Additional Findings/Remarks: - Review of Systems Constitutional: reports: Weakness. denies: Chills, Fever Cardiovascular: reports: Shortness of Breath - improved, denies: Chest Pain, Palpitations Respiratory: reports: SOB - improved denies: Cough, Hemoptysis, Orthopnea, PND Gastrointestinal: denies: Abdominal Pain, Constipation, Diarrhea, Melena, Nausea , Rectal Bleeding, Vomiting Musculoskeletal: reports: Joint Pain Neurological: reports: Weakness. denies: Confusion, Dizziness, Headache, Seizure, Syncope Labs: CBC, BMP 04/14/17 06:50 04/14/17 06:50 Problem List - Problems (1) Acute respiratory failure with hypoxia Code(s): J96.01 - ACUTE RESPIRATORY FAILURE WITH HYPOXIA (2) Demand ischemia Code(s): I24.8 - OTHER FORMS OF ACUTE ISCHEMIC HEART DISEASE (3) Hypertensive cardiomyopathy Code(s): I11.9 - HYPERTENSIVE HEART DISEASE WITHOUT HEART FAILURE; I43 - CARDIOMYOPATHY IN DISEASES CLASSIFIED ELSEWHERE Qualifiers: Heart failure presence: with heart failure Qualified Code(s): I11.0 - Hypertensive heart disease with heart failure; I43 - Cardiomyopathy in diseases classified elsewhere; I43 - Cardiomyopathy in diseases classified elsewhere; I43 - Cardiomyopathy in diseases classified elsewhere; I43 - Cardiomyopathy in diseases classified elsewhere (4) Pleural effusion due to CHF (congestive heart failure) Code(s): I50.9 - HEART FAILURE, UNSPECIFIED (5) UTI (urinary tract infection) Code(s): N39.0 - URINARY TRACT INFECTION, SITE NOT SPECIFIED Qualifiers: Urinary tract infection type: site unspecified (6) MIKE (acute kidney injury) Code(s): N17.9 - ACUTE KIDNEY FAILURE, UNSPECIFIED (7) Acute on chronic diastolic CHF (congestive heart failure) Code(s): I50.33 - ACUTE ON CHRONIC DIASTOLIC (CONGESTIVE) HEART FAILURE (8) Exertional dyspnea Code(s): R06.09 - OTHER FORMS OF DYSPNEA (9) Anemia Code(s): D64.9 - ANEMIA, UNSPECIFIED Qualifiers: Anemia type: unspecified type Qualified Code(s): D64.9 - Anemia, unspecified (10) Hypertension Code(s): I10 - ESSENTIAL (PRIMARY) HYPERTENSION Qualifiers: Hypertension type: essential hypertension Qualified Code(s): I10 - Essential (primary) hypertension (11) Hypothyroid Code(s): E03.9 - HYPOTHYROIDISM, UNSPECIFIED Qualifiers: Hypothyroidism type: unspecified Qualified Code(s): E03.9 - Hypothyroidism , unspecified (12) Mitral regurgitation Code(s): I34.0 - NONRHEUMATIC MITRAL (VALVE) INSUFFICIENCY Qualifiers: Cardiac valve disease etiology: nonrheumatic Qualified Code(s): I34.0 - Nonrheumatic mitral (valve) insufficiency (13) PAF (paroxysmal atrial fibrillation) Code(s): I48.0 - PAROXYSMAL ATRIAL FIBRILLATION Assessment/Plan 1. Acute hypoxic respiratory failure 2. Acute on chronic diastolic heart failure - class 2 NYHA classification LV failure with pleural effusions - improved 3. Hypertension/hypertensive cardiovascular disease 4. Paroxysmal atrial fibrillation currently in sinus rhythm on NOAC 5. CAD with demand ischemic injury 6. Hypothyroidism 7. Anemia 8. UTI 9. Toxic metabolic encephalopathy PLAN: 1. IV diuresis with monitoring renal function and electrolytes 2. Continue Carvedilol 3.125 mg twice a day and Eliquis 2.5 mg BID 3. Continue Ramipril 2.5 mg qd as hemodynamics tolerate as renal function stays stable 4. Empiric antibiotic coverage Further plans are to follow Chuck Escalante MD
[2017-04-14] MEDS: LACTOBACILLUS ACIDOPHILUS 1 EACH TAB (FP) PO SCH (11:01)
[2017-04-14] MEDS: CARVEDILOL 3.125 MG TABLET (FP) PO SCH ×2 (11:02→21:23)
[2017-04-14] MEDS: GABAPENTIN 100 MG CAPSULE (FP) PO SCH (11:02)
[2017-04-14] MEDS: FERROUS SO4 325 MG TABLET (FP) PO SCH (11:02)
[2017-04-14] MEDS: FLUTICASONE PROP 0.05% 16 GM NASAL SPRAY NS SCH ×2 (11:02→21:23)
[2017-04-14] MEDS: RAMIPRIL 2.5 MG CAPSULE (FP) PO SCH (11:02)
[2017-04-14] MEDS: POTASSIUM CHLORIDE TABS 20 MEQ TABLET.ER (FP) PO SCH ×2 (11:02→21:23)
[2017-04-14] MEDS: MULTIVITAMINS (DAILY MVI) TABLET (FP) PO SCH (11:02)
[2017-04-14] MEDS: APIXABAN 2.5 MG TABLET PO SCH ×2 (11:02→21:23)
[2017-04-14] MEDS: CEFUROXIME AXETIL 250 MG TABLET PO SCH ×2 (11:03→21:26)
[2017-04-14] MEDS: POLYETHYLENE GLYCOL 3350 119 GM BTL PO SCH (11:03)
--- NOTE | 2017-04-14 11:54 | CONSULT ---
Admitting History and Physical - Primary Care Physician PCP: Celestina Clark - Admission History of Present Illness: Per emr: 86 yof with dementia, anemia, afib, dCHF, MIKE, COPD, DJD spine, hypothyroid, diverticulosis, recent admission for diastolic CHF, admitted with AMS, ?UTI. Diastolic CHF, now with worsening hypoxia. -Acute hypoxic resipratory failure -Acute diastolic heart failure exacerbation -NSTEMI type II, demand ischemia from CHF -AMS, toxic metabolic encephalopathy from UTI vs ?LLL PNA vs CHF -Uncomplicated lower Strep Viridans UTI -?LLL PNA, low clinical suspicion -COPD -Dementia -Hypothyroidism Selected Entries 04/11/17 04/11/17 04/11/17 06:00 08:46 11:04 Breakfast 100% Lunch Supper Temperature 97.7 F 98.2 F 04/11/17 04/11/17 04/11/17 13:35 18:00 22:00 Breakfast Lunch 50% Supper 50% Temperature 98.1 F 98.2 F 97.8 F 04/12/17 04/12/17 04/12/17 02:00 06:00 10:00 Breakfast Lunch Supper Temperature 97.4 F L 97.4 F L 98.2 F 04/12/17 04/12/17 04/12/17 10:12 14:22 15:23 Breakfast 100% Lunch 25% Supper Temperature 97.6 F 04/12/17 04/13/17 04/13/17 21:00 02:00 06:00 Breakfast Lunch Supper Temperature 98.0 F 97.3 F L 97.4 F L 04/13/17 04/13/17 10:00 14:00 Breakfast Lunch Supper Temperature 97.5 F L 98.1 F Laboratory Tests 04/12/17 04/13/17 08:30 05:35 WBC 7.7 8.7 Reported to cough after eating and drinking. Chart reviewed 04/13. Pt examined today. History Source: Medical Record Limitations to Obtaining History: Clinical Condition - Past Medical History Cardiovascular: Yes: CAD, CHF, HTN, IL, Mitral Insufficiency Renal/: Yes: Renal Inusuff ...LMP Comment: post menopausal ...: No Heme/Onc: Yes: Anemia Endocrine: Yes: Hypothyroidism - Advance Directives Advance Directives: Yes: DNR - Smoking History Smoking history: Never smoked Have you smoked in the past 12 months: No - Alcohol/Substance Use Hx Alcohol Use: No History - Admission Reason For Visit: UTI - Diagnostics X-ray: Report Reviewed CT Scan: Report Reviewed - General Mental Status: Awake and Alert, Able to Follow Commands, Forgetful, Confused Attention: Intact Ability to Follow Directions: Good Head/Neck Control: WFL - Hearing Hearing: Functional Speech Evaluation - Communication Primary Language: [place] - Speech Production Able to Make Needs Known: Yes: WNL Intelligibility: Yes: Mildly Impaired - Speech Characteristics Voice Loudness: Mildly Soft/Quiet Voice Pitch: Yes: Mildly High Voice Phonatory-based Quality: Yes: Dysphonia, Vocal Wetness Speech Clarity: < 100% Nasal Resonance: Normal Articulation: Yes: Precise - Language/Auditory Comprehension Follows: Yes: 1 Stage Simple Commands - Language/Verbal Expression Able to Communicate Wants and Needs: Yes: WNL Functional Communication Status: Yes: WNL - Swallow Evaluation/Bedside Assessment Current Nutritional Intake: Regular, Thin Liquids Oral Secretions: Yes: WFL Dentition: Yes: Adequate Facial Symmetry at Rest: Symmetrical Facial Symmetry on Retraction: Symmetrical Against Resistance Opening: Normal Against Resistance Closing: Normal Pucker Lips: Normal Smile: Normal Lingual Movement: Normal, Symmetric Lingual Speed of Movement: Normal Lingual Movement Strgth Against Opposition: Normal Lingual Movement Characteristics: Normal Velopharyngeal Movement: Normal Laryngeal Movement: Able to Palpate, Labored,delay initiation Rate of Intake: WFL Labial Seal: WFL Chewing: WFL Oral Prep Time: WFL A-P Transit: WFL Pocketing: None Timing of Swallow: WFL Coughing/Throat Clear: Yes Change in Voice: No Recommendations - Speech Evaluation, Impression/Plan Impression: Cough response intermittently with thin liquids. Dysphonia with vocal cord dysfunction suspected. - Disposition [facility] to[facility] Facility - Dysphagia Impressions/Plan Swallowing Skills: Impaired Dysphagia Impressions: Ongoing Evaluation *Silent aspiration: cannot be R/O at bedside Recommendations: Modified Barium Swallow
--- NOTE | 2017-04-14 12:54 | PN ---
Teaching Attending Note Name of Resident: Sumaya Blakely ATTENDING PHYSICIAN STATEMENT I saw and evaluated the patient. I reviewed the resident's note and discussed the case with the resident. I agree with the resident's findings and plan as documented. SUBJECTIVE:asymptomatic. denies Cp, SOB, fever, chills, cough, orthopnea, N/V/C/ D OBJECTIVE: Last Vital Signs Temp Pulse Resp BP Pulse Ox 97.9 F 79 20 118/59 97 04/14/17 10:00 04/14/17 10:00 04/14/17 10:00 04/14/17 10:00 04/13/17 21:00 Intake & Output 04/11/17 04/12/17 04/13/17 04/14/17 23:59 23:59 23:59 23:59 Intake Total 1050 870 770 Output Total 300 1950 625 150 Balance 750 -1080 145 -150 Weight 109 lb 6 oz 115 lb 3.2 oz 109 lb 108 lb 2 oz General NAD CV S1 S2 + Lungs decreased breath sounds B/L bases abdomen soft NT/ND Extremities no pedal edema ASSESSMENT AND PLAN: 86 yof with dementia, anemia, afib, dCHF, MIKE, COPD, DJD spine, hypothyroid, diverticulosis, recent admission for diastolic CHF, admitted with AMS, ?UTI. Diastolic CHF, now with worsening hypoxia. 1. Acute on chronic hypoxia respiratory distress- due to volume overload and possible PNA although less likely. resolved. saturating 96% on RA. will check pre and post. abx switched to cefuroximine. will complete total 7 day course. supplemental oxygen prn 2. Acute on chronic diastolic CHF- diuresed well during this hospital stay. continues to have some signs of congestion. cont lasix 40mg IV BID. possible convert to po in the AM. cont daily weights 3. Acute metabolic encephalopathy- likely due to UTI vs volume overload. resolved. at baseline. 4. Dysphagia- RN reported some choking on food yesterday. swallow evaluation today 5. Strep Viridans UTI- on ceftin 6. Troponin leak- likely due to demand ischemia. flat trend of troponins. no indication for further workup. cardio on board 7. Dementia 8. Afib- rate controlled. cont current home medications. on reduced dose eliquis 9. SKI-nou-bvngd from volume overload. resolved. 10. DVT ppx- eliquis 11. DNR/DNI 12. d/c planning possible tomorrow pending fluid status.
--- NOTE | 2017-04-14 13:58 | PN ---
Progress Note, INFECTION CONTROL PRACTITIONER - Note Progress Note: MBS orders obtained and was scheduled for today. Once transferred to the [facility], pt became agitated and study was deferred. Pt's son was present and said she becomes increasingly agitated in the afternoon. Will try again tmw if possible. Consider nectar thick liquid for now.
--- NOTE | 2017-04-14 14:39 | EKG ---
Test Reason : Blood Pressure : / mmHG Vent. Rate : 067 BPM Atrial Rate : 122 BPM P-R Int : 000 ms QRS Dur : 084 ms QT Int : 446 ms P-R-T Axes : 000 -14 138 degrees QTc Int : 471 ms ATRIAL FIBRILLATION LOW VOLTAGE QRS PROLONGED QT ABNORMAL ECG WHEN COMPARED WITH ECG OF 07-JAN-2017 21:34, ATRIAL FIBRILLATION HAS REPLACED SINUS RHYTHM Confirmed by BETY DURAND, RIMMA ([id number]) on 04/14/2017 2:39:19 PM Referred By: Confirmed By:RIMMA ALBERT MD
[2017-04-14] MEDS ORDERED: PT OWN MED DRAWER 7, Y5N ONE (21:22)
[2017-04-14] MEDS: MONTELUKAST NA 10 MG TABLET PO SCH (21:23)
[2017-04-14] MEDS: MELATONIN 1 MG TABLET PO SCH (21:23)
[2017-04-14] MEDS: SENNOSIDES/DOCUSATE COMBO (SENNA PLUS) TABLET (UD) PO SCH (21:24)
[2017-04-14] MEDS: MIRTAZAPINE 15 MG TABLET (FP) PO SCH (21:25)
[2017-04-15] MEDS: ALBUTEROL SO4 0.083% IH SOL 2.5 MG/3 ML VIAL.NEB. NEB SCH ×3 (06:10→22:25)
[2017-04-15] MEDS: ACETYLCYSTEINE 20% 200MG/ML 4 ML VIAL *FOR ORAL / INH USE ONLY NEB SCH ×3 (06:10→22:25)
[2017-04-15] MEDS: FUROSEMIDE 40 MG/4 ML INJECTABLE VIAL IVPUSH SCH (06:19)
[2017-04-15] MEDS: LEVOTHYROXINE NA 50 MCG TABLET (FP) PO SCH (06:19)
--- NOTE | 2017-04-15 07:26 | PN ---
Physical Exam: SUBJECTIVE: Patient seen and examined. Doing well. Asymptomatic. Breathing improved. No urinary symptoms. No agitation overnight. Sats great on 2L. OBJECTIVE: Vital Signs Period Temp Pulse Resp BP Sys/Carr Pulse Ox Last 24 Hr 97.5 F-98.0 F 62-79 18-20 97-118/54-60 96-100 GEN: AAOx1, voice less hoarse, not using accessory muscles HEENT: PERRLA, EOMi CV: S1, S2, irregularly irregular rhythm w/ 3/6 systolic murmur LUNG: Mild bibasilar crackles R>L ABD: Soft, NT, ND MSK: No edema, no erythema Active Medications Generic Name Dose Route Start Last Admin Trade Name Freq PRN Reason Stop Dose Admin Acetaminophen 650 mg 04/09/17 20:04 04/12/17 01:27 Tylenol - PO 650 mg Q6H PRN Administration FEVER OR PAIN Acetylcysteine 800 mg 04/12/17 12:01 04/15/17 06:10 Mucomyst 20 Oral / Inh Use Only* NEB 800 mg TIDR ANGELINE Administration Albuterol Sulfate 1 amp 04/12/17 14:00 04/15/17 06:10 Ventolin 0.083% Nebulizer Soln - NEB 1 amp TID ANGELINE Administration Apixaban 2.5 mg 04/09/17 10:00 04/14/17 21:23 Eliquis - PO 2.5 mg BID ANGELINE Administration Carvedilol 3.125 mg 04/09/17 10:00 04/14/17 21:23 Coreg - PO 3.125 mg BID ANGELINE Administration Ferrous Sulfate 325 mg 04/09/17 10:00 04/14/17 11:02 Feosol - PO 325 mg DAILY ANGELINE Administration Fluticasone Propionate 1 spray 04/09/17 10:00 04/14/17 21:23 Flonase - NS 1 spray BID ANGELINE Administration Furosemide 40 mg 04/12/17 10:45 04/15/17 06:19 Lasix Injection - IVPUSH 40 mg BID@0600,1400 ANGELINE Administration Gabapentin 100 mg 04/09/17 10:00 04/14/17 11:02 Neurontin - PO 100 mg DAILY ANGELINE Administration Guaifenesin 10 ml 04/09/17 12:44 04/09/17 14:28 Robitussin - PO 10 ml Q4H PRN Administration COUGH Lactobacillus Acidophilus 1 tab 04/09/17 10:00 04/14/17 11:01 Bacid - PO 1 tab DAILY ANGELINE Administration Levothyroxine Sodium 50 mcg 04/09/17 07:00 04/15/17 06:19 Synthroid - PO 50 mcg DAILY@0700 ANGELINE Administration Melatonin 1 mg 04/09/17 22:00 04/14/17 21:23 Melatonin PO 1 mg HS ANGELINE Administration Mirtazapine 7.5 mg 04/09/17 22:00 04/14/17 21:25 Remeron - PO 7.5 mg HS ANGELINE Administration Montelukast Sodium 10 mg 04/09/17 22:00 04/14/17 21:23 Singulair - PO 10 mg HS ANGELINE Administration Multivitamins/Minerals/Vitamin C 1 tab 04/09/17 10:00 04/14/17 11:02 Tab-A-Vit - PO 1 tab DAILY ANGELINE Administration Polyethylene Glycol 17 gm 04/09/17 10:00 04/14/17 11:03 Miralax (For Daily Use) - PO 17 gm DAILY ANGELINE Administration Potassium Chloride 20 meq 04/09/17 10:00 04/14/17 21:23 K-Dur - PO 20 meq BID ANGELINE Administration Ramipril 2.5 mg 04/13/17 11:00 04/14/17 11:02 Altace - PO 2.5 mg DAILY ANGELINE Administration Senna/Docusate Sodium 2 tablet 04/09/17 22:00 04/14/17 21:24 Pericolace - PO Not Given HS ANGELINE ASSESSMENT/PLAN: Ms Garcia is an 86yo F with PMHx of UTIs, who was brought from her NH due to hostile behavior while being treated for UTI on Ciprofloxacin. # Metabolic Encephalopathy 2/2 UTI - Aggressive behavior has improved. Ucx +Strep Viridans. Completed 7 day course of abx today. # Diastolic CHF Exacerbation - Currently on Lasix at IV 40 BID. Since Cr has bumped up to 1.1, patient is likely euvolemic and slightly dehydrated. Discussed w/ Cardiology Dr Chamberlain, who recommends that with her diastolic heart failure, will discontinue Lasix and start Spironolactone 25 daily. O2 on room air is 94. Ramipril 2.5 daily. # Elevated Troponins - 0.13-0.14, mild elevation, likely 2/2 demand from CHF exac # Dysphagia - Has some coughing with thin liquids. S/S on board. MBS today if patient is agreeable, refused today bc of anxiety. Thick liquids for now # Afib - Rate controlled w/ Coreg 3.125 BID Continue Eliquis # Hypothyroidism - Continue Levothyroxine # COPD - Continue Singulair, Duoneb as needed # MDD - Continue Mirtazapine # Constipation - Continue daily Miralax and Senna as needed # Neuropathy - Continue Gabapentin # FEN - No IVF, no elec abnl, sodium controlled diet w/ thick liquids # PPx - Eliquis, no GI, Walked 40 feet w/ PT # Dispo - Lives at [facility], facility accepted. Hopefully will il tomorrow d/w Dr Eduardo Blakely MD - Resident PGY1 Internal Medicine Visit type - Emergency Visit Emergency Visit: No - New Patient This patient is new to me today: No - Critical Care Critical Care patient: No - Discharge Referral Referred to [facility] Med P.C[facility] No
[2017-04-15 07:59] LABS: MCH 30.4 pg (25.7-33.7); MEAN CELL VOLUME 95.2 fl (80-96); MEAN PLT VOLUME 7.3 fl (7.5-11.1); PLATELET COUNT 253 K/MM3 (134-434); RDW 16.6 % (11.6-15.6); WHITE BLOOD COUNT 8.1 K/mm3 (4.0-10.0)
[2017-04-15 08:26] LABS: ANION GAP 4 (8-16); CALCIUM 8.2 mg/dL (8.5-10.1); CO2 33 mmol/L (21-32); CREATININE 1.1 mg/dL (0.55-1.02); GLUCOSE,RANDOM 107 mg/dL (74-106); PHOSPHOROUS 3.5 mg/dL (2.5-4.9)
[2017-04-15] MEDS: FERROUS SO4 325 MG TABLET (FP) PO SCH (10:43)
[2017-04-15] MEDS: GABAPENTIN 100 MG CAPSULE (FP) PO SCH (10:43)
[2017-04-15] MEDS: APIXABAN 2.5 MG TABLET PO SCH ×2 (10:43→22:44)
[2017-04-15] MEDS: CARVEDILOL 3.125 MG TABLET (FP) PO SCH ×2 (10:43→22:44)
[2017-04-15] MEDS: FLUTICASONE PROP 0.05% 16 GM NASAL SPRAY NS SCH ×2 (10:43→22:45)
[2017-04-15] MEDS: MULTIVITAMINS (DAILY MVI) TABLET (FP) PO SCH (10:43)
[2017-04-15] MEDS: LACTOBACILLUS ACIDOPHILUS 1 EACH TAB (FP) PO SCH (10:43)
[2017-04-15] MEDS: RAMIPRIL 2.5 MG CAPSULE (FP) PO SCH (10:43)
[2017-04-15] MEDS: POTASSIUM CHLORIDE TABS 20 MEQ TABLET.ER (FP) PO SCH ×2 (10:44→22:45)
[2017-04-15] MEDS: POLYETHYLENE GLYCOL 3350 119 GM BTL PO SCH (10:44)
--- NOTE | 2017-04-15 11:26 | PN ---
Teaching Attending Note Name of Resident: Sumaya Blakely ATTENDING PHYSICIAN STATEMENT I saw and evaluated the patient. I reviewed the resident's note and discussed the case with the resident. I agree with the resident's findings and plan as documented. SUBJECTIVE:asymptomatic. denies Cp, SOB, fever, chills, N/V/C/D OBJECTIVE: Last Vital Signs Temp Pulse Resp BP Pulse Ox 97.3 F L 73 18 116/72 96 04/15/17 10:00 04/15/17 10:00 04/15/17 10:00 04/15/17 10:00 04/14/17 21:00 Intake & Output 04/12/17 04/13/17 04/14/17 04/15/17 23:59 23:59 23:59 23:59 Intake Total 870 770 940 60 Output Total 1950 1425 550 200 Balance -1080 -655 390 -140 Weight 115 lb 3.2 oz 109 lb 108 lb 2 oz 111 lb General NAD A&O x2 (self and time) CV S1 S2 irregular Lungs crackles B/L decreased L base no wheezing Extremities no pitting edema ASSESSMENT AND PLAN: 86 yof with dementia, anemia, afib, dCHF, MIKE, COPD, DJD spine, hypothyroid, diverticulosis, recent admission for diastolic CHF, admitted with AMS, ?UTI. Diastolic CHF, now with worsening hypoxia. 1. Acute on chronic hypoxia respiratory distress- due to volume overload and possible PNA although less likely. resolved. saturating 96% on RA. will check pre and post. completed 7 days of abx. supplemental oxygen prn 2. Acute on chronic diastolic CHF- continues to have some signs of volume overload however Cr starting to rise. switch lasix IV to spirolactone. try to titrate up medications as tolerated. cont daily weights 3. Acute metabolic encephalopathy- likely due to UTI vs volume overload. resolved. at baseline per son at baseline. 4. Dysphagia- refused MBS yesterday. spoke with pt whom is agreeable today. 5. Strep Viridans UTI- completed 7 days of abx 6. Troponin leak- likely due to demand ischemia. flat trend of troponins. no indication for further workup. cardio on board 7. Dementia 8. Afib- rate controlled. cont current home medications. on reduced dose eliquis 9. [id number] from volume overload now trending up due to medications. will adjust as above. trend Cr 10. DVT ppx- eliquis 11. DNR/DNI 12. spoke with son present at bedside. agree with plan. all questions answered. verbalized agreement in plan.
[2017-04-15] MEDS: SPIRONOLACTONE 25 MG TABLET (FP) PO SCH (11:57)
--- NOTE | 2017-04-15 12:15 | PN ---
Progress Note, Physician History of Present Illness: Dyspnea resolved, sensorium at baseline, went for barium swallow. - Current Medication List Current Medications: Active Medications Acetaminophen (Tylenol -) 650 mg PO Q6H PRN PRN Reason: FEVER OR PAIN Last Admin: 04/12/17 01:27 Dose: 650 mg Acetylcysteine (Mucomyst 20 Oral / Inh Use Only*) 800 mg NEB TIDR [facility] Last Admin: 04/15/17 06:10 Dose: 800 mg Albuterol Sulfate (Ventolin 0.083% Nebulizer Soln -) 1 amp NEB TID [facility] Last Admin: 04/15/17 06:10 Dose: 1 amp Apixaban (Eliquis -) 2.5 mg PO BID [facility] Last Admin: 04/15/17 10:43 Dose: 2.5 mg Carvedilol (Coreg -) 3.125 mg PO BID [facility] Last Admin: 04/15/17 10:43 Dose: 3.125 mg Ferrous Sulfate (Feosol -) 325 mg PO DAILY [facility] Last Admin: 04/15/17 10:43 Dose: 325 mg Fluticasone Propionate (Flonase -) 1 spray NS BID [facility] Last Admin: 04/15/17 10:43 Dose: 1 spray Gabapentin (Neurontin -) 100 mg PO DAILY [facility] Last Admin: 04/15/17 10:43 Dose: 100 mg Guaifenesin (Robitussin -) 10 ml PO Q4H PRN PRN Reason: COUGH Last Admin: 04/09/17 14:28 Dose: 10 ml Lactobacillus Acidophilus (Bacid -) 1 tab PO DAILY [facility] Last Admin: 04/15/17 10:43 Dose: 1 tab Levothyroxine Sodium (Synthroid -) 50 mcg PO DAILY@0700 [facility] Last Admin: 04/15/17 06:19 Dose: 50 mcg Melatonin (Melatonin) 1 mg PO HS [facility] Last Admin: 04/14/17 21:23 Dose: 1 mg Mirtazapine (Remeron -) 7.5 mg PO HS [facility] Last Admin: 04/14/17 21:25 Dose: 7.5 mg Montelukast Sodium (Singulair -) 10 mg PO HS [facility] Last Admin: 04/14/17 21:23 Dose: 10 mg Multivitamins/Minerals/Vitamin C (Tab-A-Vit -) 1 tab PO DAILY [facility] Last Admin: 04/15/17 10:43 Dose: 1 tab Polyethylene Glycol (Miralax (For Daily Use) -) 17 gm PO DAILY [facility] Last Admin: 04/15/17 10:44 Dose: Not Given Potassium Chloride (K-Dur -) 20 meq PO BID [facility] Last Admin: 04/15/17 10:44 Dose: Not Given Ramipril (Altace -) 2.5 mg PO DAILY [facility] Last Admin: 04/15/17 10:43 Dose: 2.5 mg Senna/Docusate Sodium (Pericolace -) 2 tablet PO HS [facility] Last Admin: 04/14/17 21:24 Dose: Not Given Spironolactone (Aldactone -) 25 mg PO DAILY [facility] Last Admin: 04/15/17 11:57 Dose: 25 mg - Objective Vital Signs: Vital Signs Temperature 97.3 F L 04/15/17 10:00 Pulse Rate 73 04/15/17 10:00 Respiratory Rate 18 04/15/17 10:00 Blood Pressure 116/72 04/15/17 10:00 O2 Sat by Pulse Oximetry (%) 96 04/14/17 21:00 Constitutional: Yes: No Distress, Calm, Thin Neck: Yes: Supple Cardiovascular: Yes: Pulse Irregular, Murmur (2/6 SM) Respiratory: Yes: Regular, Diminished, On Nasal O2 Gastrointestinal: Yes: Normal Bowel Sounds, Soft Edema: No Labs: CBC, BMP 04/15/17 05:35 04/15/17 05:35 - ....Imaging EKG: Report Reviewed (Tele: Mayito vanegas) Problem List - Problems (1) Demand ischemia Code(s): I24.8 - OTHER FORMS OF ACUTE ISCHEMIC HEART DISEASE (2) Acute respiratory failure with hypoxia Code(s): J96.01 - ACUTE RESPIRATORY FAILURE WITH HYPOXIA (3) UTI (urinary tract infection) Code(s): N39.0 - URINARY TRACT INFECTION, SITE NOT SPECIFIED Qualifiers: Urinary tract infection type: site unspecified (4) Acute on chronic diastolic CHF (congestive heart failure) Code(s): I50.33 - ACUTE ON CHRONIC DIASTOLIC (CONGESTIVE) HEART FAILURE (5) Anemia Code(s): D64.9 - ANEMIA, UNSPECIFIED Qualifiers: Anemia type: unspecified type Qualified Code(s): D64.9 - Anemia, unspecified (6) Hypothyroid Code(s): E03.9 - HYPOTHYROIDISM, UNSPECIFIED Qualifiers: Hypothyroidism type: unspecified Qualified Code(s): E03.9 - Hypothyroidism , unspecified (7) Mitral regurgitation Code(s): I34.0 - NONRHEUMATIC MITRAL (VALVE) INSUFFICIENCY Qualifiers: Cardiac valve disease etiology: nonrheumatic Qualified Code(s): I34.0 - Nonrheumatic mitral (valve) insufficiency (8) PAF (paroxysmal atrial fibrillation) Code(s): I48.0 - PAROXYSMAL ATRIAL FIBRILLATION (9) Hypertensive cardiomyopathy Code(s): I11.9 - HYPERTENSIVE HEART DISEASE WITHOUT HEART FAILURE; I43 - CARDIOMYOPATHY IN DISEASES CLASSIFIED ELSEWHERE Qualifiers: Heart failure presence: with heart failure Qualified Code(s): I11.0 - Hypertensive heart disease with heart failure; I43 - Cardiomyopathy in diseases classified elsewhere; I43 - Cardiomyopathy in diseases classified elsewhere; I43 - Cardiomyopathy in diseases classified elsewhere; I43 - Cardiomyopathy in diseases classified elsewhere (10) Chronic anticoagulation Code(s): Z79.01 - JAIL (CURRENT) USE OF ANTICOAGULANTS (11) Pleural effusion due to CHF (congestive heart failure) Code(s): I50.9 - HEART FAILURE, UNSPECIFIED Assessment/Plan 1. Acute hypoxic respiratory failure 2. Acute on chronic diastolic heart failure - class 2 NYHA classification LV failure with pleural effusions - improved 3. Hypertension/hypertensive cardiovascular disease 4. Paroxysmal atrial fibrillation currently in sinus rhythm on NOAC 5. CAD with demand ischemic injury 6. Hypothyroidism 7. Anemia 8. UTI 9. Toxic metabolic encephalopathy PLAN: 1. Changed IV Lasix to spirinolactone 25 qd with monitoring renal function and electrolytes 2. Continue Carvedilol 3.125 mg twice a day and Eliquis 2.5 mg BID 3. Continue Ramipril 2.5 mg qd as hemodynamics tolerate 4. Completed empiric antibiotic coverage 5. F/u swallow study, PT->SNF
[2017-04-15] MEDS ORDERED: PT OWN MED DRAWER 7, Y5N ONE ×2 (18:04→21:59)
[2017-04-15] MEDS: MIRTAZAPINE 15 MG TABLET (FP) PO SCH (22:44)
[2017-04-15] MEDS: MELATONIN 1 MG TABLET PO SCH (22:44)
[2017-04-15] MEDS: MONTELUKAST NA 10 MG TABLET PO SCH (22:44)
[2017-04-15] MEDS: SENNOSIDES/DOCUSATE COMBO (SENNA PLUS) TABLET (UD) PO SCH (22:45)
[2017-04-16] MEDS: ALBUTEROL SO4 0.083% IH SOL 2.5 MG/3 ML VIAL.NEB. NEB SCH ×2 (06:10→13:12)
[2017-04-16] MEDS: ACETYLCYSTEINE 20% 200MG/ML 4 ML VIAL *FOR ORAL / INH USE ONLY NEB SCH ×2 (06:10→13:12)
[2017-04-16] MEDS: LEVOTHYROXINE NA 50 MCG TABLET (FP) PO SCH (06:30)
--- NOTE | 2017-04-16 06:34 | PN ---
Physical Exam: SUBJECTIVE: Patient seen and examined. As per nurses patient was sundowning last night. This AM, patient knows where she is, she is conversational. No complaints of breathing. OBJECTIVE: Vital Signs Period Temp Pulse Resp BP Sys/Carr Pulse Ox Last 24 Hr 97.3 F-98.5 F 68-91 18-18 87-120/47-82 95-98 GEN: AAOx1, voice less hoarse, not using accessory muscles HEENT: PERRLA, EOMi CV: S1, S2, irregularly irregular rhythm w/ 3/6 systolic murmur LUNG: Mild R sided crackles ABD: Soft, NT, ND MSK: No edema, no erythema Active Medications Generic Name Dose Route Start Last Admin Trade Name Freq PRN Reason Stop Dose Admin Acetaminophen 650 mg 04/09/17 20:04 04/12/17 01:27 Tylenol - PO 650 mg Q6H PRN Administration FEVER OR PAIN Acetylcysteine 800 mg 04/12/17 12:01 04/15/17 22:25 Mucomyst 20 Oral / Inh Use Only* NEB 800 mg TIDR ANGELINE Administration Albuterol Sulfate 1 amp 04/12/17 14:00 04/15/17 22:25 Ventolin 0.083% Nebulizer Soln - NEB 1 amp TID ANGELINE Administration Apixaban 2.5 mg 04/09/17 10:00 04/15/17 22:44 Eliquis - PO Not Given BID ANGELINE Carvedilol 3.125 mg 04/09/17 10:00 04/15/17 22:44 Coreg - PO Not Given BID ANGELINE Ferrous Sulfate 325 mg 04/09/17 10:00 04/15/17 10:43 Feosol - PO 325 mg DAILY ANGELINE Administration Fluticasone Propionate 1 spray 04/09/17 10:00 04/15/17 22:45 Flonase - NS 1 spray BID ANGELINE Administration Gabapentin 100 mg 04/09/17 10:00 04/15/17 10:43 Neurontin - PO 100 mg DAILY ANGELINE Administration Guaifenesin 10 ml 04/09/17 12:44 04/09/17 14:28 Robitussin - PO 10 ml Q4H PRN Administration COUGH Lactobacillus Acidophilus 1 tab 04/09/17 10:00 04/15/17 10:43 Bacid - PO 1 tab DAILY ANG[facility]INE Administration Levothyroxine Sodium 50 mcg 12/07/17 07:00 04/16/17 06:30 Synthroid - PO 50 mcg DAILY@0700 ANG[facility]INE Administration Melatonin 1 mg 04/09/17 22:00 04/15/17 22:44 Melatonin PO Not Given HS ANGELINE Mirtazapine 7.5 mg 04/09/17 22:00 04/15/17 22:44 Remeron - PO Not Given HS ANGELINE Montelukast Sodium 10 mg 04/09/17 22:00 04/15/17 22:44 Singulair - PO Not Given HS ANG[facility]INE Multivitamins/Minerals/Vitamin C 1 tab 04/09/17 10:00 04/15/17 10:43 Tab-A-Vit - PO 1 tab DAILY ANG[facility]INE Administration Polyethylene Glycol 17 gm 04/09/17 10:00 04/15/17 10:44 Miralax (For Daily Use) - PO Not Given DAILY ANGELINE Potassium Chloride 20 meq 04/09/17 10:00 04/15/17 22:45 K-Dur - PO Not Given BID ANGELINE Ramipril 2.5 mg 04/13/17 11:00 04/15/17 10:43 Altace - PO 2.5 mg DAILY ANGELINE Administration Senna/Docusate Sodium 2 tablet 04/09/17 22:00 04/15/17 22:45 Pericolace - PO Not Given HS ANGELINE Spironolactone 25 mg 04/15/17 11:45 04/15/17 11:57 Aldactone - PO 25 mg DAILY ANGELINE Administration ASSESSMENT/PLAN: Ms Garcia is an 86yo F with PMHx of UTIs, who was brought from her NH due to hostile behavior while being treated for UTI on Ciprofloxacin. # Metabolic Encephalopathy 2/2 UTI - Aggressive behavior has improved. Ucx +Strep Viridans. Completed 7 day course of abx today. # Diastolic CHF Exacerbation - Currently switched to Spironolactone 25 daily. Ackerman removed. I&Os not measured accurately. O2 on room air is 94. Ramipril 2.5 daily. # Dysphagia - Has some coughing with thin liquids. S/S on board. MBS today if patient is agreeable, refused today bc of anxiety. Thick liquids for now # Afib - Rate controlled w/ Coreg 3.125 BID Continue Eliquis # Hypothyroidism - Continue Levothyroxine # COPD - Continue Singulair, Duoneb as needed # MDD - Continue Mirtazapine # Constipation - Continue daily Miralax and Senna as needed # Neuropathy - Continue Gabapentin # FEN - No IVF, no elec abnl, sodium controlled diet w/ thick liquids # PPx - Eliquis, no GI, Walked 40 feet w/ PT # Dispo - Lives at [facility], facility accepted. Hopefully will dc today to d/w Dr Eduardo Blakely MD - Resident PGY1 Internal Medicine
[2017-04-16 07:35] LABS: MCH 30.3 pg (25.7-33.7); MEAN CELL VOLUME 94.6 fl (80-96); MEAN PLT VOLUME 7.3 fl (7.5-11.1); PLATELET COUNT 252 K/MM3 (134-434); RDW 16.8 % (11.6-15.6); WHITE BLOOD COUNT 10.3 K/mm3 (4.0-10.0)
[2017-04-16 08:22] LABS: ANION GAP 4 (8-16); CALCIUM 8.2 mg/dL (8.5-10.1); CO2 31 mmol/L (21-32); CREATININE 1.1 mg/dL (0.55-1.02); GLUCOSE,RANDOM 114 mg/dL (74-106); MAGNESIUM 2.3 mg/dL (1.8-2.4); PHOSPHOROUS 3.2 mg/dL (2.5-4.9)
[2017-04-16] MEDS ORDERED: PT OWN MED DRAWER 7, Y5N ONE (10:44)
[2017-04-16] MEDS: CARVEDILOL 3.125 MG TABLET (FP) PO SCH (10:53)
[2017-04-16] MEDS: GABAPENTIN 100 MG CAPSULE (FP) PO SCH (10:53)
[2017-04-16] MEDS: FLUTICASONE PROP 0.05% 16 GM NASAL SPRAY NS SCH (10:53)
[2017-04-16] MEDS: APIXABAN 2.5 MG TABLET PO SCH (10:53)
[2017-04-16] MEDS: LACTOBACILLUS ACIDOPHILUS 1 EACH TAB (FP) PO SCH (10:53)
[2017-04-16] MEDS: SPIRONOLACTONE 25 MG TABLET (FP) PO SCH (10:53)
[2017-04-16] MEDS: MULTIVITAMINS (DAILY MVI) TABLET (FP) PO SCH (10:53)
[2017-04-16] MEDS: POLYETHYLENE GLYCOL 3350 119 GM BTL PO SCH (10:53)
[2017-04-16] MEDS: POTASSIUM CHLORIDE TABS 20 MEQ TABLET.ER (FP) PO SCH (10:53)
[2017-04-16] MEDS: FERROUS SO4 325 MG TABLET (FP) PO SCH (10:53)
[2017-04-16] MEDS: RAMIPRIL 2.5 MG CAPSULE (FP) PO SCH (10:54)
--- NOTE | 2017-04-16 11:02 | PN ---
Progress Note, Physician History of Present Illness: Dyspnea resolved, sensorium at baseline, went for barium swallow suspected VC dysfunction. - Current Medication List Current Medications: Active Medications Acetaminophen (Tylenol -) 650 mg PO Q6H PRN PRN Reason: FEVER OR PAIN Last Admin: 04/12/17 01:27 Dose: 650 mg Acetylcysteine (Mucomyst 20 Oral / Inh Use Only*) 800 mg NEB TIDR [facility] Last Admin: 04/16/17 06:10 Dose: 800 mg Albuterol Sulfate (Ventolin 0.083% Nebulizer Soln -) 1 amp NEB TID [facility] Last Admin: 04/16/17 06:10 Dose: 1 amp Apixaban (Eliquis -) 2.5 mg PO BID [facility] Last Admin: 04/16/17 10:53 Dose: 2.5 mg Carvedilol (Coreg -) 3.125 mg PO BID [facility] Last Admin: 04/16/17 10:53 Dose: 3.125 mg Ferrous Sulfate (Feosol -) 325 mg PO DAILY [facility] Last Admin: 04/16/17 10:53 Dose: 325 mg Fluticasone Propionate (Flonase -) 1 spray NS BID [facility] Last Admin: 04/16/17 10:53 Dose: 1 spray Gabapentin (Neurontin -) 100 mg PO DAILY [facility] Last Admin: 04/16/17 10:53 Dose: 100 mg Guaifenesin (Robitussin -) 10 ml PO Q4H PRN PRN Reason: COUGH Last Admin: 04/09/17 14:28 Dose: 10 ml Lactobacillus Acidophilus (Bacid -) 1 tab PO DAILY [facility] Last Admin: 04/16/17 10:53 Dose: 1 tab Levothyroxine Sodium (Synthroid -) 50 mcg PO DAILY@0700 [facility] Last Admin: 04/16/17 06:30 Dose: 50 mcg Melatonin (Melatonin) 1 mg PO HS [facility] Last Admin: 04/15/17 22:44 Dose: Not Given Mirtazapine (Remeron -) 7.5 mg PO HS [facility] Last Admin: 04/15/17 22:44 Dose: Not Given Montelukast Sodium (Singulair -) 10 mg PO HS [facility] Last Admin: 04/15/17 22:44 Dose: Not Given Multivitamins/Minerals/Vitamin C (Tab-A-Vit -) 1 tab PO DAILY [facility] Last Admin: 04/16/17 10:53 Dose: 1 tab Polyethylene Glycol (Miralax (For Daily Use) -) 17 gm PO DAILY [facility] Last Admin: 04/16/17 10:53 Dose: Not Given Potassium Chloride (K-Dur -) 20 meq PO BID [facility] Last Admin: 04/16/17 10:53 Dose: 20 meq Ramipril (Altace -) 2.5 mg PO DAILY [facility] Last Admin: 04/16/17 10:54 Dose: 2.5 mg Senna/Docusate Sodium (Pericolace -) 2 tablet PO HS [facility] Last Admin: 04/15/17 22:45 Dose: Not Given Spironolactone (Aldactone -) 25 mg PO DAILY [facility] Last Admin: 04/16/17 10:53 Dose: 25 mg - Objective Vital Signs: Vital Signs Temperature 98.1 F 04/16/17 06:00 Pulse Rate 89 04/16/17 09:28 Respiratory Rate 18 04/16/17 06:00 Blood Pressure 113/56 04/16/17 06:00 O2 Sat by Pulse Oximetry (%) 98 04/16/17 09:28 Constitutional: Yes: No Distress, Calm, Thin Neck: Yes: Supple Cardiovascular: Yes: Regular Rate and Rhythm Respiratory: Yes: Regular, Diminished, On Nasal O2 Gastrointestinal: Yes: Normal Bowel Sounds, Soft Edema: No Labs: CBC, BMP 04/16/17 06:25 04/16/17 06:25 - ....Imaging EKG: Report Reviewed (Tele: PAF->SR) Problem List - Problems (1) Demand ischemia Code(s): I24.8 - OTHER FORMS OF ACUTE ISCHEMIC HEART DISEASE (2) Acute respiratory failure with hypoxia Code(s): J96.01 - ACUTE RESPIRATORY FAILURE WITH HYPOXIA (3) UTI (urinary tract infection) Code(s): N39.0 - URINARY TRACT INFECTION, SITE NOT SPECIFIED Qualifiers: Urinary tract infection type: site unspecified (4) Acute on chronic diastolic CHF (congestive heart failure) Code(s): I50.33 - ACUTE ON CHRONIC DIASTOLIC (CONGESTIVE) HEART FAILURE (5) Anemia Code(s): D64.9 - ANEMIA, UNSPECIFIED Qualifiers: Anemia type: unspecified type Qualified Code(s): D64.9 - Anemia, unspecified (6) Hypothyroid Code(s): E03.9 - HYPOTHYROIDISM, UNSPECIFIED Qualifiers: Hypothyroidism type: unspecified Qualified Code(s): E03.9 - Hypothyroidism , unspecified (7) Mitral regurgitation Code(s): I34.0 - NONRHEUMATIC MITRAL (VALVE) INSUFFICIENCY Qualifiers: Cardiac valve disease etiology: nonrheumatic Qualified Code(s): I34.0 - Nonrheumatic mitral (valve) insufficiency (8) PAF (paroxysmal atrial fibrillation) Code(s): I48.0 - PAROXYSMAL ATRIAL FIBRILLATION (9) Hypertensive cardiomyopathy Code(s): I11.9 - HYPERTENSIVE HEART DISEASE WITHOUT HEART FAILURE; I43 - CARDIOMYOPATHY IN DISEASES CLASSIFIED ELSEWHERE Qualifiers: Heart failure presence: with heart failure Qualified Code(s): I11.0 - Hypertensive heart disease with heart failure; I43 - Cardiomyopathy in diseases classified elsewhere; I43 - Cardiomyopathy in diseases classified elsewhere; I43 - Cardiomyopathy in diseases classified elsewhere; I43 - Cardiomyopathy in diseases classified elsewhere (10) Chronic anticoagulation Code(s): Z79.01 - MD PEDIATRIC ALLERGIST (CURRENT) USE OF ANTICOAGULANTS (11) Pleural effusion due to CHF (congestive heart failure) Code(s): I50.9 - HEART FAILURE, UNSPECIFIED Assessment/Plan 1. Acute hypoxic respiratory failure 2. Acute on chronic diastolic heart failure - class 2 NYHA classification LV failure with pleural effusions - resolved 3. Hypertension/hypertensive cardiovascular disease 4. Paroxysmal atrial fibrillation currently in sinus rhythm on NOAC 5. CAD with demand ischemic injury 6. Hypothyroidism 7. Anemia 8. UTI 9. Toxic metabolic encephalopathy PLAN: 1. Continue Ramipril 2.5 mg qd and spirinolactone 25 qd with monitoring renal function and electrolytes 2. Continue Carvedilol 3.125 mg twice a day and Eliquis 2.5 mg BID 3. Completed empiric antibiotic coverage 4. S&S recs noted, d/c plsnning, PT->SNF
--- NOTE | 2017-04-16 12:51 | PN ---
Teaching Attending Note Name of Resident: Sumaya Blakely ATTENDING PHYSICIAN STATEMENT I saw and evaluated the patient. I reviewed the resident's note and discussed the case with the resident. I agree with the resident's findings and plan as documented. SUBJECTIVE:asymptomatic. denies Cp, SOB, fever, chills, N/V/C/D OBJECTIVE: Last Vital Signs Temp Pulse Resp BP Pulse Ox 98.1 F 89 18 113/56 98 04/16/17 06:00 04/16/17 09:28 04/16/17 06:00 04/16/17 06:00 04/16/17 09:28 General NAD more lethargic than yesterday but responds to verbal stimuli CV S1 S2 irregular Lungs decreased breath sounds B/L base no wheezing Extremities no pitting edema ASSESSMENT AND PLAN: 86 yof with dementia, anemia, afib, dCHF, MIKE, COPD, DJD spine, hypothyroid, diverticulosis, recent admission for diastolic CHF, admitted with AMS, ?UTI. Diastolic CHF, now with worsening hypoxia. 1. Acute on chronic hypoxia respiratory distress- due to volume overload and possible PNA although less likely. resolved. saturating 91% on RA. will check pre and post. completed 7 days of abx. supplemental oxygen prn 2. Acute on chronic diastolic CHF- continues to have some signs of volume overload however Cr starting to rise. switch lasix IV to spirolactone. try to titrate up medications as tolerated. moniotr potasium and kidney function. cont daily weights 3. Acute metabolic encephalopathy- likely due to UTI vs volume overload. resolved. at baseline per son at baseline. 4. Dysphagia- soft diet with nectar thickened liquids 5. Strep Viridans UTI- completed 7 days of abx 6. Troponin leak- likely due to demand ischemia. flat trend of troponins. no indication for further workup. cardio on board 7. Dementia 8. Afib- rate controlled. cont current home medications. on reduced dose eliquis 9. [id number] from volume overload now trending up due to medications. will adjust as above. trend Cr 10. DVT ppx- eliquis 11. DNR/DNI 12. d/c to SNF today. will need monitoring of potassium and kidney function.
[2017-04-16 13:12] VITALS: PULSE 69
[2017-04-16 15:35] VITALS: BP 86/51; TEMP 98
--- NOTE | 2017-04-16 16:23 | DS ---
Physical Exam: SUBJECTIVE: Patient seen and examined. This AM, patient knows where she is, she is conversational. No complaints of breathing. OBJECTIVE: Vital Signs Period Temp Pulse Resp BP Sys/Carr Pulse Ox Last 24 Hr 98 F-98.5 F 68-91 18-24 86-120/47-82 94-98 PHYSICAL EXAM GEN: AAOx1, voice less hoarse, not using accessory muscles HEENT: PERRLA, EOMi CV: S1, S2, irregularly irregular rhythm w/ 3/6 systolic murmur LUNG: Mild R sided crackles ABD: Soft, NT, ND MSK: No edema, no erythema LABS Laboratory Last Values WBC 10.3 K/mm3 (4.0-10.0) H 04/16/17 06:25 RBC 2.76 M/mm3 (3.60-5.2) L 04/16/17 06:25 Hgb 8.4 GM/dL (10.7-15.3) L 04/16/17 06:25 Hct 26.1 % (32.4-45.2) L 04/16/17 06:25 MCV 94.6 fl (80-96) 04/16/17 06:25 MCH 30.3 pg (25.7-33.7) 04/16/17 06:25 MCHC 32.0 g/dl (32.0-36.0) 04/16/17 06:25 RDW 16.8 % (11.6-15.6) H 04/16/17 06:25 Plt Count 252 K/MM3 (134-434) 04/16/17 06:25 MPV 7.3 fl (7.5-11.1) L 04/16/17 06:25 Neutrophils % 65.9 % (42.8-82.8) 04/13/17 05:35 Lymphocytes % 13.6 % (8-40) D 04/13/17 05:35 Monocytes % 13.5 % (3.8-10.2) H 04/13/17 05:35 Eosinophils % 6.1 % (0-4.5) H 04/13/17 05:35 Basophils % 0.9 % (0-2.0) 04/13/17 05:35 Puncture Site Right radial 04/12/17 11:43 ABG pH 7.46 (7.35-7.45) H 04/12/17 11:43 ABG pCO2 at Pt Temp 42.3 mmHg (35-45) 04/12/17 11:43 ABG pO2 at Pt Temp 152.0 mmHg (68-100) H* 04/12/17 11:43 ABG HCO3 29.9 meq/L (22-26) H 04/12/17 11:43 ABG O2 Sat (Measured) 97.7 % (90-98.9) 04/12/17 11:43 ABG O2 Content 11.9 % vol (15-22) L 04/12/17 11:43 ABG Base Excess 6.0 meq/l (-2-2) H 04/12/17 11:43 Ashish Test Positive 04/12/17 11:43 VBG pH 7.31 (7.32-7.42) L 04/08/17 20:13 POC VBG pCO2 60.0 mmHg (38-52) H 04/08/17 20:13 POC VBG pO2 27.3 mmHg (28-48) L 04/08/17 20:13 Mixed VBG HCO3 29.6 meq/L (19-25) H 04/08/17 20:13 Oxygen Flow Rate 2.5 l 04/12/17 11:43 PEEP 0.0 cmH2O 04/12/17 11:43 Sodium 145 mmol/L (136-145) 04/16/17 06:25 Potassium 5.2 mmol/L (3.5-5.1) H 04/16/17 06:25 Chloride 110 mmol/L (98-107) H 04/16/17 06:25 Carbon Dioxide 31 mmol/L (21-32) 04/16/17 06:25 Anion Gap 4 (8-16) L 04/16/17 06:25 BUN 40 mg/dL (7-18) H D 04/16/17 06:25 Creatinine 1.1 mg/dL (0.55-1.02) H 04/16/17 06:25 Creat Clearance w eGFR 59.23 (>60) 04/13/17 05:35 Random Glucose 114 mg/dL (74-106) H 04/16/17 06:25 Lactic Acid 0.7 mmol/L (0.4-2.0) 04/08/17 20:13 Calcium 8.2 mg/dL (8.5-10.1) L 04/16/17 06:25 Phosphorus 3.2 mg/dL (2.5-4.9) 04/16/17 06:25 Magnesium 2.3 mg/dL (1.8-2.4) 04/16/17 06:25 Total Bilirubin 0.3 mg/dL (0.2-1.0) D 04/13/17 05:35 AST 30 U/L (15-37) D 04/13/17 05:35 ALT 18 U/L (12-78) 04/13/17 05:35 Alkaline Phosphatase 243 U/L (45-117) H 04/13/17 05:35 Creatine Kinase 31 IU/L (26-192) 04/12/17 17:50 Troponin I 0.13 ng/ml (0.00-0.05) H 04/12/17 17:50 B-Natriuretic Peptide 55086.19 pg/ml (5-450) H 04/12/17 06:00 Total Protein 6.0 g/dl (6.4-8.2) L 04/13/17 05:35 Albumin 1.9 g/dl (3.4-5.0) L 04/13/17 05:35 TSH 2.61 uIU/ml (0.358-3.74) D 04/10/17 09:00 Urine Color Yellow 04/08/17 20:15 Urine Appearance Slcloudy 04/08/17 20:15 Urine pH 5.0 (5.0-8.0) D 04/08/17 20:15 Ur Specific [place] 1.011 (1.001-1.035) 04/08/17 20:15 Urine Protein Negative (NEGATIVE) 04/08/17 20:15 Urine Glucose (UA) Negative (NEGATIVE) 04/08/17 20:15 Urine Ketones Negative (NEGATIVE) 04/08/17 20:15 Urine Blood Negative (NEGATIVE) 04/08/17 20:15 Urine Nitrite Negative (NEGATIVE) 04/08/17 20:15 Urine Bilirubin Negative (NEGATIVE) 04/08/17 20:15 Urine Urobilinogen Negative mg/dL (0.2-1.0) 04/08/17 20:15 Ur Leukocyte Esterase Trace (NEGATIVE) H 04/08/17 20:15 Urine WBC (Auto) 12 /hpf (3-5) 04/08/17 20:15 Urine RBC (Auto) 4 /hpf (0-3) 04/08/17 20:15 Urine Bacteria Many /hpf (NONE SEEN) 04/08/17 20:15 Hyaline Casts 7 /lpf 04/08/17 20:15 Urine Mucus Rare 04/08/17 20:15 HOSPITAL COURSE: Date of Admission:04/09/17 Date of Discharge: 04/16/17 Briefly, Ms Garcia is an 86 year old female who was sent from [facility] for altered mental status. She has a PMHx of frequent Urinary Zahraa Infections, and diastolic CHF. She was taking outpatient Ciprofloxacin for a possible UTI, and takes lasix for her diastolic CHF. In the ER, she was afebrile, without a WBC count. Her UA was positive for mild leukocyte esterase. A chest x-ray was performed which showed possible infiltrates. She was started on antibiotics, and given a small 500cc fluid bolus. After the bolus, the patient started having shortness of breath, hypoxia, and bibasilar crackles, consistent with a CHF exacerbation. She was treated with IV Lasix 40 BID which improved her oxygen requirement. She was seen by respiratory therapists, who determined that she needs to be on chronic 2L of Oxygen. Her urine culture grew +Strep Viridans, for which she completed a 7 day course of antibiotics. After reaching euvolemia, Cardiology recommended switching the patient to Spironolactone for her diastolic CHF. We will discontinue her home potassium, as Spironolactone can increase K+ levels. 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 A barium swallow was obtained which showed no anatomical or functional swallowing abnormalities. However, she clinically coughs with thin liquids. She will be discharged on a soft diet to be advanced as tolerated in the care home. The patient and her son Gabriel was made aware of the hospital course and agree with the plan to be discharged back to [facility] Dispo: [facility] Condition: Improved Minutes to complete discharge: 45 Discharge Summary Reason For Visit: UTI Current Active Problems Acute respiratory failure with hypoxia (Acute) Chronic anticoagulation (Acute) Demand ischemia (Acute) Hypertensive cardiomyopathy (Acute) Pleural effusion due to CHF (congestive heart failure) (Acute) UTI (urinary tract infection) (Acute) Condition: Improved - Instructions Diet, Activity, Other Instructions: MEDICAL RECOMMENDATIONS: - You were admitted because you had an exacerbation of your heart failure - We are your heart failure medications, please see the changes below. If you start to notice significant weight gain this week >5 lbs, please let your doctor know, you may need to adjust your medications - We recommend that people frequently re-orient you to your place, date, and time. This is to help you with any confusion - Respiratory therapists checked your oxygen and determined you will need to be on 2L of oxygen via nasal cannula when you are resting. We informed the web content & social media manager who will let the care home know, so they are aware. - Continue a soft diet at the care home, we recommend swallow therapy at the care home to improve throat clearance and airway protection. - We recommend you upgrade your diet with safety MEDICATION CHANGES: - STOP Lasix 40mg tablets, instead START Spironolactone 25mg tablets daily - STOP Potassium tablets, because Spironolactone can increase your potassium - START Ramipril 2.5mg tablets daily for your blood pressure. FOLLOWUPS: - PLEASE GET BASIC METABOLIC PANEL on FRIDAY 04/20 to monitor your Creatinine and Potassium. - Dr Armani Canas (Primary Care Doctor) - Followup in 2 weeks - Dr. Cuhck Escalante (E Learning Developer) - Followup in 2 weeks to titrate your heart failure medications Referrals: Armani Canas [Other] - 2 Weeks (Primary Care Doctor) Chuck Escalante MD [Staff Physician] - 2 Weeks Disposition: INTERMEDIATE FACILITY - Home Medications Comprehensive Discharge Medication List: Ambulatory Orders Acetaminophen [Tylenol] 650 mg PO BID 04/08/17 Apixaban [Eliquis] 2.5 mg PO BID 04/08/17 Bacitracin - [Bacitracin Topical Ointment -] 1 applic TP TID 04/08/17 Benzocaine/Menthol [Cepacol Sore Throat Lozenge] 1 each MM TID 04/08/17 Carvedilol 3.125 mg PO Q12H 04/08/17 Ferrous Sulfate 325 mg PO DAILY 04/08/17 Fluticasone Propionate [Allergy Relief] 15.8 ml NS BID 04/08/17 Gabapentin 100 mg PO DAILY 04/08/17 Guaifenesin [Cough Syrup] 100 mg PO Q6H PRN 04/08/17 Ipratropium/Albuterol Sulfate [Iprat-Albut 0.5-3(2.5) mg/3 ml] 3 ml IH TID 04/08 Levothyroxine [Synthroid -] 50 mcg PO DAILY 04/08/17 Melatonin 1 mg PO HS 04/08/17 Mirtazapine 7.5 mg PO HS 04/08/17 Montelukast Na [Singulair -] 10 mg PO HS 04/08/17 Multivitamin [Poly-Vitamin] 1 each PO DAILY 04/08/17 Polyethylene Glycol 3350 [Gavilax] 17 gm PO DAILY 04/08/17 Saccharomyces Boulardii [Florastor] 250 mg PO BID 04/08/17 Sennosides/Docusate Sodium [Senna Laxative Tablet] 2 each PO HS 04/08/17 Silver Sulfadiazine [Silvadene] 1 applic TP BID 04/08/17 Ramipril [Altace] 2.5 mg PO DAILY #30 capsule 04/16/17 Spironolactone [Aldactone -] 25 mg PO DAILY #30 tablet 04/16/17 This patient is new to me today: No Emergency Visit: No Critical Care patient: No - Discharge Referral Referred to [facility] No
== END 2017-04-16 16:33 | DRG 280 ==
LOC: JER 18:23 → JERBED 23:34 → UNDOADMOB 04-09 00:08 → J4S 04-09 04:18 → OBSVTOIN 04-09 12:07
PROVIDERS: ADMIT Internal Medicine; ATTEND Internal Medicine
PROC: 3E0F7GC Introduction of Other Therapeutic Substance into Respiratory Tract, Via Natural or Artificial Opening (ICD-10-PCS; principal; 2017-04-14)
DX: I13.0 Hypertensive heart and chronic kidney disease with heart failure and stage 1 through stage 4 chronic kidney disease, or unspecified chronic kidney disease (principal); I50.33 Acute on chronic diastolic (congestive) heart failure; I21.A1 Myocardial infarction type 2; G93.41 Metabolic encephalopathy; J96.01 Acute respiratory failure with hypoxia; N39.0 Urinary tract infection, site not specified; J98.11 Atelectasis; I24.8 Other forms of acute ischemic heart disease; N17.9 Acute kidney failure, unspecified; J44.9 Chronic obstructive pulmonary disease, unspecified; I42.8 Other cardiomyopathies; E03.9 Hypothyroidism, unspecified; N18.3 Chronic kidney disease, stage 3 (moderate); D64.9 Anemia, unspecified; I48.0 Paroxysmal atrial fibrillation; R14.0 Abdominal distension (gaseous); I25.10 Atherosclerotic heart disease of native coronary artery without angina pectoris; K59.09 Other constipation; E78.00 Pure hypercholesterolemia, unspecified; M79.2 Neuralgia and neuritis, unspecified; K57.90 Diverticulosis of intestine, part unspecified, without perforation or abscess without bleeding; R13.19 Other dysphagia; M19.90 Unspecified osteoarthritis, unspecified site; I34.0 Nonrheumatic mitral (valve) insufficiency; L89.151 Pressure ulcer of sacral region, stage 1; F32.89 Other specified depressive episodes; F03.90 Unspecified dementia, unspecified severity, without behavioral disturbance, psychotic disturbance, mood disturbance, and anxiety; Z66 Do not resuscitate; Z79.01 Long term (current) use of anticoagulants
CPT/HCPCS: 36415; 36600; 71010-TC; 71250-TC; 74230-TC; 80048; 80053; 81003; 81015; 82550; 82803; 83605; 83735; 83880; 84100; 84443; 84484; 85025; 85027; 87040; 87086; 87186; 87804; 87899; 92611-GN; 93005; 93010; 94640; 94761; 97116-GP; 97161-GP; 99283-25; G0378

== ENCOUNTER 2017-04-28 15:33 | Inpatient (IN) | payer OTHER, MEDICARE ==
[~2017-04-28 15:33] MED LIST: PIPERACILLIN/TAZOB 3.375 GM/50 ML PRE-DOCKED IVPB ONE
--- NOTE | 2017-04-28 17:30 | PDOC ---
Attending Attestation - Resident Resident Name: Ann Carballo - ED Attending Attestation I have performed the following: I have examined & evaluated the patient, The case was reviewed & discussed with the resident, I agree w/resident's findings & plan, Exceptions are as noted - Physicial Exam PE: 04/28/17 19:17 Patient is frail-appearing, lethargic but easily arousable to verbal stimuli, patient follows commands; patient is febrile and hypoxemic on room air. nc, atr eomi +Crackles at the left base, decreased breath sounds at the bases bilaterally; Soft, nontender, nondistended + 2 pitting edema bilaterally - Medical Decision Making 04/28/17 19:18 Patient is a frail-appearing 87-year-old female with multiple comorbidities who presents with worsening shortness of breath, productive cough, l and ower extremity edema. Patient's longterm as experienced an outbreak of influenza. In the ER, patient is febrile, lethargic but arousable, with crackles at the left base and decreased breath sounds at the bases bilaterally. Differential diagnoses include CHF exacerbation versus an acute infection versus concomitant processes of CHF and pneumonia. I do not suspect a PE at this time. EKG reveals atrial fibrillation with controlled ventricular response without evidence of acute ischemia; Chest x-ray reveals worsening pleural effusions and left retrocardiac consolidation. CBC reveals no evidence of leukocytosis and moderate anemia; patient is noted to be influenza A positive; We will administer supplemental O2 to maintain oxygen saturation above 94%; we' ll administer broad-spectrum nosocomial antibiotic coverage for MRSA and pseudomonas. We'll administer Tamiflu. Will consider diuresing. Will admit to respiratory isolation to med/surge. Patient is DNR/DNI. <Franklin Andrade - Last Filed: 04/28/17 19:17> - HPI HPI: 04/28/17 19:07 The patient is an 87 year old female with a significant past medical history of CHF, COPD, MIKE, A-fib, diverticulitis, hypothyroidism, brought in by ems from longterm for evaluation of progressive shortness of breath, productive cough , and swelling to bilateral lower extremities. As per family, the longterm is experiencing an outbreak of influenza and visitation has been limited at the [facility] for that reason. Documentation prepared by Gin Cordova, acting as biomedical instrument technician for Franklin Andrade MD <Gin Cordova - Last Filed: 04/28/17 20:58>
[2017-04-28 18:01] LABS: BASO % 0.3 % (0-2.0); HEMATOCRIT 27.5 % (32.4-45.2); HEMOGLOBIN 8.6 GM/dL (10.7-15.3); LYMPH % 6.8 % (8-40); MCH 29.4 pg (25.7-33.7); MCHC 31.1 g/dl (32.0-36.0); MEAN CELL VOLUME 94.5 fl (80-96); MEAN PLT VOLUME 7.6 fl (7.5-11.1); MONO % 2.8 % (3.8-10.2); NEUT % 90.1 % (42.8-82.8); PLATELET COUNT 229 K/MM3 (134-434); RBC 2.91 M/mm3 (3.60-5.2); WHITE BLOOD COUNT 4.9 K/mm3 (4.0-10.0)
[2017-04-28] MEDS ORDERED: VANCOMYCIN 1 GRAM (PRE-DOCKED) 1,000 MG/250 ML BAG IVPB ONE ×2 (18:02→19:17)
[2017-04-28] MEDS ORDERED: PIPERACIL/TAZOB 3.375 GM 3.375 GM/50 ML PREMIX IVPB ONE (18:02)
[2017-04-28] MEDS ORDERED: ALBUTEROL SO4 2.5/IPRATROPIUM 0.5 INH SOL 3 ML VIAL.NEB. NEB ONE (18:04)
[2017-04-28 18:15] LABS: VENOUS PC02 49.6 mmHg (38-52); VENOUS PH 7.34 (7.32-7.42); VENOUS PO2 43.5 mmHg (28-48)
[2017-04-28] MEDS ORDERED: PIPERACILLIN/TAZOB 3.375 GM 3.375 GM in DEXTROSE 5%-WATER - 100 ML IVPB ONE ×2 (18:15→21:30)
[2017-04-28 18:16] LABS: INR 1.83 (0.82-1.09); PROTHROMBIN TIME (PATIENT) 20.7 SEC (9.98-11.88)
[2017-04-28 18:17] LABS: URINE APPEARANCE SLCLOUDY; URINE BILIRUBIN NEGATIVE (NEGATIVE); URINE BLOOD NEGATIVE (NEGATIVE); URINE COLOR YELLOW; URINE GLUCOSE (UA) NEGATIVE (NEGATIVE); URINE KETONE NEGATIVE (NEGATIVE); URINE NITRITE NEGATIVE (NEGATIVE); URINE PROTEIN NEGATIVE (NEGATIVE); URINE UROBILINOGEN NEGATIVE mg/dL (0.2-1.0)
[2017-04-28 18:18] LABS: ACTIVATED PTT 35.5 SECONDS (26.9-34.4)
[2017-04-28 18:21] LABS: URINE LEUK ESTERASE 1+ (NEGATIVE)
[2017-04-28 18:23] LABS: EPI CELLS RARE /HPF (FEW); URINE BACTERIA FEW /hpf (NONE SEEN); URINE HYALINE CAST 23 /lpf; URINE MUCUS RARE; YEAST FEW
[2017-04-28] MEDS ORDERED: ALBUTEROL SO4 0.083% IH SOL 2.5 MG/3 ML VIAL.NEB. NEB ONE (18:27)
[2017-04-28 18:36] LABS: ALBUMIN 1.8 g/dl (3.4-5.0); ANION GAP 5 (8-16); BILIRUBIN,TOTAL 0.2 mg/dL (0.2-1.0); BLOOD UREA NITROGEN 36 mg/dL (7-18); CALCIUM 7.7 mg/dL (8.5-10.1); CHLORIDE 109 mmol/L (98-107); CO2 25 mmol/L (21-32); CREATININE 0.9 mg/dL (0.55-1.02); GLUCOSE,RANDOM 111 mg/dL (74-106); SGPT/ALT 17 U/L (12-78); SODIUM 139 mmol/L (136-145); TOT PROT 5.6 g/dl (6.4-8.2)
[2017-04-28 18:38] LABS: ALK PHOS 210 U/L (45-117)
[2017-04-28] MEDS ORDERED: OSELTAMIVIR PHOSPHATE 75 MG CAPSULE PO ONE (18:43)
[2017-04-28 18:44] LABS: POTASSIUM 5.8 mmol/L (3.5-5.1); SGOT/AST 27 U/L (15-37)
[2017-04-28] MEDS ORDERED: OSELTAMIVIR PHOSPHATE 75 MG CAPSULE ONE (18:44)
[2017-04-28] MEDS ORDERED: PIPERACILLIN/TAZOB 3.375 GM 3.375 GM/50 ML BAG IVPB ONE (18:44)
--- NOTE | 2017-04-28 18:47 | PDOC ---
History of Present Illness - General Chief Complaint: Respiratory Stated Complaint: COLD Time Seen by Provider: 04/28/17 16:45 History Source: EMS, Family Exam Limitations: No Limitations - History of Present Illness Initial Comments: This is an 87 YOF with h/o dementia, recent UTI for which she was admitted here at [facility], CHF, COPD, MIKE, A-fib, diverticulitis, and hypothyroidism who presents BIBA c/o SOB, new baseline supplemental O2 requirement, and coughing spells that are bad enough they have caused her to choke, all worsening over the past day. She has additionally had decreased PO intake and decreased activity level over the past 2-3 days at her SNF per family. The patient herself is unable to provide any of her medical history or recent/current symptomology 2/2 dementia. The family expresses concern that there has been an influenza outbreak at the patient's SNF and it is bad enough that staff has started limiting visitations. Past History - Past Medical History Allergies/Adverse Reactions: Allergies Allergy/AdvReac Type Severity Reaction Status Date / Time No Known Allergies Allergy Verified 04/08/17 18:28 Home Medications: Ambulatory Orders Apixaban [Eliquis] 2.5 mg PO BID 04/28/17 Benzocaine/Menthol [Cepacol Sore Throat Lozenge] 1 each MM TID 04/28/17 Carvedilol 3.125 mg PO Q12H 04/28/17 Elastic Bandage [Medigrip] 1 each TP DAILY 04/28/17 Ferrous Sulfate [Feosol] 325 mg PO DAILY 04/28/17 Fluticasone Prop 0.05% Nasal [Flonase -] 1 spray NS BID 04/28/17 Gabapentin 100 mg PO DAILY 04/28/17 Guaifenesin [Cough Syrup] 10 ml PO Q6H PRN 04/28/17 Ipratropium/Albuterol Sulfate [Iprat-Albut 0.5-3(2.5) mg/3 ml] 3 ml IH QID 04/28 Levothyroxine [Synthroid -] 50 mcg PO 0600 04/28/17 Melatonin 1 mg PO DAILY PRN 04/28/17 Memantine HCl [Namenda -] 5 mg PO 1800 04/28/17 Mirtazapine [Remeron Soltab -] 15 mg PO HS 04/28/17 Montelukast Na [Singulair -] 10 mg PO HS 04/28/17 Multivitamin,Ther and Minerals [Vitamin and Minerals] 1 each PO DAILY 04/28/17 Polyethylene Glycol 3350 [Miralax 119 gm Btl -] 17 gm PO DAILY 04/28/17 Saccharomyces Boulardii [Florastor] 250 mg PO BID 04/28/17 Sennosides [Senna Lax] 2 tab PO HS 04/28/17 Trazodone HCl 25 mg PO BID 04/28/17 Zinc Oxide 20% Topical Oint 454 gm NR DAILY 04/28/17 Acetaminophen [Tylenol] 650 mg PO BID PRN #30 tablet 05/01/17 Furosemide [Lasix -] 40 mg PO DAILY #30 tablet 05/01/17 Oseltamivir Phosphate [Tamiflu -] 30 mg PO BID 2 Days capsule 05/01/17 Anemia: Yes Asthma: No Cancer: No Cardiac Disorders: Yes (afib) CVA: No COPD: Yes CHF: Yes Dementia: No Diabetes: No GI Disorders: Yes (Abdominal distention; diverticulitis. CONSTIPATION.) Disorders: Yes (hx of uti) HTN: Yes Hypercholesterolemia: Yes Kidney Stones: (KIDNEY DISEASE.) Liver Disease: No Seizures: No Thyroid Disease: Yes (HYPO.) - Surgical History Abdominal Surgery: No Appendectomy: No Cardiac Surgery: No Cholecystectomy: No Lung Surgery: No Neurologic Surgery: No Orthopedic Surgery: No - Suicide/Smoking/Psychosocial Hx Smoking History: Never smoked Have you smoked in the past 12 months: No Information on smoking cessation initiated: No Hx Alcohol Use: No Drug/Substance Use Hx: No Substance Use Type: None Hx Substance Use Treatment: No Review of Systems - Review of Systems Able to Perform ROS?: No (dementia) *Physical Exam - Vital Signs Last Vital Signs Temp Pulse Resp BP Pulse Ox 100.0 F H 83 16 106/58 93 L 04/28/17 16:51 04/28/17 16:51 04/28/17 16:56 04/28/17 16:51 04/28/17 16:56 - Physical Exam General Appearance: Yes: Nourished, Appropriately Dressed, Thin, Other ( cachectic, pleasant elderly woman accompanied by family who are supportive, appears tired but is arousable, oriented only to name) HEENT: positive: EOMI, SANDRO, Nasal Congestion, Hearing Grossly Normal. negative : Scleral Icterus (R), Scleral Icterus (L) Neck: positive: Trachea midline, Supple. negative: Tender, Rigid Respiratory/Chest: positive: Lungs Clear, Normal Breath Sounds, Crackles ( bibasilar). negative: Respiratory Distress, Rhonchi, Stridor, Wheezing Cardiovascular: positive: Regular Rate, Systolic Murmur, Irregularly Irregular. negative: Edema Gastrointestinal/Abdominal: positive: Normal Bowel Sounds, Flat, Soft. negative : Tender, Organomegaly, Pulsatile Mass, Guarding Musculoskeletal: positive: Normal Inspection. negative: Decreased Range of Motion, Vertebral Tenderness Extremity: positive: Normal Capillary Refill, Normal Range of Motion, Other ( chronic muscle wasting all four extremities). negative: Tender, Cyanosis Integumentary: positive: Normal Color, Dry, Warm. negative: Erythema, Rash, Bruising Neurologic: positive: employment agency manager II-XII NML intact (grossly), Normal Mood/Affect, Confused, Disoriented, Other (intermittently alert). negative: Fully Oriented ED Treatment Course - LABORATORY CBC & Chemistry Diagram: 04/30/17 08:30 05/01/17 08:50 Medical Decision Making - Medical Decision Making 87 YOF h/o dementia, recent UTI [facility], CHF, COPD, MIKE, A-fib, p/w SOB, cough, decreased PO intake, ALOC for the past ~2 days. Flu outbreak at SNF and her own room mate has the flu. On exam Pt has pulse oxygenation 93% on 4 LPM, rectal temp 100, otherwise wnl. Patient somnolent but does awaken to loud voice, cachectic, appears dehydrated, systolic ejection murmur. DDX IBNLT influenza, UTI, PNA/bronchitis, soft tissue/skin infection, metabolic/ electrolyte derangement. Ordered is septic workup CBCD CMP Mg Phos Cardiac panel Coags, TS, TSH, BNP, EKG , CXR, blood gas, UA Cx, BCx, lactate. Patient covered with vancomycin/Zosyn. *DC/Admit/Observation/Transfer Diagnosis at time of Disposition: CHF exacerbation, Influenza, Pleural effusion, Pneumonia, Anemia of chronic disease - Discharge Dispostion Disposition: [facility] Condition at time of disposition: Guarded Admit: Yes - Referrals - Patient Instructions - Post Discharge Activity
[2017-04-28] MEDS ORDERED: ACETAMINOPHEN 1000 MG/100 ML VIAL (NON FORMULARY) IVPB ONE (19:20)
[2017-04-28] MEDS ORDERED: FUROSEMIDE 40 MG/4 ML INJECTABLE VIAL IVPUSH ONE (19:29)
[2017-04-28] MEDS ORDERED: SODIUM POLYSTYRENE SULFONATE 15 GM/60 ML BOTTLE PO ONE (19:43)
[2017-04-28 20:10] LABS: ARTERIAL BLD GAS O2 SATURATION 98.3 % (90-98.9); ARTERIAL BLOOD GAS BASE EXCESS -0.2 meq/l (-2-2); ARTERIAL BLOOD GAS PCO2 45.4 mmHg (35-45); ARTERIAL BLOOD GAS pH 7.36 (7.35-7.45)
[2017-04-28 20:17] LABS: ALLENS TEST POSITIVE
--- NOTE | 2017-04-28 20:45 | PN ---
Teaching Attending Note Name of Resident: Manuel Villalba ATTENDING PHYSICIAN STATEMENT I saw and evaluated the patient. I reviewed the resident's note and discussed the case with the resident. I agree with the resident's findings and plan as documented. SUBJECTIVE: 87 yo F with pmhx of COPD on home 02, CHF, MIKE, A-Fib (on Eliquis), diverticultitis, hypothyriodism, who presents with shortness of breath and cough. As per family her NH has experienced a flu A outbreak. She was recently admitted with AMS and found to have a UTI. OBJECTIVE: Physical: VS: Vital Signs Period Temp Pulse Resp BP Sys/Carr Pulse Ox Last 24 Hr 100.0 F-100.0 F 83 16-16 106/58 93-93 GEN: NAD, resting in bed HEENT: NCAT,PERRL, Throat without erythema or exudates, dry mucous membranes CARD: IRR S1, S2 RESP: Coarse breath sounds bilaterally ABD: BSx4, NTD to palpation EXT: +2 Pitting edema, bilateral and equal CBCD WBC 4.9 K/mm3 (4.0-10.0) D 04/28/17 17:05 RBC 2.91 M/mm3 (3.60-5.2) L 04/28/17 17:05 Hgb 8.6 GM/dL (10.7-15.3) L 04/28/17 17:05 Hct 27.5 % (32.4-45.2) L 04/28/17 17:05 MCV 94.5 fl (80-96) 04/28/17 17:05 MCHC 31.1 g/dl (32.0-36.0) L 04/28/17 17:05 RDW 17.0 % (11.6-15.6) H 04/28/17 17:05 Plt Count 229 K/MM3 (134-434) 04/28/17 17:05 MPV 7.6 fl (7.5-11.1) 04/28/17 17:05 CMP Sodium 139 mmol/L (136-145) 04/28/17 17:05 Potassium 5.8 mmol/L (3.5-5.1) H 04/28/17 17:05 Chloride 109 mmol/L (98-107) H 04/28/17 17:05 Carbon Dioxide 25 mmol/L (21-32) 04/28/17 17:05 Anion Gap 5 (8-16) L 04/28/17 17:05 BUN 36 mg/dL (7-18) H 04/28/17 17:05 Creatinine 0.9 mg/dL (0.55-1.02) 04/28/17 17:05 Creat Clearance w eGFR 59.09 (>60) 04/28/17 17:05 Calcium 7.7 mg/dL (8.5-10.1) L 04/28/17 17:05 Total Bilirubin 0.2 mg/dL (0.2-1.0) D 04/28/17 17:05 AST 27 U/L (15-37) 04/28/17 17:05 ALT 17 U/L (12-78) 04/28/17 17:05 Alkaline Phosphatase 210 U/L (45-117) H 04/28/17 17:05 Total Protein 5.6 g/dl (6.4-8.2) L 04/28/17 17:05 Albumin 1.8 g/dl (3.4-5.0) L 04/28/17 17:05 Ambulatory Orders Acetaminophen [Tylenol] 650 mg PO BID 04/28/17 Amox-Tr/K Cl [Augmentin - 500Mg Tablet] 1 tab PO BID 04/28/17 Apixaban [Eliquis] 2.5 mg PO BID 04/28/17 Benzocaine/Menthol [Cepacol Sore Throat Lozenge] 1 each MM TID 04/28/17 Carvedilol 3.125 mg PO DAILY 04/28/17 Elastic Bandage [Medigrip] 1 each TP DAILY 04/28/17 Ferrous Sulfate [Feosol] 325 mg PO DAILY 04/28/17 Fluticasone Prop 0.05% Nasal [Flonase -] 1 spray NS BID 04/28/17 Gabapentin 100 mg PO DAILY 04/28/17 Guaifenesin [Cough Syrup] 10 ml PO DAILY 04/28/17 Ipratropium/Albuterol Sulfate [Iprat-Albut 0.5-3(2.5) mg/3 ml] 3 ml IH QID 04/28 Levothyroxine [Synthroid -] 50 mcg PO DAILY 04/28/17 Melatonin 1 mg PO DAILY 04/28/17 Memantine HCl [Namenda -] 5 mg PO DAILY 04/28/17 Mirtazapine [Remeron Soltab -] 15 mg PO DAILY 04/28/17 Montelukast Na [Singulair -] 10 mg PO HS 04/28/17 Multivitamin,Ther and Minerals [Vitamin and Minerals] 1 each PO DAILY 04/28/17 Polyethylene Glycol 3350 [Miralax (For Daily Use) -] 17 gm PO DAILY 04/28/17 Prednisone [Deltasone -] 40 mg PO DAILY 04/28/17 Saccharomyces Boulardii [Florastor] 250 mg PO BID 04/28/17 Sennosides [Senna Lax] 8.6 mg PO DAILY 04/28/17 Spironolactone 25 mg PO DAILY 04/28/17 Trazodone HCl 50 mg PO BID 04/28/17 Zinc Oxide 20% Topical Oint 454 gm NR DAILY 04/28/17 CXR- Congestion, LLL. Consolidation, effusions bilateral EKG: Afib Low voltage, TWI lateral leads ASSESSMENT AND PLAN: 87 yo F with pmhx of COPD on home 02, CHF, MIKE, A-Fib (on Eliquis), diverticultitis, hypothyriodism, presented with shortness of breath, being admitted for Pneumonia, influenza, and CHF exacerbation. 1.) Acute on Chronic Diastolic HF - Lasix 40 QD - Strict I/O - Daily weights - NA/Fluid Restrict - ECHO - C/W coreg 2.) HCAP- LLL Pneumonia - C/W Vanco/Zosyn - ID consult - Urine Ags 3.) Troponin Elevation- - Most likely demand - Trend Troponin/Ekgs 4.) COPD - Nebs Prn - C/W Home meds 5.) Influenza A Positive - Respiratory Droplet Percautions - Tamiflu 6.) Hypothyriodism - C/W synthriod 7.) Afib - C/W Eliquis - Rate controlle - C/W BB 8.) Hyperkalemia - Hold Aldactone - S/P Lasix, nebs - Repeat K - EKG noted 9.) Normocytic Anemia - Trend H&H 10.) Dvt Ppx - On Eliquis Place in Med-Tele Rest as per resident note
[2017-04-28] MEDS ORDERED: ACETAMINOPHEN INJECTION 100 ML IVPB ONE (20:49)
[2017-04-28] MEDS ORDERED: SODIUM POLYSTYRENE SULFONATE 15 GM/60 ML BOTTLE ONE (20:50)
[2017-04-28] MEDS ORDERED: FUROSEMIDE 40 MG/4 ML INJECTABLE VIAL ONE (20:50)
--- NOTE | 2017-04-28 21:16 | HP ---
CHIEF COMPLAINT: AMS, productive cough PCP: [facility] Physiologist - Chuck Escalante Source: Son at bedside; Pt incoherent speech, somnolent HISTORY OF PRESENT ILLNESS: 87 yo woman w/ pmh of COPD, CHF (last echo in 01/18, EF 59%), hypothyroidism, dementia, anemia, diverticulosis who presents from [facility] with one day of productive cough and increasing somnolence/AMS over past few days. Per son, recent flu outbreak at pt's NH and pt's roommate recently sick with similar symptoms. Pt has had poor PO intake and increasing somnolence and AMS over the last few days prior to admission. At baseline, pt non-ambulatory (uses wheelchair) w/ moderate dementia, however is still conversational with family. MS has significantly worsened w/ poor attention, increased somnolence, and nonsensical speech pattern. Pt w/ productive cough, SOB of one day duration, noted to be hypoxic at ME in mid 80s, in addition BL LE edema, which son states has increased notably over the past 24 hours. Denies any fever/chills, CP, hemoptysis, N/V, abdominal pain, diarrhea, dysuria, new rashes or focal neurologic deficits. No recent travel. Pt recently discharged on 04/16 after being treated for UTI + strep viridans after 7 day abx course rocephin/zithromax, with concurrent CHF exacerbation and AMS. Pt never hospitalized for other infections or PNA. Has never been intubated. Barium swallow w/ no functional/anatomic abnormalities. ER course was notable for: (1) WBC 4.9, Fever 100.0 (2) ABG 7.36/45/116/25, satting 93% on 4L (3)Lactate of 0.8 (4)BNP , BL pleural effusion Recent Travel: No PAST MEDICAL HISTORY: Afib Anemia COPD CHF Hypothyroidism DJD Diverticulosis PAST SURGICAL HISTORY: Colonoscopy multiple years ago Social History: Smoking: never Alcohol: no Drugs: no Lives at [facility]. Non-ambulatory, uses wheelchair. Voids in diaper. Family History: Mother, hx of asthma Father, hx of prostate [place] Allergies No Known Allergies Allergy (Verified 04/08/17 18:28) HOME MEDICATIONS: Home Medications Medication Instructions Recorded Acetaminophen [Tylenol] 650 mg PO BID 04/28/17 Amox-Tr/K Cl [Augmentin - 500Mg 1 tab PO BID 04/28/17 Tablet] Apixaban [Eliquis] 2.5 mg PO BID 04/28/17 Benzocaine/Menthol [Cepacol Sore 1 each MM TID 04/28/17 Throat Lozenge] Carvedilol 3.125 mg PO DAILY 04/28/17 Elastic Bandage [Medigrip] 1 each TP DAILY 04/28/17 Ferrous Sulfate [Feosol] 325 mg PO DAILY 04/28/17 Fluticasone Prop 0.05% Nasal 1 spray NS BID 04/28/17 [Flonase -] Gabapentin 100 mg PO DAILY 04/28/17 Guaifenesin [Cough Syrup] 10 ml PO DAILY 04/28/17 Ipratropium/Albuterol Sulfate 3 ml IH QID 04/28/17 [Iprat-Albut 0.5-3(2.5) mg/3 ml] Levothyroxine [Synthroid -] 50 mcg PO DAILY 04/28/17 Melatonin 1 mg PO DAILY 04/28/17 Memantine HCl [Namenda -] 5 mg PO DAILY 04/28/17 Mirtazapine [Remeron Soltab -] 15 mg PO DAILY 04/28/17 Montelukast Na [Singulair -] 10 mg PO HS 04/28/17 Multivitamin,Ther and Minerals 1 each PO DAILY 04/28/17 [Vitamin and Minerals] Polyethylene Glycol 3350 [Miralax 17 gm PO DAILY 04/28/17 (For Daily Use) -] Prednisone [Deltasone -] 40 mg PO DAILY 04/28/17 Saccharomyces Boulardii [Florastor] 250 mg PO BID 04/28/17 Sennosides [Senna Lax] 8.6 mg PO DAILY 04/28/17 Spironolactone 25 mg PO DAILY 04/28/17 Trazodone HCl 50 mg PO BID 04/28/17 Zinc Oxide 20% Topical Oint 454 gm NR DAILY 04/28/17 REVIEW OF SYSTEMS CONSTITUTIONAL: generalized weakness, loss of appetite, Absent: fever, chills, diaphoresis, malaise, weight change HEENT: Absent: rhinorrhea, nasal congestion, throat pain, throat swelling, difficulty swallowing, mouth swelling, ear pain, eye pain, visual changes CARDIOVASCULAR: irregular heart rate, Absent: chest pain, syncope, palpitations, lightheadedness, peripheral edema RESPIRATORY: cough, shortness of breath, wheezing, Absent: dyspnea with exertion, orthopnea, stridor, hemoptysis GASTROINTESTINAL: constipation, Absent: abdominal pain, abdominal distension, nausea, vomiting, diarrhea, melena, hematochezia GENITOURINARY: Absent: dysuria, frequency, urgency, hesitancy, hematuria, flank pain, genital pain MUSCULOSKELETAL: Absent: myalgia, arthralgia, joint swelling, back pain, neck pain SKIN: Absent: rash, itching, pallor HEMATOLOGIC/IMMUNOLOGIC: easy bruising, Absent: easy bleeding, lymphadenopathy, frequent infections ENDOCRINE: Absent: unexplained weight gain, unexplained weight loss, heat intolerance, cold intolerance NEUROLOGIC: mental status changes, Absent: headache, focal weakness or paresthesias, dizziness, unsteady gait, seizure, bladder or bowel incontinence PHYSICAL EXAMINATION Vital Signs - 24 hr 04/28/17 04/28/17 04/28/17 16:51 16:56 17:05 Temperature 100.0 F H 100.0 F H Pulse Rate 83 Respiratory 16 16 Rate Blood Pressure 106/58 O2 Sat by Pulse 93 L 93 L Oximetry (%) GENERAL: Frail, cachectic elderly woman, somnolent, intermittently conscious HEAD: Normal with no signs of trauma. EYES: Pinpoint pupils, minimally reactive. Unable to assess EOMI, unable to follow directions. Sclera anicteric, conjunctiva clear. No lid lag. EARS, NOSE, THROAT: Dry mucous membranes. Ears normal, nares patent, oropharynx clear without exudates. NECK: BL JVD. Normal range of motion, supple without lymphadenopathy or masses. + HJ reflex. LUNGS: Coarse breath sounds. BL diffuse I/E wheezing. LLL rhonchi noted with mild bibasilar crackles. No accessory muscle use. HEART: Difficult to appreciate. Irregular rate. S1 and S2. 2/6 systolic murmur appreciated at RUSB. No other MCGR. ABDOMEN: Ventral hernia noted. Soft, nontender, not distended, hypoactive bowel sounds, no guarding, no rebound, no masses. No hepatomegaly or splenomegaly. MUSCULOSKELETAL: Normal range of motion at all joints. No CVA tenderness. UPPER EXTREMITIES: 2+ pulses, warm, well-perfused. No cyanosis. No clubbing. No peripheral edema. LOWER EXTREMITIES: 2+ pulses, warm, well-perfused. No calf tenderness. BL anterior marquis ecchmoses in various stages of healing. 1+ BL LE edema to knee. NEUROLOGICAL: Cranial nerves II-XII grossly intact. Normal speech. Gait not evaluated. 5/5 strength in all extremities, sensation to light touch preserved in all dermatomes. 2+ biceps, patellar reflexes. Difficult to assess further given MS. PSYCHIATRIC: Cooperative. Poor eye contact. Intermittent attention. Non- sensical speech, tangential. Laboratory Results - last 24 hr CBC, BMP 04/28/17 17:05 04/28/17 17:05 04/28/17 04/28/17 04/28/17 17:05 17:05 17:05 WBC 4.9 D RBC 2.91 L Hgb 8.6 L Hct 27.5 L MCV 94.5 MCH 29.4 MCHC 31.1 L RDW 17.0 H Plt Count 229 MPV 7.6 Neutrophils % 90.1 H D Lymphocytes % 6.8 L D Monocytes % 2.8 L Eosinophils % 0.0 D Basophils % 0.3 PT with INR 20.70 H INR 1.83 H D PTT (Actin FS) 35.5 H Puncture Site ABG pH ABG pCO2 at Pt Temp ABG pO2 at Pt Temp ABG HCO3 ABG O2 Sat (Measured) ABG O2 Content ABG Base Excess Ashish Test VBG pH POC VBG pCO2 POC VBG pO2 Mixed VBG HCO3 O2 Delivery Device Oxygen Flow Rate Sodium Potassium Chloride Carbon Dioxide Anion Gap BUN Creatinine Creat Clearance w eGFR Random Glucose Lactic Acid Calcium Total Bilirubin AST ALT Alkaline Phosphatase Creatine Kinase Troponin I B-Natriuretic Peptide Total Protein Albumin Urine Color Yellow Urine Appearance Slcloudy Urine pH 5.0 Ur Specific [place] 1.015 Urine Protein Negative Urine Glucose (UA) Negative Urine Ketones Negative Urine Blood Negative Urine Nitrite Negative Urine Bilirubin Negative Urine Urobilinogen Negative Ur Leukocyte Esterase Trace H Urine WBC (Auto) 14 Urine RBC (Auto) 7 Ur Epithelial Cells Rare Urine Bacteria Few Hyaline Casts 23 Urine Mucus Rare Urine Yeast Few Blood Type Antibody Screen 04/28/17 04/28/17 04/28/17 17:05 17:05 17:05 WBC RBC Hgb Hct MCV MCH MCHC RDW Plt Count MPV Neutrophils % Lymphocytes % Monocytes % Eosinophils % Basophils % PT with INR INR PTT (Actin FS) Puncture Site ABG pH ABG pCO2 at Pt Temp ABG pO2 at Pt Temp ABG HCO3 ABG O2 Sat (Measured) ABG O2 Content ABG Base Excess Ashish Test VBG pH 7.34 POC VBG pCO2 49.6 POC VBG pO2 43.5 D Mixed VBG HCO3 26.3 H O2 Delivery Device Oxygen Flow Rate Sodium 139 Potassium 5.8 H Chloride 109 H Carbon Dioxide 25 Anion Gap 5 L BUN 36 H Creatinine 0.9 Creat Clearance w eGFR 59.09 Random Glucose 111 H Lactic Acid 0.8 Calcium 7.7 L Total Bilirubin 0.2 D AST 27 ALT 17 Alkaline Phosphatase 210 H Creatine Kinase 47 Troponin I 0.14 H B-Natriuretic Peptide 73826.50 H Total Protein 5.6 L Albumin 1.8 L Urine Color Urine Appearance Urine pH Ur Specific [place] Urine Protein Urine Glucose (UA) Urine Ketones Urine Blood Urine Nitrite Urine Bilirubin Urine Urobilinogen Ur Leukocyte Esterase Urine WBC (Auto) Urine RBC (Auto) Ur Epithelial Cells Urine Bacteria Hyaline Casts Urine Mucus Urine Yeast Blood Type Antibody Screen 04/28/17 04/28/17 04/28/17 17:05 18:49 20:08 WBC RBC Hgb Hct MCV MCH MCHC RDW Plt Count MPV Neutrophils % Lymphocytes % Monocytes % Eosinophils % Basophils % PT with INR INR PTT (Actin FS) Puncture Site Left radial ABG pH 7.36 ABG pCO2 at Pt Temp 45.4 H ABG pO2 at Pt Temp 116.0 H D ABG HCO3 24.8 ABG O2 Sat (Measured) 98.3 ABG O2 Content 11.7 L ABG Base Excess -0.2 Ashish Test Positive VBG pH POC VBG pCO2 POC VBG pO2 Mixed VBG HCO3 O2 Delivery Device Nasal Oxygen Flow Rate 4 liters Sodium Potassium Chloride Carbon Dioxide Anion Gap BUN Creatinine Creat Clearance w eGFR Random Glucose Lactic Acid Calcium Total Bilirubin AST ALT Alkaline Phosphatase Creatine Kinase Troponin I B-Natriuretic Peptide Cancelled Total Protein Albumin Urine Color Urine Appearance Urine pH Ur Specific [place] Urine Protein Urine Glucose (UA) Urine Ketones Urine Blood Urine Nitrite Urine Bilirubin Urine Urobilinogen Ur Leukocyte Esterase Urine WBC (Auto) Urine RBC (Auto) Ur Epithelial Cells Urine Bacteria Hyaline Casts Urine Mucus Urine Yeast Blood Type A POSITIVE Antibody Screen Negative Microbiology 04/28/17 17:05 Nasopharyngeal Swab Influenza Types A,B Antigen (ERIKA) - Final 04/28/17 17:05 Nasopharyngeal Swab - Final Blood, urine cx, urine Ag pending ECHO 01/18 - Moderate TR, MR. EF of 59%. Normal LV function. RV pressure 40-50. Mild AR. EKG 04.28 - Irregularly irregular. Low voltage. TWIs in I V4-V6. No ST changes. NAD CXR 04/28 - Interval disease consolidation in the left lower lobe with a small to moderate left pleural effusion and interval atelectatic changes/pneumonia in the right lung base and a small right pleural effusion ASSESSMENT/PLAN: 87 yo woman w/ pmh of COPD, CHF (last echo in 01/18, EF 59%), hypothyroidism, dementia, anemia, diverticulosis who presents from [facility] with one day of productive cough and increasing somnolence/AMS over past few days. 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 - Consider cardiology consult # Suspected HCAP - Possible LLL consolidation; No WBC, low grade fever to 100.0 - ID consulted, recs appreciated - Vanc/zosyn for HCAP coverage - F/u urine Ag's - F/u blood, urine cx's - Trend fever, WBC - UA negative #COPD - Not on home O2; ABG 7.36/45/116/25 - Duonebs q6h PRN - Cont home singulair - PO prednisone 40mg daily #Elevated Trops - on admission 0.14; likely demand ischemia; EKG w/ no change from 04/12 - Trend trops - AM EKG - If clinically worsens, cardiology consult #Afib - Well controlled on admission; on Eliquis at home - Cont home Eliquis - Cont home BB; rate controlled - Monitor for RVR #Hypothyroidism - Cont home synthroid - f/u TSH #Positive influenza A - Tamiflu 30mg BID x14 days; renal dosing per pharmacy - Droplet precautions #Hyperkalemia - 5.8 on admission - Trend K - EKG w/ no peaked T waves - S/p lasix and neb tx - Cont to hold home aldactone - Daily BMPs #Anemia - Normocytic - continue home ferrous sulfate - Trend H/H #Dementia/AMS - rapid onset dementia over last 4 months; possibly vascular - Serial neuro checks - Cont home memantine PPX Eliquis 2.5 BID FEN PO hydration, <2L Daily BMPs, trend K Na restricted diet Dispo: Telemetry for further monitoring Code Status: DNR/DNI Plan discussed with attending, Dr. Whitney Villalba, PGY1 Visit type - Emergency Visit Emergency Visit: Yes ED Registration Date: 04/28/17 Care time: The patient presented to the Emergency Department on the above date and was hospitalized for further evaluation of their emergent condition. - New Patient This patient is new to me today: Yes Date on this admission: 04/29/17 - Critical Care Critical Care patient: No
[2017-04-28] MEDS ORDERED: ALBUTEROL SO4 2.5/IPRATROPIUM 0.5 INH SOL 3 ML VIAL.NEB. NEB PRN (21:18)
[2017-04-28] MEDS ORDERED: MEMANTINE HCL 5 MG TABLET (UD) PO ONE (21:45)
[2017-04-28] MEDS ORDERED: MIRTAZAPINE 15 MG TABLET (FP) PO ONE (21:45)
[2017-04-28] MEDS ORDERED: MIRTAZAPINE 15 MG TABLET (FP) ONE (21:53)
[2017-04-28] MEDS ORDERED: ACETAMINOPHEN 500 MG TABLET (FP) PO ONE (22:24)
[2017-04-28] MEDS ORDERED: MONTELUKAST NA 10 MG TABLET ONE (23:18)
[2017-04-29] MEDS: MONTELUKAST NA 10 MG TABLET PO SCH ×2 (01:21→22:15)
[2017-04-29] MEDS: APIXABAN 2.5 MG TABLET PO SCH ×3 (01:22→22:15)
[2017-04-29] MEDS ORDERED: LEVOTHYROXINE NA 25 MCG TABLET (FP) ONE ×2 (07:09→09:55)
[2017-04-29 08:15] LABS: ANION GAP 7 (8-16); BLOOD UREA NITROGEN 37 mg/dL (7-18); CALCIUM 8.1 mg/dL (8.5-10.1); CHLORIDE 106 mmol/L (98-107); CO2 25 mmol/L (21-32); GLUCOSE,RANDOM 113 mg/dL (74-106); MAGNESIUM 2.3 mg/dL (1.8-2.4); POTASSIUM 5.3 mmol/L (3.5-5.1); SODIUM 138 mmol/L (136-145)
[2017-04-29 08:19] LABS: ALK PHOS 224 U/L (45-117); BILIRUBIN,TOTAL 0.2 mg/dL (0.2-1.0); CREATININE 1.2 mg/dL (0.55-1.02); PHOSPHOROUS 4.3 mg/dL (2.5-4.9); SGOT/AST 22 U/L (15-37); SGPT/ALT 17 U/L (12-78); TOT PROT 6.1 g/dl (6.4-8.2)
[2017-04-29] MEDS: LEVOTHYROXINE NA 50 MCG TABLET (FP) PO SCH (09:50)
[2017-04-29] MEDS ORDERED: FERROUS SO4 325 MG TABLET (FP) ONE (09:55)
[2017-04-29] MEDS ORDERED: CARVEDILOL 3.125 MG TABLET (FP) ONE (09:55)
[2017-04-29] MEDS ORDERED: FUROSEMIDE 40 MG/4 ML INJECTABLE VIAL ONE (09:56)
[2017-04-29] MEDS ORDERED: predniSONE 20 MG TABLET (UD) PO SCH (10:00)
[2017-04-29] MEDS: FUROSEMIDE 40 MG/4 ML INJECTABLE VIAL IVPUSH SCH (10:11)
[2017-04-29] MEDS: MEMANTINE HCL 5 MG TABLET (UD) PO SCH (11:00)
[2017-04-29] MEDS: CARVEDILOL 3.125 MG TABLET (FP) PO SCH (11:00)
[2017-04-29] MEDS: OSELTAMIVIR PHOSPHATE 30 MG CAPSULE PO SCH ×2 (11:00→22:29)
[2017-04-29] MEDS: FERROUS SO4 325 MG TABLET (FP) PO SCH (11:00)
[2017-04-29 11:55] VITALS: BMI 18.8
[2017-04-29 12:12] LABS: HEMATOCRIT 29.1 % (32.4-45.2); HEMOGLOBIN 9.1 GM/dL (10.7-15.3); MCH 29.8 pg (25.7-33.7); MCHC 31.4 g/dl (32.0-36.0); MEAN PLT VOLUME 7.3 fl (7.5-11.1); PLATELET COUNT 229 K/MM3 (134-434); RBC 3.07 M/mm3 (3.60-5.2); RDW 17.5 % (11.6-15.6)
--- NOTE | 2017-04-29 13:25 | EKG ---
Test Reason : Blood Pressure : / mmHG Vent. Rate : 081 BPM Atrial Rate : 070 BPM P-R Int : 000 ms QRS Dur : 088 ms QT Int : 366 ms P-R-T Axes : 000 001 128 degrees QTc Int : 425 ms ATRIAL FIBRILLATION WITH A COMPETING JUNCTIONAL PACEMAKER LOW VOLTAGE QRS CANNOT RULE OUT ANTERIOR INFARCT (CITED ON OR BEFORE 08-APR-2017) ABNORMAL ECG WHEN COMPARED WITH ECG OF 12-APR-2017 09:32, QT HAS SHORTENED Confirmed by RIMMA ALBERT MD ([id number]) on 04/29/2017 1:25:09 PM Referred By: Confirmed By:RIMMA ALBERT MD
--- NOTE | 2017-04-29 13:28 | EKG ---
Test Reason : Blood Pressure : / mmHG Vent. Rate : 072 BPM Atrial Rate : 227 BPM P-R Int : 000 ms QRS Dur : 084 ms QT Int : 408 ms P-R-T Axes : 000 -17 144 degrees QTc Int : 446 ms ATRIAL FIBRILLATION LOW VOLTAGE QRS ABNORMAL ECG WHEN COMPARED WITH ECG OF 28-APR-2017 16:47, NON-SPECIFIC CHANGE IN ST SEGMENT IN ANTERIOR LEADS T WAVE INVERSION NOW EVIDENT IN ANTERIOR LEADS Confirmed by BETY DURAND, RIMMA ([id number]) on 04/29/2017 1:28:12 PM Referred By: Confirmed By:RIMMA ALBERT MD
[2017-04-29] MEDS: POLYETHYLENE GLYCOL 3350 119 GM BTL PO SCH (13:44)
--- NOTE | 2017-04-29 13:48 | PN ---
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 for recent admission for pneumonia, uti, CHF had a swallowing evaluation prior to discharge and was discharged 04/16 she finished 7 days of ceftriaxone, question of cough/aspiration with thin liquids was raised family reports she has been doing poorly since discharge eating very little and combative she developed a wet cough yesterday and chills in ED found to have fever and +influenza A antigen cxray with bibasilar infiltrates/?effusions- worse then last admission influenza A cannot r/o aspiration pneumonia vancomycin one dose given, continue zosyn continue tamiflu adjusted for CKD ?chf dementia droplet isolation overall prognosis poor d/w family at bedside Problem List - Problems (1) Influenza A Code(s): J10.1 - FLU DUE TO OTH IDENT INFLUENZA VIRUS W OTH RESP MANIFEST (2) Pneumonia Code(s): J18.9 - PNEUMONIA, UNSPECIFIED ORGANISM Qualifiers: Pneumonia type: due to unspecified organism Laterality: left Lung location: lower lobe of lung Qualified Code(s): J18.1 - Lobar pneumonia, unspecified organism
--- NOTE | 2017-04-29 13:53 | CON.CARD ---
Consult Consult Specialty:: Cardiology Referred by:: Hospitalist Medicine Reason for Consultation:: Dyspnea, altered mental status - History of Present Illness Chief Complaint: Dyspnea, altered mental status History of Present Illness: History of Present Illness: Patient is an 86 year old female with history of acute on chronic diastolic heart failure, class II NYHA classification LV failure, hypothyroidism , hypertention, paroxysmal atrial fibrillation on Eliquis recent hospitalization for altered mental status, treated with abx for presumed UTI vs PNA, acute hypoxic respiratory failure and dyspnea referable to CHF and pleural effusions confirmed by chest CT scan, then received diuresis with improvement of sxs now returns with shortness of breath and cough. As per family her NH has experienced a flu A outbreak, poor historian. - History Source History Provided By: Medical Record Limitations to Obtaining History: Clinical Condition - Past Medical History Cardio/Vascular: Yes: CAD, CHF, HTN, SC, Mitral Insufficiency Renal/: Yes: Renal Inusuff Endocrine: Yes: Hypothyroidism - Alcohol/Substance Use Hx Alcohol Use: No - Smoking History Smoking history: Never smoked Have you smoked in the past 12 months: No Home Medications - Allergies Allergies/Adverse Reactions: Allergies Allergy/AdvReac Type Severity Reaction Status Date / Time No Known Allergies Allergy Verified 04/08/17 18:28 - Home Medications Home Medications: Ambulatory Orders Acetaminophen [Tylenol] 650 mg PO BID 04/28/17 Amox-Tr/K Cl [Augmentin - 500Mg Tablet] 1 tab PO BID 04/28/17 Apixaban [Eliquis] 2.5 mg PO BID 04/28/17 Benzocaine/Menthol [Cepacol Sore Throat Lozenge] 1 each MM TID 04/28/17 Carvedilol 3.125 mg PO Q12H 04/28/17 Elastic Bandage [Medigrip] 1 each TP DAILY 04/28/17 Ferrous Sulfate [Feosol] 325 mg PO DAILY 04/28/17 Fluticasone Prop 0.05% Nasal [Flonase -] 1 spray NS BID 04/28/17 Gabapentin 100 mg PO DAILY 04/28/17 Guaifenesin [Cough Syrup] 10 ml PO Q6H PRN 04/28/17 Ipratropium/Albuterol Sulfate [Iprat-Albut 0.5-3(2.5) mg/3 ml] 3 ml IH QID 04/28 Levothyroxine [Synthroid -] 50 mcg PO 0600 04/28/17 Melatonin 1 mg PO DAILY PRN 04/28/17 Memantine HCl [Namenda -] 5 mg PO 1800 04/28/17 Mirtazapine [Remeron Soltab -] 15 mg PO HS 04/28/17 Montelukast Na [Singulair -] 10 mg PO HS 04/28/17 Multivitamin,Ther and Minerals [Vitamin and Minerals] 1 each PO DAILY 04/28/17 Polyethylene Glycol 3350 [Miralax (For Daily Use) -] 17 gm PO DAILY 04/28/17 Prednisone [Deltasone -] 40 mg PO DAILY 04/28/17 Saccharomyces Boulardii [Florastor] 250 mg PO BID 04/28/17 Sennosides [Senna Lax] 2 tab PO HS 04/28/17 Spironolactone 25 mg PO DAILY 04/28/17 Trazodone HCl 25 mg PO BID 04/28/17 Zinc Oxide 20% Topical Oint 454 gm NR DAILY 04/28/17 Family Disease History - Family Disease History Family Disease History: Heart Disease: Mother, CA: Father (Prostate) Review of Systems - Review of Systems Cardiovascular: reports: Shortness of Breath Respiratory: reports: Cough Vital Signs: Vital Signs Temperature 99.2 F 04/29/17 04:53 Pulse Rate 69 04/29/17 11:43 Respiratory Rate 18 04/29/17 11:43 Blood Pressure 112/71 04/29/17 11:43 O2 Sat by Pulse Oximetry (%) 100 04/29/17 04:53 Constitutional: Yes: No Distress, Calm, Thin Neck: Yes: Supple Respiratory: Yes: Regular, On Venti-Mask Gastrointestinal: Yes: Soft, Hypoactive Bowel Sounds Cardiovascular: Yes: Pulse Irregular JVD: No Carotid Bruit: No Heart Sounds: Yes: S1, S2 Murmur: Yes: Systolic Murmur, Grade 2 Edema: No - Other Data Labs, Other Data: CBC, BMP 04/29/17 11:50 04/29/17 06:20 INR, PTT INR 1.83 (0.82-1.09) H D 04/28/17 17:05 Troponin, BNP 04/28/17 04/28/17 04/29/17 17:05 18:49 01:00 Troponin I 0.14 H 0.14 H B-Natriuretic Peptide 01265.50 H Cancelled 04/29/17 06:20 Troponin I 0.13 H B-Natriuretic Peptide Troponin, BNP 04/28/17 04/28/17 04/29/17 17:05 18:49 01:00 Troponin I 0.14 H 0.14 H B-Natriuretic Peptide .50 H Cancelled 04/29/17 06:20 Troponin I 0.13 H B-Natriuretic Peptide AFIB @ 72 Ejection Fraction %: LVEF > or = 40 % Imaging - Results Chest X-ray: Report Reviewed (CXR 04/28 - Interval disease consolidation in the left lower lobe with a small to moderate left pleural effusion and interval atelectatic changes/pneumonia in the right lung base and a small right pleural effusion) Problem List - Problems (1) Anemia of chronic disease Code(s): D63.8 - ANEMIA IN OTHER CHRONIC DISEASES CLASSIFIED ELSEWHERE (2) Influenza A Code(s): J10.1 - FLU DUE TO OTH IDENT INFLUENZA VIRUS W OTH RESP MANIFEST (3) Pleural effusion Code(s): J90 - PLEURAL EFFUSION, NOT ELSEWHERE CLASSIFIED (4) Pneumonia Code(s): J18.9 - PNEUMONIA, UNSPECIFIED ORGANISM Qualifiers: Pneumonia type: due to unspecified organism Laterality: left Lung location: lower lobe of lung Qualified Code(s): J18.1 - Lobar pneumonia, unspecified organism (5) Acute on chronic diastolic CHF (congestive heart failure) Code(s): I50.33 - ACUTE ON CHRONIC DIASTOLIC (CONGESTIVE) HEART FAILURE (6) Acute respiratory failure with hypoxia Code(s): J96.01 - ACUTE RESPIRATORY FAILURE WITH HYPOXIA (7) Chronic anticoagulation Code(s): Z79.01 - RETIREMENT (CURRENT) USE OF ANTICOAGULANTS (8) Demand ischemia Code(s): I24.8 - OTHER FORMS OF ACUTE ISCHEMIC HEART DISEASE (9) Hypertensive cardiomyopathy Code(s): I11.9 - HYPERTENSIVE HEART DISEASE WITHOUT HEART FAILURE; I43 - CARDIOMYOPATHY IN DISEASES CLASSIFIED ELSEWHERE Qualifiers: Heart failure presence: with heart failure Qualified Code(s): I11.0 - Hypertensive heart disease with heart failure; I43 - Cardiomyopathy in diseases classified elsewhere; I43 - Cardiomyopathy in diseases classified elsewhere; I43 - Cardiomyopathy in diseases classified elsewhere; I43 - Cardiomyopathy in diseases classified elsewhere (10) Pleural effusion due to CHF (congestive heart failure) Code(s): I50.9 - HEART FAILURE, UNSPECIFIED (11) Hypothyroid Code(s): E03.9 - HYPOTHYROIDISM, UNSPECIFIED Qualifiers: Hypothyroidism type: unspecified Qualified Code(s): E03.9 - Hypothyroidism , unspecified (12) PAF (paroxysmal atrial fibrillation) Code(s): I48.0 - PAROXYSMAL ATRIAL FIBRILLATION Assessment/Plan 01/07/2017 Echo: Normal LV size and fxn, mod MR, TR, mild-mod AR, RVSP 40-50 mmHg 1. Acute hypoxic respiratory failure 2. Acute on chronic diastolic heart failure - class 2 NYHA classification LV failure with pleural effusions 3. Influenza A, cannot r/o aspiation PNA 3. Hypertension/hypertensive cardiovascular disease 4. Paroxysmal atrial fibrillation currently in sinus rhythm on NOAC 5. CAD with demand ischemic injury 6. Hypothyroidism 7. Anemia 8. CKD with hyperkalemia 9. Toxic metabolic encephalopathy PLAN: 1. Vanco/Zosyn/Tamiflu per ID 2. Continue IV Lasix with monitoring renal function and electrolytes, d/c Aldactone due to hyperkalemia, resume Altace once hyperkalemia resolves 3. Continue Carvedilol 3.125 mg twice a day and Eliquis 2.5 mg BID 4. Thank you for consultative opportunity
[2017-04-29] MEDS ORDERED: PIPERACILLIN/TAZOB 3.375 GM/50 ML PRE-DOCKED IVPB SCH (14:15)
[2017-04-29 14:27] LABS: ARTERIAL BLD GAS O2 SATURATION 97.6 % (90-98.9); ARTERIAL BLOOD GAS PCO2 49.8 mmHg (35-45); ARTERIAL BLOOD GAS pH 7.36 (7.35-7.45)
[2017-04-29 14:29] LABS: ALLENS TEST POSITIVE
--- NOTE | 2017-04-29 14:30 | CONS ---
DATE OF CONSULTATION: DATE OF DICTATION: 04/29/2017 REQUESTED BY: The hospitalist service. HISTORY OF PRESENT ILLNESS: This is an 87-year-old woman with a history of dementia admitted from the custodial. She was recently in the hospital from April 09 to at which time she was treated for pneumonia as well as heart failure. She also had a speech and swallowing evaluation and was felt to have some clinical aspiration with coughing with thin liquids. She was discharged on a soft diet. The family reports she has done poorly at the custodial with very poor appetite and continued lethargy and combativeness. Yesterday she was noted to have a persistent cough. She was found to have a fever and was hypoxic. There is apparently an influenza outbreak at her custodial and she was brought to the hospital. She has been more lethargic over the last 48 hours with worsening appetite. PAST MEDICAL HISTORY: Notable for COPD, CHF, hypothyroidism, dementia, anemia, diverticulosis. She has a history of DJD and COPD and hypothyroidism as well. PAST SURGICAL HISTORY: Notable for colonoscopy in the past. SOCIAL HISTORY: She resides at the custodial. Apparently, her dementia has been very rapid over the course of the last year. There is no history of any cigarette or substance use. FAMILY HISTORY: Notable for asthma and prostate cancer. ALLERGIES: She has no known drug allergies. MEDICATIONS: At the custodial include Augmentin, Tylenol, Eliquis, Cepacol, Coreg, ferrous sulfate, fluticasone, gabapentin, guaifenesin, levothyroxine, melatonin, Namenda, Remeron, prednisone, Senna, spironolactone, trazodone, MiraLAX and multivitamins. REVIEW OF SYSTEMS: Per the family is notable for worsening weakness. She has had a loss of appetite. She has been more lethargic. She has had a chronic cough that has now become moist. PHYSICAL EXAMINATION:General: She is easily arousable. Vital Signs: T-max is 100, current temperature is 99.2, pulse of 69, blood pressure is 112/71, respiratory rate is 18. HEENT: She is normocephalic. Her eyes are anicteric. She has dry mucous membranes in her mouth. Neck: Supple. Lungs: Have crackles at the bases. Heart: Regular rate and rhythm. Abdomen: Soft, nontender. Extremities: Have trace pretibial edema. LABORATORIES: Notable for a white count of 4, hemoglobin 9.1, platelets are 229. BUN is 37 and creatinine is 1.2. She has a troponin of 0.13. Legionella antigen is negative. Influenza antigen is positive. Urine and blood cultures are pending. Chest x-ray reveals cardiomegaly with worsening bibasilar increase in left lower lobe consolidation with a small to moderate left pleural effusion and right basilar airspace disease is present as well. ASSESSMENT AND RECOMMENDATIONS: In summary, this is an 87-year-old woman with influenza A, cannot rule out aspiration pneumonia. She received vancomycin in the emergency room. Would continue Zosyn. Continue Tamiflu adjusted for her CKP. Possible heart failure to be followed by Cardiology as well as dementia. Would maintain droplet isolation as well. Overall prognosis is poor. Case was discussed with the family at length. KAVON RAMACHANDRAN M.D. [id number]
--- NOTE | 2017-04-29 14:39 | PN ---
Physical Exam: SUBJECTIVE: HPI limited due to pt's clinical status. Pt noted to be DNR/DNI from chart. Spoke to Gabriel (son) over phone and he explained how pt had + sick [facility] and became more lethargic after developing a cough. He reaffirms her wishes to be DNR/DNI and states she signed paperwork when competent at the jail. OBJECTIVE: Vital Signs Period Temp Pulse Resp BP Sys/Carr Pulse Ox Last 24 Hr 97.3 F-100.0 F 65-83 16-20 106-119/58-83 93-100 GENERAL: Frail, cachectic elderly woman, somnolent, only alert with sternal rub by opening eyes and falling back to sleep HEENT: JVD noted, pupils reactive to light, sclera anicteric, dry mucous membranes LUNGS: Coarse breath sounds with diffuse wheezing noted. Diminished air entry at the bases. No accessory muscle use. HEART: Irregular rhythm with a normal rate. S1 and S2 present with 2/6 systolic murmur at RUSB. ABDOMEN: Soft nontender, nondistended, hypoactive BS, no guarding, no hepatomegaly, rectus diathesis noted. MUSCULOSKELETAL: No CVA tenderness. EXTREMITIES: 2+ DP pulses, warm, well-perfused, trace edema at ankles NEUROLOGICAL: Could not fully assess. Gait not evaluated. ROBEL. 2+/4 reflexes Laboratory Results - last 24 hr 04/28/17 04/28/17 04/28/17 17:05 17:05 17:05 WBC 4.9 D Corrected WBC (auto) RBC 2.91 L Hgb 8.6 L Hct 27.5 L MCV 94.5 MCH 29.4 MCHC 31.1 L RDW 17.0 H Plt Count 229 MPV 7.6 Neutrophils % 90.1 H D Lymphocytes % 6.8 L D Monocytes % 2.8 L Eosinophils % 0.0 D Basophils % 0.3 Nucleated RBC % Platelet Estimate Platelet Comment PT with INR 20.70 H INR 1.83 H D PTT (Actin FS) 35.5 H Puncture Site ABG pH ABG pCO2 at Pt Temp ABG pO2 at Pt Temp ABG HCO3 ABG O2 Sat (Measured) ABG O2 Content ABG Base Excess Ashish Test VBG pH POC VBG pCO2 POC VBG pO2 Mixed VBG HCO3 O2 Delivery Device Oxygen Flow Rate Vent Mode PEEP Sodium Potassium Chloride Carbon Dioxide Anion Gap BUN Creatinine Creat Clearance w eGFR Random Glucose Lactic Acid Calcium Phosphorus Magnesium Total Bilirubin AST ALT Alkaline Phosphatase Creatine Kinase Troponin I B-Natriuretic Peptide Total Protein Albumin TSH Urine Color Yellow Urine Appearance Slcloudy Urine pH 5.0 Ur Specific [place] 1.015 Urine Protein Negative Urine Glucose (UA) Negative Urine Ketones Negative Urine Blood Negative Urine Nitrite Negative Urine Bilirubin Negative Urine Urobilinogen Negative Ur Leukocyte Esterase Trace H Urine WBC (Auto) 14 Urine RBC (Auto) 7 Ur Epithelial Cells Rare Urine Bacteria Few Hyaline Casts 23 Urine Mucus Rare Urine Yeast Few Blood Type Antibody Screen 04/28/17 04/28/17 04/28/17 17:05 17:05 17:05 WBC Corrected WBC (auto) RBC Hgb Hct MCV MCH MCHC RDW Plt Count MPV Neutrophils % Lymphocytes % Monocytes % Eosinophils % Basophils % Nucleated RBC % Platelet Estimate Platelet Comment PT with INR INR PTT (Actin FS) Puncture Site ABG pH ABG pCO2 at Pt Temp ABG pO2 at Pt Temp ABG HCO3 ABG O2 Sat (Measured) ABG O2 Content ABG Base Excess Ashish Test VBG pH 7.34 POC VBG pCO2 49.6 POC VBG pO2 43.5 D Mixed VBG HCO3 26.3 H O2 Delivery Device Oxygen Flow Rate Vent Mode PEEP Sodium 139 Potassium 5.8 H Chloride 109 H Carbon Dioxide 25 Anion Gap 5 L BUN 36 H Creatinine 0.9 Creat Clearance w eGFR 59.09 Random Glucose 111 H Lactic Acid 0.8 Calcium 7.7 L Phosphorus Magnesium Total Bilirubin 0.2 D AST 27 ALT 17 Alkaline Phosphatase 210 H Creatine Kinase 47 Troponin I 0.14 H B-Natriuretic Peptide 75498.50 H Total Protein 5.6 L Albumin 1.8 L TSH Urine Color Urine Appearance Urine pH Ur Specific [place] Urine Protein Urine Glucose (UA) Urine Ketones Urine Blood Urine Nitrite Urine Bilirubin Urine Urobilinogen Ur Leukocyte Esterase Urine WBC (Auto) Urine RBC (Auto) Ur Epithelial Cells Urine Bacteria Hyaline Casts Urine Mucus Urine Yeast Blood Type Antibody Screen 04/28/17 04/28/17 04/28/17 17:05 18:49 20:08 WBC Corrected WBC (auto) RBC Hgb Hct MCV MCH MCHC RDW Plt Count MPV Neutrophils % Lymphocytes % Monocytes % Eosinophils % Basophils % Nucleated RBC % Platelet Estimate Platelet Comment PT with INR INR PTT (Actin FS) Puncture Site Left radial ABG pH 7.36 ABG pCO2 at Pt Temp 45.4 H ABG pO2 at Pt Temp 116.0 H D ABG HCO3 24.8 ABG O2 Sat (Measured) 98.3 ABG O2 Content 11.7 L ABG Base Excess -0.2 Ashish Test Positive VBG pH POC VBG pCO2 POC VBG pO2 Mixed VBG HCO3 O2 Delivery Device Nasal Oxygen Flow Rate 4 liters Vent Mode PEEP Sodium Potassium Chloride Carbon Dioxide Anion Gap BUN Creatinine Creat Clearance w eGFR Random Glucose Lactic Acid Calcium Phosphorus Magnesium Total Bilirubin AST ALT Alkaline Phosphatase Creatine Kinase Troponin I B-Natriuretic Peptide Cancelled Total Protein Albumin TSH Urine Color Urine Appearance Urine pH Ur Specific [place] Urine Protein Urine Glucose (UA) Urine Ketones Urine Blood Urine Nitrite Urine Bilirubin Urine Urobilinogen Ur Leukocyte Esterase Urine WBC (Auto) Urine RBC (Auto) Ur Epithelial Cells Urine Bacteria Hyaline Casts Urine Mucus Urine Yeast Blood Type A POSITIVE Antibody Screen Negative 04/28/17 04/29/17 04/29/17 22:10 01:00 06:20 WBC Cancelled Corrected WBC (auto) Cancelled RBC Cancelled Hgb Cancelled Hct Cancelled MCV Cancelled MCH Cancelled MCHC Cancelled RDW Cancelled Plt Count Cancelled MPV Cancelled Neutrophils % Cancelled Lymphocytes % Cancelled Monocytes % Cancelled Eosinophils % Cancelled Basophils % Cancelled Nucleated RBC % Cancelled Platelet Estimate Cancelled Platelet Comment Cancelled PT with INR INR PTT (Actin FS) Puncture Site ABG pH ABG pCO2 at Pt Temp ABG pO2 at Pt Temp ABG HCO3 ABG O2 Sat (Measured) ABG O2 Content ABG Base Excess Ashish Test VBG pH POC VBG pCO2 POC VBG pO2 Mixed VBG HCO3 O2 Delivery Device Oxygen Flow Rate Vent Mode PEEP Sodium Potassium Chloride Carbon Dioxide Anion Gap BUN Creatinine Creat Clearance w eGFR Random Glucose Lactic Acid 0.7 Calcium Phosphorus Magnesium Total Bilirubin AST ALT Alkaline Phosphatase Creatine Kinase Troponin I 0.14 H B-Natriuretic Peptide Total Protein Albumin TSH Urine Color Urine Appearance Urine pH Ur Specific [place] Urine Protein Urine Glucose (UA) Urine Ketones Urine Blood Urine Nitrite Urine Bilirubin Urine Urobilinogen Ur Leukocyte Esterase Urine WBC (Auto) Urine RBC (Auto) Ur Epithelial Cells Urine Bacteria Hyaline Casts Urine Mucus Urine Yeast Blood Type Antibody Screen 04/29/17 04/29/17 04/29/17 06:20 06:20 06:20 WBC Corrected WBC (auto) RBC Hgb Hct MCV MCH MCHC RDW Plt Count MPV Neutrophils % Lymphocytes % Monocytes % Eosinophils % Basophils % Nucleated RBC % Platelet Estimate Platelet Comment PT with INR INR PTT (Actin FS) Puncture Site ABG pH ABG pCO2 at Pt Temp ABG pO2 at Pt Temp ABG HCO3 ABG O2 Sat (Measured) ABG O2 Content ABG Base Excess Ashish Test VBG pH POC VBG pCO2 POC VBG pO2 Mixed VBG HCO3 O2 Delivery Device Oxygen Flow Rate Vent Mode PEEP Sodium 138 Potassium 5.3 H Chloride 106 Carbon Dioxide 25 Anion Gap 7 L BUN 37 H Creatinine 1.2 H D Creat Clearance w eGFR 42.40 Random Glucose 113 H Lactic Acid Calcium 8.1 L Phosphorus 4.3 D Magnesium 2.3 Total Bilirubin 0.2 AST 22 ALT 17 Alkaline Phosphatase 224 H Creatine Kinase 37 Troponin I 0.13 H B-Natriuretic Peptide Total Protein 6.1 L Albumin 2.0 L TSH 2.06 D Urine Color Urine Appearance Urine pH Ur Specific [place] Urine Protein Urine Glucose (UA) Urine Ketones Urine Blood Urine Nitrite Urine Bilirubin Urine Urobilinogen Ur Leukocyte Esterase Urine WBC (Auto) Urine RBC (Auto) Ur Epithelial Cells Urine Bacteria Hyaline Casts Urine Mucus Urine Yeast Blood Type Antibody Screen 04/29/17 04/29/17 11:50 14:20 WBC 4.0 Corrected WBC (auto) RBC 3.07 L Hgb 9.1 L Hct 29.1 L MCV 95.0 MCH 29.8 MCHC 31.4 L RDW 17.5 H Plt Count 229 MPV 7.3 L Neutrophils % Lymphocytes % Monocytes % Eosinophils % Basophils % Nucleated RBC % Platelet Estimate Platelet Comment PT with INR INR PTT (Actin FS) Puncture Site Right radial ABG pH 7.36 ABG pCO2 at Pt Temp 49.8 H ABG pO2 at Pt Temp 103.0 H ABG HCO3 27.3 H ABG O2 Sat (Measured) 97.6 ABG O2 Content 11.6 L ABG Base Excess 2.0 Ashish Test Positive VBG pH POC VBG pCO2 POC VBG pO2 Mixed VBG HCO3 O2 Delivery Device Venti Oxygen Flow Rate 35 Vent Mode Venti PEEP 0.0 Sodium Potassium Chloride Carbon Dioxide Anion Gap BUN Creatinine Creat Clearance w eGFR Random Glucose Lactic Acid Calcium Phosphorus Magnesium Total Bilirubin AST ALT Alkaline Phosphatase Creatine Kinase Troponin I B-Natriuretic Peptide Total Protein Albumin TSH Urine Color Urine Appearance Urine pH Ur Specific [place] Urine Protein Urine Glucose (UA) Urine Ketones Urine Blood Urine Nitrite Urine Bilirubin Urine Urobilinogen Ur Leukocyte Esterase Urine WBC (Auto) Urine RBC (Auto) Ur Epithelial Cells Urine Bacteria Hyaline Casts Urine Mucus Urine Yeast Blood Type Antibody Screen Active Medications Generic Name Dose Route Start Last Admin Trade Name Freq PRN Reason Stop Dose Admin Albuterol/Ipratropium 1 amp 04/28/17 21:18 Duoneb - NEB Q6H PRN SHORTNESS OF BREATH Apixaban 2.5 mg 04/28/17 22:00 04/29/17 11:00 Eliquis - PO 2.5 mg BID ANGELINE Administration Carvedilol 3.125 mg 04/29/17 10:00 04/29/17 11:00 Coreg - PO 3.125 mg DAILY ANGELINE Administration Ferrous Sulfate 325 mg 04/29/17 10:00 04/29/17 11:00 Feosol - PO 325 mg DAILY ANGELINE Administration Furosemide 40 mg 04/29/17 10:00 04/29/17 10:11 Lasix Injection - IVPUSH 40 mg DAILY ANGELINE Administration Levothyroxine Sodium 50 mcg 04/29/17 06:00 04/29/17 09:50 Synthroid - PO 50 mcg DAILY@0600 ANGELINE Administration Memantine 5 mg 04/29/17 10:00 04/29/17 11:00 Namenda - PO 5 mg DAILY ANGELINE Administration Montelukast Sodium 10 mg 04/28/17 22:00 04/29/17 01:21 Singulair - PO 10 mg HS ANGELINE Administration Oseltamivir Phosphate 30 mg 04/29/17 10:00 04/29/17 11:00 Tamiflu - PO 05/04/17 09:59 30 mg BID ANGELINE Administration Piperacillin Sod/Tazobactam Sod 3.375 gm 04/29/17 14:15 Zosyn 3.375gm Ivpb (Pre-Docked) IVPB Q8H [facility] Protocol Polyethylene Glycol 17 gm 04/29/17 10:00 04/29/17 13:44 Miralax (For Daily Use) - PO Not Given DAILY [facility] ASSESSMENT/PLAN: 86 F with h/o dementiat, anemia, afib, dCHF, COPD admitted for flu infection due to flu outbreak in jail. 1) Acute on chronic hypoxic respiratory distress --2/2 to volume overload and flue --Flu A +; cultures negative --ID on board: received dose of Zosyn (if pt's cultures remains negative can d/c Zosyn tomorrow) --Continue Tamiflu 30mg BID x5 days --Continue droplet precautions --Duonebs ANGELINE q6h --SpO2 titrated to >90% 2) Diastolic CHF --Echo with EF 59% from 01/2017 --D/C Aldactone --Start lasix 40mg IVP qdaily --Cardiology on board 3) Hyperkalemia --2/2 to Aldactone use highly likely --No EKG findings from ED --Received Kayexalate in ED with one BM --Continue trending 4) Elevated troponin --Continue to trend --Most likely due to demand ischemia from acute infectious picture 5) Atrial Fibrillation --Continue Eliquis 2.5mg BID --Currently rate controlled --Continue home medication FEN: fluids: None currently; pt hypervolemic Electrolyte abnormalities: Hyperkalemia as above Nutrition: NPO currently due to lethargy PPX: DVT - already on home Eliquis Case discussed with Dr. Eduardo Munoz, DO - IM PGY-1 Visit type - Emergency Visit Emergency Visit: No - New Patient This patient is new to me today: No - Critical Care Critical Care patient: No
--- NOTE | 2017-04-29 15:53 | PN ---
Teaching Attending Note Name of Resident: Gabriel Munoz ATTENDING PHYSICIAN STATEMENT I saw and evaluated the patient. I reviewed the resident's note and discussed the case with the resident. I agree with the resident's findings and plan as documented. SUBJECTIVE:c/o non productive cough. denies CP, fever, chills OBJECTIVE: Last Vital Signs Temp Pulse Resp BP Pulse Ox 97.3 F L 65 20 119/71 100 04/29/17 14:30 04/29/17 14:30 04/29/17 14:30 04/29/17 14:30 04/29/17 04:53 General NAD, lethargic but easily arrousable CV S1 S2 irregular Lungs coarse breath sounds with decreased breath sounds at bases Abdomen soft NT/ND Extremities LLE trace pitting edema RLE no edema ASSESSMENT AND PLAN: 86 yof with dementia, anemia, afib, dCHF, MIKE, COPD, DJD spine, hypothyroid, diverticulosis, recent admission for diastolic CHF, admitted with cough with Flu A outbreak at SNF. 1. Acute on chronic hypoxia respiratory distress- due to volume overload, PNA and +flu A- currently on bipap. repeat ABG to evaluate if retaining. on Zosyn/ vanco and Tamiflu. ID consulted. droplet precautions. nebs RTC. titrate oxygen requirements 2. Acute on chronic diastolic CHF-clinically volume overload. B/L effusions on CXR. on lasix 40mg IVP daily. strict I&O, daily weights. will likely have to d/ c spironlactone as not tolerating. consult cardio 3. Hyperkalemia- likely spironlactone. improving with lasix. no peaked T waves. s/p kayexylate in the ER. will monitor for now. d/c spirolactone 4. Troponin leak-persistent flat trend of tropinemia. same as previous admission. no indication for further workup. cardio on board 5. [id number] from volume overload. monitor. avoid nephrotoxic meds. hold IVF 6. Afib- rate controlled. cont current home medications. on reduced dose eliquis 7. Dementia 8. DVT ppx- eliquis 9. DNR/DNI. poor overall prognosis. spoke with daughter present at bedside. all questions answered. verbalized understanding and agreement with plan
[2017-04-29] MEDS: PIPERACILLIN/TAZOB 3.375 GM 3.375 GM in DEXTROSE 5%-WATER - 100 ML IVPB SCH (22:29)
[2017-04-30] MEDS: PIPERACILLIN/TAZOB 3.375 GM 3.375 GM in DEXTROSE 5%-WATER - 100 ML IVPB SCH ×3 (02:35→19:30)
[2017-04-30] MEDS: LEVOTHYROXINE NA 50 MCG TABLET (FP) PO SCH (06:27)
--- NOTE | 2017-04-30 07:36 | PN ---
Progress Note, Physician Chief Complaint: ID Elderly female NAD Doesnt respond verbal stimuli Sats 100% Zosyn & Oseltamavir - Current Medication List Current Medications: Active Medications Albuterol/Ipratropium (Duoneb -) 1 amp NEB Q6H PRN PRN Reason: SHORTNESS OF BREATH Apixaban (Eliquis -) 2.5 mg PO BID [facility] Last Admin: 04/29/17 22:15 Dose: 2.5 mg Carvedilol (Coreg -) 3.125 mg PO DAILY [facility] Last Admin: 04/29/17 11:00 Dose: 3.125 mg Ferrous Sulfate (Feosol -) 325 mg PO DAILY [facility] Last Admin: 04/29/17 11:00 Dose: 325 mg Furosemide (Lasix Injection -) 40 mg IVPUSH DAILY [facility] Last Admin: 04/29/17 10:11 Dose: 40 mg Piperacillin Sod/Tazobactam (Sod 3.375 gm/ Dextrose) 100 mls @ 200 mls/hr IVPB Q8H-IV [facility] Last Admin: 04/30/17 02:35 Dose: 200 mls/hr Levothyroxine Sodium (Synthroid -) 50 mcg PO DAILY@0600 [facility] Last Admin: 04/30/17 06:27 Dose: 50 mcg Memantine (Namenda -) 5 mg PO DAILY [facility] Last Admin: 04/29/17 11:00 Dose: 5 mg Montelukast Sodium (Singulair -) 10 mg PO HS [facility] Last Admin: 04/29/17 22:15 Dose: 10 mg Oseltamivir Phosphate (Tamiflu -) 30 mg PO BID [facility] Stop: 05/04/17 09:59 Last Admin: 04/29/17 22:29 Dose: 30 mg Polyethylene Glycol (Miralax (For Daily Use) -) 17 gm PO DAILY [facility] Last Admin: 04/29/17 13:44 Dose: Not Given - Objective Vital Signs: Vital Signs Temperature 98.2 F 04/30/17 06:00 Pulse Rate 64 04/30/17 06:00 Respiratory Rate 20 04/30/17 06:00 Blood Pressure 104/71 04/30/17 06:00 O2 Sat by Pulse Oximetry (%) 98 04/29/17 21:00 Constitutional: Yes: Thin Neck: Yes: WNL, Supple Cardiovascular: Yes: Regular Rate and Rhythm, S1, S2. No: Murmur Respiratory: Yes: WNL, Regular, CTA Bilaterally. No: Rhonchi Gastrointestinal: Yes: WNL, Normal Bowel Sounds, Soft. No: Tenderness, Tenderness, Epigastrium Edema: No Labs: CBC, BMP 04/29/17 11:50 04/29/17 06:20 INR, PTT INR 1.83 (0.82-1.09) H D 04/28/17 17:05 Assessment/Plan Microbiology 04/28/17 21:40 Urine - Urine Clean Catch Legionella Antigen - Final 04/28/17 21:40 Urine - Urine Clean Catch Streptococcus pneumoniae Antigen ( M - Final 04/28/17 17:05 Nasopharyngeal Swab Influenza Types A,B Antigen (ERIKA) - Final 04/28/17 17:05 Nasopharyngeal Swab - Final 04/28/17 17:05 Blood - Peripheral Venous Blood Culture - Preliminary NO GROWTH OBTAINED AFTER 24 HOURS, INCUBATION TO CONTINUE FOR 4 DAYS. Laboratory Tests 04/28/17 04/29/17 04/29/17 17:05 06:20 11:50 WBC 4.0 Hgb 9.1 L Hct 29.1 L Plt Count 229 INR 1.83 H D Creatinine 1.2 H D AST 22 Assessment INFLUENZA A COPD Respiratory distress Congestive heart failure Plan Continue current antibiotics today IF cultures negative will stop Zosyn by tomorrow Gustavo DURAND
[2017-04-30 09:27] LABS: BASO % 0.2 % (0-2.0); EOS % 0.2 % (0-4.5); HEMATOCRIT 28.9 % (32.4-45.2); LYMPH % 15.6 % (8-40); MCH 29.5 pg (25.7-33.7); MCHC 31.2 g/dl (32.0-36.0); MEAN CELL VOLUME 94.4 fl (80-96); MEAN PLT VOLUME 7.4 fl (7.5-11.1); MONO % 14.2 % (3.8-10.2); NEUT % 69.8 % (42.8-82.8); PLATELET COUNT 206 K/MM3 (134-434); RBC 3.07 M/mm3 (3.60-5.2); WHITE BLOOD COUNT 6.9 K/mm3 (4.0-10.0)
[2017-04-30 09:44] LABS: ANION GAP 4 (8-16); BLOOD UREA NITROGEN 39 mg/dL (7-18); CALCIUM 7.7 mg/dL (8.5-10.1); CHLORIDE 106 mmol/L (98-107); CO2 31 mmol/L (21-32); CREATININE 1.1 mg/dL (0.55-1.02); GLUCOSE,RANDOM 82 mg/dL (74-106); MAGNESIUM 2.1 mg/dL (1.8-2.4); POTASSIUM 4.9 mmol/L (3.5-5.1); SODIUM 141 mmol/L (136-145)
[2017-04-30] MEDS ORDERED: PT OWN MED DRAWER 7, Y5N ONE (11:17)
[2017-04-30] MEDS: APIXABAN 2.5 MG TABLET PO SCH ×2 (11:20→22:45)
[2017-04-30] MEDS: FERROUS SO4 325 MG TABLET (FP) PO SCH (11:20)
[2017-04-30] MEDS: CARVEDILOL 3.125 MG TABLET (FP) PO SCH (11:20)
[2017-04-30] MEDS: MEMANTINE HCL 5 MG TABLET (UD) PO SCH (11:21)
[2017-04-30] MEDS: OSELTAMIVIR PHOSPHATE 30 MG CAPSULE PO SCH ×2 (11:22→22:45)
[2017-04-30] MEDS: FUROSEMIDE 40 MG/4 ML INJECTABLE VIAL IVPUSH SCH (11:22)
--- NOTE | 2017-04-30 11:57 | PN ---
Progress Note, Physician History of Present Illness: More interactive today, remains on 40% VM. - Current Medication List Current Medications: Active Medications Albuterol/Ipratropium (Duoneb -) 1 amp NEB Q6H PRN PRN Reason: SHORTNESS OF BREATH Apixaban (Eliquis -) 2.5 mg PO BID [facility] Last Admin: 04/30/17 11:20 Dose: 2.5 mg Carvedilol (Coreg -) 3.125 mg PO DAILY [facility] Last Admin: 04/30/17 11:20 Dose: 3.125 mg Ferrous Sulfate (Feosol -) 325 mg PO DAILY [facility] Last Admin: 04/30/17 11:20 Dose: 325 mg Furosemide (Lasix Injection -) 40 mg IVPUSH DAILY [facility] Last Admin: 04/30/17 11:22 Dose: 40 mg Piperacillin Sod/Tazobactam (Sod 3.375 gm/ Dextrose) 100 mls @ 200 mls/hr IVPB Q8H-IV [facility] Last Admin: 04/30/17 02:35 Dose: 200 mls/hr Levothyroxine Sodium (Synthroid -) 50 mcg PO DAILY@0600 [facility] Last Admin: 04/30/17 06:27 Dose: 50 mcg Memantine (Namenda -) 5 mg PO DAILY [facility] Last Admin: 04/30/17 11:21 Dose: 5 mg Montelukast Sodium (Singulair -) 10 mg PO HS [facility] Last Admin: 04/29/17 22:15 Dose: 10 mg Oseltamivir Phosphate (Tamiflu -) 30 mg PO BID [facility] Stop: 05/04/17 09:59 Last Admin: 04/30/17 11:22 Dose: 30 mg Polyethylene Glycol (Miralax (For Daily Use) -) 17 gm PO DAILY [facility] Last Admin: 04/29/17 13:44 Dose: Not Given - Objective Vital Signs: Vital Signs Temperature 97.8 F 04/30/17 10:00 Pulse Rate 78 04/30/17 10:00 Respiratory Rate 20 04/30/17 10:00 Blood Pressure 90/60 04/30/17 10:00 O2 Sat by Pulse Oximetry (%) 98 04/29/17 21:00 Constitutional: Yes: No Distress, Calm, Thin Neck: Yes: Supple Cardiovascular: Yes: Pulse Irregular, Murmur (2/6 SM) Respiratory: Yes: Regular, Diminished, On Venti-Mask Gastrointestinal: Yes: Soft, Hypoactive Bowel Sounds Edema: No Labs: CBC, BMP 04/30/17 08:30 04/30/17 08:30 INR, PTT INR 1.83 (0.82-1.09) H D 04/28/17 17:05 - ....Imaging EKG: Report Reviewed (Rate-controlled afib) Problem List - Problems (1) Anemia of chronic disease Code(s): D63.8 - ANEMIA IN OTHER CHRONIC DISEASES CLASSIFIED ELSEWHERE (2) Influenza A Code(s): J10.1 - FLU DUE TO OTH IDENT INFLUENZA VIRUS W OTH RESP MANIFEST (3) Pleural effusion Code(s): J90 - PLEURAL EFFUSION, NOT ELSEWHERE CLASSIFIED (4) Pneumonia Code(s): J18.9 - PNEUMONIA, UNSPECIFIED ORGANISM Qualifiers: Pneumonia type: due to unspecified organism Laterality: left Lung location: lower lobe of lung Qualified Code(s): J18.1 - Lobar pneumonia, unspecified organism (5) Acute on chronic diastolic CHF (congestive heart failure) Code(s): I50.33 - ACUTE ON CHRONIC DIASTOLIC (CONGESTIVE) HEART FAILURE (6) Acute respiratory failure with hypoxia Code(s): J96.01 - ACUTE RESPIRATORY FAILURE WITH HYPOXIA (7) Chronic anticoagulation Code(s): Z79.01 - VACCINE CUSTOMER REPRESENTATIVE (CURRENT) USE OF ANTICOAGULANTS (8) Demand ischemia Code(s): I24.8 - OTHER FORMS OF ACUTE ISCHEMIC HEART DISEASE (9) Hypertensive cardiomyopathy Code(s): I11.9 - HYPERTENSIVE HEART DISEASE WITHOUT HEART FAILURE; I43 - CARDIOMYOPATHY IN DISEASES CLASSIFIED ELSEWHERE Qualifiers: Heart failure presence: with heart failure Qualified Code(s): I11.0 - Hypertensive heart disease with heart failure; I43 - Cardiomyopathy in diseases classified elsewhere; I43 - Cardiomyopathy in diseases classified elsewhere; I43 - Cardiomyopathy in diseases classified elsewhere; I43 - Cardiomyopathy in diseases classified elsewhere (10) Pleural effusion due to CHF (congestive heart failure) Code(s): I50.9 - HEART FAILURE, UNSPECIFIED (11) Hypothyroid Code(s): E03.9 - HYPOTHYROIDISM, UNSPECIFIED Qualifiers: Hypothyroidism type: unspecified Qualified Code(s): E03.9 - Hypothyroidism , unspecified (12) PAF (paroxysmal atrial fibrillation) Code(s): I48.0 - PAROXYSMAL ATRIAL FIBRILLATION Assessment/Plan 01/07/2017 Echo: Normal LV size and fxn, mod MR, TR, mild-mod AR, RVSP 40-50 mmHg 04/29/2017 Echo: Normal LV and RV size and fxn, mod-severe TR RVSP 40-50 mmHg, mod MR, pleural effusion 1. Acute hypoxic respiratory failure 2. Acute on chronic diastolic heart failure - class 2 NYHA classification LV failure with pleural effusions 3. Influenza A, cannot r/o aspiration PNA 4. Hypertension/hypertensive cardiovascular disease 5. Paroxysmal atrial fibrillation on NOAC 6. CAD with demand ischemic injury 7. Hypothyroidism 8. Anemia 9. CKD with hyperkalemia improved 10. Toxic metabolic encephalopathy improving PLAN: 1. Vanco/Zosyn/Tamiflu per ID, f/u C&S, wean FIO2 to maintain saO2>90% 2. Continue IV Lasix with monitoring diuretic response, renal function and electrolytes, d/c Aldactone due to hyperkalemia, resume Altace once hyperkalemia resolves 3. Continue Carvedilol 3.125 mg twice a day and Eliquis 2.5 mg BID
--- NOTE | 2017-04-30 12:49 | PN ---
Teaching Attending Note Name of Resident: Gabriel Munoz ATTENDING PHYSICIAN STATEMENT I saw and evaluated the patient. I reviewed the resident's note and discussed the case with the resident. I agree with the resident's findings and plan as documented. SUBJECTIVE:asymptomatic. denies Cp, SOB, fever, chills, N/V/C/D OBJECTIVE: Last Vital Signs Temp Pulse Resp BP Pulse Ox 97.8 F 55 L 20 101/53 98 04/30/17 10:00 04/30/17 12:00 04/30/17 12:00 04/30/17 12:00 04/29/17 21:00 Intake & Output 04/27/17 04/28/17 04/29/17 04/30/17 23:59 23:59 23:59 23:59 Intake Total 200 Output Total 1000 300 Balance -1000 -100 Weight 106 lb 110 lb 114 lb 1 oz General NAD, CV S1 S2 irregular Lungs coarse breath sounds with decreased breath sounds at bases Abdomen soft NT/ND Extremities LLE trace pitting edema RLE no edema ASSESSMENT AND PLAN: 86 yof with dementia, anemia, afib, dCHF, MIKE, COPD, DJD spine, hypothyroid, diverticulosis, recent admission for diastolic CHF, admitted with cough with Flu A outbreak at SNF. 1. Acute on chronic hypoxia respiratory distress- due to volume overload, PNA and +flu A- saturating well on 40% face mask. abx switched to Zosyn and Tamiflu day 2. droplet precautions. nebs RTC. titrate oxygen requirements 2. Acute on chronic diastolic CHF-originally weight was stated by patient and not measured. cont lasix 40mg IV. strict I&O, daily weights. consult cardio 3. Hyperkalemia- likely spironlactone.resolved 4. Troponin leak-persistent flat trend of tropinemia. same as previous admission. no indication for further workup. cardio on board 5. [id number] from volume overload. monitor. avoid nephrotoxic meds. hold IVF 6. Afib- rate controlled. cont current home medications. on reduced dose eliquis 7. Dementia 8. DVT ppx- eliquis 9. DNR/DNI. poor overall prognosis.
[2017-04-30] MEDS: POLYETHYLENE GLYCOL 3350 119 GM BTL PO SCH (13:53)
--- NOTE | 2017-04-30 16:03 | PN ---
Physical Exam: SUBJECTIVE: HPI continues to be limited. Pt is more alert compared to yesterday and responds to palpation. Pt however will only mumble. No events noted overnight nor seen on monitor OBJECTIVE: Vital Signs Period Temp Pulse Resp BP Sys/Carr Pulse Ox Last 24 Hr 97.4 F-98.4 F 55-78 20-20 90-115/50-71 92-98 GENERAL: Frail, cachectic elderly woman, somnolent, yet increased alertness with palpation, will mumble words HEENT: No JVD, pupils reactive to light, sclera anicteric, moist mucous membranes LUNGS: CTA bilaterally. Diminished breath sounds towards costophrenic angles. No accessory muscle use. HEART: Irregular rhythm with a normal rate. S1 and S2 present with 2/6 systolic murmur at RUSB. ABDOMEN: Soft nontender, nondistended, normoactive BS, no guarding, no hepatomegaly, rectus diathesis noted. MUSCULOSKELETAL: No CVA tenderness. EXTREMITIES: 2+ DP pulses, warm, well-perfused, trace edema at ankles NEUROLOGICAL: Could not fully assess. Gait not evaluated. ROBEL. 2+/4 reflexes Laboratory Results - last 24 hr 04/30/17 04/30/17 08:30 08:30 WBC 6.9 D RBC 3.07 L Hgb 9.0 L Hct 28.9 L MCV 94.4 MCH 29.5 MCHC 31.2 L RDW 17.0 H Plt Count 206 MPV 7.4 L Neutrophils % 69.8 D Lymphocytes % 15.6 D Monocytes % 14.2 H D Eosinophils % 0.2 D Basophils % 0.2 Sodium 141 Potassium 4.9 Chloride 106 Carbon Dioxide 31 D Anion Gap 4 L BUN 39 H Creatinine 1.1 H Random Glucose 82 D Calcium 7.7 L Magnesium 2.1 Active Medications Generic Name Dose Route Start Last Admin Trade Name Freq PRN Reason Stop Dose Admin Albuterol/Ipratropium 1 amp 04/28/17 21:18 Duoneb - NEB Q6H PRN SHORTNESS OF BREATH Apixaban 2.5 mg 04/28/17 22:00 04/30/17 11:20 Eliquis - PO 2.5 mg BID ANG[facility]INE Administration Carvedilol 3.125 mg 04/29/17 10:00 04/30/17 11:20 Coreg - PO 3.125 mg DAILY ANG[facility]INE Administration Ferrous Sulfate 325 mg 04/29/17 10:00 04/30/17 11:20 Feosol - PO 325 mg DAILY [facility] Administration Furosemide 40 mg 04/29/17 10:00 04/30/17 11:22 Lasix Injection - IVPUSH 40 mg DAILY [facility] Administration Piperacillin Sod/Tazobactam 100 mls @ 200 mls/hr 04/29/17 16:45 04/30/17 14: 04 Sod 3.375 gm/ Dextrose IVPB 200 mls/hr Q8H-IV [facility] Administration Levothyroxine Sodium 50 mcg 04/29/17 06:00 04/30/17 06:27 Synthroid - PO 50 mcg DAILY@0600 [facility] Administration Memantine 5 mg 04/29/17 10:00 04/30/17 11:21 Namenda - PO 5 mg DAILY [facility] Administration Montelukast Sodium 10 mg 04/28/17 22:00 04/29/17 22:15 Singulair - PO 10 mg HS [facility]INE Administration Oseltamivir Phosphate 30 mg 04/29/17 10:00 04/30/17 11:22 Tamiflu - PO 05/04/17 09:59 30 mg BID [facility]INE Administration Polyethylene Glycol 17 gm 04/29/17 10:00 04/30/17 13:53 Miralax (For Daily Use) - PO Not Given DAILY [facility] ASSESSMENT/PLAN: 86 F with h/o dementiat, anemia, afib, dCHF, COPD admitted for flu infection due to flu outbreak in longterm. 1) Acute on chronic hypoxic respiratory distress --2/2 to volume overload and flu --Flu A +; cultures remain negative --ID on board; can d/c Zosyn tomorrow due to lack of leukocytosis and fevers; continue Tamiflu --Continue Tamiflu 30mg BID x5 days total --Continue droplet precautions --Duonebs ANGELINE q6h --SpO2 titrated to >90% 2) Diastolic CHF --Echo with EF 59% from 01/2017 --Continue lasix 40mg IVP qdaily --Pt continues to have good sawyer output --Continue to monitor --Cardiology on board 3) Hyperkalemia --2/2 to Aldactone use highly likely --Currently 4.9 --Continue to trend --No EKG findings from ED --Received Kayexalate in ED with one BM 4) Elevated troponin --Downtrending troponins --No need to continue trend --Most likely due to demand ischemia from acute infectious picture 5) Atrial Fibrillation --Continue Eliquis 2.5mg BID --Currently rate controlled --Continue home medication FEN: Fluids: None currently Electrolyte abnormalities: Hyperkalemia as above Nutrition: NPO currently due to lethargy PPX: DVT - already on home Eliquis Case discussed with Dr. Eduardo Munoz, DO - IM PGY-1 Visit type - Emergency Visit Emergency Visit: No - New Patient This patient is new to me today: No - Critical Care Critical Care patient: No
[2017-04-30] MEDS: MONTELUKAST NA 10 MG TABLET PO SCH (22:45)
[2017-05-01] MEDS ORDERED: PT OWN MED DRAWER 7, Y5N ONE (01:25)
[2017-05-01] MEDS: PIPERACILLIN/TAZOB 3.375 GM 3.375 GM in DEXTROSE 5%-WATER - 100 ML IVPB SCH (02:06)
[2017-05-01] MEDS: LEVOTHYROXINE NA 50 MCG TABLET (FP) PO SCH (06:52)
[2017-05-01 07:04] VITALS: PULSE 66
--- NOTE | 2017-05-01 08:04 | PN ---
Progress Note, Physician Chief Complaint: ID Oseltamavir & Pip Tazobactam day 3 More alert today - Current Medication List Current Medications: Active Medications Albuterol/Ipratropium (Duoneb -) 1 amp NEB Q6H PRN PRN Reason: SHORTNESS OF BREATH Apixaban (Eliquis -) 2.5 mg PO BID [facility] Last Admin: 04/30/17 22:45 Dose: 2.5 mg Carvedilol (Coreg -) 3.125 mg PO DAILY [facility] Last Admin: 04/30/17 11:20 Dose: 3.125 mg Ferrous Sulfate (Feosol -) 325 mg PO DAILY [facility] Last Admin: 04/30/17 11:20 Dose: 325 mg Furosemide (Lasix Injection -) 40 mg IVPUSH DAILY [facility] Last Admin: 04/30/17 11:22 Dose: 40 mg Piperacillin Sod/Tazobactam (Sod 3.375 gm/ Dextrose) 100 mls @ 200 mls/hr IVPB Q8H-IV [facility] Last Admin: 05/01/17 02:06 Dose: 200 mls/hr Levothyroxine Sodium (Synthroid -) 50 mcg PO DAILY@0600 [facility] Last Admin: 05/01/17 06:52 Dose: 50 mcg Memantine (Namenda -) 5 mg PO DAILY [facility] Last Admin: 04/30/17 11:21 Dose: 5 mg Montelukast Sodium (Singulair -) 10 mg PO HS [facility] Last Admin: 04/30/17 22:45 Dose: 10 mg Oseltamivir Phosphate (Tamiflu -) 30 mg PO BID [facility] Stop: 05/04/17 09:59 Last Admin: 04/30/17 22:45 Dose: 30 mg Polyethylene Glycol (Miralax (For Daily Use) -) 17 gm PO DAILY [facility] Last Admin: 04/30/17 13:53 Dose: Not Given - Objective Vital Signs: Vital Signs Temperature 97.2 F L 05/01/17 06:00 Pulse Rate 66 05/01/17 06:00 Respiratory Rate 17 05/01/17 06:00 Blood Pressure 106/47 05/01/17 06:00 O2 Sat by Pulse Oximetry (%) 100 05/01/17 06:00 Constitutional: No: No Distress Cardiovascular: Yes: Regular Rate and Rhythm, S1, S2 Respiratory: Yes: WNL, Regular, CTA Bilaterally, Wheezes. No: Rales Gastrointestinal: Yes: Soft. No: Tenderness Edema: No Labs: CBC, BMP 04/30/17 08:30 04/30/17 08:30 INR, PTT INR 1.83 (0.82-1.09) H D 04/28/17 17:05 Assessment/Plan Microbiology 04/28/17 21:40 Urine - Urine Clean Catch Legionella Antigen - Final 04/28/17 21:40 Urine - Urine Clean Catch Streptococcus pneumoniae Antigen ( M - Final 04/28/17 17:05 Urine - Urine - Catheterized Urine Culture - Final Streptococcus Viridans 04/28/17 17:05 Nasopharyngeal Swab Influenza Types A,B Antigen (ERIKA) - Final 04/28/17 17:05 Nasopharyngeal Swab - Final 04/28/17 17:05 Blood - Peripheral Venous Blood Culture - Preliminary NO GROWTH OBTAINED AFTER 48 HOURS, INCUBATION TO CONTINUE FOR 3 DAYS. 04/28/17 17:05 Blood - Peripheral Venous Blood Culture - Preliminary NO GROWTH OBTAINED AFTER 48 HOURS, INCUBATION TO CONTINUE FOR 3 DAYS. Laboratory Tests 04/30/17 04/30/17 08:30 08:30 WBC 6.9 D Hgb 9.0 L Hct 28.9 L Plt Count 206 BUN 39 H Creatinine 1.1 H Assessment Influenza A Doing better Plan Will stop Zosyn and continue current therapy Tamiflu Kindly recall as needed Gustavo DURAND
[2017-05-01 09:36] LABS: ANION GAP 3 (8-16); BLOOD UREA NITROGEN 37 mg/dL (7-18); CALCIUM 7.9 mg/dL (8.5-10.1); CHLORIDE 104 mmol/L (98-107); CO2 34 mmol/L (21-32); GLUCOSE,RANDOM 72 mg/dL (74-106); POTASSIUM 4.1 mmol/L (3.5-5.1); SODIUM 141 mmol/L (136-145)
[2017-05-01] MEDS ORDERED: MULTIVITAMINS (DAILY MVI) TABLET (FP) PO SCH (10:00)
[2017-05-01] MEDS: FERROUS SO4 325 MG TABLET (FP) PO SCH (10:05)
[2017-05-01] MEDS: CARVEDILOL 3.125 MG TABLET (FP) PO SCH (10:05)
[2017-05-01] MEDS: OSELTAMIVIR PHOSPHATE 30 MG CAPSULE PO SCH (10:05)
[2017-05-01] MEDS: FUROSEMIDE 40 MG/4 ML INJECTABLE VIAL IVPUSH SCH (10:05)
[2017-05-01] MEDS: APIXABAN 2.5 MG TABLET PO SCH (10:05)
[2017-05-01] MEDS: MEMANTINE HCL 5 MG TABLET (UD) PO SCH (10:06)
[2017-05-01 10:42] VITALS: BP 93/55; TEMP 98.2
--- NOTE | 2017-05-01 11:28 | PN ---
Progress Note, Physician History of Present Illness: More interactive today, baseline sensorium, comfortable on NC. - Current Medication List Current Medications: Active Medications Albuterol/Ipratropium (Duoneb -) 1 amp NEB Q6H PRN PRN Reason: SHORTNESS OF BREATH Amino Acids (Prosource No Carb Liquid Pkt) 30 ml PO BID@0800,1730 [facility] Apixaban (Eliquis -) 2.5 mg PO BID [facility] Last Admin: 05/01/17 10:05 Dose: 2.5 mg Carvedilol (Coreg -) 3.125 mg PO DAILY [facility] Last Admin: 05/01/17 10:05 Dose: 3.125 mg Ferrous Sulfate (Feosol -) 325 mg PO DAILY [facility] Last Admin: 05/01/17 10:05 Dose: 325 mg Furosemide (Lasix Injection -) 40 mg IVPUSH DAILY [facility] Last Admin: 05/01/17 10:05 Dose: 40 mg Levothyroxine Sodium (Synthroid -) 50 mcg PO DAILY@0600 [facility] Last Admin: 05/01/17 06:52 Dose: 50 mcg Memantine (Namenda -) 5 mg PO DAILY [facility] Last Admin: 05/01/17 10:06 Dose: 5 mg Montelukast Sodium (Singulair -) 10 mg PO HS [facility] Last Admin: 04/30/17 22:45 Dose: 10 mg Multivitamins/Minerals/Vitamin C (Tab-A-Vit -) 1 tab PO DAILY [facility] Oseltamivir Phosphate (Tamiflu -) 30 mg PO BID [facility] Stop: 05/04/17 09:59 Last Admin: 05/01/17 10:05 Dose: 30 mg Polyethylene Glycol (Miralax (For Daily Use) -) 17 gm PO DAILY [facility] Last Admin: 04/30/17 13:53 Dose: Not Given - Objective Vital Signs: Vital Signs Temperature 98.2 F 05/01/17 10:00 Pulse Rate 66 05/01/17 10:00 Respiratory Rate 18 05/01/17 10:00 Blood Pressure 93/55 05/01/17 10:00 O2 Sat by Pulse Oximetry (%) 99 05/01/17 10:00 Constitutional: Yes: No Distress, Calm, Thin Neck: Yes: Supple Cardiovascular: Yes: Pulse Irregular Respiratory: Yes: Regular, Diminished, On Nasal O2 Gastrointestinal: Yes: Normal Bowel Sounds, Soft Edema: No Labs: CBC, BMP 04/30/17 08:30 05/01/17 08:50 INR, PTT INR 1.83 (0.82-1.09) H D 04/28/17 17:05 - ....Imaging EKG: Report Reviewed (Tele: Slow afib) Problem List - Problems (1) Anemia of chronic disease Code(s): D63.8 - ANEMIA IN OTHER CHRONIC DISEASES CLASSIFIED ELSEWHERE (2) Influenza A Code(s): J10.1 - FLU DUE TO OTH IDENT INFLUENZA VIRUS W OTH RESP MANIFEST (3) Pleural effusion Code(s): J90 - PLEURAL EFFUSION, NOT ELSEWHERE CLASSIFIED (4) Pneumonia Code(s): J18.9 - PNEUMONIA, UNSPECIFIED ORGANISM Qualifiers: Pneumonia type: due to unspecified organism Laterality: left Lung location: lower lobe of lung Qualified Code(s): J18.1 - Lobar pneumonia, unspecified organism (5) Acute on chronic diastolic CHF (congestive heart failure) Code(s): I50.33 - ACUTE ON CHRONIC DIASTOLIC (CONGESTIVE) HEART FAILURE (6) Acute respiratory failure with hypoxia Code(s): J96.01 - ACUTE RESPIRATORY FAILURE WITH HYPOXIA (7) Chronic anticoagulation Code(s): Z79.01 - LONGTERM (CURRENT) USE OF ANTICOAGULANTS (8) Demand ischemia Code(s): I24.8 - OTHER FORMS OF ACUTE ISCHEMIC HEART DISEASE (9) Hypertensive cardiomyopathy Code(s): I11.9 - HYPERTENSIVE HEART DISEASE WITHOUT HEART FAILURE; I43 - CARDIOMYOPATHY IN DISEASES CLASSIFIED ELSEWHERE Qualifiers: Heart failure presence: with heart failure Qualified Code(s): I11.0 - Hypertensive heart disease with heart failure; I43 - Cardiomyopathy in diseases classified elsewhere; I43 - Cardiomyopathy in diseases classified elsewhere; I43 - Cardiomyopathy in diseases classified elsewhere; I43 - Cardiomyopathy in diseases classified elsewhere (10) Pleural effusion due to CHF (congestive heart failure) Code(s): I50.9 - HEART FAILURE, UNSPECIFIED (11) Hypothyroid Code(s): E03.9 - HYPOTHYROIDISM, UNSPECIFIED Qualifiers: Hypothyroidism type: unspecified Qualified Code(s): E03.9 - Hypothyroidism , unspecified (12) PAF (paroxysmal atrial fibrillation) Code(s): I48.0 - PAROXYSMAL ATRIAL FIBRILLATION Assessment/Plan 01/07/2017 Echo: Normal LV size and fxn, mod MR, TR, mild-mod AR, RVSP 40-50 mmHg 04/29/2017 Echo: Normal LV and RV size and fxn, mod-severe TR RVSP 40-50 mmHg, mod MR, pleural effusion 1. Acute hypoxic respiratory failure 2. Acute on chronic diastolic heart failure - class 2 NYHA classification LV failure with pleural effusions 3. Influenza A, cannot r/o aspiration PNA 4. Hypertension/hypertensive cardiovascular disease 5. Paroxysmal atrial fibrillation on NOAC 6. CAD with demand ischemic injury 7. Hypothyroidism 8. Anemia 9. CKD with hyperkalemia improved 10. Toxic metabolic encephalopathy improving PLAN: 1. Tamiflu course per ID, wean FIO2 to maintain saO2>90% 2. Change Lasix 40 qd with monitoring diuretic response, renal function and electrolytes, d/c Aldactone due to hyperkalemia, resume Altace once hyperkalemia resolves 3. Continue Carvedilol 3.125 mg twice a day and Eliquis 2.5 mg BID
--- NOTE | 2017-05-01 12:21 | PN ---
Teaching Attending Note Name of Resident: Gabriel Munoz ATTENDING PHYSICIAN STATEMENT I saw and evaluated the patient. I reviewed the resident's note and discussed the case with the resident. I agree with the resident's findings and plan as documented. SUBJECTIVE:asymptomatic. denies SOB, cough, chills, fever, N/V/C/D OBJECTIVE: Last Vital Signs Temp Pulse Resp BP Pulse Ox 98.2 F 66 18 93/55 99 05/01/17 10:00 05/01/17 10:00 05/01/17 10:00 05/01/17 10:00 05/01/17 10:00 Intake & Output 04/28/17 04/29/17 04/30/17 05/01/17 23:59 23:59 23:59 23:59 Intake Total 370 140 Output Total 1000 950 700 Balance -1000 -580 -560 Weight 106 lb 110 lb 114 lb 1 oz 110 lb 1.6 oz General NAD, CV S1 S2 irregular Lungs increase air entry, decreased left base Abdomen soft NT/ND Extremities no pitting edema ASSESSMENT AND PLAN: 86 yof with dementia, anemia, afib, dCHF, MIKE, COPD, DJD spine, hypothyroid, diverticulosis, recent admission for diastolic CHF, admitted with cough with Flu A outbreak at SNF. 1. Acute on chronic hypoxia respiratory distress- due to volume overload, PNA and +flu A- saturating well on 2L NC. can d/c zosyn as all cx are negative. on tamiflu day 3. can complete antiviral therapy x5days total. 2. Acute on chronic diastolic CHF- at baseline weight 110lbs. will switch lasix to 40mg po daily. hold spirolactone. strict I&O, daily weights. consult cardio 3. Hyperkalemia- likely spironlactone.resolved 4. Troponin leak-persistent flat trend of tropinemia. same as previous admission. no indication for further workup. cardio on board 5. [id number] from volume overload. monitor. avoid nephrotoxic meds. resolvd 6. Afib- rate controlled. cont current home medications. on reduced dose eliquis 7. Dementia 8. DVT ppx- eliquis 9. DNR/DNI. poor overall prognosis. medically optimized can d/c to SNF today. spoke with cardio whom agrees with plan
[2017-05-01] MEDS: POLYETHYLENE GLYCOL 3350 119 GM BTL PO SCH (13:01)
--- NOTE | 2017-05-01 14:41 | DS ---
Physical Exam: SUBJECTIVE: Pt alert to verbal stimulus and freely talking. Pt reports no fever/ chills, no CP/discomfort, no abdominal pain. HPI slightly limited due to her dementia however. Pt son agrees that she is at baseline. OBJECTIVE: Vital Signs Period Temp Pulse Resp BP Sys/Carr Pulse Ox Last 24 Hr 97.2 F-98.8 F 66-71 16-20 88-106/47-69 95-100 PHYSICAL EXAM GENERAL: NAD, awake, alert, and oriented to self (baseline) HEENT: NC/AT, no jvd, EOMI, ROBEL, sclera anicteric LUNGS: CTA bilaterally, no wheezes, rhonchi, rales. No accessory muscle use. HEART: RRR, S1, S2 with 2/6 systolic ejection murmur ABDOMEN: Soft, nontender, nondistended, normoactive bowel sounds, no guarding, no hepatomegaly EXTREMITIES: 2+ DP pulses, warm, well-perfused, no edema. NEUROLOGICAL: Cranial nerves II through XII grossly intact. Normal speech, gait not observed. SKIN: Warm, dry, no rashes or lesions noted. LABS Laboratory Results - last 24 hr 05/01/17 08:50 Sodium 141 Potassium 4.1 Chloride 104 Carbon Dioxide 34 H Anion Gap 3 L BUN 37 H Creatinine 1.0 Random Glucose 72 L Calcium 7.9 L Microbiology 04/28/17 17:05 Blood - Peripheral Venous Blood Culture - Preliminary NO GROWTH OBTAINED AFTER 48 HOURS, INCUBATION TO CONTINUE FOR 3 DAYS. 04/28/17 17:05 Blood - Peripheral Venous Blood Culture - Preliminary NO GROWTH OBTAINED AFTER 48 HOURS, INCUBATION TO CONTINUE FOR 3 DAYS. 04/28/17 17:05 Urine - Urine - Catheterized Urine Culture - Final Streptococcus Viridans 04/28/17 21:40 Urine - Urine Clean Catch Legionella Antigen - Final 04/28/17 21:40 Urine - Urine Clean Catch Streptococcus pneumoniae Antigen ( M - Final 04/28/17 17:05 Nasopharyngeal Swab Influenza Types A,B Antigen (ERIKA) - Final 04/28/17 17:05 Nasopharyngeal Swab - Final HOSPITAL COURSE: Date of Admission:04/28/17 Date of Discharge: 05/01/17 Pt was hospitalized on 04/28/17 for a Flu A infection due to an outbreak at her care home. While pt was here she was started on Tamiflu BID and started on Zosyn for a suspected PNA. Pt had blood cultures drawn and urine cultures drawn as above. Pt was also found to have hyperkalemia 2/2 to her Aldactone use. Pt had her aldactone discontinued and received one dose of kayexalate in the ED with proper resolution of her hyperkalemia. Pt began to improve and had her Zosyn discontinued due to low suspicion of bacterial infection. She was seen by a human factors specialist who recommended stopping her aldactone and continuing lasix 40mg qDaily. Pt is being discharged back to her care home in stable condition and instructions to continue her lasix 40mg qdaily for her diastolic CHF. Minutes to complete discharge: 36 Discharge Summary Reason For Visit: COLD Current Active Problems Acute on chronic diastolic CHF (congestive heart failure) (Acute) Acute respiratory failure with hypoxia (Acute) Edema (Acute) Influenza A (Acute) Anemia of chronic disease (Chronic) Condition: Guarded - Instructions Diet, Activity, Other Instructions: RECOMMENDATIONS --You were hospitalized because of a flu infection --You were also found to have a high potassium level mostly due to one of your medications, Aldactone MEDICATION CHANGES --Please STOP your aldactone (also known as Spironolactone) --You should start Lasix 40mg ONCE per day --You will also be given 2 more days worth of Tamiflu 30mg TWICE per day to take --This medication is to help get over your flu infection faster FOLLOW-UPS --Please be sure to follow-up with the care home doctors in regards to your general health --At the care home, they should follow your electrolyte levels and your kidney function due to the medications that you are on --You should see a human factors specialist to follow with your congestive heart dysfunction Referrals: STAFF,NOT ON [Primary Care Provider] - Amish Chamberlain MD [Staff Physician] - [facility] - Home Medications Comprehensive Discharge Medication List: Ambulatory Orders Apixaban [Eliquis] 2.5 mg PO BID 04/28/17 Benzocaine/Menthol [Cepacol Sore Throat Lozenge] 1 each MM TID 04/28/17 Carvedilol 3.125 mg PO Q12H 04/28/17 Elastic Bandage [Medigrip] 1 each TP DAILY 04/28/17 Ferrous Sulfate [Feosol] 325 mg PO DAILY 04/28/17 Fluticasone Prop 0.05% Nasal [Flonase -] 1 spray NS BID 04/28/17 Gabapentin 100 mg PO DAILY 04/28/17 Guaifenesin [Cough Syrup] 10 ml PO Q6H PRN 04/28/17 Ipratropium/Albuterol Sulfate [Iprat-Albut 0.5-3(2.5) mg/3 ml] 3 ml IH QID 04/28 Levothyroxine [Synthroid -] 50 mcg PO 0600 04/28/17 Melatonin 1 mg PO DAILY PRN 04/28/17 Memantine HCl [Namenda -] 5 mg PO 1800 04/28/17 Mirtazapine [Remeron Soltab -] 15 mg PO HS 04/28/17 Montelukast Na [Singulair -] 10 mg PO HS 04/28/17 Multivitamin,Ther and Minerals [Vitamin and Minerals] 1 each PO DAILY 04/28/17 Polyethylene Glycol 3350 [Miralax 119 gm Btl -] 17 gm PO DAILY 04/28/17 Saccharomyces Boulardii [Florastor] 250 mg PO BID 04/28/17 Sennosides [Senna Lax] 2 tab PO HS 04/28/17 Trazodone HCl 25 mg PO BID 04/28/17 Zinc Oxide 20% Topical Oint 454 gm NR DAILY 04/28/17 Acetaminophen [Tylenol] 650 mg PO BID PRN #30 tablet 05/01/17 Furosemide [Lasix -] 40 mg PO DAILY #30 tablet 05/01/17 Oseltamivir Phosphate [Tamiflu -] 30 mg PO BID 2 Days capsule 05/01/17 This patient is new to me today: No Emergency Visit: No Critical Care patient: No - Discharge Referral Referred to [facility] Med [facility].: No
[2017-05-01] MEDS ORDERED: AMINO ACIDS/PROTEIN HYDROLYS 30 ML LIQUID.PKT PO SCH (17:30)
[2017-05-02] MEDS ORDERED: FUROSEMIDE 40 MG TABLET (FP) PO SCH (10:00)
== END 2017-05-01 19:21 | DRG 291 ==
LOC: JER 15:33 → JERBED 22:37 → J2W 04-29 11:48
PROVIDERS: ADMIT Internal Medicine; ATTEND Internal Medicine
DX: I13.0 Hypertensive heart and chronic kidney disease with heart failure and stage 1 through stage 4 chronic kidney disease, or unspecified chronic kidney disease (principal); J11.00 Influenza due to unidentified influenza virus with unspecified type of pneumonia; J96.21 Acute and chronic respiratory failure with hypoxia; I50.33 Acute on chronic diastolic (congestive) heart failure; G92 Toxic encephalopathy; N17.9 Acute kidney failure, unspecified; R64 Cachexia; Z68.1 Body mass index [BMI] 19.9 or less, adult; I24.8 Other forms of acute ischemic heart disease; Z66 Do not resuscitate; J44.9 Chronic obstructive pulmonary disease, unspecified; E03.9 Hypothyroidism, unspecified; K57.30 Diverticulosis of large intestine without perforation or abscess without bleeding; D63.8 Anemia in other chronic diseases classified elsewhere; E86.0 Dehydration; E87.5 Hyperkalemia; Z79.01 Long term (current) use of anticoagulants; F03.90 Unspecified dementia, unspecified severity, without behavioral disturbance, psychotic disturbance, mood disturbance, and anxiety; Z99.3 Dependence on wheelchair; M19.90 Unspecified osteoarthritis, unspecified site; Z51.89 Encounter for other specified aftercare; N18.9 Chronic kidney disease, unspecified; I48.0 Paroxysmal atrial fibrillation; I25.10 Atherosclerotic heart disease of native coronary artery without angina pectoris; B95.3 Streptococcus pneumoniae as the cause of diseases classified elsewhere; I36.1 Nonrheumatic tricuspid (valve) insufficiency; I34.0 Nonrheumatic mitral (valve) insufficiency
CPT/HCPCS: 36415; 36600; 71010-TC; 80048; 80053; 81003; 81015; 82550; 82803; 83605; 83735; 83880; 84100; 84443; 84484; 85025; 85027; 85610; 85730; 86850; 86900; 86901; 87040; 87086; 87804; 87899; 93005; 93010; 93306-TC; 99285-25